=== PATIENT | male | born 1935 | race Caucasian/White ===

== ENCOUNTER → 2016-07-04 | Outpatient (REF) | payer MEDICARE ==
[~2016-07-04] MED LIST: BROV15NE IN; BUDE0.5S6 INH; ECOT81TA2 PO; FELO5TAB3 PO; IPRAINH INH; IPRASOL4 IN; LISI-538 PO; PRED5TA PO; PROTPAK PO; TYLE325T5 PO; XANA0.5T PO
[2016-07-04 17:38] LABS: PERCENT SATURATION 42.3 % (19.7-37.4)
== END ==
LOC: M LAB REF 16:22
PROVIDERS: ATTEND Internal Medicine
DX: D64.9 Anemia, unspecified (principal)

== ENCOUNTER 2016-09-04 18:00 | Inpatient (IN) | payer MEDICARE ==
[~2016-09-04] VITALS: Ht 172.7 cm; Wt 71.9 kg
[~2016-09-04 18:00] MED LIST changes: -BROV15NE IN; +BROV15NE INH; -ECOT81TA2 PO; +ECOT81TA5 PO
[2016-09-04] MEDS ORDERED: ONDANSETRON 4MG/2ML VIAL (J2405) IV ONE (19:45)
[2016-09-04] MEDS ORDERED: NS 500 ML IV ONE (19:45)
[2016-09-04 20:31] LABS: ALBUMIN/GLOBULIN RATIO 0.86 (1.00-1.93); BILIRUBIN,DIRECT 0.2 MG/DL (0.0-0.2); BILIRUBIN,TOTAL 0.8 MG/DL (0.2-1.0); CALCIUM LEVEL 8.4 MG/DL (8.8-10.2); CREATININE FOR GFR 1.69 MG/DL (0.70-1.30); GLOMERULAR FILTRATION RATE 41.5 (>35); POTASSIUM SERUM 4.1 MEQ/L (3.5-5.1); TOTAL PROTEIN 6.5 GM/DL (6.4-8.2)
[2016-09-04 20:39] LABS: BASO # 0.1 K/mm3 (0.0-0.2); BASO % 0.3 % (0.0-1.0); EOS % 0.2 % (0.0-3.0); LARGE UNSTAINED CELL # 0.1 K/mm3 (0.0-0.4); LARGE UNSTAINED CELL % 0.6 % (0.0-4.0); LYMPH # 0.5 K/mm3 (1.5-4.5); LYMPH % 2.4 % (24.0-44.0); MEAN CORPUSCULAR VOLUME 83.9 fl (80.0-96.0); MONO # 1.2 K/mm3 (0.0-0.8); MONO % 5.6 % (0.0-5.0); NEUTROPHILS # 19.5 K/mm3 (1.8-7.7); NEUTROPHILS % 90.8 % (36.0-66.0); PLATELET COUNT, AUTOMATED 207 k/mm3 (150-450); RED CELL DISTRIBUTION WIDTH 13.4 % (11.5-14.5); WHITE BLOOD COUNT 21.5 K/mm3 (4.0-10.0)
[2016-09-04] MEDS ORDERED: NS 1,000 ML IV ONE (20:45)
--- NOTE | 2016-09-04 22:50 | REPUSA ---
CLINICAL HISTORY: chest pain, abdominal pain, and THIAGO. TECHNIQUE: Multiple axial CT images were obtained through the abdomen and pelvis without administrat ion of oral or IV contrast material. COMMENTS: The liver is of uniform attenuation without mass or defect. There is no intra or extrahepatic biliar y ductal dilatation. The spleen is normal. Gallbladder is distended. There is evidence of inflamma tory stranding adjacent to the gallbladder. Acute cholecystitis is not excluded. Further evaluation is made with right upper quadrant ultrasound. There is colostomy noted in the left lower quadrant. Status post abdominal hernia repair. The pancreas is of normal contour and attenuation characterist ics. There is no evidence of adrenal mass. The kidneys are normal in size, shape and configuration. No renal or ureteral calculi are identified . There is no hydroureter or hydronephrosis. Several large exophytic cysts are present in the left kidney some containing wall calcifications. This measures up to 5 cm. There is no evidence for appendicitis. There is no bowel wall thickening. No evidence for small or large bowel obstruction. There is no evidence of abdominal ascites or lymphadenopathy. There is no evidence of intrinsic or extrinsic bladder mass. There is no pelvic ascites or lymphaden opathy. Prostate gland is moderately enlarged containing calcifications. Images of the lung bases show no evidence of pleural or parenchymal mass. There are no pleural effus ions. Bilateral lower lobe confluent opacities are present, suspicious for pneumonia. Pacemaker edi ds are noted. The bony structures are free of lytic or blastic lesions. IMPRESSION: 1. Gallbladder is distended. There is evidence of inflammatory stranding adjacent to the gallbladder . Acute cholecystitis is not excluded. Further evaluation is made with right upper quadrant ultraso und. 2. Several large exophytic cysts are present in the left kidney some containing wall calcifications. This measures up to 5 cm. 3. Prostate gland is moderately enlarged containing calcifications. 4. Bilateral lower lobe confluent opacities are present, suspicious for pneumonia. Thank you for your kind referral of this patient. We appreciate the opportunity to participate in thi s patient's care.
--- NOTE | 2016-09-04 23:10 | REPUSA ---
CLINICAL HISTORY: Chest pain, abdominal pain. TECHNIQUE: Multiple axial CT images were obtained through chest without IV contrast material. COMMENTS: Pacemaker is present in the left chest wall, tips in the right atrium and right ventricle. Opacities are present at both lung bases. Pneumonia is suspected. Bilateral calcified hilar lymph nodes are seen. 5 mm nodule is noted in the right upper lobe. Small hiatal hernia is present. There is no evidence of pleural or parenchymal-based mass. There are no pleural effusions. There is no evidence of hilar or mediastinal lymphadenopathy. The heart and great vessels are within normal limits. The visualized portions of the liver are of uniform attenuation without mass or defect. There is no intra or extrahepatic biliary ductal dilatation. The spleen is unremarkable. The visualized pancrea s is of normal contour and attenuation characteristics. There is no evidence of adrenal mass. The v isualized portions of the kidneys present no abnormalities. The bony structures are free of lytic or blastic lesions. Multilevel degenerative changes are seen i nvolving the thoracic spine. Scattered calcifications are seen involving the aorta and visualized grisel or branches compatible with atherosclerosis. IMPRESSION: Opacities are present at both lung bases. Pneumonia is suspected. 5 mm nodule is noted in the right upper lobe. Small hiatal hernia is present. Thank you for your kind referral of this patient. We appreciate the opportunity to participate in thi s patient's care.
[2016-09-04] MEDS ORDERED: IMIPENEM/CILASTATIN 500 MG in D5W MINI-BAG PLUS 100 ML IV ONE (23:30)
--- NOTE | 2016-09-05 01:10 | REPUSA ---
CLINICAL HISTORY: RUQ pain. TECHNIQUE: Realtime sonographic images were obtained in multiple projections. COMMENTS: The visualized liver is of uniform echo texture without evidence of mass or defect. There is no intra or extrahepatic biliary ductal dilatation. The common bile duct measures 5.5 mm. The gallbladder is distended containing multiple calculi. The gallbladder wall is thickened at gallbladder neck measurin g 5.3 mm and there is no pericholecystic fluid. The right kidney measures 11.1x4.8x5 cm. There is a cyst in the lower pole of the right kidney measur ing 1.6x1.6x2.6 cm. The visualized portions of the pancreas are unremarkable. IMPRESSION: Cholelithiasis. Thickening of the floor of the gallbladder at the level of the neck suspicious for mild inflammatory pathology. Thank you for your kind referral of this patient.
[2016-09-05] MEDS ORDERED: PROT1TAB2 PO (02:19)
[2016-09-05] MEDS ORDERED: ASPI81TAEC PO (02:22)
[2016-09-05] MEDS ORDERED: ALBU17IN2 INH (02:22)
[2016-09-05] MEDS ORDERED: ALBU83IN INH (02:22)
[2016-09-05] MEDS ORDERED: IPRATROPIUM 0.5MG/ALBUTEROL 2.5MG INH SOL UD 3ML (DUONEB)(J7620) NEB ONE (03:15)
[2016-09-05 03:28] VITALS: O2SAT 94
[2016-09-05] MEDS ORDERED: IPRATROPIUM 0.5MG/ALBUTEROL 2.5MG INH SOL UD 3ML (DUONEB)(J7620) NEB PRN (03:45)
[2016-09-05] MEDS ORDERED: ACETAMINOPHEN TAB 650MG DOSE (2X325MG) PO PRN ×2 (03:45)
[2016-09-05] MEDS ORDERED: ONDANSETRON 4MG/2ML VIAL (J2405) IV PRN (03:45)
[2016-09-05] MEDS ORDERED: PERCOCET 5MG/325MG TAB PO PRN (03:45)
[2016-09-05] MEDS ORDERED: ALBUTEROL SULFATE 2.5 MG/0.5 ML INH NEB SOLN INH PRN (03:45)
--- NOTE | 2016-09-05 03:50 | REPUSA ---
CLINICAL HISTORY: Edema. COMMENTS: Real time sonography with duplex doppler of the right lower extremity was performed with attention to the major deep venous structures. Evaluation reveals the right common femoral, superficial femoral and popliteal veins to be completely compressible without intraluminal thrombus. There is normal spontaneous phasic flow and augmentation . The greater saphenous/common femoral vein junction is patent. IMPRESSION: No evidence of DVT in right lower extremity. Thank you for your kind referral of this patient.
[2016-09-05 04:45] VITALS: BP 117/61
--- NOTE | 2016-09-05 04:55 | HPE ---
DATE OF ADMISSION: 09/05/2016 PRIMARY CARE PROVIDER: Dr. Mason Reed DIGITAL RETOUCHER: Dr. David Ovalle UROLOGIST: Dr. Sang Cullen HISTORY OF PRESENT ILLNESS: The patient is an 81-year-old man who had a cystoscopy for lower urinary tract symptoms a week ago. He had the procedure without complications and was in his usual state of health for the two days following the procedure, but shortly thereafter he began to have cough, shortness of breath he associates with back pain. The patient gives confusing history. He also tells me that he at the same time is having right upper quadrant abdominal pain which sometimes radiates around his previous ostomy site. The patient states that food irritates his abdomen. He denies associated chest pain, lightheadedness, or dizziness. The patient has had a coughing fit today which provoked him to have one episode of vomiting which prompted him to present to the emergency room. PAST MEDICAL HISTORY: 1. Colon cancer status post colon resection. 2. Diverticulitis with diverticular abscess. 3. Iron deficiency anemia. 4. Gastritis. 5. Hypertension. 6. Hypertensive heart disease. 7. Asthma. 8. Sinus reactive airway disease. 9. 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 10. Atrioventricular (AV) block status post pacemaker placement. 11. Gastroesophageal reflux disease. 12. Insomnia. PAST SURGICAL HISTORY: 1. Sigmoid colectomy with colostomy. 2. Appendectomy. 3. Cystoscopy. ALLERGIES: 1. CEPHALOSPORIN gives him hives. 2. CONTRAST MEDIA he has an allergy to as well. SOCIAL HISTORY: He is a nonsmoker. 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 He denies alcohol. He lives with his . FAMILY HISTORY: Noncontributory. REVIEW OF SYSTEMS: Negative other than history of present illness (HPI). HOME MEDICATIONS: - Proventil 167 two puffs inhaled four times a day as needed for shortness of breath - prednisone 5 mg daily - arformoterol tartrate (Brovana) 50 mcg nebulizer inhaled twice a day - acetaminophen 650 mg every four hours as needed pain - albuterol sulfate 2 mg four times a day as needed for shortness of breath - Xanax 0.5 mg twice a day as needed for insomnia - aspirin 81 mg daily - budesonide nebulizer 0.5 mg inhaled twice a day - lisinopril 20 mg daily - pantoprazole 40 mg daily PHYSICAL EXAMINATION: Temperature 99.2, pulse 69, respiratory rate 18, blood pressure 111/56, oxygen saturation 94% in room air. GENERAL: He was a pleasant, elderly, man sitting up on the stretcher. He tells me that is feeling better. He does not appear to be in any acute distress. HEENT: Cranial nerves II-XII appear to be grossly intact. He has fairly dry mucous membranes. No elevation of central venous pressure (CVP). CARDIOVASCULAR: S1, S2, regular. RESPIRATORY EXAM: He has a prolonged expiratory phase. No appreciable wheeze. No poor air movement. Diminished breath sounds. No focal auscultatory abnormalities. ABDOMEN: Obese. Past surgical scars. Peñaloza's sign is positive on the right. EXTREMITIES: No clubbing or cyanosis. He has 1+ edema on the right lower extremity. LABORATORY STUDIES: WBC 21.5, hemoglobin 12.1, hematocrit 39.1, platelet count is 207. Chemistry panel: Sodium 143, potassium 4.1, chloride 109, bicarbonate 27, BUN 24, creatinine 1.6. I do not have recent data, but I suspect that his baseline is closer is to 1.4. He has a CK of 214 and an equivocal troponin of 0.16, lipase within normal limits. Two sets of blood cultures are pending. IMAGING: The patient had a CT scan of the chest that reveals opacities present at both lung bases, pneumonia suspected. Small hiatal hernia. 5 mm pulmonary nodule in the right upper lobe. Patient also had a CT scan of the abdomen and pelvis which revealed gallbladder distended, evidence of inflammatory stranding adjacent to the gallbladder, acute cholecystitis unexcluded. Further evaluation with right upper quadrant ultrasound of the gallbladder which revealed thickening of the gallbladder, thickening of the floor of the gallbladder and neck suspicious for mild inflammatory process. ASSESSMENT AND PLAN: This is an 81-year-old man presenting with respiratory and abdominal symptoms suspicious for pneumonia. 1. Multifocal pneumonia. The patient is not febrile, not tachycardic. He does have a low-grade temperature. Given that his BUN is up somewhat and his advanced age, we will empirically treat him with imipenem which was provided in the emergency room. We will check polymerase chain reaction (PCR) panel to rule out any viral infections, and blood cultures have been drawn. 2. Asthma, reactive airway disease. Given his exam and multifocal pneumonia, I am more concerned for reactive airway disease, I will provide him with Solu-Medrol IV and nebulizer treatments. He is currently hypoxic requiring oxygen, which is new for him. 3. Biliary colic. Patient does not appear to have an acute cholecystitis. He does have a positive Peñaloza's sign and CT findings suggestive of this and focal inflammation; however, his alkaline phosphatase is within normal limits. His one episode of vomiting is more likely related to profuse coughing. I will keep him nothing by mouth and will consider clear liquid diet tomorrow. If his symptoms were to worsen and not improve, could consider general surgery consultation. 4. Troponinemia. Will admit him to the progressive care unit (PCU) and check an echocardiogram and trend his cardiac enzymes. He would likely benefit from outpatient stress testing. 5. Right lower extremity edema. We will check a duplex of the lower extremity. He tells me that his right leg sometimes swells up more than the other. He did not provide me with a duration of time for these symptoms which have occurred. His right leg is edematous while the left leg is not. 6. Hypertension. Hold his lisinopril given that he is likely having some acute kidney injury. 7. Acute kidney injury. Although we are unsure what his baseline is, I suspect that it is approximately 1.4. We will provide him with normal saline while he is nothing by mouth. 8. Gastroesophageal reflux disease. Continue with Protonix. 9. Insomnia. Continue with Xanax as needed. 10. Deep vein thrombosis (DVT) prophylaxis. The patient will be on heparin. DISPOSITION: The patient is admitted to the progressive care unit to Dr. Quintana's service who will continue to follow the patient at 7 a.m.
[2016-09-05] MEDS: NS 1,000 ML IV SCH ×2 (04:56→17:42)
[2016-09-05] MEDS: IMIPENEM/CILASTATIN 500 MG in D5W MINI-BAG PLUS 100 ML IV SCH ×4 (05:09→23:56)
[2016-09-05] MEDS: methylPREDNISolone INJ 125 MG/2 ML VIAL (J2930) IV SCH ×3 (05:09→21:46)
[2016-09-05 05:15] LABS: MEAN CORPUSCULAR HEMOGLOBIN 26.6 pg (27.0-33.0); MEAN CORPUSCULAR HGB CONC 31.2 g/dl (32.0-36.5); MEAN CORPUSCULAR VOLUME 85.3 fl (80.0-96.0); RED CELL DISTRIBUTION WIDTH 13.5 % (11.5-14.5); WHITE BLOOD COUNT 24.8 K/mm3 (4.0-10.0)
[2016-09-05 05:44] LABS: CALCIUM LEVEL 8.2 MG/DL (8.8-10.2); CREATININE FOR GFR 1.64 MG/DL (0.70-1.30); GLOMERULAR FILTRATION RATE 42.9 (>35); POTASSIUM SERUM 4.3 MEQ/L (3.5-5.1)
[2016-09-05 08:00] VITALS: BP 100/55
[2016-09-05] MEDS: PANTOPRAZOLE 40MG TAB (PROTONIX) PO SCH (08:14)
[2016-09-05] MEDS: ASPIRIN 81 MG ENTERIC TAB PO SCH (08:14)
[2016-09-05] MEDS: HEPARIN SOD (PORCINE) 5000 UNITS/ML VIAL SC SCH ×2 (08:15→21:46)
[2016-09-05] MEDS: BUDESONIDE 0.5 MG/2 ML INHALATION SUSPENSION INH SCH ×2 (08:19→19:53)
[2016-09-05] MEDS: IPRATROPIUM 0.5MG/ALBUTEROL 2.5MG INH SOL UD 3ML (DUONEB)(J7620) NEB SCH ×3 (08:19→19:53)
[2016-09-05] MEDS ORDERED: LISINOPRIL 20 MG TAB PO SCH (09:00)
--- NOTE | 2016-09-05 09:59 | ECGEPIP ---
Stationary ECG Study [facility] - ED Test Date: 2016-09-04 Pat Name: MASTER FREEMAN Department: Room: [place] [address] Gender: M [employer] Representative: deion : 1935 Requested By: TORI Ha Order Number: [id number] Reading MD: Rachelle White Measurements Intervals Mack Rate: 106 P: 73 [place]: 156 QRS: -80 QRSD: 157 T: 88 QT: 394 QTc: 525 Interpretive Statements ELECTRONIC VENTRICULAR PACEMAKER ABNORMAL RHYTHM ECG Electronically Signed On 09-05-2016 9:05:46 EDT by Rachelle White
--- NOTE | 2016-09-05 11:30 | ED PDOC ---
Provider Note radiology report faxed to Rachelle Kaufman MD Sep 05, 2016 11:30
[2016-09-05 12:00] VITALS: BP 104/55
[2016-09-05 16:00] VITALS: BP 100/55
[2016-09-05 20:00] VITALS: BP 106/55
--- NOTE | 2016-09-05 20:44 | CR ---
DATE OF CONSULTATION: 09/05/2016 REFERRING PHYSICIAN: Hiro Quintana MD INDICATION: Elevated troponin. HISTORY OF PRESENT ILLNESS: Mr. Altamirano is known to me. He is a very pleasant 81-year-old man who has a history of paroxysmal atrial fibrillation, status post pacemaker placement, but no established coronary artery disease. He presented to [facility] on 09/04/2016 after several hour episode of abdominal pain, nausea, vomiting. He said that his symptoms started on Sunday night. He went to the restaurant with his and had a hotdog and lithuanian fries. Apparently he did not like the meal very much and ate only very little. About approximately 30-45 minutes later when they were shopping he started developing fairly severe abdominal pain. The pain was principally localized in the suprapubic area and in both lower quadrants. It was steady. It did not have colicky character, but shortly thereafter started radiating towards the left upper quadrant around his colostomy site and then to his back. He said that he decided to go to car and wait for his there, but it was difficult even to lean against the seat with his back because it was triggering painful sensation. Shortly thereafter he started to have chills and eventually he had to have his drive him home because he was not able to drive himself. When he got home the symptoms slightly abated, but then came back. He continued to have chills, but also there was associated nausea and vomiting. He tells me that he vomited at least 3 or 4 times. He does not recall noticing any blood in the vomitus. There was never any chest discomfort and he did not feel short of breath. Eventually, when the symptoms persisted he came to the emergency room. Of note, he had a cystoscopy a week prior to this event, but the days following the procedure he was asymptomatic until Sunday. PAST MEDICAL HISTORY: 1. Paroxysmal atrial fibrillation. 2. Hypertension. 3. Chronic renal insufficiency. 4. History of atrioventricular (AV) block, status post pacemaker placement. 5. Crockett's esophagus. 6. Hypercholesterolemia. 7. Asthma. 8. History of colon cancer, status post partial colectomy and permanent colostomy. OUTPATIENT MEDICATIONS: According to my office records he is on aspirin 81 a day, felodipine 5, lisinopril 20, pantoprazole 40, prednisone 5, Pulmicort, probiotic and xanax 0.5 mg as needed for insomnia. ALLERGIES: CONTRAST, CEPHALOSPORINS. PAST SURGICAL HISTORY: Positive for: Cervical spine surgery. Colostomy. Cataract surgery. Pacemaker placement. Appendectomy. SOCIAL HISTORY: The patient is . He is retired from [employer]. He never smoked and never drank. FAMILY HISTORY: His father of colon cancer. There is no family history of early coronary artery disease. REVIEW OF SYSTEMS: On the review of systems he says that he felt perfectly fine until the onset of current illness. He has chronic mild exertional dyspnea, but does not have chest pain. Denies any recent palpitations. There is no history of stroke. He was anticoagulated with Eliquis until it was discontinued in May for iron deficiency anemia that was not ever fully elucidated. His pacemaker interrogations revealed only very rare and a brief episode of atrial fibrillation. No peripheral edema other than he noticed some right lower extremity edema that was mild in the last few days. No genitourinary symptoms. PHYSICAL EXAMINATION: Mr. Altamirano is a very pleasant man. He appears actually younger than his calendar age. He does not appear to be in any acute distress even though he still tells me that he is uncomfortable, but feels much better than prior days. Vital signs this morning, blood pressure 100/55, heart rate in 80s in sinus rhythm with ventricular pacing. He is afebrile. Saturation 94% on 2 liters of oxygen by nasal cannula. His weight was documented at 70 kg. He is alert and oriented and appropriate. His jugular venous pressure is not elevated. I do not appreciate carotid bruits. Lungs are clear to auscultation with good air movement. Heart exam reveals regular rhythm with paradoxically splitting second heart sound. I do not appreciate any murmur, gallop or rub. On abdominal examination, there is a colostomy in the left lower quadrant. The granulation appears intact. There is diffuse abdominal tenderness that is not particularly localizing, but I do not appreciate any guarding or rebound tenderness and the abdomen is soft. Bowel sounds are present. Extremities: Reveals mild right lower extremity edema. Good peripheral pulses. I do not appreciate any skin lesions. He is neurologically intact. LABORATORY: His WBC count is 24.7, hemoglobin 11.5, hematocrit 37 and platelet count 206,00, sedimentation rate is 57,000. Basic metabolic panel: Potassium 4.3, BUN 25, creatinine 1.6, glucose 104. His cardiac enzymes yesterday revealed a total CK 314 with CK-MB 2.6 and troponin-I 0.16. Subsequent troponin I 230 was 0.23. The CK this morning was 1250. CRP is elevated at 12.3, albumin is 3.0. Urine is positive for 1+ protein, 1+ glucose and trace ketones. There are some bacteria. Blood and urine cultures are pending. ECG revealed presence of sinus tachycardia with ventricular pacing. Right lower extremity Doppler was negative for deep venous thrombosis (DVT). CT of the chest was suggestive of bilateral lower lobe infiltrates, but no obvious dissection. Abdominal CT was suspicious for cholecystitis, but not overly convincing. The same applies for gallbladder ultrasound that revealed cholelithiasis and thickening of the floor of the gallbladder, but no convincing evidence for full-blown cholecystitis. ASSESSMENT/PLAN: Mr. Altamirano is an elderly man who has no history of coronary artery disease and who presents with fairly sudden onset of illness that is characterized by principally lower abdominal pain that eventually radiated to principally left upper quadrant and then to his back and persisted with variable intensity for several hours. Subsequently was associated with nausea, vomiting and chills. His WBC count is elevated, but is chronically on prednisone. Even though there is a trace troponin elevation, this overall story seems highly unlikely to represent acute ischemic event. It certainly looks suspicious for infectious etiology. I cannot rule out that it was a reaction to food poisoning but his ate the same food and is apparently doing well. At this point I think it is reasonable to continue cycling cardiac enzymes. Unfortunately, his ECG is not helpful because of principally ventricular paced rhythm. I do not believe that we need to anticoagulate the patient, but we will await his further clinical course. I do expect that the pathology that we will grow some pathogen either from blood or urine. Besides observation, at this point I do not recommend any further cardiac interventions. I will follow the patient with you. Thank you very much.
[2016-09-05] MEDS: ALPRAZolam 0.5 MG TAB PO PRN (22:32)
[2016-09-06] VITALS: BP 99/57
--- NOTE | 2016-09-06 00:33 | ECGEPIP ---
Stationary ECG Study [facility] Test Date: 2016-09-05 Pat Name: MASTER FREEMAN Department: Room: [place] [address] Gender: M Mother Superior: LUANNE : 1935 Requested By: BECKY HUFF Order Number: [id number] Reading MD: Cesario Marti Measurements Intervals Levan Rate: 67 P: 70 PA: 146 QRS: -79 QRSD: 166 T: 83 QT: 461 QTc: 488 Interpretive Statements ELECTRONIC ATRIO-VENTRICULAR PACEMAKER ABNORMAL RHYTHM ECG COMPARED TO THE LAST 3 TRACINGS IN THE SYSTEM, NO SIGNIFICANT CHANGES Electronically Signed On 09-06-2016 0:32:57 EDT by Cesario Marti
[2016-09-06] MEDS: IPRATROPIUM 0.5MG/ALBUTEROL 2.5MG INH SOL UD 3ML (DUONEB)(J7620) NEB SCH ×4 (01:27→19:29)
[2016-09-06 04:00] VITALS: BP 103/55
[2016-09-06] MEDS: IMIPENEM/CILASTATIN 500 MG in D5W MINI-BAG PLUS 100 ML IV SCH ×3 (05:16→18:02)
[2016-09-06] MEDS: methylPREDNISolone INJ 125 MG/2 ML VIAL (J2930) IV SCH ×3 (05:17→22:07)
[2016-09-06 05:22] LABS: MEAN CORPUSCULAR HEMOGLOBIN 26.5 pg (27.0-33.0); MEAN CORPUSCULAR HGB CONC 30.6 g/dl (32.0-36.5); MEAN CORPUSCULAR VOLUME 86.7 fl (80.0-96.0); RED CELL DISTRIBUTION WIDTH 13.5 % (11.5-14.5); WHITE BLOOD COUNT 23.2 K/mm3 (4.0-10.0)
[2016-09-06 06:05] LABS: CALCIUM LEVEL 7.7 MG/DL (8.8-10.2); CREATININE FOR GFR 1.5 MG/DL (0.70-1.30); GLOMERULAR FILTRATION RATE 47.6 (>35); POTASSIUM SERUM 4.5 MEQ/L (3.5-5.1)
[2016-09-06] MEDS: BUDESONIDE 0.5 MG/2 ML INHALATION SUSPENSION INH SCH ×2 (07:44→19:29)
--- NOTE | 2016-09-06 07:59 | ECHO ---
DATE OF PROCEDURE: 09/05/2016 REFERRING PHYSICIAN: Dr. Quintana. INDICATION: Dyspnea, elevated troponin. HEIGHT: 173 cm. WEIGHT: 67 kg. DIMENSION: IVS: 1.1 LV: 3.9 LVPW: 1.1 LA: 3.9 Aorta: 3.7 FINDINGS: The study is of good technical quality. The patient was in sinus rhythm with ventricular pacing. Left ventricle is normal size and contractility with estimated ejection fraction (EF) around 60%. There is subtle septal wall motion abnormality consistent with ventricular pacing. Right ventricle is normal size and systolic function. Both atria appear grossly normal. Aortic valve is tricuspid. It is mildly sclerotic and there is some restriction of leaflet mobility. There are also degenerative abnormalities of mitral valve with prominent mitral annular calcifications and some thickening of mitral leaflets. Also mobility is mildly restricted even though visualization was limited. Tricuspid valve appears normal. Pulmonic valve was not well visualized. There is an artifact in right atrium and right ventricle consistent with pacemaker electrode. No pericardial effusion is noted. Inferior vena cava is mildly dilated and has reduced collapse with respiration indicative of elevated central venous pressure. Aortic root is on upper limits of normal size. Aortic arch was not seen. The abdominal aorta appears normal. Doppler interrogation reveals mild aortic stenosis with peak gradient 27, mean gradient 16. There is also mild mitral stenosis with mean gradient across the valve 4 mmHg. Mild MR is also noted. Mild tricuspid insufficiency is seen. Calculated pulmonary artery pressure is at least in high 30s or low 40s corresponding to mild or possibly moderate pulmonary hypertension. Mitral inflow pattern and tissue Doppler imaging of mitral annulus reveal grade 1 diastolic dysfunction. CONCLUSIONS: 1. Study is of good technical quality. 2. Normal LV size and systolic function. Grade 1 diastolic dysfunction. 3. Mild aortic stenosis. 4. Mild mitral stenosis. 5. Elevated central venous pressure. 6. At least mild pulmonary hypertension. COMMENT: Subacute bacterial endocarditis (SBE) prophylaxis is not recommended. MTDD
[2016-09-06 08:00] VITALS: BP 93/56
[2016-09-06] MEDS: ASPIRIN 81 MG ENTERIC TAB PO SCH (08:19)
[2016-09-06] MEDS: PANTOPRAZOLE 40MG TAB (PROTONIX) PO SCH (08:19)
[2016-09-06] MEDS: HEPARIN SOD (PORCINE) 5000 UNITS/ML VIAL SC SCH ×2 (08:19→20:22)
--- NOTE | 2016-09-06 10:26 | IPN ---
DATE: 09/06/2016 Mr. Altamirano tells me that he has been feeling much better. The abdominal pain essentially completely resolved. He still has some pain on deep palpation in right lower quadrant but no other symptoms. No chest pain. No shortness of breath. Vital signs: Blood pressure 93/56. Heart rate is in 70s. He is afebrile. Saturation is 94% on 2 liters of oxygen by nasal cannula. His fluid balance was approximately equal or slightly positive. Weight is documented 73.5 kg, which actually is up since admission. He is alert and oriented and appropriate. His jugular venous pulse (JVP) is not elevated. Lungs are clear to auscultation with good air movement. Heart exam reveals regular rhythm, without gallop or rub. There is a systolic ejection murmur at the base that is quite faint. I do not appreciate any diastolic murmur. Abdomen again reveals intact colostomy site. There is mild palpation tenderness in the right lower quadrant. But no guarding and no rebound tenderness, and bowel sounds are good quality. Extremity are free of edema. Neurologically, he is intact. Laboratory arita: WBC count is 23.2 thousand, hemoglobin 10, hematocrit 32 and platelet count 200. Basic metabolic panel: Potassium 4.5, BUN 29, creatinine 1.5, GFR 47 and glucose 167. Troponin is down to 0.04 ASSESSMENT AND PLAN: Mr. Altamirano is an 81-year-old man who has no history of established coronary artery disease and who presented with fairly sudden onset of lower abdominal discomfort that eventually radiated toward the abdomen and his back. It was associated with profound shaking chills, nausea and vomiting. His symptoms essentially resolved without specific intervention. The diagnosis is uncertain. I wonder whether he could have passed a kidney stone. A somewhat surprising finding there was minimal troponin elevation. I suspect that it is related to the high stress when he was acutely ill. He does have virtually 100% ventricular pacing and consequently EKG is not helpful. His echocardiogram reveals preserved LV systolic function. At this point, I do not believe we will have to pursue that further. The story is certainly does not point towards heart as the likely etiology. I will see him on outpatient basis but I do not believe that my assistance is still necessary. He is mildly hypotensive and his antihypertensive medications are being held. BENEDICTO
[2016-09-06 14:30] VITALS: BP 119/61
[2016-09-06 22:00] VITALS: BP 140/71
[2016-09-06] MEDS: ALPRAZolam 0.5 MG TAB PO PRN (22:07)
[2016-09-07] MEDS: IMIPENEM/CILASTATIN 500 MG in D5W MINI-BAG PLUS 100 ML IV SCH ×5 (00:19→23:21)
[2016-09-07] MEDS: IPRATROPIUM 0.5MG/ALBUTEROL 2.5MG INH SOL UD 3ML (DUONEB)(J7620) NEB SCH ×4 (01:55→19:49)
[2016-09-07] MEDS: methylPREDNISolone INJ 125 MG/2 ML VIAL (J2930) IV SCH (05:46)
[2016-09-07 06:00] VITALS: BP 133/75
[2016-09-07 06:50] LABS: MEAN CORPUSCULAR HEMOGLOBIN 26.2 pg (27.0-33.0); MEAN CORPUSCULAR HGB CONC 31.3 g/dl (32.0-36.5); MEAN CORPUSCULAR VOLUME 83.8 fl (80.0-96.0); RED CELL DISTRIBUTION WIDTH 13.7 % (11.5-14.5); WHITE BLOOD COUNT 23.4 K/mm3 (4.0-10.0)
[2016-09-07 07:13] LABS: CALCIUM LEVEL 8.4 MG/DL (8.8-10.2); CREATININE FOR GFR 1.29 MG/DL (0.70-1.30); GLOMERULAR FILTRATION RATE 56.6 (>35); POTASSIUM SERUM 4.3 MEQ/L (3.5-5.1)
[2016-09-07] MEDS: BUDESONIDE 0.5 MG/2 ML INHALATION SUSPENSION INH SCH ×2 (07:26→19:49)
[2016-09-07] MEDS: HEPARIN SOD (PORCINE) 5000 UNITS/ML VIAL SC SCH ×2 (08:50→20:07)
[2016-09-07] MEDS: ASPIRIN 81 MG ENTERIC TAB PO SCH (08:50)
[2016-09-07] MEDS: PANTOPRAZOLE 40MG TAB (PROTONIX) PO SCH (08:50)
--- NOTE | 2016-09-07 13:37 | IPNPDOC ---
Subjective Date Seen The patient was seen on 09/06/16. Subjective Chief Complaint/HPI The patient is a 81-year-old male admitted with a reason for visit of Pna ( Pneumonia). Constitutional: Denies: Chills, Fever, Night Sweats Pulmonary: Denies: Cough, Dyspnea Cardiovascular: Denies: Chest Pain, Lt Headedness, Orthopnea, Palpitations, Paroxysmal Noc. Dyspnea Gastrointestinal: Reports: Abdominal Pain Objective Physical Examination General Exam: Positive: No Acute Distress Eye Exam: Positive: PERRLA Chest Exam: Positive: Clear to auscultation Heart Exam: Positive: Rate Normal Abdomen Exam: Positive: Normal bowel sounds, Soft, Negative: Hepatospenomegaly, Tenderness Extremity Exam: Positive: Normal pulses, Negative: Clubbing, Cyanosis, Edema Assessment /Plan Problems (1) Elevated troponin Status: Resolved (2) PNA (pneumonia) Status: Acute Response to Treatment: Improving (3) Hypoxic Status: Resolved (4) HTN (hypertension) Status: Chronic Response to Treatment: Stable (5) Lung nodule Status: Acute (6) Asthma Status: Acute (7) History of colon cancer Status: Chronic Response to Treatment: Stable Plan/VTE VTE Prophylaxis Ordered?: Yes VS, I&O, 24H, [facility] Vital Signs/I&O Vital Signs Date Time Temp Pulse Resp B/P Pulse Ox O2 Delivery O2 Flow Rate FiO2 09/06/16 15:01 Room Air 09/06/16 14:30 98.6 76 18 119/61 93 09/06/16 08:00 2.0 I&O- Last 24 Hours up to 6 AM 09/06/16 06:00 Intake Total 2770 ml Output Total 600 ml Balance 2170 ml Laboratory Data 24H LABS Laboratory Tests 2 09/06/16 04:57: Anion Gap 8, Blood Urea Nitrogen 29H, Creatinine 1.50H, Sodium Level 142, Potassium Level 4.5, Chloride Level 111H, Carbon Dioxide Level 23, Calcium Level 7.7L, Glomerular Filtration Rate 47.6, Troponin I 0.04# CBC/BMP Laboratory Tests 09/06/16 04:57 Calcium Level 7.7 L, Red Blood Count 3.77 L, Mean Corpuscular Volume 86.7, Mean Corpuscular Hemoglobin 26.5 L, Mean Corpuscular Hemoglobin Concent 30.6 L, Red Cell Distribution Width 13.5 Microbiology Microbiology 09/05/16 Blood Culture - Preliminary, Resulted No growth after 24 hours . All specim... 09/05/16 Blood Culture - Preliminary, Resulted No growth after 24 hours . All specim... 09/05/16 Respiratory Virus Panel (PCR) (JOLEEN) - Final, Complete 09/05/16 Urine Culture - Final, Complete DARSHAN NAVARRO DO Sep 06, 2016 20:20
--- NOTE | 2016-09-07 13:56 | IPNPDOC ---
Subjective Date Seen The patient was seen on 09/07/16. Subjective Chief Complaint/HPI The patient is a 81-year-old male admitted with a reason for visit of Pna ( Pneumonia). Events since last encounter pt seen and examined,feels better, no events overnight Objective Physical Examination General Exam: Positive: No Acute Distress Eye Exam: Positive: PERRLA Chest Exam: Positive: Clear to auscultation Heart Exam: Positive: Rate Normal Abdomen Exam: Positive: Normal bowel sounds, Soft, Negative: Hepatospenomegaly, Tenderness Extremity Exam: Positive: Normal pulses, Negative: Clubbing, Cyanosis, Edema Assessment /Plan Problems (1) Hypoxic Status: Resolved Problem Text: * less likely pneumonia * maybe secondary to copd exacerbation * will titrate solumedrol change to oral prednisone (2) Elevated troponin Status: Resolved (3) HTN (hypertension) Status: Chronic Response to Treatment: Stable (4) Lung nodule Status: Acute Problem Text: * follow up recommended (5) Asthma Status: Acute (6) History of colon cancer Status: Chronic Response to Treatment: Stable Plan/VTE VTE Prophylaxis Ordered?: Yes VS, I&O, 24H, [facility] Vital Signs/I&O Vital Signs Date Time Temp Pulse Resp B/P Pulse Ox O2 Delivery O2 Flow Rate FiO2 09/07/16 09:00 Room Air 09/07/16 06:00 98.1 84 16 133/75 92 09/06/16 08:00 2.0 I&O- Last 24 Hours up to 6 AM 09/07/16 06:00 Intake Total 1840 ml Output Total 775 ml Balance 1065 ml Laboratory Data 24H LABS Laboratory Tests 2 09/07/16 06:28: Anion Gap 10, Blood Urea Nitrogen 32H, Creatinine 1.29, Sodium Level 141, Potassium Level 4.3, Chloride Level 111H, Carbon Dioxide Level 20L, Calcium Level 8.4L, Glomerular Filtration Rate 56.6 CBC/BMP Laboratory Tests 09/07/16 06:28 Calcium Level 8.4 L, Red Blood Count 4.02 L, Mean Corpuscular Volume 83.8, Mean Corpuscular Hemoglobin 26.2 L, Mean Corpuscular Hemoglobin Concent 31.3 L, Red Cell Distribution Width 13.7 Microbiology Microbiology 09/05/16 Blood Culture - Preliminary, Resulted No Growth after 48 hours. All Specime... 09/05/16 Blood Culture - Preliminary, Resulted No Growth after 48 hours. All Specime... 09/05/16 Respiratory Virus Panel (PCR) (JOLEEN) - Final, Complete 09/05/16 Urine Culture - Final, Complete DARSHAN NAVARRO DO Sep 07, 2016 13:56
[2016-09-07 14:00] VITALS: BP 145/66
[2016-09-07] MEDS ORDERED: predniSONE 20 MG TAB PO SCH (21:00)
[2016-09-07 22:00] VITALS: BP 131/68
[2016-09-07] MEDS: ALPRAZolam 0.5 MG TAB PO PRN (23:21)
[2016-09-08] MEDS: IPRATROPIUM 0.5MG/ALBUTEROL 2.5MG INH SOL UD 3ML (DUONEB)(J7620) NEB SCH ×4 (01:26→20:19)
[2016-09-08 06:00] VITALS: BP 103/51
[2016-09-08 06:25] LABS: MEAN CORPUSCULAR HEMOGLOBIN 26.3 pg (27.0-33.0); MEAN CORPUSCULAR HGB CONC 31.2 g/dl (32.0-36.5); MEAN CORPUSCULAR VOLUME 84.4 fl (80.0-96.0); RED CELL DISTRIBUTION WIDTH 13.8 % (11.5-14.5)
[2016-09-08 06:38] LABS: CALCIUM LEVEL 8.3 MG/DL (8.8-10.2); CREATININE FOR GFR 1.34 MG/DL (0.70-1.30); GLOMERULAR FILTRATION RATE 54.2 (>35); POTASSIUM SERUM 4.2 MEQ/L (3.5-5.1)
[2016-09-08] MEDS: IMIPENEM/CILASTATIN 500 MG in D5W MINI-BAG PLUS 100 ML IV SCH ×4 (06:41→23:46)
[2016-09-08] MEDS: BUDESONIDE 0.5 MG/2 ML INHALATION SUSPENSION INH SCH ×2 (07:43→20:18)
[2016-09-08] MEDS: PANTOPRAZOLE 40MG TAB (PROTONIX) PO SCH (10:10)
[2016-09-08] MEDS: ASPIRIN 81 MG ENTERIC TAB PO SCH (10:10)
[2016-09-08] MEDS: HEPARIN SOD (PORCINE) 5000 UNITS/ML VIAL SC SCH ×2 (10:10→21:00)
[2016-09-08] MEDS: predniSONE 20 MG TAB PO SCH (10:10)
[2016-09-08] MEDS: FUROSEMIDE 40 MG/4 ML VIAL (J1940) IV SCH ×2 (10:11→18:39)
--- NOTE | 2016-09-08 10:27 | IPNPDOC ---
Subjective Date Seen The patient was seen on 09/08/16. Subjective Chief Complaint/HPI The patient is a 81-year-old male admitted with a reason for visit of Pna ( Pneumonia). Events since last encounter no new issues at present , off oxygen. abdominal pain resolved. Objective Physical Examination General Exam: Positive: No Acute Distress Eye Exam: Positive: PERRLA Chest Exam: Positive: Clear to auscultation Heart Exam: Positive: Rate Normal Abdomen Exam: Positive: Normal bowel sounds, Soft, Negative: Hepatospenomegaly, Tenderness Extremity Exam: Positive: Normal pulses, Negative: Clubbing, Cyanosis, Edema Assessment /Plan Problems (1) Multifocal pneumonia Status: Acute Problem Text: On imipenum day #5 . blood cultures negative (2) Hypoxic Status: Resolved Problem Text: * less likely pneumonia * maybe secondary to asthma exacerbation * will titrate solumedrol change to oral prednisone (3) Cholecystitis with cholelithiasis Status: Acute Problem Text: on imipenem , pain improved will need to follow with surgeon as outpatient. (4) Elevated troponin Status: Resolved (5) HTN (hypertension) Status: Chronic Response to Treatment: Stable (6) Lung nodule Status: Acute Problem Text: * follow up recommended (7) Asthma Status: Resolved Problem Text: had some acute exacerbation due to pneumonia now resolved. (8) History of colon cancer Status: Chronic Response to Treatment: Stable Problem Text: status post colon resection and has ostomy in place. (9) Renal cyst Status: Chronic Problem Text: Has exophytic renal cysts with calcification in the walsh on the left. . 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 (12) Diastolic CHF, chronic Status: Chronic Plan/VTE VTE Prophylaxis Ordered?: Yes VS, I&O, 24H, [facility] Vital Signs/I&O Vital Signs Date Time Temp Pulse Resp B/P Pulse Ox O2 Delivery O2 Flow Rate FiO2 09/07/16 22:00 99.5 91 18 131/68 91 Room Air 09/06/16 08:00 2.0 I&O- Last 24 Hours up to 6 AM 09/08/16 06:00 Intake Total 1380 ml Output Total 675 ml Balance 705 ml Laboratory Data 24H LABS Laboratory Tests 2 09/08/16 05:58: CBC/BMP Laboratory Tests 3/17/17 05:58 Red Blood Count 3.96 L, Mean Corpuscular Volume 84.4, Mean Corpuscular Hemoglobin 26.3 L, Mean Corpuscular Hemoglobin Concent 31.2 L, Red Cell Distribution Width 13.8 Microbiology Microbiology 09/05/16 Blood Culture - Preliminary, Resulted No Growth after 72 hours. All specime... 09/05/16 Blood Culture - Preliminary, Resulted No Growth after 72 hours. All specime... 09/05/16 Respiratory Virus Panel (PCR) (JOLEEN) - Final, Complete 09/05/16 Urine Culture - Final, Complete LATRICIA JARVIS MD Sep 08, 2016 06:34
[2016-09-08 14:00] VITALS: BP 117/65
[2016-09-08 22:00] VITALS: BP 131/75
[2016-09-08] MEDS: ALPRAZolam 0.5 MG TAB PO PRN (22:35)
[2016-09-09] MEDS: IPRATROPIUM 0.5MG/ALBUTEROL 2.5MG INH SOL UD 3ML (DUONEB)(J7620) NEB SCH ×2 (01:11→07:27)
[2016-09-09] MEDS: IMIPENEM/CILASTATIN 500 MG in D5W MINI-BAG PLUS 100 ML IV SCH ×2 (05:07→11:52)
[2016-09-09 06:00] VITALS: BP 136/95
[2016-09-09 06:36] LABS: MEAN CORPUSCULAR HEMOGLOBIN 25.7 pg (27.0-33.0); MEAN CORPUSCULAR VOLUME 82.9 fl (80.0-96.0); RED CELL DISTRIBUTION WIDTH 13.5 % (11.5-14.5)
[2016-09-09 06:49] LABS: CALCIUM LEVEL 8.5 MG/DL (8.8-10.2); CREATININE FOR GFR 1.48 MG/DL (0.70-1.30); GLOMERULAR FILTRATION RATE 48.3 (>35); POTASSIUM SERUM 3.5 MEQ/L (3.5-5.1)
[2016-09-09] MEDS: BUDESONIDE 0.5 MG/2 ML INHALATION SUSPENSION INH SCH (07:27)
[2016-09-09] MEDS: FUROSEMIDE 40 MG/4 ML VIAL (J1940) IV SCH (09:21)
[2016-09-09] MEDS: HEPARIN SOD (PORCINE) 5000 UNITS/ML VIAL SC SCH (09:21)
[2016-09-09] MEDS: PANTOPRAZOLE 40MG TAB (PROTONIX) PO SCH (09:22)
[2016-09-09] MEDS: predniSONE 20 MG TAB PO SCH (09:22)
[2016-09-09] MEDS: ASPIRIN 81 MG ENTERIC TAB PO SCH (09:22)
[2016-09-09] MEDS ORDERED: PRED10TA PO (09:23)
[2016-09-09] MEDS ORDERED: NYST50SS SS (12:23)
--- NOTE | 2016-09-14 15:09 | DSES ---
DATE OF ADMISSION: 09/05/2016 DATE OF DISCHARGE: 09/09/2016 REASON FOR ADMISSION: Pneumonia. FINAL DIAGNOSES: 1. Multifocal pneumonia. 2. Hypoxia. 3. Cholecystitis. 4. Elevated troponin. 5. Hypertension. 6. Lung nodule. 7. Asthma. 8. History of colon cancer. 9. Renal cyst. 10. History of pacemaker. 11. Valvular heart disease. 12. Diastolic congestive heart failure, stable. PRIMARY CARE PROVIDER: Dr. Reed SOFT WORK CIGAR MACHINE OPERATOR: Dr. Ovalle UROLOGIST: Dr. Cullen HISTORY OF PRESENT ILLNESS: The patient is an 81-year-old male with a past medical history significant for history of colon cancer, diverticulitis, iron-deficiency anemia, gastritis, hypertension, hypertensive heart disease, asthma, AV block, status post pacemaker, lung disease, gastroesophageal reflux disease, who presented to the emergency room complaining of lower urinary symptoms for about a week. The patient had a procedure without any complication. He had a cystoscopy 2 days following the procedure; however, he began to develop a cough, shortness of breath associated with back pain. He states he also had right upper quadrant abdominal pain. The patient was admitted. He was found to also have elevated troponins, which were only elevated initially. He was seen by Dr. Ovalle, who figured the patient's elevated troponin was likely due to hypotension found on admission. The patient also had an incidental finding of a lung nodules that he needs to followup outpatient. He continued to have symptoms of pneumonia, which was treated with ertapenem while in the hospital. Once the patient's fever and symptoms resolved, he was discharged home. He is to followup with his primary care provider in 1 week. The patient is to followup on a lung nodule outpatient. He recalls may be having been told he had a lung nodule by his balloon maker, Dr. Ni. He stated he will follow up with Dr. Ni. Diet is regular. Activities as tolerated. Discharge medications include: - prednisone as directed for a taper - Tylenol 650 mg by mouth every 4 hours as needed for pain - nystatin swish and swallow as needed - albuterol 2.5 mg inhaled four times a day as needed for shortness of breath - Xanax 0.5 mg by mouth twice a day as needed for insomnia - Brovana 15 mcg inhaled twice a day - aspirin 81 mg by mouth daily - lisinopril 20 mg by mouth daily - Protonix 40 mg by mouth daily After the prednisone taper, the patient is to go back on prednisone 5 mg by mouth daily. Discharge condition is stable.
== END 2016-09-09 13:59 | disposition home or self-care (01) | DRG 194 ==
LOC: M ED 19:06 → M ED INP 09-05 03:35 → M ICU 09-05 04:44 → M MSPAV 09-06 14:22
PROVIDERS: ADMIT Internal Medicine; ATTEND Internal Medicine
DX: J18.9 Pneumonia, unspecified organism (principal); N17.9 Acute kidney failure, unspecified; J45.901 Unspecified asthma with (acute) exacerbation; I50.32 Chronic diastolic (congestive) heart failure; D50.9 Iron deficiency anemia, unspecified; I11.0 Hypertensive heart disease with heart failure; K21.9 Gastro-esophageal reflux disease without esophagitis; G47.00 Insomnia, unspecified; I44.30 Unspecified atrioventricular block; E66.9 Obesity, unspecified; K80.50 Calculus of bile duct without cholangitis or cholecystitis without obstruction; R60.0 Localized edema; I48.0 Paroxysmal atrial fibrillation; K22.70 Barrett's esophagus without dysplasia; E78.00 Pure hypercholesterolemia, unspecified; R91.1 Solitary pulmonary nodule; R09.02 Hypoxemia; N28.1 Cyst of kidney, acquired; I08.0 Rheumatic disorders of both mitral and aortic valves; Z85.038 Personal history of other malignant neoplasm of large intestine; Z93.3 Colostomy status; Z90.49 Acquired absence of other specified parts of digestive tract; Z91.041 Radiographic dye allergy status; Z95.0 Presence of cardiac pacemaker; Z79.82 Long term (current) use of aspirin; Z79.52 Long term (current) use of systemic steroids; Z79.899 Other long term (current) drug therapy; Z88.1 Allergy status to other antibiotic agents

== ENCOUNTER 2016-10-09 09:14 | Inpatient (IN) | payer MEDICARE ==
[~2016-10-09] VITALS: Ht 175.3 cm; Wt 73.7 kg
[~2016-10-09 09:14] MED LIST changes: +ALBU17IN2 INH; +ALBU83IN INH; +ASPI81TAEC PO; +NYST50SS SS; +PRED10TA PO; +PROT1TAB2 PO
[2016-10-09] MEDS ORDERED: ZOLO100T PO (09:32)
[2016-10-09] MEDS ORDERED: CLAR10CA3 PO (09:32)
[2016-10-09] MEDS ORDERED: IPRASOL4 INH (09:32)
[2016-10-09] MEDS ORDERED: MULT1TAB10 PO (09:32)
[2016-10-09] MEDS ORDERED: PULM0.5S INH (09:32)
[2016-10-09] MEDS ORDERED: IPRATROPIUM 0.5MG/ALBUTEROL 2.5MG INH SOL UD 3ML (DUONEB)(J7620) NEB ONE (10:15)
[2016-10-09] MEDS ORDERED: methylPREDNISolone INJ 125 MG/2 ML VIAL (J2930) IV ONE (10:15)
[2016-10-09 10:33] LABS: ABG BASE EXCESS -1.8 (-2.0-2.0); ABG HCO3 21.2 MEQ/L (22.0-26.0); ABG PARTIAL PRESSURE CO2 31.1 mmHg (35.0-45.0); ABG PARTIAL PRESSURE O2 56.5 mmHg (75.0-100.0); ABG STANDARD HCO3 22.8 MEQ/L (22.0-26.0); ABG TOTAL CO2 22.1 MEQ/L (23.0-31.0); ABG pH (ARTERIAL) 7.451 UNITS (7.350-7.450)
[2016-10-09 10:45] LABS: BASO % 0.2 % (0.0-1.0); EOS # 0.1 K/mm3 (0.0-0.50); EOS % 0.5 % (0.0-3.0); LARGE UNSTAINED CELL # 0.1 K/mm3 (0.0-0.4); LARGE UNSTAINED CELL % 0.8 % (0.0-4.0); LYMPH # 0.6 K/mm3 (1.5-4.5); LYMPH % 4.7 % (24.0-44.0); MEAN CORPUSCULAR HEMOGLOBIN 26.1 pg (27.0-33.0); MEAN CORPUSCULAR VOLUME 86.8 fl (80.0-96.0); MONO # 0.7 K/mm3 (0.0-0.8); MONO % 6.1 % (0.0-5.0); NEUTROPHILS # 10.6 K/mm3 (1.8-7.7); NEUTROPHILS % 87.7 % (36.0-66.0); PLATELET COUNT, AUTOMATED 235 k/mm3 (150-450); RED CELL DISTRIBUTION WIDTH 15.1 % (11.5-14.5); WHITE BLOOD COUNT 12.1 K/mm3 (4.0-10.0)
[2016-10-09] MEDS ORDERED: NS 500 ML IV ONE (11:00)
--- NOTE | 2016-10-09 11:10 | REP ---
Portable chest x-ray: Single view. History: Dyspnea and cough. Comparison chest x-ray May 19, 2015. Findings: EKG monitoring electrodes are seen. A dual lead pacemaker is seen in the right heart via the left side. The patient is status post ventral discectomy and fusion plating in the cervical spine. There is mild linear fibrosis in each lung base. Left hemidiaphragm remains slightly elevated. No infiltrate is seen. Pulmonary vasculature is not increased. Impression: Pacemaker. Somewhat elevated left hemidiaphragm with mild bibasilar linear fibrosis. Otherwise no acute disease. Signed by Greg Shirley MD 10/09/2016 12:09 P
[2016-10-09 11:12] LABS: ALBUMIN 2.6 GM/DL (3.2-5.2); ALBUMIN/GLOBULIN RATIO 0.68 (1.00-1.93); ALKALINE PHOSPHATASE 177 U/L (45-117); ALT/SGPT 170 U/L (12-78); ANION GAP 8 MEQ/L (8-16); AST/SGOT 272 U/L (15-37); BILIRUBIN,DIRECT 1.7 MG/DL (0.0-0.2); BILIRUBIN,TOTAL 2.4 MG/DL (0.2-1.0); BLOOD UREA NITROGEN 21 MG/DL (7-18); CALCIUM LEVEL 7.9 MG/DL (8.8-10.2); CARBON DIOXIDE LEVEL 27 MEQ/L (21-32); CHLORIDE LEVEL 106 MEQ/L (98-107); CREATININE FOR GFR 1.88 MG/DL (0.70-1.30); GLOMERULAR FILTRATION RATE 36.7 (>35); GLUCOSE, FASTING 110 MG/DL (83-110); POTASSIUM SERUM 4.6 MEQ/L (3.5-5.1); SODIUM LEVEL 141 MEQ/L (136-145); TOTAL PROTEIN 6.4 GM/DL (6.4-8.2)
[2016-10-09] MEDS ORDERED: AMPICILLIN SOD/SULBACTAM SOD 3 GM in D5W MINI-BAG PLUS 100 ML IV ONE (12:30)
[2016-10-09] MEDS ORDERED: DILUENT IV ONE (12:30)
[2016-10-09] MEDS ORDERED: NS IV ONE (12:30)
[2016-10-09 12:54] LABS: INR 1.06
--- NOTE | 2016-10-09 13:51 | REP ---
Right upper quadrant sonography: History: Sepsis and elevated liver function studies. Comparison study: September 05, 2016. Findings: Scanning through the right upper quadrant of the abdomen again demonstrates multiple shadowing calculi in the gallbladder lumen. The gallbladder wall is rather thickened up to 4 mm. There is evidence of fluid within the wall of the gallbladder. No gallbladder mass lesion is appreciated. No tenderness to scanning over the gallbladder. Common bile duct is normal measuring 0.3 cm in greatest diameter. No focal liver lesion is seen. Pancreas is largely obscured by abdominal gas. There is no evidence of ascites. There are two cysts in the right kidney measuring 0.9 cm and 2.9 cm in greatest diameter. The right kidney measures 11.0 x 4.3 x 4.3 cm. No hydronephrosis. Impression: Cholelithiasis. Diffuse gallbladder wall thickening. No tenderness to scanning. Normal CBD. Signed by Greg Shirley MD 10/09/2016 06:26 P
[2016-10-09] MEDS ORDERED: LISI40TAB PO (15:06)
[2016-10-09] MEDS ORDERED: VITMTA PO (15:06)
[2016-10-09] MEDS ORDERED: VITA500046 PO (15:06)
[2016-10-09 15:09] VITALS: BP 93/53
[2016-10-09 18:58] VITALS: BP 112/65
[2016-10-09] MEDS: NS 1,000 ML IV SCH (19:05)
[2016-10-09] MEDS ORDERED: IPRATROPIUM 0.5MG/ALBUTEROL 2.5MG INH SOL UD 3ML (DUONEB)(J7620) NEB PRN (19:15)
[2016-10-09] MEDS ORDERED: LORATADINE 10 MG TAB PO PRN (19:15)
[2016-10-09] MEDS ORDERED: ACETAMINOPHEN TAB 650MG DOSE (2X325MG) PO PRN (19:15)
--- NOTE | 2016-10-09 19:58 | HPE ---
DATE OF ADMISSION: 10/09/2016 PRIMARY CARE PROVIDER: Dr. Reed ATTENDING PHYSICIAN: Dr. Belcher REASON FOR ADMISSION: Abdominal pain and vomiting. HISTORY OF PRESENT ILLNESS: The patient is an 81-year-old male, presented to the emergency room complaining of abdominal pain, nausea, vomiting since this morning. He stated he woke up this morning, was eating breakfast, having cough ad then he started to have left upper quadrant pain and nausea and vomiting. He presented to the emergency room, underwent a gallbladder ultrasound which showed cholelithiasis and gallbladder wall thickening. The patient had elevated liver function tests (LFTs) as well as alkaline phosphatase. Hospitalist was called for the admission. The patient was also complaining of fevers and chills at home and some shortness of breath. In the emergency room he was started on oxygen and was given a breathing treatment and has improved his symptoms. REVIEW OF SYSTEMS: 12-point review of systems was obtained all of which was negative except for those mentioned above. PAST MEDICAL HISTORY: Significant for history of colon cancer status post colon resection, diverticulitis status post diverticular abscess, iron deficiency anemia, gastritis, hypertension, hyperlipidemia, hypertensive heart disease, asthma, AV block status post pacemaker, gastroesophageal reflux disease, insomnia. Recently was admitted for multifocal pneumonia. PAST SURGICAL HISTORY: Significant for sigmoid colectomy with colostomy, appendectomy, cystectomy. ALLERGIES: To CEPHALOSPORINS reaction hives and CONTRAST MEDIA reaction hives. SOCIAL HISTORY: The patient is a nonsmoker. Used to work in [employer], retired. Denies alcohol use. Lives at home with his . FAMILY HISTORY: Noncontributory. HOME MEDICATIONS: Include: - Tylenol 650 mg every 4 hours as needed for pain - albuterol two puffs inhaled four times a day as needed for shortness of breath - Xanax 0.5 mg by mouth twice a day as needed for anxiety - Brovana 15 mcg inhaled twice a day - aspirin 81 mg by mouth three times a week - Pulmicort 0.5 mg inhaled twice a day - vitamin D 5000 units by mouth every third day - lisinopril 40 mg daily - Claritin 10 mg by mouth daily - vitamin one tablet by mouth every third day - Protonix 40 mg at bedtime - prednisone 5 mg by mouth daily PHYSICAL FINDINGS: Vital signs on admission: Temperature 99.9, pulse 62, respiratory rate 20, blood pressure 100/50, pulse oximetry 84% on room air. HEENT: Pupils equal, round, reactive to light and accommodation. Neck: Supple. No jugular venous distention (JVD). Lugns: Clear to auscultation bilaterally. Cardiac: Regular rate and rhythm. Abdomen: Decreased bowel sounds. Mild tenderness to palpation. Soft. Colostomy bag intact. Extremities: No clubbing, cyanosis or edema. Neurologic: Cranial nerves II-XII grossly intact. No focal deficits. LABORATORY FINDINGS: WBC is 12.1, hemoglobin 12.4, hematocrit 41.2, platelet count 235, sodium 141, potassium 4.6, chloride 106, BUN 21, creatinine 1.88, fasting glucose 110, lactic acid 2. Total bilirubin 2.4, direct bilirubin 1.7, AST 272, alkaline phosphatase 177, ALT 170. Troponin negative times two sets. C-reactive protein 1.96, lipase was 176, INR 1.06. Urinalysis was cloudy in appearance, +1 bacteria, WBCs 25, negative nitrite, negative leukocyte esterase. Blood gas was also obtained, pH 7.45, pCO2 31.1, pO2 56.5, bicarbonate 21.2. Chest x-ray showed pacemaker otherwise somewhat elevated left hemidiaphragm with mild bibasilar linear fibrosis, otherwise no acute disease. Gallbladder ultrasound showed cholelithiasis, diffuse gallbladder wall thickening, no tenderness to scanning, normal common bile duct. ASSESSMENT/PLAN: 1. Abdominal pain, nausea, vomiting, which has now resolved. The patient may have passed a gallstone. We will consult Dr. Carlson. Will continue to keep the patient on IV fluids. Continue clear liquid diet in the meantime. 2. Shortness of breath, hypoxia on arterial blood gas (ABG). The patient was recently diagnosed for multifocal pneumonia. Will continue the patient on DuoNebs, Solu-Medrol, incentive spirometer. Continue oxygen to keep saturation above 88. 3. History of hypertension. Continue the patient's home medications. 4. Leukocytosis. May be secondary to cholelithiasis. Continue to monitor. Continue IV antibiotics. The patient received one dose of Unasyn in the emergency room. We will continue the patient on Zosyn. Cultures are pending, urine and blood. 5. Abnormal urinalysis. Urine cultures are pending. 6. Fibrotic lung disease. Continue patient's DuoNebs, Proventil, prednisone 5 mg. 7. Deep venous thrombosis (DVT) prophylaxis. Sequential compression devices (SCDs) while in bed.
[2016-10-09] MEDS: BUDESONIDE 0.5 MG/2 ML INHALATION SUSPENSION INH SCH (20:00)
[2016-10-09] MEDS: IPRATROPIUM 0.5MG/ALBUTEROL 2.5MG INH SOL UD 3ML (DUONEB)(J7620) NEB SCH (20:00)
[2016-10-09] MEDS: LISINOPRIL 40 MG TAB PO SCH (20:39)
[2016-10-09] MEDS: PIPERACILLIN/TAZOBACTAM SOD 3.375 GM in D5W MINI-BAG PLUS 50 ML IV SCH (20:39)
[2016-10-09] MEDS: PANTOPRAZOLE 40MG TAB (PROTONIX) PO SCH (20:39)
[2016-10-09] MEDS: methylPREDNISolone INJ 125 MG/2 ML VIAL (J2930) IV SCH (20:39)
[2016-10-09] MEDS: ALPRAZolam 0.5 MG TAB PO PRN (22:56)
[2016-10-09 23:45] VITALS: BP 100/59
[2016-10-10] MEDS: PIPERACILLIN/TAZOBACTAM SOD 3.375 GM in D5W MINI-BAG PLUS 50 ML IV SCH ×4 (01:52→20:22)
[2016-10-10] MEDS: IPRATROPIUM 0.5MG/ALBUTEROL 2.5MG INH SOL UD 3ML (DUONEB)(J7620) NEB SCH ×4 (02:14→20:06)
[2016-10-10 03:53] VITALS: BP 96/57
[2016-10-10] MEDS: methylPREDNISolone INJ 125 MG/2 ML VIAL (J2930) IV SCH ×3 (04:37→20:22)
--- NOTE | 2016-10-10 04:53 | ECGEPIP ---
Stationary ECG Study [facility] - ED Test Date: 2016-10-09 Pat Name: MASTER FREEMAN Department: Room: - Gender: M Reconnaissance Crewmember: NGUYEN : [id number] Requested By: Kehinde Marie Order Number: [id number] Reading MD: Kehinde Guillen Measurements Intervals [place] Rate: 63 P: -10 SD: 172 QRS: -86 QRSD: 130 T: 184 QT: 475 QTc: 489 Interpretive Statements ELECTRONIC ATRIAL PACEMAKER ELECTRONIC VENTRICULAR PACEMAKER ABNORMAL RHYTHM ECG SIMILAR TO 09/05/16 Electronically Signed On 10-10-2016 4:53:44 EDT by Kehinde Guillen
--- NOTE | 2016-10-10 04:56 | ECGEPIP ---
Stationary ECG Study [facility] - ED Test Date: 2016-10-09 Pat Name: MASTER FREEMAN Department: Room: - Gender: M Unionmelt Operator: deion : 1935 Requested By: Kehinde Marie Order Number: [id number] Reading MD: Kehinde Guillen Measurements Intervals [place] Rate: 111 P: 39 [place]: 176 QRS: -81 QRSD: 154 T: 92 QT: 392 QTc: 533 Interpretive Statements ELECTRONIC VENTRICULAR PACEMAKER ABNORMAL RHYTHM ECG INCREASED RATE COMPARED TO PRIOR ON SAME DATE Electronically Signed On 10-10-2016 4:55:57 EDT by Kehinde Guillen
[2016-10-10 05:27] LABS: MEAN CORPUSCULAR HEMOGLOBIN 26.2 pg (27.0-33.0); MEAN CORPUSCULAR HGB CONC 29.7 g/dl (32.0-36.5); MEAN CORPUSCULAR VOLUME 88.3 fl (80.0-96.0); RED CELL DISTRIBUTION WIDTH 15.3 % (11.5-14.5); WHITE BLOOD COUNT 14.9 K/mm3 (4.0-10.0)
[2016-10-10 05:44] LABS: ALBUMIN 2.1 GM/DL (3.2-5.2); ALBUMIN/GLOBULIN RATIO 0.66 (1.00-1.93); ALKALINE PHOSPHATASE 154 U/L (45-117); ALT/SGPT 198 U/L (12-78); ANION GAP 7 MEQ/L (8-16); AST/SGOT 195 U/L (15-37); BILIRUBIN,TOTAL 2.3 MG/DL (0.2-1.0); BLOOD UREA NITROGEN 23 MG/DL (7-18); CARBON DIOXIDE LEVEL 23 MEQ/L (21-32); CHLORIDE LEVEL 113 MEQ/L (98-107); CREATININE FOR GFR 1.78 MG/DL (0.70-1.30); GLOMERULAR FILTRATION RATE 39.1 (>35); GLUCOSE, FASTING 160 MG/DL (83-110); MAGNESIUM LEVEL 2.2 MG/DL (1.8-2.4); POTASSIUM SERUM 4.7 MEQ/L (3.5-5.1); SODIUM LEVEL 143 MEQ/L (136-145); TOTAL PROTEIN 5.3 GM/DL (6.4-8.2)
[2016-10-10] MEDS: BUDESONIDE 0.5 MG/2 ML INHALATION SUSPENSION INH SCH ×2 (07:10→20:06)
[2016-10-10 08:00] VITALS: BP 105/57
[2016-10-10] MEDS: LISINOPRIL 40 MG TAB PO SCH (08:36)
[2016-10-10] MEDS: NS 1,000 ML IV SCH (08:36)
[2016-10-10 09:30] LABS: BILIRUBIN,DIRECT 1.8 MG/DL (0.0-0.2)
--- NOTE | 2016-10-10 11:08 | IPN ---
DATE: 10/10/2016 Patient is seen and examined at bedside. Chart has been reviewed. Patient has no complaints of chest pain, tightness, or shortness of breath. No nausea or vomiting. Tolerating clear liquid diet. Denies any epigastric or right upper quadrant abdominal pain. Ultrasound of the gallbladder shows no tenderness to scanning, normal common bile duct, cholelithiasis with diffuse gallbladder wall thickening. No other issues per nursing overnight. VITAL SIGNS: Temperature 98.4, pulse 78, respiratory rate 18, blood pressure 105/57, 96% on room air. LUNGS: Clear to auscultation; no wheezing, rales, or rhonchi. HEART: S1, S2, sinus rhythm. ABDOMEN: Soft, nontender, nondistended, positive bowel sounds. Colostomy. EXTREMITIES: No cyanosis or clubbing or pitting edema. LABORATORY DATA: White count 14.9, hemoglobin 10, hematocrit 34, platelet count 187, sodium 143, potassium 4.2, chloride 113, bicarbonate 23, BUN 23, creatinine 1.78, glucose of 160. Previous creatinine is 1.8. Magnesium 2.2. T bilirubin 2.3. Direct bilirubin 1.88. AST 195, ALT 198, alkaline phosphatase 154. Total CK is 76. CK-MB 1.9. Troponin I less than 0.02. ASSESSMENT AND PLAN: This is an 81-year-old male with a history of colon cancer status post resection, diverticular abscess, sigmoid colectomy with colostomy, gastritis, hypertension, iron deficiency anemia, hyperlipidemia, hypertensive heart disease, AV block status post pacer, reflux, multifocal pneumonia previously presents with abdominal pain and vomiting found to have cholelithiasis with normal common bile duct (CBD). CURRENT ISSUES: 1. Cholelithiasis. Tolerating clear liquid diet. Defer to surgery for any intervention. 2. Colostomy. HIDA scan or referral to gastrointestinal (GI) for ERCP if worsening jaundice. At this time continue with clear diet. He has no pain on exam. Tolerating oral intake. 3. History of colon cancer. Status post resection with colostomy, stable, tolerating diet well. 4. Iron deficiency anemia. Stable hemoglobin and hematocrit. No acute indication for RBC transfusion. 5. Hypertension, stable. Continue home medication, lisinopril. 6. History of AV block status post pacemaker. 7. History of reflux disease, stable. 8. History of insomnia, chronic. 9. History of chronic obstructive pulmonary artery disease (COPD). Continue on Pulmicort twice a day as needed nebulizers and currently Solu-Medrol rapid tapering.
[2016-10-10 12:00] VITALS: BP 99/58
[2016-10-10 16:00] VITALS: BP 101/55
[2016-10-10 20:00] VITALS: BP 111/60
[2016-10-10] MEDS: PANTOPRAZOLE 40MG TAB (PROTONIX) PO SCH (20:21)
[2016-10-10] MEDS: ALPRAZolam 0.5 MG TAB PO PRN (23:05)
[2016-10-11] VITALS: BP 99/60
[2016-10-11] MEDS: PIPERACILLIN/TAZOBACTAM SOD 3.375 GM in D5W MINI-BAG PLUS 50 ML IV SCH ×4 (02:05→20:00)
[2016-10-11] MEDS: IPRATROPIUM 0.5MG/ALBUTEROL 2.5MG INH SOL UD 3ML (DUONEB)(J7620) NEB SCH ×4 (02:16→20:20)
[2016-10-11 04:00] VITALS: BP 112/58
[2016-10-11] MEDS: methylPREDNISolone INJ 125 MG/2 ML VIAL (J2930) IV SCH (05:14)
[2016-10-11] MEDS: NS 1,000 ML IV SCH (05:15)
[2016-10-11 05:59] LABS: MEAN CORPUSCULAR HEMOGLOBIN 25.5 pg (27.0-33.0); MEAN CORPUSCULAR HGB CONC 29.1 g/dl (32.0-36.5); MEAN CORPUSCULAR VOLUME 87.4 fl (80.0-96.0); RED CELL DISTRIBUTION WIDTH 15.5 % (11.5-14.5); WHITE BLOOD COUNT 21.6 K/mm3 (4.0-10.0)
[2016-10-11 06:18] LABS: ALBUMIN 2.2 GM/DL (3.2-5.2); ALBUMIN/GLOBULIN RATIO 0.71 (1.00-1.93); BILIRUBIN,TOTAL 0.5 MG/DL (0.2-1.0); CALCIUM LEVEL 7.3 MG/DL (8.8-10.2); CREATININE FOR GFR 1.84 MG/DL (0.70-1.30); GLOMERULAR FILTRATION RATE 37.6 (>35); MAGNESIUM LEVEL 2.3 MG/DL (1.8-2.4); POTASSIUM SERUM 4.1 MEQ/L (3.5-5.1); TOTAL PROTEIN 5.3 GM/DL (6.4-8.2)
[2016-10-11] MEDS: BUDESONIDE 0.5 MG/2 ML INHALATION SUSPENSION INH SCH ×2 (07:28→20:20)
[2016-10-11 08:00] VITALS: BP 126/60
[2016-10-11] MEDS: D5W/0.45% SODIUM CHLORIDE 1,000 ML IV SCH (08:09)
--- NOTE | 2016-10-11 10:29 | IPN ---
DATE: 10/11/2016 The patient is seen and examined at the bedside. Chart has been reviewed. The patient denies any complaints of nausea, vomiting. Tolerating clear liquid diet. No significant abdominal pain, chest pain, pressure, tightness, dizziness, lightheadedness, shortness of breath. Denies any epigastric, right upper quadrant abdominal pain currently. Ultrasound of the gallbladder shows no tenderness to scanning. Normal common bile duct, cholelithiasis, diffuse gallbladder wall thickening. No other issue per nursing overnight. VITAL SIGNS: Temperature 98.5, pulse 86, respiratory rate 18, blood pressure 126/60, 98% on room air. GENERAL: Awake, alert and oriented times three. No jaundice or icterus. HEART: S1, S2. Sinus rhythm. No murmurs, rubs or gallops. LUNGS: Clear to auscultation. No wheezes, rales or rhonchi. ABDOMEN: Soft, nontender, nondistended. Positive bowel sounds. Colostomy. EXTREMITIES: No cyanosis, clubbing or pitting edema. LABORATORY DATA: White count 21.6, hemoglobin 9.5, hematocrit 32, platelet count 207. Sodium 143, potassium 4.1, chloride 114, bicarbonate 21, BUN 25, creatinine 1.84. Baseline creatinine is 1.4 to 1.6. ASSESSMENT AND PLAN: 81-year-old male with a history of colon cancer, status post resection, diverticular abscess, sigmoid colectomies, colostomy, gastritis, hypertension, iron deficiency anemia, multifocal pneumonia, hyperlipidemia, hypertensive heart disease, AV block status post pacer, reflux, who presents with abdominal pain and vomiting, found to have cholelithiases and normal common bile duct. CURRENT ISSUES: 1. Biliary colic with cholelithiasis. Tolerating clear liquid diet. However, due to increase in white count, rule out acute cholecystitis. HIDA scan. Defer to general surgery for further evaluation and management. Nothing by mouth for HIDA scan for now. 2. Chronic obstructive pulmonary disease (COPD). Pulmicort twice a day as needed. Most likely caused steroid induced leukocytosis. We will discontinue the patient's IV Solu-Medrol and continue nebulizers. 98% on room air. Change to oral prednisone 40 mg daily. 3. Acute on chronic renal failure stage III. IV fluid hydration while nothing by mouth. Monitor input and output and daily weights and avoid nephrotoxins. DISPOSITION: May transfer to medica/surgical floor. MTDD
--- NOTE | 2016-10-11 11:16 | REP ---
Hepatobiliary scan: History: Biliary colic. Technique: 5.6 mCi technetium 99m mebrofenin is injected and sequential anterior abdominal images are acquired. Scintigraphic findings: The initial hepatocellular parenchymal uptake phase is normal and homogeneous. Intra- and extrahepatic bile ducts and the duodenum are first labeled at 10 minutes. The gallbladder is first labeled at 15 minutes. Subsequent images demonstrate normal washout from the liver parenchyma into the gallbladder and small intestine. Impression: Normal hepatobiliary scan. Signed by Greg Shirley MD 10/11/2016 01:40 P
[2016-10-11] MEDS: predniSONE 20 MG TAB PO SCH (11:30)
[2016-10-11 11:45] VITALS: BP 122/66
[2016-10-11 14:00] VITALS: BP 121/61
[2016-10-11] MEDS: PANTOPRAZOLE 40MG TAB (PROTONIX) PO SCH (20:00)
[2016-10-11 22:00] VITALS: BP 130/60
[2016-10-11] MEDS: ALPRAZolam 0.5 MG TAB PO PRN (23:21)
[2016-10-12] MEDS: PIPERACILLIN/TAZOBACTAM SOD 3.375 GM in D5W MINI-BAG PLUS 50 ML IV SCH (01:15)
[2016-10-12] MEDS: D5W/0.45% SODIUM CHLORIDE 1,000 ML IV SCH (01:15)
[2016-10-12] MEDS: IPRATROPIUM 0.5MG/ALBUTEROL 2.5MG INH SOL UD 3ML (DUONEB)(J7620) NEB SCH ×2 (01:28→07:29)
[2016-10-12 02:00] VITALS: BP 126/60
[2016-10-12 06:00] VITALS: BP 114/54
[2016-10-12 06:14] LABS: MEAN CORPUSCULAR HEMOGLOBIN 26.5 pg (27.0-33.0); MEAN CORPUSCULAR HGB CONC 30.2 g/dl (32.0-36.5); MEAN CORPUSCULAR VOLUME 87.6 fl (80.0-96.0); RED CELL DISTRIBUTION WIDTH 15.5 % (11.5-14.5)
[2016-10-12 06:30] LABS: ALBUMIN 2.3 GM/DL (3.2-5.2); ALBUMIN/GLOBULIN RATIO 0.72 (1.00-1.93); BILIRUBIN,TOTAL 0.5 MG/DL (0.2-1.0); CALCIUM LEVEL 7.4 MG/DL (8.8-10.2); CREATININE FOR GFR 1.63 MG/DL (0.70-1.30); GLOMERULAR FILTRATION RATE 43.2 (>35); MAGNESIUM LEVEL 2.3 MG/DL (1.8-2.4); POTASSIUM SERUM 3.9 MEQ/L (3.5-5.1); TOTAL PROTEIN 5.5 GM/DL (6.4-8.2)
[2016-10-12] MEDS ORDERED: CIPR-250 PO (06:35)
[2016-10-12] MEDS ORDERED: PRED10PA2 PO (06:35)
[2016-10-12] MEDS ORDERED: CIPROFLOXACIN 250 MG TAB PO SCH (06:45)
[2016-10-12] MEDS: BUDESONIDE 0.5 MG/2 ML INHALATION SUSPENSION INH SCH (07:28)
[2016-10-12] MEDS: predniSONE 20 MG TAB PO SCH (08:43)
--- NOTE | 2016-10-12 09:31 | REP ---
PORTABLE CHEST X-RAY: Single view. HISTORY: Shortness of breath. Comparison chest x-ray October 09, 2016. FINDINGS: The patient is status post cervical discectomy and fusion plating. A bipolar pacemaker remains in the right heart via the left side. The lungs are somewhat hyperinflated but free of infiltrate. Pulmonary vasculature is not increased. No significant bony abnormality is seen. IMPRESSION: Mild hyperinflation. Pacemaker. No acute disease. Signed by Greg Shirley MD 10/12/2016 12:38 P
[2016-10-12] MEDS ORDERED: NYST50SS SS (09:40)
[2016-10-12 10:00] VITALS: BP 139/67
[2016-10-12] MEDS ORDERED: LISI40TAB PO (11:17)
--- NOTE | 2016-10-12 11:56 | DSES ---
DATE OF ADMISSION: 10/09/2016 DATE OF DISCHARGE:10/12/16 CONSULTANTS DURING ADMISSION: Dr. Carlson general surgeon PRIMARY DISCHARGE DIAGNOSES: Biliary colic Cholelithiasis. Chronic obstructive pulmonary disease exacerbation. Chronic colostomy. Chronic pacemaker. Hypertension. Chronic pulmonary fibrosis. DISCHARGE MEDICATIONS: - ciprofloxacin 250 twice a day - prednisone taper - Nystatin swish and swallow 5 mL four times a day as needed for thrush - Tylenol 650 mg every 4 hours as needed - albuterol/Proventil 2 puffs four times a day - Combivent four times a day as needed - Xanax 0.5 bud as needed - Brovana 15 mcg inhaled twice a day - aspirin 81 mg three times weekly - Pulmicort 0.5 twice a day - vitamin D 5000 units - loratadine 10 mg daily - multivitamin one every third day - Protonix 40 mg nightly Due to acute on chronic failure, the patient's teri inhibitors has been discontinued. May resume as an outpatient if creatinine is improved. FOLLOWUP: 1. Cholelithiasis: Followup with Dr. Singer within 1 to 2 weeks of discharge. 2. COPD exacerbation: Followup with primary care physician at discharge within 1 week. 3. Acute on chronic renal failure: Improved. Avoid nephrotoxins. Renally dose all medications. Currently at baseline. May resume home dose of lisinopril. The patient may also resume home dose of prednisone after prednisone taper. HOSPITAL COURSE: This is an 81-year-old male with a history of colon cancer status post colon resection, diverticulitis, diverticular abscess, colostomy, iron deficiency anemia, gastritis, hypertension, hyperlipidemia, hypertensive heart disease, arteriovenous block status post pacemaker, reflux, insomnia, multifocal pneumonia admitted with complaints of nausea, vomiting and abdominal pain. Ultrasound showed cholelithiasis, gallbladder wall thickening. Elevated LFTs and alkaline phosphatase with evaluation by Dr. Carlson general surgeon. The patient was kept on clear diet. He tolerated his diet well. Bilirubin level peaked at 2.4 and w as 0.5 at discharge. ACLD improved. Alkaline phosphatase normalized from peak of 177 to normal 116. HIDA scan was negative for acute cholecystitis. Mr. Altamirano also had severe wheezing on exam on arrival and was treated for COPD exacerbation with Solu-Medrol intravenously, nebulizer treatments with Combivent and Zosyn antibiotics. He had increase in white count from 12,000 to 21,000. Negative HIDA scan. Negative cultures. Blood, influenza A and urine culture. Chest x-ray was unremarkable with pacemaker. No acute disease. White count was thought to be secondary to patient's steroids, which were tapered. The patient tolerated his diet well. HIDA scan was negative. He was discharged in stable condition. Followup with his primary care physician and his surgeon to determine future plans for his biliary colic. His creatinine remained stable through the entire stay. LABS ON DISCHARGE: White count 20, hemoglobin 9.8, hematocrit 32, platelet count 228. Sodium 145, potassium 3.9, chloride 114, bicarbonate 22, BUN 23, creatinine 1.63, glucose 153. Microbiology: Influenza A and B negative. Two sets of blood cultures negative. Urine culture: No growth. Imaging study: HIDA scan is normal. Ultrasound of the gallbladder: Cholelithiasis. No tenderness. Normal common bile duct. Chest x-ray: No acute disease. Pacemaker and mild hyperinflation. Time spent on discharge: 30 minutes. [facility]
[2016-10-12] MEDS ORDERED: PRED10TA PO (12:07)
== END 2016-10-12 13:05 | disposition home or self-care (01) | DRG 446 ==
LOC: M ED 11:10 → M ED INP 14:36 → M PCU 18:55 → M MSPAV 10-11 11:40
PROVIDERS: ADMIT Internal Medicine; ATTEND General Practice
DX: K80.70 Calculus of gallbladder and bile duct without cholecystitis without obstruction (principal); J84.10 Pulmonary fibrosis, unspecified; E78.5 Hyperlipidemia, unspecified; K21.9 Gastro-esophageal reflux disease without esophagitis; D50.9 Iron deficiency anemia, unspecified; N18.3 Chronic kidney disease, stage 3 (moderate); I12.9 Hypertensive chronic kidney disease with stage 1 through stage 4 chronic kidney disease, or unspecified chronic kidney disease; Z95.0 Presence of cardiac pacemaker; Z93.3 Colostomy status; Z79.82 Long term (current) use of aspirin; Z79.899 Other long term (current) drug therapy; Z85.038 Personal history of other malignant neoplasm of large intestine; Z91.041 Radiographic dye allergy status; Z88.1 Allergy status to other antibiotic agents

== ENCOUNTER → 2016-10-26 | Outpatient (CLI) | payer MEDICARE ==
[~2016-10-26] MED LIST changes: +CIPR-250 PO; +CLAR10CA3 PO; +IPRASOL4 INH; +LISI40TAB PO; +MULT1TAB10 PO; +PRED10PA2 PO; +PULM0.5S INH; +VITA500046 PO; +VITMTA PO; +ZOLO100T PO
--- NOTE | 2016-10-26 16:13 | REP ---
CT CERVICAL SPINE WITHOUT CONTRAST: HISTORY: Spondylosis. The patient is status-post C3-7 anterior spinal fusion and corpectomy. A fixation plate and bone graft material are present. A disc bulge is present at the C2-3 level. Posterior osteophytes are present at the C3-4 through C6-7 levels. There is minimal narrowing of the spinal canal. Uncinate process and or facet hypertrophy are present at the C2-3 through C7-T1 levels. These findings produce minimal to moderate narrowing of the neural foramina. There is no subluxation. IMPRESSION: 1. The patient is status-post C3-7 anterior spinal fusion. There is anatomic alignment of the cervical spine. 2. There is cervical spondylosis at the C2-3 through C7-1 levels. Signed by Woo Luna MD 10/26/2016 04:21 P
== END ==
LOC: M RAD 14:55
PROVIDERS: ATTEND Psychiatry & Neurology Neurology
DX: M43.02 Spondylolysis, cervical region (principal); Z98.1 Arthrodesis status; R20.2 Paresthesia of skin; M54.2 Cervicalgia

== ENCOUNTER → 2016-11-15 | Outpatient (REF) | payer MEDICARE ==
[2016-11-15 13:30] LABS: PERCENT SATURATION 9.1 % (19.7-37.4)
== END ==
LOC: M LAB REF 12:41
PROVIDERS: ATTEND Internal Medicine
DX: D64.9 Anemia, unspecified (principal)

== ENCOUNTER → 2016-12-11 | Day surgery (SDC) | payer MEDICARE ==
[~2016-12-11] VITALS: Ht 175.3 cm; Wt 70.5 kg
[~2016-12-11] MED LIST changes: +GLYCOPYRROLATE INJ 0.2 MG/ML 2 ML VIAL As Ordered ONE; +HYDROmorphone HCL 1 MG/ML SYRINGE (J1170) IV PRN; +ISOVUE-300 61% 50ML VIAL (Q9967) As Ordered ONE; +LIDOCAINE 2% INJ 100 MG/5 ML SDV (FOR ANES.) As Ordered ONE; +LR 1,000 ML IV ONE; +LR 1,000 ML IV SCH; +MEPERIDINE INJ 25 MG/ML VIAL (J2175) IV PRN; +METOCLOPRAMIDE INJ 10MG/2ML VIAL (J2765) IV PRN; +MIDAZOLAM INJ 2 MG/2 ML VIAL (J2250) As Ordered ONE; +NEOSTIGMINE 1MG/ML 5 ML SYRINGE (J2710) As Ordered ONE; +ONDANSETRON 4MG/2ML VIAL (J2405) As Ordered ONE; +ONDANSETRON 4MG/2ML VIAL (J2405) IV PRN; +PERCOCET 5MG/325MG TAB PO PRN; +PHENYLephrine HCL 500 MCG/5 ML (100MCG/ML) SYRINGE (J2370) As Ordered ONE; +PROPOFOL 200 MG/20 ML VIAL As Ordered ONE; +ROCURONIUM BROMIDE 50 MG/5 ML VIAL As Ordered ONE; +ePHEDrine SULFATE 25 MG/5 ML(5MG/ML) SYRINGE As Ordered ONE; +fentaNYL 100 MCG/2 ML INJECTION (J3010) As Ordered ONE; +fentaNYL 100 MCG/2 ML INJECTION (J3010) IV PRN
[2016-12-11 14:32] LABS: MEAN CORPUSCULAR HEMOGLOBIN 26.3 pg (27.0-33.0); MEAN CORPUSCULAR HGB CONC 31.2 g/dl (32.0-36.5); MEAN CORPUSCULAR VOLUME 84.4 fl (80.0-96.0); RED CELL DISTRIBUTION WIDTH 13.8 % (11.5-14.5); WHITE BLOOD COUNT 11.3 K/mm3 (4.0-10.0)
[2016-12-11 14:47] LABS: CREATININE FOR GFR 1.4 MG/DL (0.70-1.30); GLOMERULAR FILTRATION RATE 51.5 (>35); POTASSIUM SERUM 4.6 MEQ/L (3.5-5.1)
--- NOTE | 2016-12-11 18:59 | ROOR ---
Patient Name: Brennan Altamirano Procedure Date: 12/11/2016 3:55 PM Date of : 1935 Age: 81 Room: [facility] Gender: Male Note Status: Finalized Procedure: ERCP Indications: Abdominal pain of suspected biliary origin, Evaluation and possible treatment of bile duct stone(s), Follow-up of bile duct stone(s) Providers: Dallin OLIVEROS MD Referring MD: YADIRA HUFF JR, MD, Danilo Singer Jr, MD Requesting Provider: Medicines: General Anesthesia Complications: No immediate complications. Procedure: Pre-Anesthesia Assessment: - The heart rate, respiratory rate, oxygen saturations, blood pressure, adequacy of pulmonary ventilation, and response to care were monitored throughout the procedure. The Duodenoscope was introduced through the mouth, and advanced to the duodenum and used to inject contrast into the bile duct. The ERCP was accomplished without difficulty. The patient tolerated the procedure well. Findings: The rap artist film was normal. The esophagus was successfully intubated under direct vision. The scope was advanced to a normal major papilla in the descending duodenum without detailed examination of the pharynx, larynx and associated structures, and upper GI tract. The upper GI tract was grossly normal. The ventral pancreatic duct was deeply cannulated with the short-nosed traction sphincterotome. Contrast was injected. I personally interpreted the pancreatic duct images. Ductal flow of contrast was adequate. Image quality was adequate. Contrast extended to the distal pancreatic duct. Opacification of the pancreatic duct at the head - body junction of the pancreas was successful. The maximum diameter of the ducts was 3 mm. The entire opacified area was normal. One 4 Fr by 3 cm temporary stent with a 3/4 internal pigtail was placed into the ventral pancreatic duct. Clear fluid flowed through the stent. The stent was in good position. A straight Roadrunner wire was passed into the biliary tree. The bile duct was then deeply cannulated over the guidewire. Contrast was injected. Opacification of the entire biliary tree except for the gallbladder was successful. The maximum diameter of the ducts was 8 mm. The middle third of the main bile duct and upper third of the main bile duct contained two stones and a few smaller debris, the largest of which was 4 mm in diameter. Choledocholithiasis was found in a nondilated duct. The biliary tree was otherwise normal. An 8 mm biliary sphincterotomy was made with a monofilament traction (standard) sphincterotome using ERBE electrocautery. There was no post-sphincterotomy bleeding. The biliary tree was swept with a 9 mm balloon starting at the bifurcation. All stones and debris were removed. Occlusion cholangiogram was performed, confirming clearance of all debris and stones. Impression: - Choledocholithiasis was found. Complete removal was accomplished by biliary sphincterotomy and balloon extraction. - One temporary stent was placed into the ventral pancreatic duct to reduce risk of pancreatitis with this procedure.(this stent is temporary and will pass spontaneously within a few days) Recommendation: - Observe patient's clinical course. - Surgical consultation for consideration of cholecystectomy (date not yet determined). - Written discharge instructions were provided to the patient. - Return to my office in 2-4 weeks. - Confirm spontaneous stent passage by performing a KUB x-ray in 2 weeks. Dallin Oliveros MD Dallin OLIVEROS MD 12/11/2016 6:58:03 PM This report has been signed electronically. Number of Addenda: 0 Note Initiated On: 12/11/2016 3:55 PM Estimated Blood Loss: Estimated blood loss: none.
[2016-12-11 20:35] VITALS: BP 168/88
--- NOTE | 2016-12-11 23:22 | REP ---
C-ARM VIEWS DURING ERCP: C-Arm views are performed during ERCP. Contrast is injected into the common bile duct. Common bile duct does not appear to be significantly dilated. There appears to be a filling defect in the common bile duct. Balloon is inflated on the catheter and passed through the duct. The filling defect is no longer visualized. 1 minute 39 seconds fluoroscopy time utilized. Signed by Bright Kaplan MD 12/12/2016 05:00 P
== END | disposition home or self-care (01) ==
LOC: M SDC 13:59
PROVIDERS: ATTEND Internal Medicine Gastroenterology
DX: K80.50 Calculus of bile duct without cholangitis or cholecystitis without obstruction (principal); I12.9 Hypertensive chronic kidney disease with stage 1 through stage 4 chronic kidney disease, or unspecified chronic kidney disease; I35.0 Nonrheumatic aortic (valve) stenosis; I34.2 Nonrheumatic mitral (valve) stenosis; J44.9 Chronic obstructive pulmonary disease, unspecified; R00.1 Bradycardia, unspecified; M12.9 Arthropathy, unspecified; K44.9 Diaphragmatic hernia without obstruction or gangrene; N18.3 Chronic kidney disease, stage 3 (moderate); K22.70 Barrett's esophagus without dysplasia; E78.00 Pure hypercholesterolemia, unspecified; R23.3 Spontaneous ecchymoses; K21.9 Gastro-esophageal reflux disease without esophagitis; J45.40 Moderate persistent asthma, uncomplicated; R29.898 Other symptoms and signs involving the musculoskeletal system; R06.02 Shortness of breath; F41.9 Anxiety disorder, unspecified; Z95.0 Presence of cardiac pacemaker; Z79.899 Other long term (current) drug therapy; Z79.82 Long term (current) use of aspirin; Z88.1 Allergy status to other antibiotic agents; Z91.041 Radiographic dye allergy status
CPT/HCPCS: 36415; 43264; 43274; 74330; 80048; 85027; C2617; J2250; J2370; J2405; J2710; J3010; Q9967

== ENCOUNTER → 2017-01-05 | Outpatient (CLI) | payer MEDICARE ==
[~2017-01-05] MED LIST changes: +ALPR0.5T3 PO; +CIPR-249 PO; +FELO5TAB PO; -FELO5TAB3 PO; +FLAG250T PO; +GABA-279 PO; -GLYCOPYRROLATE INJ 0.2 MG/ML 2 ML VIAL As Ordered ONE; -HYDROmorphone HCL 1 MG/ML SYRINGE (J1170) IV PRN; -ISOVUE-300 61% 50ML VIAL (Q9967) As Ordered ONE; -LIDOCAINE 2% INJ 100 MG/5 ML SDV (FOR ANES.) As Ordered ONE; +LORATAB PO; -LR 1,000 ML IV ONE; -LR 1,000 ML IV SCH; +MAGICMW SS; -MEPERIDINE INJ 25 MG/ML VIAL (J2175) IV PRN; -METOCLOPRAMIDE INJ 10MG/2ML VIAL (J2765) IV PRN; -MIDAZOLAM INJ 2 MG/2 ML VIAL (J2250) As Ordered ONE; -NEOSTIGMINE 1MG/ML 5 ML SYRINGE (J2710) As Ordered ONE; +NORC1TAB4 PO; -ONDANSETRON 4MG/2ML VIAL (J2405) As Ordered ONE; -ONDANSETRON 4MG/2ML VIAL (J2405) IV PRN; -PERCOCET 5MG/325MG TAB PO PRN; -PHENYLephrine HCL 500 MCG/5 ML (100MCG/ML) SYRINGE (J2370) As Ordered ONE; -PRED10TA PO; +PRED10TA2 PO; +PREDOPD OD; -PROPOFOL 200 MG/20 ML VIAL As Ordered ONE; -ROCURONIUM BROMIDE 50 MG/5 ML VIAL As Ordered ONE; +SERT-138 PO; +ZOLO25TA PO; -ePHEDrine SULFATE 25 MG/5 ML(5MG/ML) SYRINGE As Ordered ONE; -fentaNYL 100 MCG/2 ML INJECTION (J3010) As Ordered ONE; -fentaNYL 100 MCG/2 ML INJECTION (J3010) IV PRN
--- NOTE | 2017-01-05 17:43 | REP ---
KUB, TWO VIEWS: HISTORY: Foreign body. A very small amount of air is present in the intestine. There are no air fluid levels or dilated loops of intestine. There is no pneumoperitoneum. Surgical clips are present in the left upper quadrant. The patient is status-post anterior abdominal wall surgery. Multiple small metallic densities are present. IMPRESSION: Nonspecific bowel gas pattern. Signed by Woo Luna MD 01/05/2017 05:47 P
== END ==
LOC: M RAD 14:52
PROVIDERS: ATTEND Internal Medicine Gastroenterology
DX: R14.3 Flatulence (principal); T18.3XXA Foreign body in small intestine, initial encounter; Z98.890 Other specified postprocedural states; Y92.89 Other specified places as the place of occurrence of the external cause

== ENCOUNTER 2017-01-19 01:51 | Inpatient (IN) | payer MEDICARE ==
[~2017-01-19] VITALS: Ht 152.4 cm; Wt 69.0 kg
[~2017-01-19 01:51] MED LIST changes: -ALPR0.5T3 PO; -CIPR-249 PO; -FLAG250T PO; -GABA-279 PO; -LORATAB PO; -MAGICMW SS; -NORC1TAB4 PO; -PREDOPD OD; -SERT-138 PO; -ZOLO25TA PO
[2017-01-19] MEDS ORDERED: MORPHINE 4 MG/ML 1ML SYRINGE IV ONE (02:30)
[2017-01-19] MEDS ORDERED: METOCLOPRAMIDE INJ 10MG/2ML VIAL (J2765) IV ONE (02:30)
[2017-01-19 03:00] LABS: ADD MORPHOLOGY? YES; BASO # 0.1 K/mm3 (0.0-0.2); BASO % 0.6 % (0.0-1.0); EOS # 0.2 K/mm3 (0.0-0.50); EOS % 1.6 % (0.0-3.0); LARGE UNSTAINED CELL # 0.1 K/mm3 (0.0-0.4); LARGE UNSTAINED CELL % 0.9 % (0.0-4.0); LYMPH # 1.5 K/mm3 (1.5-4.5); LYMPH % 9.6 % (24.0-44.0); MEAN CORPUSCULAR HEMOGLOBIN 24.1 pg (27.0-33.0); MEAN CORPUSCULAR HGB CONC 30.4 g/dl (32.0-36.5); MEAN CORPUSCULAR VOLUME 79.3 fl (80.0-96.0); MONO # 0.8 K/mm3 (0.0-0.8); MONO % 5.6 % (0.0-5.0); NEUTROPHILS # 12.1 K/mm3 (1.8-7.7); NEUTROPHILS % 81.7 % (36.0-66.0); PLATELET COUNT, AUTOMATED 309 k/mm3 (150-450); RED CELL DISTRIBUTION WIDTH 14.1 % (11.5-14.5); WHITE BLOOD COUNT 14.8 K/mm3 (4.0-10.0)
[2017-01-19 03:04] LABS: ALBUMIN 3.2 GM/DL (3.2-5.2); ALBUMIN/GLOBULIN RATIO 0.86 (1.00-1.93); ALKALINE PHOSPHATASE 97 U/L (45-117); ALT/SGPT 21 U/L (12-78); AMYLASE 82 U/L (25-115); ANION GAP 7 MEQ/L (8-16); AST/SGOT 17 U/L (15-37); BILIRUBIN,DIRECT 0.1 MG/DL (0.0-0.2); BILIRUBIN,TOTAL 0.4 MG/DL (0.2-1.0); BLOOD UREA NITROGEN 20 MG/DL (7-18); CALCIUM LEVEL 8.8 MG/DL (8.8-10.2); CARBON DIOXIDE LEVEL 27 MEQ/L (21-32); CHLORIDE LEVEL 107 MEQ/L (98-107); CREATININE FOR GFR 1.44 MG/DL (0.70-1.30); GLOMERULAR FILTRATION RATE 49.9 (>35); GLUCOSE, FASTING 129 MG/DL (83-110); POTASSIUM SERUM 4.2 MEQ/L (3.5-5.1); SODIUM LEVEL 141 MEQ/L (136-145); TOTAL PROTEIN 6.9 GM/DL (6.4-8.2)
[2017-01-19] MEDS ORDERED: GASTROGRAFIN SOLUTION 30ML PO ONE (03:10)
[2017-01-19 03:22] LABS: HYPOCHROMASIA 2+
[2017-01-19 03:23] LABS: MICROCYTOSIS 1+
[2017-01-19] MEDS ORDERED: GASTROGRAFIN SOLUTION 30ML (Q9963) PO ONE (03:40)
[2017-01-19] MEDS ORDERED: ONDANSETRON 4MG/2ML VIAL (J2405) IV ONE (06:15)
[2017-01-19] MEDS ORDERED: MORPHINE 10 MG/ML 1ML VIAL IV ONE (06:15)
[2017-01-19] MEDS ORDERED: ACETAMINOPHEN TAB 650MG DOSE (2X325MG) PO PRN (07:00)
[2017-01-19] MEDS ORDERED: NORCO, ANEXSIA 5/325MG TABLET (HYDROcodone/ACETAMINOPHEN) PO PRN ×2 (07:00)
[2017-01-19] MEDS ORDERED: MORPHINE 4 MG/ML 1ML SYRINGE IV PRN (07:00)
[2017-01-19 08:15] VITALS: BP 168/88
--- NOTE | 2017-01-19 08:17 | REPUSA ---
CLINICAL HISTORY: Abdominal pain. TECHNIQUE: Multiple axial, sagittal and coronal CT images were obtained through the abdomen and pelvi s without administration of oral or IV contrast material. COMMENTS: Comparison is made to the prior exam performed on 09/21/2016. The liver is of uniform attenuation without mass or defect. There is no intra or extrahepatic biliary ductal dilatation. The spleen is normal. The gallbladder is distended. Pericholecystic fat stranding adjacent to the gallbladder neck. The pancreas is of normal contour and attenuation characteristics. There is no evidence of adrenal mass. Unchanged bilateral exophytic renal cysts a few of them containing thin wall calcifications of the le ft side. The largest measures 5 cm. The kidneys are normal in size, shape and configuration. No renal or ureteral calculi are identified. There is no hydroureter or hydronephrosis. There is no evidence for appendicitis. There is prior partial colectomy. Left upper quadrant colostom y is noted with herniation of dilated small bowel loops within the stomach hernia. Retained fecal mat erial is identified within the herniated small bowel loops. There is no evidence of abdominal ascites or lymphadenopathy. There is no evidence of intrinsic or extrinsic bladder mass. There is no pelvic ascites or lymphadeno wilner. Unchanged prostatomegaly. Unchanged prostatic calcifications. Images of the lung bases show no evidence of pleural or parenchymal mass. There are no pleural effusi ons. Increased bilateral basilar ground glass densities of the lungs. Increased bilateral basilar per ibronchial interstitial thickening. Unchanged small sliding hiatal hernia. Pacemaker wires in good po sition. The bony structures are free of lytic or blastic lesions. Multilevel degenerative changes are seen in volving the thoracolumbar spine. Scattered calcifications are seen involving the aorta and major branches compatible with atherosclero sis. IMPRESSION: Suspected acute inflammatory changes of the neck of the gallbladder. Unchanged bilateral renal cysts. Increased bilateral airspace disease of the lower lobes. Superimposed pneumonia is suggested. Prior partial colectomy. Left upper quadrant colostomy with peristomal hernia containing dilated small bowel loops retained fe michael material. Partial small bowel obstruction is suspected at this level. Prostatomegaly. Prostatic calcifications. Fat containing left inguinal hernia without incarceration. Thank you for your kind referral of this patient. ADDENDUM: Patient ingested oral contrast.
--- NOTE | 2017-01-19 09:26 | HPEPDOC ---
General Surgery H&P Date of Admission Jan 19, 2017 at 06:48 History and Physical CHIEF COMPLAINT: abdominal pain HISTORY OF PRESENT ILLNESS: 81 year old male patient with longstanding colostomy , known parastomal hernia and a complicated abdominal surgical history that includes failed reversal of the colostomy, previous large ventral and parastomal hernia repair, presented himself to the ED with complaints of severe cramping lower abdominal pain, nausea, multiple episodes of vomiting, abdominal distention and no output from his colostomy since about 8:30 last night. He was admitted last October for abdominal pain and found to have choledocholithiasis and subsequently last month underwent ERCP for common bile duct stone. He felt he was having the same symptoms as he had back then. He denies any prior episodes of bowel obstruction related to his long-standing parastomal hernia. He has had multiple colonoscopies for history of anemia and surveillance. ALLERGIES: Please see below. HOME MEDICATIONS: Please see below. PAST MEDICAL HISTORY: COPD, asthma history of colon cancer history of perforated diverticulitis iron deficiency anemia gastritis hypertension hypertensive heart disease AV block status post pacemaker gastroesophageal reflux disease insomnia PAST SURGICAL HISTORY: 2005 - Ex Lap Sigmoid colon resection, colostomy 2007 - Ventral hernia/parastomal hernia repair, repositioning of colostomy pacemaker placement appendectomy PERSONAL/SOCIAL HISTORY: Denies smoking, alcohol use, or recreational drug use. REVIEW OF SYSTEMS: GENERAL: Denies chills, fatigue, fever, weight gain and weight loss. HEENT: Denies blurred vision and double vision. Denies ear symptoms. Denies hoarseness. NECK: Denies any neck pain. CARDIOVASCULAR: Denies chest pain and palpitations. History of pacemaker placement for AV block. MUSCULOSKELETAL: Denies arthralgias, back pain and thrombophlebitis. Reports needlelike pain and swelling on the right leg. SKIN: Denies rash. NEUROLOGIC: Denies headache, stroke and transient ischemic attack. PSYCHIATRIC: Denies anxiety and depression. ENDOCRINE: Denies thyroid disease. HEMATOLOGY/ONCOLOGY: Denies any bleeding or clotting disorder. HEART: Denies any chest pains, palpitations, paroxysmal dyspnea, orthopnea. PULMONARY: Denies chronic cough, dyspnea and wheezing. GASTROINTESTINAL: See HPI. Recently had ERCP done for common bile duct stone. GENITOURINARY: Denies dysuria, frequency, hematuria and nocturia. ENDOCRINE: Denies polydipsia, polyphagia, polyuria, heat or cold intolerance. INFECTIOUS: Denies any recent upper respiratory tract infection, UTI, need for use of antibiotics. NUTRITION: Reports good appetite. PHYSICAL EXAMINATION: VITAL SIGNS: Please see below. GENERAL APPEARANCE: Patient seen at bedside, appears comfortable. Awake, alert, oriented. HEENT: Normocephalic, atraumatic. Preston palpebral conjunctivae. Anicteric sclerae. Lips moist. CHEST: No chest wall abnormalities. Normal respiratory motion/effort. NECK: Supple. No thyromegaly. No lymphadenopathies. LUNGS: Lung sounds are clear to auscultation bilaterally. No wheezing appreciated. HEART: No chest wall abnormalities. Heart rate and rhythm are regular with no murmurs. ABDOMEN: [Abdomen is round, moderately distended soft. Left-sided colostomy without any gas or stool in the bag with large associated parastomal hernia and is nonreducible. Nontender and palpation. Abdominal wall is thin-appearing with wide diastases along the midline incision. No chronic sinus tracts. SKIN: Warm, moist. EXTREMITIES: Extremities have no deformities. No edema identified. NEUROLOGICAL: . ANCILLARIES: . LABORATORY DATA: Please see below. MICROBIOLOGY: Please see below. IMAGING: CT Scan of abdomen and pelvis Suspected acute inflammatory changes of the neck of the gallbladder. Unchanged bilateral renal cysts. Increased bilateral airspace disease of the lower lobes. Superimposed pneumonia is suggested. Prior partial colectomy. Left upper quadrant colostomy with peristomal hernia containing dilated small bowel loops retained fecal material. Partial small bowel obstruction is suspected at this level. Prostatomegaly. Prostatic calcifications. Fat containing left inguinal hernia without incarceration. IMPRESSION AND PLAN: parastomal hernia small bowel obstruction Chronic cholecystitis Patient reports improvement of his abdominal pain, nausea since NGT has been placed. He still does not have any output from his colostomy. He has had a complicated surgical history and I have tried to review his previous notes to understand what has happened so far and it seems that the distal rectal stump is too contracted to make a proper anastomosis. He has a very thin abdominal wall mainly made up of the xenograft/permacol. He has a large parastomal hernia that has not given him any problems before but now has bowel obstruction related to it. I will speak with Dr. Singer his previous surgeon regarding him to get some information on him and if he is willing to take over his care. Otherwise we will tread cautiously and see if he will improve with nonoperative therapy. There are some findings of inflammation related to the gallbladder though he is not tender at the right upper quadrant area. He does have some mild leukocytosis. I will start him on some antibiotics for this. I spoke to him if he had previous conversations about his gallbladder and he said this conversation with his prior surgeon that due to the amount of scarring in the adhesions as well as the status of his abdominal wall, he is not a candidate for surgery to remove his gallbladder Given his multiple cardiopulmonary problems among others, we'll ask the medical service to follow along with us. Vital Signs Vital Signs Date Time Temp Pulse Resp B/P (MAP) Pulse Ox O2 Delivery O2 Flow Rate FiO2 01/19/17 08:05 99.4 77 19 126/79 (95) 96 Nasal Cannula 2.0 Laboratory Data Labs 24H Laboratory Tests 2 01/19/17 02:35: White Blood Count 14.8H, Red Blood Count 4.64, Hemoglobin 11.2L, Hematocrit 36.8L, Mean Corpuscular Volume 79.3L, Mean Corpuscular Hemoglobin 24.1L, Mean Corpuscular Hemoglobin Concent 30.4L, Red Cell Distribution Width 14.1, Platelet Count 309, Neutrophils (%) (Auto) 81.7H, Lymphocytes (%) (Auto) 9.6L, Monocytes (%) (Auto) 5.6H, Eosinophils (%) (Auto) 1.6, Basophils (%) (Auto) 0.6 , Neutrophils # (Auto) 12.1H, Lymphocytes # (Auto) 1.5, Monocytes # (Auto) 0.8, Eosinophils # (Auto) 0.2, Basophils # (Auto) 0.1, Large Unclassified Cells % 0.9 , Large Unclassified Cells # 0.1, Platelet Estimate NORMAL, Hypochromasia 2+, Microcytosis 1+, Anion Gap 7L, Glomerular Filtration Rate 49.9, Calcium Level 8.8, Aspartate Amino Transf (AST/SGOT) 17, Alanine Aminotransferase (ALT/SGPT) 21, Alkaline Phosphatase 97, Total Bilirubin 0.4, Direct Bilirubin 0.1, Total Protein 6.9, Albumin 3.2, Albumin/Globulin Ratio 0.86L, Amylase Level 82, Lipase 199 CBC/BMP Laboratory Tests 01/19/17 02:35 Red Blood Count 4.64, Mean Corpuscular Volume 79.3 L, Mean Corpuscular Hemoglobin 24.1 L, Mean Corpuscular Hemoglobin Concent 30.4 L, Red Cell Distribution Width 14.1, Neutrophils (%) (Auto) 81.7 H, Lymphocytes (%) (Auto) 9.6 L, Monocytes (%) (Auto) 5.6 H, Eosinophils (%) (Auto) 1.6, Basophils (%) ( Auto) 0.6, Neutrophils # (Auto) 12.1 H, Lymphocytes # (Auto) 1.5, Monocytes # ( Auto) 0.8, Eosinophils # (Auto) 0.2, Basophils # (Auto) 0.1 Home Medications Scheduled Arformoterol Tartrate (Brovana) 15 Mcg/2 Ml Neb, 15 MCG INH BID, (Reported) Aspirin (Aspirin EC) 81 Mg Tabec, 81 MG PO 3XW, (Reported) ANY 3 DAYS Cholecalciferol (Vitamin D) 5,000 Unit Tab, 5,000 UNIT PO Q3RD, (Reported) ANY 3RD DAY Multivitamins *[facility] STOCKED* (Thera M Plus *[facility] STOCKED*) 1 Tab Tab, 1 TAB PO Q3RD, (Reported) Pantoprazole Sodium Sesquihydr (Protonix) 40 Mg Tab, 40 MG PO QHS, (Reported) Prednisone (Prednisone) 5 Mg Tab, 5 MG PO DAILY, (Reported) Scheduled PRN Albuterol Sulfate (Proventil Hfa) 167 Puff/6.7 Gm Aers, 2 PUFFS INH QID PRN for SHORTNESS OF BREATH, (Reported) Albuterol/Ipratropium (Ipratropium Beverly/Albut 0.5-2.5 (3) mg/3Ml) 1 Kvein Kevin, 1 KEVIN INH TID PRN for SHORTNESS OF BREATH, (Reported) Alprazolam (Xanax) 0.5 Mg Tab, 0.5 MG PO BID PRN for ANXIETY, (Reported) Budesonide (Pulmicort) 0.5 Mg/2 Ml [place], 0.5 MG INH BID PRN for SHORTNESS OF BREATH, (Reported) Loratadine (Claritin) 10 Mg Cap, 10 MG PO DAILY PRN for ALLERGIES, (Reported) Allergies Coded Allergies: Cephalosporins (Verified Allergy, Intermediate, HIVES COVERING TORSO, 12/07) Contrast Media (Verified Allergy, Unknown, 05/31/16) SHAUNA WALTON MD Jan 19, 2017 09:26
[2017-01-19] MEDS: LR 1,000 ML IV SCH ×2 (09:51→14:48)
[2017-01-19] MEDS: SENOKOT S TAB PO SCH ×2 (09:51→20:17)
[2017-01-19] MEDS: PANTOPRAZOLE 40MG INJ (PROTONIX) (C9113) IV SCH (09:51)
[2017-01-19] MEDS: ENOXAPARIN 40 MG/0.4 ML SYRINGE (J1650) SC SCH (09:52)
[2017-01-19] MEDS ORDERED: LORATADINE 10 MG TAB PO PRN (10:00)
[2017-01-19] MEDS ORDERED: IPRATROPIUM 0.5MG/ALBUTEROL 2.5MG INH SOL UD 3ML (DUONEB)(J7620) INH PRN (10:00)
[2017-01-19] MEDS ORDERED: IPRATROPIUM 0.5MG/ALBUTEROL 2.5MG INH SOL UD 3ML (DUONEB)(J7620) NEB PRN (10:00)
[2017-01-19] MEDS ORDERED: IPRATROPIUM 0.5MG/ALBUTEROL 2.5MG INH SOL UD 3ML (DUONEB)(J7620) NEB ONE (10:00)
[2017-01-19] MEDS ORDERED: ALBUTEROL 90 MCG/ACT 8GM HFA INHALER INH PRN (10:00)
--- NOTE | 2017-01-19 10:41 | REP ---
PORTABLE CHEST: Two AP portable views of the chest are performed and compared to prior study of 10/12/2016. There is bibasilar fibroatelectatic change slightly increased on the left. No consolidating infiltrate is seen. The heart is not enlarged. There is chronic elevation of the left hemidiaphragm. Mediastinal silhouette is unchanged. Left pacemaker is again noted. Nasogastric tube is seen with the distal end in the fundus of the stomach. IMPRESSION: Bibasilar fibroatelectatic changes with no acute consolidating infiltrate. Signed by Bright Kaplan MD 01/19/2017 03:27 P
[2017-01-19 11:00] VITALS: BP 114/57
[2017-01-19] MEDS: NITROGLYCERIN 2% OINT 1 GM *U/D* PKT TOP SCH ×3 (11:06→23:06)
[2017-01-19] MEDS: predniSONE 5 MG TAB PO SCH (11:07)
[2017-01-19] MEDS: MULTIVITAMINS/MINERALS THERAP 1 TAB PO SCH (11:07)
[2017-01-19] MEDS: BUDESONIDE 0.5 MG/2 ML INHALATION SUSPENSION INH SCH ×2 (11:27→19:45)
[2017-01-19] MEDS: IPRATROPIUM 0.5MG/ALBUTEROL 2.5MG INH SOL UD 3ML (DUONEB)(J7620) NEB SCH ×3 (11:27→19:45)
--- NOTE | 2017-01-19 12:13 | CR ---
DATE OF CONSULTATION: 01/19/2017 REASON FOR CONSULTATION: Management of chronic medical issues. REFERRING PHYSICIAN: Dr. Tal Carlson, general surgeon. PRIMARY CARE PHYSICIAN: Dr. Mason Reed NUCLEAR WASTE PROCESS OPERATOR: Dr. David Ovalle UROLOGIST: Dr. Sang Cullen CHIEF COMPLAINT: Abdominal pain. 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 Ovalle , reflux disease, and insomnia who presents to the emergency room with complaints of one day history of abdominal pain which started at 8:30 p.m. last evening. The abdominal pain is around the left lower quadrant around his colostomy and radiating to the back without dysuria, urgency or frequency, fever or chills. He denies any shortness of breath, chest pain, pressure or tightness, lightheadedness or dizziness. The patient took some Maalox and started to vomit three to four times without much coming out. He denies any bilious or projectile vomiting. He describes abdominal pain as severe, crampy and stabbing with increase in abdominal distention causing him to present to the emergency room. The patient was admitted under surgical services for small bowel obstruction and parastomal hernia. Nasogastric tube was then placed. Due to significant past medical history, the hospitalist service was called to help manage his chronic medical issues. PAST MEDICAL HISTORY: 1. Colon cancer, status post colon resection. 2. Diverticulitis with diverticular abscess. 3. Iron deficiency anemia. 4. Gastritis. 5. Hypertension and hypertensive heart disease. 6. Asthma. 7. 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 8. History of atrioventricular block, status post pacemaker. 9. Reflux disease. 10. Insomnia. 11. Biliary colic. 12. Cholelithiasis. 13. Chronic obstructive pulmonary disease (COPD) exacerbation. 14. Paroxysmal atrial fibrillation. 15. Chronic renal insufficiency. 16. Crockett's esophagus. 17. Hypercholesterolemia. PAST SURGICAL HISTORY: 1. Sigmoid colectomy with colostomy. 2. Appendectomy. 3. Cystoscopy. 4. Cataract surgery. 5. Cervical spine surgery. ALLERGIES: - CEPHALOSPORINS causing hives - CONTRAST MEDIA SOCIAL HISTORY: Nonsmoker. 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 Denies alcohol. Lives with his . FAMILY HISTORY: Father of colon cancer. REVIEW OF SYSTEMS: 12 point system negative aside from positive findings in history of present illness. HOME MEDICATIONS: - aspirin 81 mg three times a week - vitamin D 5000 units - Protonix 40 mg at bedtime - BROVANA 15 mcg inhaled twice a day - Proventil 2 puffs four times a day as needed - Xanax 0.5 twice a day as needed - Pulmicort 0.5 twice a day as needed - Claritin 10 mg daily as needed - multivitamin one tablet daily - prednisone 5 mg daily PHYSICAL EXAMINATION: Vital Signs: Temperature 99.4. Pulse 77. Respiratory rate 19. Blood pressure 120/70. 96% on 2 liters nasal cannula. General: The patient is awake, alert, oriented times three, answering questions appropriately. Nasogastric tube noted. No respiratory distress. No use of respiratory accessory muscles. Anicteric. No jugular venous distention. No cervical lymphadenopathy. No carotid bruits. Lungs are diminished, but clear to auscultation bilaterally. Heart: S1, S2. Sinus rhythm. Abdomen: Distended. Nasogastric tube is in place. Colostomy left lower quadrant. Diffuse abdominal tenderness. No rebound. No guarding. Positive bowel sounds. Extremities: Mild right lower extremity edema. Good peripheral pulses. No skin lesions. LABORATORY DATA: White count 14.8, hemoglobin 11, hematocrit 36, and platelet count 309. 81% neutrophils. Sodium 141, potassium 4.2, chloride 107, bicarbonate 27, BUN 20, creatinine1.44, baseline creatinine 1.4 to 1.6, glucose 129. CT of abdomen and pelvis shows gallbladder is distended, pancreas is normal, no evidence of adrenal mass, unchanged bilateral exophytic renal cysts measuring 5 cm. Prior partial colectomy. No evidence of appendicitis. Left upper quadrant colostomy with herniation of bilateral small bowel loops within the stomach hernia, retained fecal material within the hernia and small bowel loops, no evidence of ascites or lymphadenopathy. No pleural effusions. Increased bilateral basilar ground glass densities of the lungs slightly increased. Peribronchial interstitial thickening with a small sliding hiatal hernia. Pacemaker wires in good position. Partial small bowel obstruction at the left upper quadrant colostomy with parastomal hernia containing dilated small bowel loops, retained fecal material. Fat containing left inguinal hernia without incarceration. Echocardiogram from August 2016: Normal left ventricle size and systolic function. Grade I diastolic dysfunction. Mild aortic stenosis. Mild mitral stenosis. At least mild pulmonary hypertension. Ejection fraction is 60%. 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 He presented to the emergency room with one day history of abdominal distention, nausea, vomiting and abdominal pain, found to have a partial small bowel obstruction of parastomal hernia site. The patient is admitted under the surgical services with hospitalist consulted for medical management of chronic issues. CURRENT ISSUES: 1. 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 Carlson. Conservative management with nothing by mouth status. Nasogastric tube. Monitor ins and outs and daily weights. IV fluid hydration. Supplementation of electrolytes if needed. 2. Preoperative medical clearance. In case the patient does not resolve his bowel obstruction with conservative management. There appears to be no active symptoms of coronary artery disease. He currently denies any chest pain, pressure or tightness. No complaints of shortness of breath. No prior history of coronary artery disease or myocardial infarction. Recent echocardiogram in August 2016 showed an ejection fraction of 60% with diastolic dysfunction grade I , mild aortic stenosis. The patient is optimized currently to proceed to the operating room if needed. Will hold the patient's aspirin for now in case the patient requires surgical intervention. 3. History of reactive airway disease, lung disease secondary to exposure to stone quarry. He is on chronic prednisone. Will monitor for adrenal insufficiency. If patient has issues with low blood pressure, will provide hydrocortisone intravenously during the perioperative period. For now, if tolerated, may resume patient's oral prednisone. Will continue with nebulizer treatments with budesonide and DuoNeb routinely and as needed. 4. Hypertension. The patient had been on lisinopril. Due to nothing by mouth status, this has been discontinued and will continue to monitor. May need either intravenous or transdermal medication for blood pressure in case systolic pressure increases over 160. May start with a nitro patch. 5. AV block. Status post pacemaker./paroxysmal atrial fibrillation currently sinus rhythm. monitor for symptoms. 6. Chronic reflux disease. On IV proton pump inhibitor (PPI). 7. History of colon cancer status post sigmoid colectomy with colostomy. Management per surgery. 8. Deep vein thrombosis (DVT) prophylaxis with compression stockings. MTDD
[2017-01-19] MEDS: CIPROFLOXACIN 400 MG in APPROPRIATE DILUENT 1 EA IV SCH ×2 (12:45→23:10)
[2017-01-19] MEDS: metroNIDAZOLE 500 MG in APPROPRIATE DILUENT 1 EA IV SCH ×2 (12:45→20:17)
[2017-01-19 14:00] VITALS: BP 124/59
--- NOTE | 2017-01-19 15:00 | REP ---
Portable chest, 02:31 p.m., single AP view, patient sitting: Comparison is from 10:12 a.m. earlier today. Bibasilar atelectasis is again identified, unchanged. Dual-chamber pacemaker is again identified, unchanged. There is a nasogastric tube, unchanged. The precise location of the distal tip is excluded at the inferior film margin. Cardiac size is normal, unchanged. Impression: Bibasilar atelectasis, unchanged. Signed by Bright Leal MD 01/19/2017 02:51 P
[2017-01-19 22:00] VITALS: BP 122/64
[2017-01-19] MEDS: ALPRAZolam 0.5 MG TAB PO PRN (23:10)
[2017-01-20] MEDS: LR 1,000 ML IV SCH ×2 (04:14→14:52)
[2017-01-20] MEDS: NITROGLYCERIN 2% OINT 1 GM *U/D* PKT TOP SCH ×4 (05:22→23:15)
[2017-01-20] MEDS: metroNIDAZOLE 500 MG in APPROPRIATE DILUENT 1 EA IV SCH ×3 (05:22→20:43)
[2017-01-20 06:00] VITALS: BP 115/58
[2017-01-20 06:01] LABS: ADD MORPHOLOGY? YES; BASO % 0.3 % (0.0-1.0); EOS # 0.1 K/mm3 (0.0-0.50); EOS % 0.4 % (0.0-3.0); LARGE UNSTAINED CELL # 0.2 K/mm3 (0.0-0.4); LARGE UNSTAINED CELL % 1.3 % (0.0-4.0); LYMPH # 1.5 K/mm3 (1.5-4.5); LYMPH % 8.2 % (24.0-44.0); MEAN CORPUSCULAR HGB CONC 31.5 g/dl (32.0-36.5); MEAN CORPUSCULAR VOLUME 79.4 fl (80.0-96.0); MONO # 1.3 K/mm3 (0.0-0.8); MONO % 7.7 % (0.0-5.0); NEUTROPHILS # 13.3 K/mm3 (1.8-7.7); PLATELET COUNT, AUTOMATED 241 k/mm3 (150-450); RED CELL DISTRIBUTION WIDTH 14.2 % (11.5-14.5); WHITE BLOOD COUNT 16.2 K/mm3 (4.0-10.0)
[2017-01-20 06:08] LABS: ALBUMIN 2.4 GM/DL (3.2-5.2); ALBUMIN/GLOBULIN RATIO 0.71 (1.00-1.93); BILIRUBIN,TOTAL 0.6 MG/DL (0.2-1.0); CALCIUM LEVEL 8.3 MG/DL (8.8-10.2); CREATININE FOR GFR 1.43 MG/DL (0.70-1.30); GLOMERULAR FILTRATION RATE 50.3 (>35); POTASSIUM SERUM 3.8 MEQ/L (3.5-5.1); TOTAL PROTEIN 5.8 GM/DL (6.4-8.2)
[2017-01-20 06:44] LABS: HYPOCHROMASIA 1+
[2017-01-20 06:45] LABS: MICROCYTOSIS 1+
[2017-01-20] MEDS: IPRATROPIUM 0.5MG/ALBUTEROL 2.5MG INH SOL UD 3ML (DUONEB)(J7620) NEB SCH ×4 (07:19→19:42)
[2017-01-20] MEDS: BUDESONIDE 0.5 MG/2 ML INHALATION SUSPENSION INH SCH ×2 (07:19→19:42)
[2017-01-20] MEDS: MULTIVITAMINS/MINERALS THERAP 1 TAB PO SCH (09:11)
[2017-01-20] MEDS: ENOXAPARIN 40 MG/0.4 ML SYRINGE (J1650) SC SCH (09:12)
[2017-01-20] MEDS: predniSONE 5 MG TAB PO SCH (09:12)
[2017-01-20] MEDS: SENOKOT S TAB PO SCH ×2 (09:12→20:43)
[2017-01-20] MEDS: PANTOPRAZOLE 40MG INJ (PROTONIX) (C9113) IV SCH (09:12)
[2017-01-20] MEDS: CIPROFLOXACIN 400 MG in APPROPRIATE DILUENT 1 EA IV SCH ×2 (12:33→23:09)
[2017-01-20 14:00] VITALS: BP 138/80
[2017-01-20] MEDS: CEPACOL LOZENGE PO PRN (14:09)
[2017-01-20 22:00] VITALS: BP 151/82
[2017-01-20] MEDS: ALPRAZolam 0.5 MG TAB PO PRN (23:08)
[2017-01-21] MEDS: LR 1,000 ML IV SCH ×2 (01:00→20:37)
[2017-01-21] MEDS: IPRATROPIUM 0.5MG/ALBUTEROL 2.5MG INH SOL UD 3ML (DUONEB)(J7620) NEB SCH ×6 (03:27→20:08)
[2017-01-21] MEDS: metroNIDAZOLE 500 MG in APPROPRIATE DILUENT 1 EA IV SCH ×3 (05:18→20:37)
[2017-01-21] MEDS: NITROGLYCERIN 2% OINT 1 GM *U/D* PKT TOP SCH ×4 (05:57→23:25)
[2017-01-21 06:00] VITALS: BP 132/72
[2017-01-21 06:01] LABS: BASO % 0.3 % (0.0-1.0); EOS # 0.2 K/mm3 (0.0-0.50); EOS % 1.4 % (0.0-3.0); LARGE UNSTAINED CELL # 0.2 K/mm3 (0.0-0.4); LARGE UNSTAINED CELL % 1.4 % (0.0-4.0); LYMPH # 1.3 K/mm3 (1.5-4.5); LYMPH % 8.5 % (24.0-44.0); MEAN CORPUSCULAR HEMOGLOBIN 24.3 pg (27.0-33.0); MEAN CORPUSCULAR HGB CONC 30.9 g/dl (32.0-36.5); MEAN CORPUSCULAR VOLUME 78.6 fl (80.0-96.0); MONO # 0.9 K/mm3 (0.0-0.8); MONO % 6.7 % (0.0-5.0); NEUTROPHILS # 10.4 K/mm3 (1.8-7.7); NEUTROPHILS % 81.6 % (36.0-66.0); PLATELET COUNT, AUTOMATED 245 k/mm3 (150-450); RED CELL DISTRIBUTION WIDTH 14.3 % (11.5-14.5); WHITE BLOOD COUNT 12.7 K/mm3 (4.0-10.0)
[2017-01-21 06:24] LABS: ALBUMIN 2.3 GM/DL (3.2-5.2); ALBUMIN/GLOBULIN RATIO 0.64 (1.00-1.93); BILIRUBIN,TOTAL 0.5 MG/DL (0.2-1.0); CALCIUM LEVEL 8.1 MG/DL (8.8-10.2); CREATININE FOR GFR 1.25 MG/DL (0.70-1.30); GLOMERULAR FILTRATION RATE 58.7 (>35); POTASSIUM SERUM 3.7 MEQ/L (3.5-5.1); TOTAL PROTEIN 5.9 GM/DL (6.4-8.2)
[2017-01-21] MEDS: BUDESONIDE 0.5 MG/2 ML INHALATION SUSPENSION INH SCH ×2 (07:55→20:08)
[2017-01-21] MEDS: predniSONE 5 MG TAB PO SCH (09:10)
[2017-01-21] MEDS: SENOKOT S TAB PO SCH ×2 (09:10→20:37)
[2017-01-21] MEDS: ENOXAPARIN 40 MG/0.4 ML SYRINGE (J1650) SC SCH (09:10)
[2017-01-21] MEDS: CEPACOL LOZENGE PO PRN (09:10)
[2017-01-21] MEDS: MULTIVITAMINS/MINERALS THERAP 1 TAB PO SCH (09:10)
[2017-01-21] MEDS: PANTOPRAZOLE 40MG INJ (PROTONIX) (C9113) IV SCH (09:10)
[2017-01-21 11:32] VITALS: BP 134/82
[2017-01-21] MEDS: CIPROFLOXACIN 400 MG in APPROPRIATE DILUENT 1 EA IV SCH ×2 (11:36→23:25)
[2017-01-21 14:00] VITALS: BP 140/80
--- NOTE | 2017-01-21 16:30 | IPN ---
DATE: 01/21/2017 Patient is seen and examined at the bedside. Chart has been reviewed. The patient states that he is having flatus yesterday and today. Nasogastric tube has been clamped. He has no shortness of breath. No nausea. No vomiting this morning. Abdominal pain has improved. Temperature 99.5, pulse 90, respiratory rate 20, blood pressure 132/72, 93% on room air. Generally, the patient is awake, alert and oriented to person, place and time, answering questions appropriately. Nasogastric tube is in one of the nares. Lungs are clear to auscultation. No wheezing, rales or rhonchi. Heart: S1, S2, sinus rhythm. Abdomen is soft, slightly tender. Ileostomy in left lower quadrant. Nasogastric tube in place but clamped. No guarding. No rebound. Positive bowel sounds. Extremities: Mild right lower extremity edema. No skin lesions. LABORATORY DATA: White count 12, hemoglobin 9.8, hematocrit 31, platelet count 245. Sodium 141, potassium 3.7, chloride 106, bicarbonate 23, BUN 19, creatinine 1.25, glucose of 88. 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 Ovalle with paroxysmal atrial fibrillation, reflux and insomnia, admitted under surgical service 01/19/2017 due to complaints of abdominal distention, nausea and vomiting, was found to have a bowel obstruction with a parastomal hernia. CURRENT ISSUES: 1. 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 Managed by primary surgical services. Conservative management, nothing by mouth status, nasogastric tube, monitor intake and output, daily weights, supplement potassium and magnesium as needed, IV fluid hydration. Preoperative medical clearance in case the patient does not resolve his bowel obstruction with conservative management. No active symptoms of coronary artery disease. Denies chest pain, pressure or tightness. Complains of shortness of breath. Prior history of coronary artery disease (CAD), myocardial infarction ([place]), recent echocardiogram in August 2016 showed ejection fraction (EF) of 60%, diastolic dysfunction, grade 1 with mild aortic stenosis. The patient is medically optimized to proceed to the operating room if needed. We will hold the patient's aspirin for now in case he requires surgical intervention at some point during this admission. 2. History of reactive airway disease, lung disease, secondary to exposure to stone quarry. He is on chronic prednisone which we will continue. Monitor for adrenal insufficiency. The patient has not had any issues with low blood pressure. We will continue with nebulizer treatments for now. 3. Hypertension, currently nothing by mouth. If the systolic pressure remains elevated, we will try topical nitrates.
[2017-01-21 17:04] VITALS: BP 136/78
[2017-01-21] MEDS: ALPRAZolam 0.5 MG TAB PO PRN (21:47)
[2017-01-21 22:00] VITALS: BP 142/68
--- NOTE | 2017-01-21 22:11 | IPN ---
DATE OF SERVICE: 01/20/2017 Patient seen and examined at bedside. Chart has been reviewed. This morning, patient still complains of 8/10 pain at the right back seventh, eighth, and ninth ribs, difficulty with taking a deep breath, worse when he attempts to move. No other issues per nursing. Tolerating his diet well. Temperature 99.3, pulse 87, respiratory rate 20, blood pressure 115/50, 92% on 2 liters nasal cannula. Lungs diminished, but clear to auscultation. No wheezing or rales. Heart: S1, S2, sinus rhythm. Abdomen is soft, nontender, nondistended. Positive bowel sounds. Extremities: No cyanosis, clubbing. Patient has bilateral anasarca and pitting edema. DICTATION ENDS HERE
[2017-01-22] MEDS: IPRATROPIUM 0.5MG/ALBUTEROL 2.5MG INH SOL UD 3ML (DUONEB)(J7620) NEB SCH ×7 (03:22→23:24)
[2017-01-22 05:20] VITALS: BP 128/68
[2017-01-22] MEDS: metroNIDAZOLE 500 MG in APPROPRIATE DILUENT 1 EA IV SCH (05:20)
[2017-01-22] MEDS: NITROGLYCERIN 2% OINT 1 GM *U/D* PKT TOP SCH (05:20)
[2017-01-22 05:52] LABS: BASO # 0.1 K/mm3 (0.0-0.2); BASO % 0.6 % (0.0-1.0); EOS # 0.2 K/mm3 (0.0-0.50); EOS % 2.4 % (0.0-3.0); LARGE UNSTAINED CELL # 0.1 K/mm3 (0.0-0.4); LARGE UNSTAINED CELL % 1.3 % (0.0-4.0); LYMPH # 1.3 K/mm3 (1.5-4.5); LYMPH % 11.4 % (24.0-44.0); MEAN CORPUSCULAR HEMOGLOBIN 24.3 pg (27.0-33.0); MEAN CORPUSCULAR HGB CONC 30.9 g/dl (32.0-36.5); MEAN CORPUSCULAR VOLUME 78.7 fl (80.0-96.0); MONO # 0.7 K/mm3 (0.0-0.8); MONO % 6.7 % (0.0-5.0); NEUTROPHILS # 7.7 K/mm3 (1.8-7.7); NEUTROPHILS % 77.6 % (36.0-66.0); PLATELET COUNT, AUTOMATED 260 k/mm3 (150-450); RED CELL DISTRIBUTION WIDTH 14.5 % (11.5-14.5); WHITE BLOOD COUNT 9.9 K/mm3 (4.0-10.0)
[2017-01-22 06:00] VITALS: BP 127/72
[2017-01-22 06:02] LABS: ALBUMIN 2.3 GM/DL (3.2-5.2); ALBUMIN/GLOBULIN RATIO 0.72 (1.00-1.93); ALKALINE PHOSPHATASE 60 U/L (45-117); ALT/SGPT 14 U/L (12-78); ANION GAP 10 MEQ/L (8-16); AST/SGOT 19 U/L (15-37); BILIRUBIN,TOTAL 0.4 MG/DL (0.2-1.0); BLOOD UREA NITROGEN 13 MG/DL (7-18); CALCIUM LEVEL 8.4 MG/DL (8.8-10.2); CARBON DIOXIDE LEVEL 25 MEQ/L (21-32); CHLORIDE LEVEL 108 MEQ/L (98-107); GLOMERULAR FILTRATION RATE > 60.0 (>35); GLUCOSE, FASTING 95 MG/DL (83-110); POTASSIUM SERUM 3.5 MEQ/L (3.5-5.1); SODIUM LEVEL 143 MEQ/L (136-145); TOTAL PROTEIN 5.5 GM/DL (6.4-8.2)
[2017-01-22] MEDS: BUDESONIDE 0.5 MG/2 ML INHALATION SUSPENSION INH SCH ×2 (07:30→20:13)
[2017-01-22] MEDS: predniSONE 5 MG TAB PO SCH (08:15)
[2017-01-22] MEDS: MULTIVITAMINS/MINERALS THERAP 1 TAB PO SCH (08:15)
[2017-01-22] MEDS: SENOKOT S TAB PO SCH ×2 (08:15→20:53)
[2017-01-22] MEDS: ENOXAPARIN 40 MG/0.4 ML SYRINGE (J1650) SC SCH (08:16)
[2017-01-22] MEDS: PANTOPRAZOLE 40MG INJ (PROTONIX) (C9113) IV SCH (08:16)
--- NOTE | 2017-01-22 10:23 | IPNPDOC ---
Subjective General Date/Time Seen The patient was seen on 01/22/17 at 10:18. Subject Chief Complaint/History The patient is a 81-year-old male admitted with a reason for visit of Parastomal Hernia/Sbo. Looks well sitting up on a chair. Reports feeling comfortable. Colostomy is functioning and had a good amount of output yesterday. Tolerating clears. Denies abdominal discomfort, nausea. Current Medications Current Medications Current Medications Acetaminophen (Tylenol Tab) 650 mg Q4HP PRN PO MILD PAIN or TEMP > 101; Start 01/19/17 at 07:00; Stop 02/18/17 at 06:59 Acetaminophen/ Hydrocodone Bitart ([place], Anexsia 5/325) 1 tab Q4HP PRN PO MODERATE PAIN (PS 5-7); Start 01/19/17 at 07:00; Stop 01/26/17 at 06:59 Acetaminophen/ Hydrocodone Bitart ([place], Anexsia 5/325) 2 tab Q6HP PRN PO SEVERE PAIN (PS 8-10); Start 01/19/17 at 07:00; Stop 01/26/17 at 06:59 Albuterol Sulfate (Proventil, Ventolin Hfa) 2 puff QID PRN INH SHORTNESS OF BREATH; Start 01/19/17 at 10:00; Stop 01/19/17 at 10:03; Status DC Albuterol/ Ipratropium (Duoneb (Ipr 0.5mg/Alb 2.5mg)) 2.5 ml TID PRN INH SHORTNESS OF BREATH; Start 01/19/17 at 10:00; Stop 01/19/17 at 10:03; Status DC Albuterol/ Ipratropium (Duoneb (Ipr 0.5mg/Alb 2.5mg)) 3 ml Q2HP PRN NEB SOB/ WHEEZING Last administered on 01/21/17 05:41; Start 01/19/17 at 10:00; Stop at 09:59 Albuterol/ Ipratropium (Duoneb (Ipr 0.5mg/Alb 2.5mg)) 3 ml RQ4H NEB Last administered on 01/22/17 07:30; Start 01/20/17 at 12:00; Stop 02/19/17 at 11:59 Albuterol/ Ipratropium (Duoneb (Ipr 0.5mg/Alb 2.5mg)) 3 ml RQID NEB Last administered on 01/20/17 07:19; Start 01/19/17 at 12:00; Stop 01/20/17 at 09:39 ; Status DC Alprazolam (Xanax) 0.5 mg BID PRN PO ANXIETY Last administered on 01/21/17 21: 47; Start 01/19/17 at 10:00; Stop 01/26/17 at 09:59 Budesonide (Pulmicort) 0.5 mg RBID INH Last administered on 01/22/17 07:30; Start 01/19/17 at 08:00; Stop 02/18/17 at 07:59 Cetylpyridinium Chloride (Cepacol) 2 anish Q4HP PRN PO COUGH Last administered on 01/21/17 09:10; Start 01/20/17 at 13:45; Stop 02/19/17 at 13:44 Ciprofloxacin 400 mg/IV Miscellaneous Supplies 200 ml @ 200 mls/hr Q12H IV Last administered on 01/21/17 23:25; Start 01/19/17 at 12:00; Stop 01/26/17 at 11:59 Enoxaparin Sodium (Lovenox) 40 mg DAILY SC Last administered on 01/22/17 08:16 ; Start 01/19/17 at 09:00; Stop 01/24/17 at 08:59 Home Med (Med Rec Complete!) ASDIRECTED XX ; Start 01/19/17 at 06:15; Stop at 06:17; Status DC Lactated Ringer's 1,000 ml @ 25 mls/hr Q24H IV Last administered on 01/21/17 20:37; Start 01/19/17 at 06:48; Stop 02/18/17 at 06:47 Loratadine (Claritin) 10 mg DAILY PRN PO ALLERGIES; Start 01/19/17 at 10:00; Stop 02/18/17 at 09:59 Metronidazole 500 mg/IV Miscellaneous Supplies 100 ml @ 100 mls/hr Q8H IV Last administered on 01/22/17 05:20; Start 01/19/17 at 13:00; Stop 01/26/17 at 12:59 Morphine Sulfate (Morphine Sulfate Inj) 4 mg Q2HP PRN IV SEVERE PAIN (PS 8-10) ; Start 01/19/17 at 07:00; Stop 01/21/17 at 14:27; Status DC Multivitamins (Theragram-M) 1 tab DAILY PO Last administered on 01/22/17 08:15 ; Start 01/19/17 at 09:00; Stop 02/18/17 at 08:59 Nitroglycerin (Nitrobid 2%) 0.5 INCH hold for systo... Q6H TOP ; Start 01/19/17 at 12:00; Stop 02/18/17 at 11:59 Pantoprazole Sodium (Protonix) 40 mg DAILY IV Last administered on 01/22/17 08 :16; Start 01/19/17 at 09:00; Stop 02/18/17 at 08:59 Prednisone (Deltasone) 5 mg DAILY PO Last administered on 01/22/17 08:15; Start 01/19/17 at 09:00; Stop 02/18/17 at 08:59 Senna/Docusate Sodium (Senokot S) 1 tab BID PO Last administered on 01/22/17 08:15; Start 01/19/17 at 09:00; Stop 02/18/17 at 08:59 Allergies Coded Allergies: Cephalosporins (Verified Allergy, Intermediate, HIVES COVERING TORSO, 12/07) Contrast Media (Verified Allergy, Unknown, 05/31/16) Objective Physical Examination Examination GENERAL APPEARANCE:comfortable, sitting up on a chair. SKIN: Warm and moist. HEENT: Normocephalic, atraumatic. [place] palpebral conjunctiva, anicteric sclerae. Lips and mucosa appear moist. NECK: Supple, no thyromegaly. No obvious jugular venous distention. LUNGS: Clear to auscultation bilaterally. No wheezing appreciated. HEART: No chest wall abnormalities. Regular rate and rhythm with no murmurs appreciated. ABDOMEN: Abdomen is round, soft, minimally distended. wide diastases at the midline, thin abdominal wall. Parastomal hernia, reducible now. colostomy with gas in the bag, small amount of soft, semiformed stool. Nontender on palpation. General abdominal distention improved. Soft on palpation. EXTREMITIES: Extremities have no deformities. No edema identified. Vital Signs Vital Signs Date Time Temp Pulse Resp B/P (MAP) Pulse Ox O2 Delivery O2 Flow Rate FiO2 01/22/17 06:00 98.0 77 20 127/72 (90) 92 Nasal Cannula 2.0 I&Os I&O- Last 24 Hours up to 6 AM 01/22/17 05:59 Intake Total 2460 ml Output Total 550 ml Balance 1910 ml Laboratory Data CBC/BMP Laboratory Tests 01/22/17 05:07 Red Blood Count 3.87 L, Mean Corpuscular Volume 78.7 L, Mean Corpuscular Hemoglobin 24.3 L, Mean Corpuscular Hemoglobin Concent 30.9 L, Red Cell Distribution Width 14.5, Neutrophils (%) (Auto) 77.6 H, Lymphocytes (%) (Auto) 11.4 L, Monocytes (%) (Auto) 6.7 H, Eosinophils (%) (Auto) 2.4, Basophils (%) ( Auto) 0.6, Neutrophils # (Auto) 7.7, Lymphocytes # (Auto) 1.3 L, Monocytes # ( Auto) 0.7, Eosinophils # (Auto) 0.2, Basophils # (Auto) 0.1, Calcium Level 8.4 L , Aspartate Amino Transf (AST/SGOT) 19, Alanine Aminotransferase (ALT/SGPT) 14, Alkaline Phosphatase 60, Total Bilirubin 0.4, Total Protein 5.5 L, Albumin 2.3 L Impression Small bowel obstruction Parastomal Hernia Patient has resolved his obstruction. Colostomy now functioning. I will advance his diet (low residue) and if tolerates this most likely will send him home tomorrow. [place] IVF. Ideally hernia should be repaired but given complex probably hostile abdomen from previous surgeries, very risky to do. Patient understands this. Plan / VTE VTE Prophylaxis Ordered?: Yes SHAUNA WALTON MD Jan 22, 2017 10:22
[2017-01-22] MEDS: CIPROFLOXACIN 500 MG TAB PO SCH ×2 (11:20→17:02)
[2017-01-22 14:00] VITALS: BP 120/67
[2017-01-22] MEDS: metroNIDAZOLE (FLAGYL) 500 MG TAB PO SCH ×2 (14:22→20:53)
[2017-01-22] MEDS: LR 1,000 ML IV SCH (18:16)
--- NOTE | 2017-01-22 18:17 | IPN ---
DATE: 01/22/2017 The patient is seen and examined at the bedside. Chart has been reviewed. This morning, patient is passing flatus. Had a bowel movement yesterday and tolerating his liquid diet this morning. No nausea, no vomiting, no abdominal pain or distention. Vital signs: Temperature 98, pulse 77, respiratory rate 20, blood pressure 127/72, 92% on 2 liters nasal cannula. Generally, awake, alert and oriented times three, answering questions appropriately. No icterus. No jaundice. No nasogastric tube. Lungs are clear to auscultation. No wheezing, rales or rhonchi. Heart: S1, S2, sinus rhythm. Abdomen is soft, nontender. Colostomy bag in left lower quadrant with stool. Nasogastric tube has been discontinued. No guarding or rebound. Positive bowel sounds. Extremities: No lower extremity edema. No skin lesions. LABORATORY DATA: White count 9.9, hemoglobin 9.4, hematocrit 30, platelet count 260. Sodium 143, potassium 3.5, chloride 108, bicarbonate 25, BUN 13, creatinine 1.2, glucose 95. IMAGING STUDIES: Chest x-ray: Bibasilar atelectasis, unchanged. 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 Ovalle, paroxysmal atrial fibrillation, reflux and insomnia, admitted under surgical service 01/19/2017, due to complaints of abdominal distention, nausea and vomiting, was found to have a bowel obstruction with a parastomal hernia. CURRENT ISSUES: 1. 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 Managed by primary surgical services. Conservative management with nothing by mouth status, nasogastric tube. Patient has been advanced and nasogastric tube has been discontinued. He is tolerating his diet well. He had a bowel movement yesterday. 2. Preoperative medical clearance. Patient does not appear to require surgical intervention at this time as his bowel obstruction had resolved with conservative management. However, should he need it in the future, patient has had no prior history of chest pain, pressure, tightness, or shortness of breath. No prior history of coronary artery disease (CAD), myocardial infarction ([place]), or congestive heart failure. Ejection fraction on August 2016 echocardiogram was 60%, diastolic dysfunction grade 1 with mild aortic stenosis. 3. History of reactive airway disease and lung disease, secondary to exposure to stone quarry. On chronic prednisone which is continued. Patient has no episodes of adrenal insufficiency during this admission. Continue with nebulizer treatments. 4. Hypertension, currently stable. Will discontinue nitroglycerin patch and resume home dose blood pressure medications. 5. History of paroxysmal atrial fibrillation. Currently sinus rhythm.
[2017-01-22 22:00] VITALS: BP 140/78
[2017-01-22] MEDS: ALPRAZolam 0.5 MG TAB PO PRN (22:41)
[2017-01-23] MEDS: IPRATROPIUM 0.5MG/ALBUTEROL 2.5MG INH SOL UD 3ML (DUONEB)(J7620) NEB SCH ×3 (03:38→11:48)
[2017-01-23] MEDS: CIPROFLOXACIN 500 MG TAB PO SCH (05:24)
[2017-01-23] MEDS: metroNIDAZOLE (FLAGYL) 500 MG TAB PO SCH ×2 (05:24→14:00)
[2017-01-23 06:00] VITALS: BP 123/70
[2017-01-23 06:07] LABS: BASO # 0.1 K/mm3 (0.0-0.2); BASO % 0.7 % (0.0-1.0); EOS # 0.3 K/mm3 (0.0-0.50); EOS % 2.8 % (0.0-3.0); LARGE UNSTAINED CELL # 0.2 K/mm3 (0.0-0.4); LARGE UNSTAINED CELL % 1.7 % (0.0-4.0); LYMPH # 1.6 K/mm3 (1.5-4.5); LYMPH % 15.9 % (24.0-44.0); MEAN CORPUSCULAR HEMOGLOBIN 24.5 pg (27.0-33.0); MEAN CORPUSCULAR HGB CONC 31.1 g/dl (32.0-36.5); MEAN CORPUSCULAR VOLUME 78.7 fl (80.0-96.0); MONO # 0.7 K/mm3 (0.0-0.8); MONO % 7.6 % (0.0-5.0); NEUTROPHILS # 6.7 K/mm3 (1.8-7.7); NEUTROPHILS % 71.4 % (36.0-66.0); PLATELET COUNT, AUTOMATED 290 k/mm3 (150-450); RED CELL DISTRIBUTION WIDTH 14.8 % (11.5-14.5); WHITE BLOOD COUNT 9.4 K/mm3 (4.0-10.0)
[2017-01-23 06:27] LABS: ALBUMIN 2.4 GM/DL (3.2-5.2); ALBUMIN/GLOBULIN RATIO 0.73 (1.00-1.93); ALKALINE PHOSPHATASE 60 U/L (45-117); ALT/SGPT 17 U/L (12-78); ANION GAP 10 MEQ/L (8-16); AST/SGOT 32 U/L (15-37); BILIRUBIN,TOTAL 0.3 MG/DL (0.2-1.0); BLOOD UREA NITROGEN 12 MG/DL (7-18); CALCIUM LEVEL 8.5 MG/DL (8.8-10.2); CARBON DIOXIDE LEVEL 24 MEQ/L (21-32); CHLORIDE LEVEL 109 MEQ/L (98-107); CREATININE FOR GFR 1.17 MG/DL (0.70-1.30); GLOMERULAR FILTRATION RATE > 60.0 (>35); GLUCOSE, FASTING 104 MG/DL (83-110); POTASSIUM SERUM 3.3 MEQ/L (3.5-5.1); SODIUM LEVEL 143 MEQ/L (136-145); TOTAL PROTEIN 5.7 GM/DL (6.4-8.2)
[2017-01-23] MEDS ORDERED: POTASSIUM CHLORIDE 10 MEQ SR TABLET PO ONE (08:00)
[2017-01-23] MEDS: predniSONE 5 MG TAB PO SCH (08:16)
[2017-01-23] MEDS: SENOKOT S TAB PO SCH (08:16)
[2017-01-23] MEDS: MULTIVITAMINS/MINERALS THERAP 1 TAB PO SCH (08:16)
[2017-01-23] MEDS: PANTOPRAZOLE 40MG INJ (PROTONIX) (C9113) IV SCH (08:17)
[2017-01-23] MEDS: ENOXAPARIN 40 MG/0.4 ML SYRINGE (J1650) SC SCH (08:17)
[2017-01-23] MEDS: BUDESONIDE 0.5 MG/2 ML INHALATION SUSPENSION INH SCH (08:28)
--- NOTE | 2017-01-23 17:01 | IPN ---
DATE: 01/23/2017 SUBJECTIVE: Patient is seen and examined in the room today. Patient does not have any acute complaints or acute changes. Charts are reviewed. Patient stated his ostomy is working. No overnight events are reported. OBJECTIVE: VITAL SIGNS: Temperature 98, pulse 87, respirations 20, blood pressure 123/70, pulse oximetry 95% in room air. GENERAL: No sign of acute distress. Alert and oriented times three. HEENT: Normocephalic, atraumatic. Extraocular motors grossly intact. CARDIOVASCULAR: Positive S1, S2, regular rate. LUNGS: Clear to auscultation bilaterally. ABDOMEN: Ostomy in the left abdomen with stool. Abdomen is soft, nontender. EXTREMITIES: No edema. No sign of cyanosis. LABORATORY DATA: WBC 9.4, hemoglobin 9.3, hematocrit 29.8, platelet count is 290. Sodium 143, potassium 3.3, chloride 109, carbon dioxide 24, BUN 12, creatinine 1.17, GFR greater than 60, fasting glucose 104, calcium 8.5, total bilirubin 0.3, AST 32, ALT 17, alkaline phosphatase 60, total protein 5.7, albumin 2.4. ASSESSMENT AND PLAN: 1. 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 Patient has a patent ostomy. Patient tolerated diet well. We deferred the ostomy care to the primary surgical team. 2. History of reactive airway disease and lung disease. Patient is on chronic prednisone. Patient is on nebulizer treatment as needed. 3. Hypertension. Patient is resumed on the home medications. Blood pressure is in the satisfactory range. 4. History of colon cancer status post colon resection. 5. Iron deficiency anemia. Hemoglobin and hematocrit are stable. 6. History of atrioventricular (AV) block status post pacemaker. 7. Gastroesophageal reflux disease. 8. History of insomnia. 9. History of paroxysmal atrial fibrillation. 10. History of Crockett's esophagus. 11. Hypercholesterolemia. 12. Deep venous thrombosis (DVT) prophylaxis per primary team. DISPOSITION: Patient is cleared for discharge by the primary surgical team. Patient will be discharged home. Recommend to followup with the primary care provider in 1-2 weeks.
--- NOTE | 2017-01-24 15:03 | DS.PDOC ---
Discharge Summary General Date of Admission Jan 19, 2017 at 06:48 Date of Discharge 01/23/2017 Attending Physician: SHAUNA WALTON MD Specialist/Consultants Involve: CLAUDIA LORENZANA MD Discharge Summary PROCEDURES PERFORMED DURING STAY: None. ADMITTING DIAGNOSES: 1. Small bowel obstruction 2. Parastomal hernia, incisional hernia 3. DISCHARGE DIAGNOSES: 1. Small bowel obstruction, resolved 2. Parastomal hernia COMPLICATIONS/CHIEF COMPLAINT: Parastomal Hernia/Sbo. HISTORY OF PRESENT ILLNESS: See HPI HOSPITAL COURSE: Patient is admitted overnight under my service. A nasogastric tube has been placed to decompress his bowels. First time I saw him despite nasogastric tube he still remains distended though he reports that his abdominal cramping has improved. He has multiple medical problems and I asked the hospitalist service to come on board for medical comanagement as well as her possibility that he will need surgery. Over the weekend, he gradually improved with eventual passage of gas and stool material in his colostomy. His abdomen became less distended and eventually we were able to remove the nasogastric tube by hospital day #2 and placed him on diet by hospital day #3. On discharge patient is tolerating diet he is now having any abdominal pain or discomfort. He has activity in his colostomy. He remains to have a large parastomal/incisional hernia. He follows up with Dr. Montoya in and anchored to do so regarding elective repair of this if there are any options for him. DISCHARGE MEDICATIONS: Please see below. ALLERGIES: Please see below. PHYSICAL EXAMINATION ON DISCHARGE: VITAL SIGNS: Please see below. GENERAL: Comfortable HEENT: Lips and mucosa moist, pink palpebral conjunctiva NECK: No jugular venous distention CARDIOVASCULAR EXAMINATION: Regular heart rate and rhythm RESPIRATORY EXAMINATION: Clear breath sounds ABDOMINAL EXAMINATION: Round, nondistended, large parastomal hernia extending to the midline, colostomy functioning. Nontender to palpation EXTREMITIES: Edema SKIN: No skin rashes NEUROLOGICAL EXAMINATION: Awake alert and oriented LABORATORY DATA: Please see below. PROGNOSIS: Good ACTIVITY: As tolerated. DIET: As tolerated. DISCHARGE PLAN: DISPOSITION: 01 Home, Self-Care. DISCHARGE INSTRUCTIONS: 1. Activity as tolerated 2. Follow up with surgeon for discussion for elective repair of his hernia DISCHARGE CONDITION: Stable. TIME SPENT ON DISCHARGE: Greater than 30 minutes. Vital Signs/I&Os Vital Signs Date Time Temp Pulse Resp B/P (MAP) Pulse Ox O2 Delivery O2 Flow Rate FiO2 01/23/17 08:15 Room Air 01/23/17 06:00 98.0 87 20 123/70 (87) 95 01/22/17 06:00 2.0 I&O- Last 24 Hours up to 6 AM 01/24/17 06:00 Intake Total 1015 ml Output Total 125 ml Balance 890 ml Discharge Medications Scheduled Alprazolam (Alprazolam) 0.5 Mg Tab, 0.5 MG PO QHS, (Reported) Arformoterol Tartrate (Brovana) 15 Mcg/2 Ml Neb, 15 MCG INH BID, (Reported) Aspirin (Aspirin EC) 81 Mg Tabec, 81 MG PO 3XW, (Reported) ANY 3 DAYS Cholecalciferol (Vitamin D) 5,000 Unit Tab, 5,000 UNIT PO Q3RD, (Reported) ANY 3RD DAY Ciprofloxacin HCl (Cipro) 500 Mg Tab, 500 MG PO BID@ Loratadine (Loratadine Allergy Relief) 10 Mg Tab, 10 MG PO DAILY, (Reported) Metronidazole (Flagyl) 250 Mg Tab, 500 MG PO Q8H Multivitamins *[facility] STOCKED* (Thera M Plus *[facility] STOCKED*) 1 Tab Tab, 1 TAB PO Q3RD, (Reported) Pantoprazole Sodium Sesquihydr (Protonix) 40 Mg Tab, 40 MG PO QHS, (Reported) Prednisone (Prednisone) 5 Mg Tab, 5 MG PO DAILY, (Reported) Scheduled PRN Albuterol Sulfate (Proventil Hfa) 167 Puff/6.7 Gm Aers, 2 PUFFS INH QID PRN for SHORTNESS OF BREATH, (Reported) Albuterol/Ipratropium (Ipratropium [place]/Albut 0.5-2.5 (3) mg/3Ml) 1 Kevin Kevin, 1 KEVIN INH TID PRN for SHORTNESS OF BREATH, (Reported) Alprazolam (Xanax) 0.5 Mg Tab, 0.5 MG PO DAILY PRN for ANXIETY, (Reported) Budesonide (Pulmicort) 0.5 Mg/2 Ml [place], 0.5 MG INH BID PRN for SHORTNESS OF BREATH, (Reported) Allergies Coded Allergies: Cephalosporins (Verified Allergy, Intermediate, HIVES COVERING TORSO, 12/07) Contrast Media (Verified Allergy, Unknown, 05/31/16) SHAUNA WALTON MD Jan 24, 2017 15:03
== END 2017-01-23 14:09 | disposition home or self-care (01) | DRG 395 ==
LOC: EDBD 01:51 → M ED 01:51 → M ED INP 06:48 → M MSPAV 08:07
PROVIDERS: ADMIT Surgery; ATTEND Surgery
DX: K43.3 Parastomal hernia with obstruction, without gangrene (principal); K81.1 Chronic cholecystitis; J44.9 Chronic obstructive pulmonary disease, unspecified; J45.909 Unspecified asthma, uncomplicated; D50.9 Iron deficiency anemia, unspecified; I13.10 Hypertensive heart and chronic kidney disease without heart failure, with stage 1 through stage 4 chronic kidney disease, or unspecified chronic kidney disease; K21.9 Gastro-esophageal reflux disease without esophagitis; E78.00 Pure hypercholesterolemia, unspecified; N18.9 Chronic kidney disease, unspecified; K22.70 Barrett's esophagus without dysplasia; G47.00 Insomnia, unspecified; I48.0 Paroxysmal atrial fibrillation; Z95.0 Presence of cardiac pacemaker; Z90.49 Acquired absence of other specified parts of digestive tract; Z85.038 Personal history of other malignant neoplasm of large intestine; Z93.3 Colostomy status; Z79.82 Long term (current) use of aspirin; Z79.52 Long term (current) use of systemic steroids; Z79.899 Other long term (current) drug therapy; Z91.041 Radiographic dye allergy status; Z88.1 Allergy status to other antibiotic agents

== ENCOUNTER 2017-01-26 20:57 | Inpatient (IN) | payer MEDICARE ==
[~2017-01-26] VITALS: Ht 172.7 cm; Wt 70.7 kg
[2017-01-26] MEDS: NS 1,000 ML IV SCH (00:10)
[2017-01-26] MEDS ORDERED: NS 1,000 ML IV SCH (21:05)
[2017-01-26] MEDS ORDERED: ONDANSETRON 4MG/2ML VIAL (J2405) IV ONE (21:15)
[2017-01-26 21:57] LABS: BASO # 0.1 K/mm3 (0.0-0.2); BASO % 0.7 % (0.0-1.0); EOS # 0.4 K/mm3 (0.0-0.50); EOS % 2.9 % (0.0-3.0); LARGE UNSTAINED CELL # 0.2 K/mm3 (0.0-0.4); LARGE UNSTAINED CELL % 1.3 % (0.0-4.0); LYMPH # 1.9 K/mm3 (1.5-4.5); LYMPH % 10.6 % (24.0-44.0); MEAN CORPUSCULAR HEMOGLOBIN 23.8 pg (27.0-33.0); MEAN CORPUSCULAR HGB CONC 30.4 g/dl (32.0-36.5); MEAN CORPUSCULAR VOLUME 78.2 fl (80.0-96.0); MONO # 0.9 K/mm3 (0.0-0.8); MONO % 5.5 % (0.0-5.0); NEUTROPHILS # 12.4 K/mm3 (1.8-7.7); PLATELET COUNT, AUTOMATED 347 k/mm3 (150-450); RED CELL DISTRIBUTION WIDTH 14.9 % (11.5-14.5); WHITE BLOOD COUNT 15.7 K/mm3 (4.0-10.0)
[2017-01-26] MEDS: MORPHINE 2 MG/ML 1ML SYRINGE IV PRN ×2 (21:59→23:25)
[2017-01-26 22:21] LABS: ALBUMIN 3.1 GM/DL (3.2-5.2); ALBUMIN/GLOBULIN RATIO 0.97 (1.00-1.93); BILIRUBIN,DIRECT 0.1 MG/DL (0.0-0.2); BILIRUBIN,TOTAL 0.5 MG/DL (0.2-1.0); CALCIUM LEVEL 8.5 MG/DL (8.8-10.2); CREATININE FOR GFR 1.35 MG/DL (0.70-1.30); GLOMERULAR FILTRATION RATE 53.7 (>35); POTASSIUM SERUM 3.9 MEQ/L (3.5-5.1); TOTAL PROTEIN 6.3 GM/DL (6.4-8.2)
--- NOTE | 2017-01-26 22:50 | REPUSA ---
CLINICAL HISTORY: Abdominal pain. COMPARISON: 01/19/2017. TECHNIQUE: Multiple axial, coronal, sagittal CT images were obtained through the abdomen and pelvis without administration of oral or IV contrast material. COMMENTS: The liver is of uniform attenuation without mass or defect. There is no intra or extrahepatic biliar y ductal dilatation. The spleen is normal. The gallbladder is within normal limits. The pancreas a ppears to be atrophic and fatty replaced. There is no evidence of adrenal mass. Several bilateral renal cysts are present, the largest located in the lower pole of the left kidney m easuring 4.5 cm in diameter. There is a peripherally calcified cyst noted in the superior pole of th e left kidney posteriorly measuring 3.8 cm. The kidneys are normal in size, shape and configuration. No renal or ureteral calculi are identified. There is no hydroureter or hydronephrosis. Small hiatal hernia is present. There is no evidence for appendicitis. The patient is status post p artial colectomy. Colostomy is present in the left upper quadrant with parastomal hernia containing large bowel with retained fecal material. There is no evidence of abdominal ascites or lymphadenopat hy. There is no evidence of intrinsic or extrinsic bladder mass. There is no pelvic ascites or lymphaden opathy. The prostate gland is mildly enlarged containing calcifications. Fat containing left inguinal hernia is seen. Atelectasis and scarring are present in the right and left lower lobes. There are no pleural effusio ns. The bony structures are free of lytic or blastic lesions. IMPRESSION: 1. Overall no significant interval change in comparison with 01/19/2017. 2. Atrophic fatty replaced pancreas. 3. Bilateral renal cysts. 4. Small hiatal hernia. 5. The patient is status post partial colectomy. 6. Colostomy is present in the left upper quadrant with parastomal hernia. 7. Mildly enlarged prostate gland. 8. Fat containing left inguinal hernia. 9. Atelectasis and scarring are present in the right and left lower lobes.
[2017-01-26] MEDS ORDERED: MORPHINE 2 MG/ML 1ML SYRINGE IV PRN (23:45)
[2017-01-26] MEDS ORDERED: ONDANSETRON 4MG/2ML VIAL (J2405) IV PRN (23:45)
[2017-01-26] MEDS ORDERED: ALPR0.5T3 PO (23:53)
[2017-01-26] MEDS ORDERED: LORATAB PO (23:53)
[2017-01-27] MEDS ORDERED: IPRATROPIUM 0.5MG/ALBUTEROL 2.5MG INH SOL UD 3ML (DUONEB)(J7620) NEB PRN (00:15)
[2017-01-27 01:37] VITALS: BP 146/75
[2017-01-27] MEDS ORDERED: ALPRAZolam 0.5 MG TAB PO ONE (02:30)
[2017-01-27] MEDS: MORPHINE 2 MG/ML 1ML SYRINGE IV PRN ×2 (04:43→08:51)
[2017-01-27] MEDS: HEPARIN SOD (PORCINE) 5000 UNITS/ML VIAL SC SCH ×3 (05:35→21:14)
[2017-01-27 06:00] VITALS: BP 145/81
[2017-01-27 06:04] LABS: MEAN CORPUSCULAR HEMOGLOBIN 24.1 pg (27.0-33.0); MEAN CORPUSCULAR HGB CONC 30.5 g/dl (32.0-36.5); MEAN CORPUSCULAR VOLUME 79.2 fl (80.0-96.0); RED CELL DISTRIBUTION WIDTH 14.7 % (11.5-14.5); WHITE BLOOD COUNT 17.3 K/mm3 (4.0-10.0)
[2017-01-27 06:20] LABS: ANION GAP 11 MEQ/L (8-16); BLOOD UREA NITROGEN 15 MG/DL (7-18); CALCIUM LEVEL 7.7 MG/DL (8.8-10.2); CARBON DIOXIDE LEVEL 23 MEQ/L (21-32); CHLORIDE LEVEL 109 MEQ/L (98-107); CREATININE FOR GFR 1.04 MG/DL (0.70-1.30); GLOMERULAR FILTRATION RATE > 60.0 (>35); GLUCOSE, FASTING 113 MG/DL (83-110); POTASSIUM SERUM 3.9 MEQ/L (3.5-5.1); SODIUM LEVEL 143 MEQ/L (136-145)
[2017-01-27] MEDS ORDERED: IPRATROPIUM 0.5MG/ALBUTEROL 2.5MG INH SOL UD 3ML (DUONEB)(J7620) INH PRN (07:30)
[2017-01-27] MEDS: IPRATROPIUM 0.5MG/ALBUTEROL 2.5MG INH SOL UD 3ML (DUONEB)(J7620) NEB SCH ×3 (08:03→23:13)
[2017-01-27] MEDS: NS 1,000 ML IV SCH ×2 (08:51→22:55)
[2017-01-27] MEDS: FORMOTEROL FUMARATE 20 MCG/2 ML INHALATION SOLUTION (PERFOROMIST) INH SCH ×2 (09:17→20:00)
--- NOTE | 2017-01-27 09:37 | HPE ---
DATE OF ADMISSION: 01/26/2017 PRIMARY CARE PROVIDER: Dr. Reed. DIRECTOR DISTRIBUTION: Dr. Singer. CODE STATUS: FULL CODE. CHIEF COMPLAINT: Abdominal pain and distention. HISTORY OF PRESENT ILLNESS: Mr. Altamirano is a pleasant 81-year-old gentleman recently discharged from the hospital after having a small bowel obstruction, has had prior history of colon cancer status post resection and colostomy. He presented with worsening symptoms of abdominal pain, distention, nausea, vomiting for the last 24 hours. He denies fevers, chills, rigors, chest pain, shortness of breath, does have a history of asthma, but denies any wheeze or cough currently. No productive sputum. PAST MEDICAL HISTORY: 1. Colon cancer status post colon resection with colostomy. 2. Diverticulitis in the past. 3. Iron deficiency anemia. 4. Gastritis. 5. Hypertension. 6. Hyperlipidemia. 7. Hypertensive heart disease. 8. Arterioventricular (AV) block status post pacemaker placement. 9. Gastroesophageal reflux disease (GERD). 10. Insomnia. PAST SURGICAL HISTORY: Sigmoid colectomy with colostomy placement, status post appendectomy and cystectomy. FAMILY HISTORY: Noncontributory. SOCIAL HISTORY: The patient is a nonsmoker. He used to work in a [employer]. He has since retired. Denies alcohol use. Lives at home with his . No recent travel. No sick contacts. No pets. ALLERGIES: CEPHALOSPORINS cause hives, CONTRAST MEDIA causes hives. CURRENT MEDICATIONS: - albuterol inhaler as directed four times daily - DuoNebs three times a day as needed - Xanax 0.5 mg twice a day - Brovana 15 mcg twice a day - aspirin 81 mg three times a week - budesonide inhaler 0.5 mg twice a day - vitamin D 5000 units every third day - Claritin 10 mg daily - multivitamin one tablet every third day - Protonix 40 mg nightly - prednisone 5 mg daily REVIEW OF SYSTEMS: Constitutional: He has had decreased appetite. Denies fevers, chills or rigors. HEENT: Denies headache, lightheadedness, dizziness, blurry vision, double vision or tinnitus, but he has had decreased oral intake with some nausea. Pulmonary: Positive for asthma. No productive sputum, cough or hemoptysis. Cardiovascular: Prior history of AV block with pacemaker placement. Denies chest pain, palpitations, orthopnea, lower extremity edema. Gastrointestinal: As outlined above, nausea, vomiting with abdominal distention, decreased appetite, but denies any hematochezia or melena. Genitourinary: No dysuria, frequency or hematuria. Musculoskeletal: No bone, muscle, joint pain, swelling or erythema. No weakness. Neurologic: Denies paresthesias or paralysis. Endocrine: Negative for diabetes. Negative for thyroid disorder. Lymphatics: No lumps, bumps, swelling in the neck, axilla or groin. No night sweats or weight loss. Hematology: Negative for bleeding or bruising disorder. No prior history of venous thromboembolism. Oncology: No history of cancer. Psychiatric: Negative for depression. No suicidal ideation, no audio or visual hallucinations. 10-point review of systems complete. Pertinent positives are listed. PHYSICAL EXAMINATION: Temperature is 98.2, pulse 76, respiratory rate 18, blood pressure 155/80, SPO2 is 97% on room air. General: The patient appears to be in no acute distress. He is alert, oriented, pleasant. HEENT: Unremarkable. Lungs: Clear to auscultation. Heart: Regular rhythm. Abdomen is grossly distended with diminished bowel sounds. He does appear to be hypertympanic on percussion. The ostomy does appear to be patent. It does not appear to be erythematous. Extremities: No edema or calf tenderness. LABORATORY DATA: White count 15.7, hemoglobin is 11.3, platelets 347,000. Sodium 142, potassium 3.9, chloride 105, bicarbonate 27, anion gap 10, BUN is 14, creatinine 1.35, glucose 102. Lactic acid was not checked, will add this to his labs. AST is 55, ALT 59, alkaline phosphatase 82, albumin 3.1. Urinalysis pending. INR is 1.0. PT is 13.3. Urine culture is pending. Will add a blood culture as well. CT abdomen and pelvis overall no significant interval change when compared to 01/11/2017. Atrophic fatty in the region of the pancreas, bilateral renal cysts, small hiatal hernia, status post partial colectomy is noted with a colostomy present in left upper quadrant with a parastomal hernia, mildly enlarged prostate, fat containing left inguinal hernia and atelectasis and scarring present in the right and left lower lobes. IMPRESSION: Mr. Altamirano is an 81-year-old gentleman who has recently been hospitalized and discharged due to a small bowel obstruction. Most likely this is related to his prior abdominal surgeries, possibly related to adhesions. At any rate he was able to be discharged home successfully and was doing well up until today when he developed abdominal distention, nausea, vomiting. CT scan does not show signs of small bowel obstruction. However, he does appear to be distended and is unable to tolerate oral intake at this point. Will go ahead and admit him to observation. Drop a nasogastric (NG) tube, place it to low intermittent suction and I did ask Dr. Singer to see the patient on consult. PROBLEM LIST: 1. Abdominal pain with history of colon cancer status post resection and colostomy. 2. Leukocytosis, likely stress demargination. He is afebrile and does not show any signs of sepsis. 3. Hypertension. 4. Hypertensive heart disease. 5. Hyperlipidemia. 6. Asthma. 7. History of AV block status post pacer. 8. GERD. 9. Insomnia. PLAN: The patient will be admitted medicine/surgery per Dr. Lau. Consult Dr. Singer. Nothing by mouth overnight. NG tube will be placed to low intermittent suction, intravenous (IV) fluids with normal saline run at 80 mL/h. Pain control, Zofran for nausea, vomiting. Continue his home medications with sips, DuoNebs. Will check a lactic acid and blood cultures. Urine culture is pending. Out of bed, will be encouraged to ambulate. Deep venous thrombosis (DVT) prophylaxis on subcutaneous heparin. DISPOSITION: The patient will be admitted overnight. Likely will be here greater than two midnights. Again, Dr. Singer will see the patient tomorrow morning.
--- NOTE | 2017-01-27 11:43 | IPNPDOC ---
Date Seen The patient was seen on 01/27/17. Progress Note Hospitalist Progress Note Subjective: Patient states that he feels a little bit better with NG in place, but is still having abdominal pain. He denies any bowel movements but states he is passing gas. Objective: Physical Exam: Vitals: Vital Sign - Last 24 Hours 01/26/17 01/26/17 01/26/17 01/26/17 21:31 21:31 21:59 22:15 Temp 98.2 Pulse 76 Resp 18 18 18 B/P (MAP) 155/80 (105) Pulse Ox 97 96 96 O2 Delivery Room Air 01/26/17 01/26/17 01/26/17 01/26/17 22:27 22:42 22:57 23:12 Pulse 74 78 80 76 B/P (MAP) 149/72 (97) Pulse Ox 91 89 93 95 01/26/17 01/26/17 01/26/17 01/26/17 23:25 23:27 23:40 23:42 Pulse 80 76 Resp 18 B/P (MAP) 115/76 (89) Pulse Ox 94 93 97 O2 Delivery Room Air 01/26/17 01/27/17 01/27/17 01/27/17 23:57 00:12 00:27 00:42 Pulse 78 76 70 66 B/P (MAP) 123/83 (96) 151/74 (99) Pulse Ox 94 95 91 93 01/27/17 01/27/17 01/27/17 01/27/17 00:57 01:12 01:27 01:37 Temp 98.4 Pulse 74 70 70 79 Resp 20 B/P (MAP) 147/87 (107) 146/75 (98) Pulse Ox 95 93 95 92 O2 Delivery Room Air 01/27/17 01/27/17 01/27/17 01/27/17 04:43 06:00 08:51 09:01 Temp 98.9 Pulse 78 Resp B/P (MAP) 145/81 (102) Pulse Ox 90 O2 Delivery Room Air General: Awake, alert, no acute distress HEENT: Normocephalic, atraumatic, NG in place CV: Regular rate and rhythm Lungs: Clear to auscultation bilaterally Abd: Bowel sounds present, distended, soft, tenderness to palpation in the right quadrants, colostomy appears healthy Extremities: Edema of the right lower extremity greater than the left Neuro: Alert and oriented 3, normal speech Psych: Normal mood and affect Labs and Imaging: Laboratory Tests 01/26/17 21:51 Red Blood Count 4.77, Mean Corpuscular Volume 78.2 L, Mean Corpuscular Hemoglobin 23.8 L, Mean Corpuscular Hemoglobin Concent 30.4 L, Red Cell Distribution Width 14.9 H, Neutrophils (%) (Auto) 79.0 H, Lymphocytes (%) (Auto ) 10.6 L, Monocytes (%) (Auto) 5.5 H, Eosinophils (%) (Auto) 2.9, Basophils (%) (Auto) 0.7, Neutrophils # (Auto) 12.4 H, Lymphocytes # (Auto) 1.9, Monocytes # ( Auto) 0.9 H, Eosinophils # (Auto) 0.4, Basophils # (Auto) 0.1 01/27/17 05:31 Red Blood Count 3.98 L, Mean Corpuscular Volume 79.2 L, Mean Corpuscular Hemoglobin 24.1 L, Mean Corpuscular Hemoglobin Concent 30.5 L, Red Cell Distribution Width 14.7 H, Calcium Level 7.7 L Assessment and Plan: 81-year-old male with iron deficiency anemia, gastritis, COPD, hypertension, hyperlipidemia, hypertensive heart disease, AV block status post pacemaker placement, GERD, insomnia, colon cancer status post colon resection with colostomy, recent SBO who presents to the emergency department with abdominal pain and distention. 1. Abdominal pain and distention: Imaging does not reveal any obstruction or ileus, but clinically the patient appears to have an ileus. Likely secondary to his bowel surgeries and adhesions. Lactate, lipase, LFTs are unremarkable. We will continue the NG to low intermittent suction, as well as IV fluids and nothing by mouth status. We appreciate Dr. Singer's help. 2. Leukocytosis: This appears to be chronic in nature. The patient is afebrile, and upon review of the EMR for the last year, his white count has chronically been elevated. I suspect that this may be secondary to his chronic prednisone use. It does not appear to be above what it has been over the last year. Blood and urine cultures are pending. 3. COPD: Continue home budesonide and DuoNeb's. The patient usually takes Brovana at home, which we do not have on formulary, so we will substitute Perforomist. Currently holding home prednisone while the patient is nothing by mouth. We will need to restart this soon, or consider a little bit of IV steroids given that he has been on these chronically. Blood pressure is currently stable 4. Gastritis/GERD: Currently holding home PPI while patient is nothing by mouth. 5. Hypertension: Patient does not report any home medications. Blood pressure is currently adequately controlled; we'll continue to monitor. 6. Iron deficiency anemia: Upon review of the EMR, her hemoglobin does appear to fluctuate, but most recently it has been in the nines. He appears to be near this at this time. We'll continue to monitor. 7. Right lower extremity swelling: We will check a Doppler to rule out DVT. DVT prophylaxis: Heparin Dispo: pending surgical evaluation and improvement in abdominal pain VS, I&O, 24H, Fishbone Vital Signs/I&O Vital Signs Date Time Temp Pulse Resp B/P (MAP) Pulse Ox O2 Delivery O2 Flow Rate FiO2 01/27/17 09:01 17 01/27/17 06:00 98.9 78 145/81 (102) 90 Room Air I&O- Last 24 Hours up to 6 AM 01/27/17 06:00 Intake Total 1000 ml Output Total 300 ml Balance 700 ml Laboratory Data 24H LABS Laboratory Tests 2 01/26/17 21:51: White Blood Count 15.7H, Red Blood Count 4.77, Hemoglobin 11.3L, Hematocrit 37.3L, Mean Corpuscular Volume 78.2L, Mean Corpuscular Hemoglobin 23.8L, Mean Corpuscular Hemoglobin Concent 30.4L, Red Cell Distribution Width 14.9H, Platelet Count 347, Neutrophils (%) (Auto) 79.0H, Lymphocytes (%) (Auto) 10.6L, Monocytes (%) (Auto) 5.5H, Eosinophils (%) (Auto) 2.9, Basophils (%) (Auto) 0.7 , Neutrophils # (Auto) 12.4H, Lymphocytes # (Auto) 1.9, Monocytes # (Auto) 0.9H , Eosinophils # (Auto) 0.4, Basophils # (Auto) 0.1, Large Unclassified Cells % 1.3, Large Unclassified Cells # 0.2, Prothrombin Time 13.3, Prothromb Time International Ratio 1.00, Anion Gap 10, Glomerular Filtration Rate 53.7, Calcium Level 8.5L, Aspartate Amino Transf (AST/SGOT) 55H, Alanine Aminotransferase (ALT/SGPT) 59, Alkaline Phosphatase 82, Total Bilirubin 0.5, Direct Bilirubin 0.1, Total Protein 6.3L, Albumin 3.1L, Albumin/Globulin Ratio 0.97L, Amylase Level 64, Lipase 172 01/26/17 23:43: Urine Appearance CLEAR, Urine Color YELLOW, Urine pH 7.0, Urine Specific Gilbert 1.013, Urine Protein NEGATIVE, Urine Glucose (UA) NEGATIVE, Urine Ketones TRACEH, Urine Urobilinogen 0.2, Urine Bilirubin NEGATIVE, Urine Leukocyte Esterase NEGATIVE, Urine Blood NEGATIVE, Urine Nitrite NEGATIVE, Urine WBC (Auto) 8H, Urine RBC (Auto) 3, Urine Hyaline Casts (Auto) 0, Urine Bacteria (Auto) NEGATIVE, Urine Squamous Epithelial Cells 0, Urine Mucus (Auto) SMALL, Urine Sperm (Auto) 01/27/17 00:22: Lactic Acid Level 1.5 01/27/17 05:31: Anion Gap 11, Glomerular Filtration Rate > 60.0, Calcium Level 7.7L, Blood Urea Nitrogen 15, Creatinine 1.04, Sodium Level 143, Potassium Level 3.9, Chloride Level 109H, Carbon Dioxide Level 23 CBC/BMP Laboratory Tests 01/26/17 21:51 Red Blood Count 4.77, Mean Corpuscular Volume 78.2 L, Mean Corpuscular Hemoglobin 23.8 L, Mean Corpuscular Hemoglobin Concent 30.4 L, Red Cell Distribution Width 14.9 H, Neutrophils (%) (Auto) 79.0 H, Lymphocytes (%) (Auto ) 10.6 L, Monocytes (%) (Auto) 5.5 H, Eosinophils (%) (Auto) 2.9, Basophils (%) (Auto) 0.7, Neutrophils # (Auto) 12.4 H, Lymphocytes # (Auto) 1.9, Monocytes # ( Auto) 0.9 H, Eosinophils # (Auto) 0.4, Basophils # (Auto) 0.1 01/27/17 05:31 Red Blood Count 3.98 L, Mean Corpuscular Volume 79.2 L, Mean Corpuscular Hemoglobin 24.1 L, Mean Corpuscular Hemoglobin Concent 30.5 L, Red Cell Distribution Width 14.7 H, Calcium Level 7.7 L Microbiology Microbiology 01/27/17 Blood Culture, Received Pending 01/26/17 Urine Culture, Received Pending ODILIA HERNANDEZ Jan 27, 2017 11:43
[2017-01-27 14:00] VITALS: BP 134/69
[2017-01-27] MEDS: BUDESONIDE 0.5 MG/2 ML INHALATION SUSPENSION INH PRN (20:00)
[2017-01-27 22:00] VITALS: BP 140/73
[2017-01-28] MEDS: ALPRAZolam 0.5 MG TAB PO PRN ×2 (02:00→22:20)
--- NOTE | 2017-01-28 03:04 | CR ---
DATE OF CONSULTATION: 01/27/2017 REASON FOR CONSULTATION: Question of recurrent small-bowel obstruction. BRIEF HISTORY OF PRESENT ILLNESS: The patient is an 81-year-old male who just left the hospital three days ago for a small bowel obstruction; however, reviewing his CAT scan shows no significant dilatation of small bowel. 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 His ostomy has not put out any significant amount of stool. He has an nasogastric (NG) tube in place that I see and has some bilious drainage from this. There is nothing recorded on the intake and output (I and O); however, his NG tube output, he has several hundred mL of bilious fluid. Overall, does not complain of any significant pain at this time. States that overall he is doing fine. PAST MEDICAL HISTORY: Significant for: 1. History of ventral hernia repair. 2. History of abdominal distension. 3. History of colon cancer status post colon resection with colostomy. 4. History of diverticulitis. 5. History of iron deficiency anemia 6. History of gastritis. 7. History of hypertension. 8. History of hyperlipidemia. 9. History of hypertensive heart disease. 10. History of atrioventricular (AV) block. 11. History of pacemaker implantation. 12. History of gastroesophageal reflux. 13. History of insomnia. 14. History of appendectomy. 15. History of cystectomy. MEDICATIONS: Include: - albuterol - DuoNeb - Xanax - Brovana - aspirin - budesonide - vitamin D - Claritin - multivitamin - Protonix - prednisone PHYSICAL EXAMINATION: Reveals an 81-year-old gentleman who looks stated age. HEENT: Unremarkable. NECK: Supple without adenopathy. LUNGS: Clear anteriorly, diminished posteriorly with a few crackles. No wheezing is appreciated. HEART: Regular with multiple irregular beats. ABDOMEN: Mildly distended. He has a parastomal hernia that I am easily able to reduce. There is no guarding. No rebound. No peritoneal signs. IMPRESSION/PLAN: CAT scan. I am reviewing that and I do not see any obstructive looking picture although he clinically describes some distension that could be consistent with obstruction. Once again, there is no evidence of obstruction on his study. At this time I do not feel that it is unreasonable to treat him empirically for his abdominal distension with the nasogastric (NG) tube for decompression; however, if his nasogastric (NG) tube output decreases, it may be very reasonable to remove this. In addition, the parastomal hernia may not be causing the distension and the discomfort. Otherwise, you would expect to see the rest of the colon as well as the small bowel dilated more proximal to this parastomal hernia, which is not occurring. Given that is not the case, and if were calling this a bowel obstruction, there would have to be some sort of significantly proximal small bowel abnormality and thus will best be served undergoing an upper GI with small-bowel follow-through. If the upper GI with small-bowel follow-through does not reveal any obstructive-looking pattern, then repair of the parastomal hernia can be performed in a semi-elective manner. Unfortunately, because of the recurrence of his discomfort, his abdominal distension, he may need operative intervention prior to discharge. Otherwise, I would anticipate he has a relatively high likelihood of recurrence if we are to assume that obstruction is his primary diagnosis. Thank you for this consult. I will follow the patient with you while he is admitted, but at this point I would recommend keeping nothing by mouth, intravenous (IV) fluids. We will see how he does over the next 24-48 hours and possibly on Sunday, if he is resolving the majority of his symptoms, proceed with an upper GI with small bowel follow-through via the nasogastric (NG) tube.
[2017-01-28] MEDS: HEPARIN SOD (PORCINE) 5000 UNITS/ML VIAL SC SCH ×3 (05:33→22:21)
[2017-01-28] MEDS: ACETAMINOPHEN TAB 650MG DOSE (2X325MG) PO PRN ×2 (05:33→06:21)
[2017-01-28 06:00] VITALS: BP 128/60
[2017-01-28 06:15] LABS: MEAN CORPUSCULAR HGB CONC 30.5 g/dl (32.0-36.5); MEAN CORPUSCULAR VOLUME 78.7 fl (80.0-96.0); RED CELL DISTRIBUTION WIDTH 14.8 % (11.5-14.5); WHITE BLOOD COUNT 20.4 K/mm3 (4.0-10.0)
[2017-01-28 06:32] LABS: ANION GAP 12 MEQ/L (8-16); BLOOD UREA NITROGEN 18 MG/DL (7-18); CALCIUM LEVEL 7.4 MG/DL (8.8-10.2); CARBON DIOXIDE LEVEL 22 MEQ/L (21-32); CHLORIDE LEVEL 110 MEQ/L (98-107); CREATININE FOR GFR 1.14 MG/DL (0.70-1.30); GLOMERULAR FILTRATION RATE > 60.0 (>35); GLUCOSE, FASTING 73 MG/DL (83-110); MAGNESIUM LEVEL 1.9 MG/DL (1.8-2.4); POTASSIUM SERUM 4.2 MEQ/L (3.5-5.1); SODIUM LEVEL 144 MEQ/L (136-145)
[2017-01-28] MEDS: BUDESONIDE 0.5 MG/2 ML INHALATION SUSPENSION INH PRN ×2 (07:49→20:09)
[2017-01-28] MEDS: IPRATROPIUM 0.5MG/ALBUTEROL 2.5MG INH SOL UD 3ML (DUONEB)(J7620) NEB SCH ×3 (07:49→23:22)
[2017-01-28] MEDS: FORMOTEROL FUMARATE 20 MCG/2 ML INHALATION SOLUTION (PERFOROMIST) INH SCH ×2 (07:49→20:09)
[2017-01-28] MEDS: NS 1,000 ML IV SCH (09:52)
[2017-01-28] MEDS: CIPROFLOXACIN 400 MG in APPROPRIATE DILUENT 1 EA IV SCH ×2 (11:05→22:21)
[2017-01-28] MEDS: metroNIDAZOLE 500 MG in APPROPRIATE DILUENT 1 EA IV SCH ×2 (12:52→19:57)
[2017-01-28 14:00] VITALS: BP 144/77
--- NOTE | 2017-01-28 20:00 | IPNPDOC ---
Date Seen The patient was seen on 01/28/17. Progress Note Hospitalist Progress Note Subjective: Patient states that he feels much better and is happy that Dr. Singer removed his NG. Objective: Physical Exam: Vitals: Vital Sign - Last 24 Hours 01/27/17 01/28/17 01/28/17 22:00 06:00 14:00 Temp 98.7 99.9 98.2 Pulse 88 98 85 Resp 19 19 16 B/P (MAP) 140/73 (95) 128/60 (82) 144/77 (99) Pulse Ox 91 91 96 O2 Delivery Room Air Room Air Room Air General: Awake, alert, no acute distress HEENT: Normocephalic, atraumatic, MMM CV: Regular rate and rhythm Lungs: Clear to auscultation bilaterally Abd: Bowel sounds present, soft, no TTP, colostomy appears healthy Extremities: Edema of the right lower extremity greater than the left Neuro: Alert and oriented 3, normal speech Psych: Normal mood and affect Labs and Imaging: Laboratory Tests 01/28/17 05:31 Calcium Level 7.4 L 01/28/17 05:32 Red Blood Count 3.97 L, Mean Corpuscular Volume 78.7 L, Mean Corpuscular Hemoglobin 24.0 L, Mean Corpuscular Hemoglobin Concent 30.5 L, Red Cell Distribution Width 14.8 H Assessment and Plan: 81-year-old male with iron deficiency anemia, gastritis, COPD, hypertension, hyperlipidemia, hypertensive heart disease, AV block status post pacemaker placement, GERD, insomnia, colon cancer status post colon resection with colostomy, recent SBO who presents to the emergency department with abdominal pain and distention. 1. Abdominal pain and distention: Imaging does not reveal any obstruction or ileus, but clinically the patient appears to have an ileus. Likely secondary to his bowel surgeries and adhesions. Lactate, lipase, LFTs are unremarkable. Management as per surgery; NG has now been removed, and he is on IV fluids and nothing by mouth status. We appreciate Dr. Singer's help. 2. Leukocytosis: This appears to be chronic in nature. The patient is afebrile, and upon review of the EMR for the last year, his white count has chronically been elevated. I suspect that this may be secondary to his chronic prednisone use. It does not appear to be above what it has been over the last year. Blood and urine cultures are pending. 3. COPD: Continue home budesonide and DuoNeb's. The patient usually takes Brovana at home, which we do not have on formulary, so we will substitute Perforomist. Currently holding home prednisone while the patient is nothing by mouth. We will need to restart this soon, or consider a little bit of IV steroids given that he has been on these chronically. Blood pressure is currently stable 4. Gastritis/GERD: Currently holding home PPI while patient is nothing by mouth. 5. Hypertension: Patient does not report any home medications. Blood pressure is currently adequately controlled; we'll continue to monitor. 6. Iron deficiency anemia: Upon review of the EMR, her hemoglobin does appear to fluctuate, but most recently it has been in the nines. He appears to be near this at this time. We'll continue to monitor. 7. Right lower extremity swelling: No evidence of DVT on prelim read of Doppler ; will follow up final read. 8. Bacteremia: Only one set of blood cultures was drawn on admission and it is growing GPCs. Patient has been afebrile and is clinically very well appearing. He has a leukocytosis, but this is chronic and I believe it is secondary to chronic steroid use. Will recheck 2 sets of blood cultures. No vancomycin at this time as I believe this is a contaminant and the patient is extremely well appearing. If he spike a fever at all, I would not hesitate to start vanco. DVT prophylaxis: Heparin Dispo: pending surgical evaluation and improvement in abdominal pain VS, I&O, 24H, Krzysztofbonnorma Vital Signs/I&O Vital Signs Date Time Temp Pulse Resp B/P (MAP) Pulse Ox O2 Delivery O2 Flow Rate FiO2 01/28/17 14:00 98.2 85 16 144/77 (99) 96 Room Air I&O- Last 24 Hours up to 6 AM 01/28/17 06:00 Intake Total 840 ml Output Total 950 ml Balance -110 ml Laboratory Data 24H LABS Laboratory Tests 2 01/28/17 05:31: Anion Gap 12, Glomerular Filtration Rate > 60.0, Blood Urea Nitrogen 18, Creatinine 1.14, Sodium Level 144, Potassium Level 4.2, Chloride Level 110H, Carbon Dioxide Level 22, Calcium Level 7.4L, Magnesium Level 1.9 CBC/BMP Laboratory Tests 01/28/17 05:31 Calcium Level 7.4 L 01/28/17 05:32 Red Blood Count 3.97 L, Mean Corpuscular Volume 78.7 L, Mean Corpuscular Hemoglobin 24.0 L, Mean Corpuscular Hemoglobin Concent 30.5 L, Red Cell Distribution Width 14.8 H Microbiology Microbiology 01/28/17 Blood Culture, Received Pending 01/28/17 Blood Culture, Received Pending 01/27/17 Blood Culture - Preliminary, Resulted 01/26/17 Urine Culture - Final, Complete ODILIA HERNANDEZ Jan 28, 2017 20:00
[2017-01-28 22:00] VITALS: BP 136/72
[2017-01-29] MEDS: metroNIDAZOLE 500 MG in APPROPRIATE DILUENT 1 EA IV SCH ×3 (04:18→19:59)
[2017-01-29] MEDS: NS 1,000 ML IV SCH (04:19)
[2017-01-29] MEDS: HEPARIN SOD (PORCINE) 5000 UNITS/ML VIAL SC SCH ×3 (05:22→22:29)
[2017-01-29 06:00] VITALS: BP 112/69
[2017-01-29 06:06] LABS: MEAN CORPUSCULAR HEMOGLOBIN 24.2 pg (27.0-33.0); MEAN CORPUSCULAR HGB CONC 30.9 g/dl (32.0-36.5); MEAN CORPUSCULAR VOLUME 78.5 fl (80.0-96.0); RED CELL DISTRIBUTION WIDTH 14.9 % (11.5-14.5); WHITE BLOOD COUNT 14.2 K/mm3 (4.0-10.0)
[2017-01-29 06:17] LABS: ANION GAP 8 MEQ/L (8-16); BLOOD UREA NITROGEN 20 MG/DL (7-18); CALCIUM LEVEL 7.7 MG/DL (8.8-10.2); CARBON DIOXIDE LEVEL 23 MEQ/L (21-32); CHLORIDE LEVEL 110 MEQ/L (98-107); CREATININE FOR GFR 1.18 MG/DL (0.70-1.30); GLOMERULAR FILTRATION RATE > 60.0 (>35); GLUCOSE, FASTING 72 MG/DL (83-110); POTASSIUM SERUM 3.8 MEQ/L (3.5-5.1); SODIUM LEVEL 141 MEQ/L (136-145)
[2017-01-29] MEDS: FORMOTEROL FUMARATE 20 MCG/2 ML INHALATION SOLUTION (PERFOROMIST) INH SCH ×2 (07:53→20:12)
[2017-01-29] MEDS: BUDESONIDE 0.5 MG/2 ML INHALATION SUSPENSION INH PRN ×2 (07:53→20:14)
[2017-01-29] MEDS: IPRATROPIUM 0.5MG/ALBUTEROL 2.5MG INH SOL UD 3ML (DUONEB)(J7620) NEB SCH ×3 (07:53→23:29)
[2017-01-29] MEDS ORDERED: BISACODYL 10 MG SUPP PR ONE (10:15)
[2017-01-29] MEDS ORDERED: clonazePAM 0.5 MG TAB PO PRN (10:15)
[2017-01-29] MEDS: SENNA 8.6 MG TAB (SENOKOT) PO SCH ×2 (10:46→19:59)
[2017-01-29] MEDS: CIPROFLOXACIN 400 MG in APPROPRIATE DILUENT 1 EA IV SCH ×2 (10:46→22:29)
--- NOTE | 2017-01-29 11:20 | IPN ---
DATE: 01/28/2017 Subjectively, the patient is feeling fine overnight. Has not had any nausea, vomiting, abdominal pain, noticed that his stool output has increased from his ostomy site and overall is feeling back to "normal" at this time. His white count did drop down to 14 from 20 yesterday. Overall, states that he does not have any significant pain or discomfort. No nausea. No vomiting. His ostomy is starting to put out some firm stool. On his physical exam, abdomen is soft, nontender, nondistended, still has a large parastomal hernia that is easily reducible. IMPRESSION AND PLAN: The patient had abdominal pain of undetermined etiology Given his elevated white count, it is highly suggestive there was some sort of infectious process that was either contributing to abdominal distension with possible ileus, but this was not appreciated on his CT scan either and thus at this point etiology of this elevated white count is undetermined. I do feel that it is reasonable to treat him empirically for a some infectious process. He was treated with antibiotics while he was in the hospital last visit and these antibiotics were discontinued prior to discharge and they were discontinued on normal white count which was appropriate. However, given his recurrence of symptoms relatively soon, implies that there may be an infectious etiology as of yet to be determined and he may benefit if we do not find the etiology for a prolonged treatment with antibiotics as an outpatient i.e. 10-14 days worth of antibiotics. In any case, it is reasonable start him on a clear liquid diet today and we will advance him to regular diet tomorrow should he be doing well with this.
--- NOTE | 2017-01-29 13:52 | IPNPDOC ---
Date Seen The patient was seen on 01/29/17. Progress Note Hospitalist Progress Note Subjective: Patient states that he feels much better and tolerating clears well ; he has also begun stooling Objective: Physical Exam: Vitals: Vital Sign - Last 24 Hours 01/28/17 01/28/17 01/29/17 14:00 22:00 06:00 Temp 98.2 98.9 98.1 Pulse 85 95 83 Resp 16 16 16 B/P (MAP) 144/77 (99) 136/72 (93) 112/69 (83) Pulse Ox 96 95 92 O2 Delivery Room Air Room Air Room Air General: Awake, alert, no acute distress HEENT: Normocephalic, atraumatic, MMM CV: Regular rate and rhythm Lungs: Clear to auscultation bilaterally Abd: Bowel sounds present, soft, no TTP, lots of stool in colostomy bag; paracolostomy hernia is reducible Extremities: Edema of the right lower extremity greater than the left Neuro: Alert and oriented 3, normal speech Psych: Normal mood and affect Labs and Imaging: Laboratory Tests 01/29/17 05:45 Red Blood Count 3.70 L, Mean Corpuscular Volume 78.5 L, Mean Corpuscular Hemoglobin 24.2 L, Mean Corpuscular Hemoglobin Concent 30.9 L, Red Cell Distribution Width 14.9 H, Calcium Level 7.7 L Assessment and Plan: 81-year-old male with iron deficiency anemia, gastritis, COPD, hypertension, hyperlipidemia, hypertensive heart disease, AV block status post pacemaker placement, GERD, insomnia, colon cancer status post colon resection with colostomy and paracolostomy hernia, recent SBO who presents to the emergency department with abdominal pain and distention. 1. Abdominal pain and distention: Etiology unclear. Imaging does not reveal any obstruction or ileus, but clinically the patient appears to have an ileus. Likely secondary to his bowel surgeries and adhesions and hernia. Lactate, lipase, LFTs are unremarkable. Management as per surgery; NG has now been removed, and they have advanced him to clears. We appreciate Dr. Singer's help. Dr. Singer suspects possible infectious etiology and has him on cipro and flagyl. While I am not convinced that his leukocytosis represents infection (it appears to be chronic, potentially secondary to chronic steroid use), it is not unreasonable to continue this therapy in the setting of an undetermined etiology and the patient now improving. 2. Leukocytosis: This appears to be chronic in nature. The patient is afebrile, and upon review of the EMR for the last year, his white count has chronically been elevated. I suspect that this may be secondary to his chronic prednisone use. It does not appear to be above what it has been over the last year. Urine culture is negative. Unfortunately, only one set of blood cultures were drawn on admission and this is growing GPCs. I suspect this is a contaminant, especially as the patient is clinically well appearing without being treated with gram positive coverage, but repeat blood cultures are pending. 3. COPD: Continue home budesonide and DuoNeb's. The patient usually takes Brovana at home, which we do not have on formulary, so we have substituted Perforomist. Will resume home prednisone now that he is not nothing by mouth. 4. Gastritis/GERD: We will resume home PPI now that he is not nothing by mouth 5. Hypertension: Patient does not report any home medications. Blood pressure is currently adequately controlled; we'll continue to monitor. 6. Iron deficiency anemia: Upon review of the EMR, his hemoglobin does appear to fluctuate, but most recently it has been in the nines. He appears to be near this at this time. We'll continue to monitor. 7. Right lower extremity swelling: No evidence of DVT on prelim read of Doppler ; will follow up final read. 8. Bacteremia: Only one set of blood cultures was drawn on admission and it is growing GPCs. Patient has been afebrile and is clinically very well appearing. He has a leukocytosis, but this is chronic and I believe it is secondary to chronic steroid use. Repeat blood cultures pending. No vancomycin at this time as I believe this is a contaminant and the patient is extremely well appearing. If he spike a fever at all, I would not hesitate to start vanco. DVT prophylaxis: Heparin Dispo: pending surgical clearance and being able to tolerate a diet; potentially tomorrow VS, I&O, 24H, Fishbone Vital Signs/I&O Vital Signs Date Time Temp Pulse Resp B/P (MAP) Pulse Ox O2 Delivery O2 Flow Rate FiO2 01/29/17 06:00 98.1 83 16 112/69 (83) 92 Room Air I&O- Last 24 Hours up to 6 AM 01/29/17 06:00 Intake Total 1060 ml Output Total 600 ml Balance 460 ml Laboratory Data 24H LABS Laboratory Tests 2 01/29/17 05:45: Anion Gap 8, Glomerular Filtration Rate > 60.0, Blood Urea Nitrogen 20H, Creatinine 1.18, Sodium Level 141, Potassium Level 3.8, Chloride Level 110H, Carbon Dioxide Level 23, Calcium Level 7.7L, Magnesium Level 2.0 CBC/BMP Laboratory Tests 01/29/17 05:45 Red Blood Count 3.70 L, Mean Corpuscular Volume 78.5 L, Mean Corpuscular Hemoglobin 24.2 L, Mean Corpuscular Hemoglobin Concent 30.9 L, Red Cell Distribution Width 14.9 H, Calcium Level 7.7 L Microbiology Microbiology 01/28/17 Blood Culture, Received Pending 01/28/17 Blood Culture, Received Pending 01/27/17 Blood Culture - Preliminary, Resulted 01/29/17 Stool Occult Blood (JOLEEN) - Final, Complete 01/26/17 Urine Culture - Final, Complete ODILIA HERNANDEZ Jan 29, 2017 13:52
[2017-01-29 14:00] VITALS: BP 135/71
[2017-01-29] MEDS: predniSONE 5 MG TAB PO SCH (14:42)
--- NOTE | 2017-01-29 16:39 | REP ---
RIGHT LOWER EXTREMITY DOPPLER VENOUS ULTRASOUND: 01/27/2017. Comparison: 09/05/2016. Clinical history: Lower extremity swelling, evaluate for DVT. Technique: The deep venous system of the right lower extremity is evaluated with kenny scale imaging, compression ultrasound, color imaging and duplex Doppler interrogation. Examination from the groin through the popliteal fossa into the proximal calf. Findings: There is full compressibility from the common femoral vein in the inguinal region through the popliteal vein. Color imaging confirms patency throughout the course of the deep venous system. There is respiratory variation and augmented flow at all levels. Impression: 1. No Doppler venous ultrasound evidence of DVT in the right lower extremity. Signed by Kirby Connelly MD 01/29/2017 05:13 P
[2017-01-29] MEDS ORDERED: PANTOPRAZOLE 40MG TAB (PROTONIX) PO SCH (21:00)
[2017-01-29 22:00] VITALS: BP 134/63
[2017-01-29] MEDS: ALPRAZolam 0.5 MG TAB PO PRN (22:29)
[2017-01-30] MEDS: metroNIDAZOLE 500 MG in APPROPRIATE DILUENT 1 EA IV SCH (04:44)
[2017-01-30] MEDS: HEPARIN SOD (PORCINE) 5000 UNITS/ML VIAL SC SCH ×2 (05:24→14:00)
[2017-01-30 06:00] VITALS: BP 134/65
[2017-01-30 06:07] LABS: MEAN CORPUSCULAR HEMOGLOBIN 23.8 pg (27.0-33.0); MEAN CORPUSCULAR HGB CONC 30.5 g/dl (32.0-36.5); MEAN CORPUSCULAR VOLUME 78.2 fl (80.0-96.0); WHITE BLOOD COUNT 10.1 K/mm3 (4.0-10.0)
[2017-01-30 06:44] LABS: ANION GAP 10 MEQ/L (8-16); BLOOD UREA NITROGEN 15 MG/DL (7-18); CARBON DIOXIDE LEVEL 21 MEQ/L (21-32); CHLORIDE LEVEL 112 MEQ/L (98-107); CREATININE FOR GFR 1.09 MG/DL (0.70-1.30); GLOMERULAR FILTRATION RATE > 60.0 (>35); GLUCOSE, FASTING 97 MG/DL (83-110); MAGNESIUM LEVEL 2.1 MG/DL (1.8-2.4); POTASSIUM SERUM 3.4 MEQ/L (3.5-5.1); SODIUM LEVEL 143 MEQ/L (136-145)
[2017-01-30] MEDS: BUDESONIDE 0.5 MG/2 ML INHALATION SUSPENSION INH PRN (07:46)
[2017-01-30] MEDS: FORMOTEROL FUMARATE 20 MCG/2 ML INHALATION SOLUTION (PERFOROMIST) INH SCH (07:46)
[2017-01-30] MEDS: IPRATROPIUM 0.5MG/ALBUTEROL 2.5MG INH SOL UD 3ML (DUONEB)(J7620) NEB SCH (07:47)
[2017-01-30] MEDS ORDERED: POTASSIUM CHLORIDE 10 MEQ SR TABLET PO ONE (08:00)
[2017-01-30] MEDS: predniSONE 5 MG TAB PO SCH (08:54)
[2017-01-30] MEDS: SENNA 8.6 MG TAB (SENOKOT) PO SCH (08:54)
[2017-01-30] MEDS: CIPROFLOXACIN 400 MG in APPROPRIATE DILUENT 1 EA IV SCH (11:11)
[2017-01-30] MEDS ORDERED: metroNIDAZOLE (FLAGYL) 250 MG TAB PO SCH (12:00)
[2017-01-30] MEDS ORDERED: FLAG250T PO (12:02)
[2017-01-30] MEDS ORDERED: CIPR-249 PO (12:02)
[2017-01-30] MEDS ORDERED: CIPROFLOXACIN 500 MG TAB PO SCH (18:00)
--- NOTE | 2017-01-30 18:11 | DS.PDOC ---
Discharge Summary General Date of Admission Jan 26, 2017 at 23:35 Date of Discharge 01/30/17 Attending Physician: DENYS COUGHLIN MD Specialist/Consultants Involve: Danilo Singer Jr Discharge Summary PROCEDURES PERFORMED DURING STAY: None. ADMITTING/DISCHARGE DIAGNOSES: 1. Abdominal pain and distention- resolved 2. Leukocytosis- likely secondary to intra-abdominal source. On Cipro and Flagyl. Improved. 3. History of COPD 4. History of gastritis/GERD 5. Hypertension 6. Chronic anemia 7. One positive blood culture, likely contaminant COMPLICATIONS/CHIEF COMPLAINT: Abdominal Pain. HISTORY OF PRESENT ILLNESS/HOSPITAL COURSE: . This is a 81-year-old male past medical history of colon cancer status post resection and colostomy who recently had a small bowel ejection presents complaining of nausea/vomiting/abdominal pain. Patient also had abdominal distention and worsening leukocytosis with suspicion of intra-abdominal source of inflammatory/infectious response. Patient was started on Cipro and Flagyl with significant improvement of his leukocytosis. His symptoms have resolved and he is tolerating a regular diet at this point. I discussed with Dr. Singer who recommends the patient be discharged today and to continue on completing a full ten-day course of Cipro and Flagyl, with outpatient follow-up in his office in 2 weeks. Patient is in agreement to this plan. Patient will also follow closely with his primary care physician. He is aware that he has chronic anemia however it is relatively close to his baseline. No need for transfusion at this time. Patient is return to the ED if symptoms worsen. DISCHARGE MEDICATIONS: Please see below. ALLERGIES: Please see below. PHYSICAL EXAMINATION ON DISCHARGE: Vitals: (see below) General: No acute distress, laying comfortably in bed. HEENT: Moist mucous membranes. Neck: No JVD or lymphadenopathy Cardiac: RRR, No murmurs Pulm: Clear to auscultation b/l. No wheezing, rhonchi Abd: NT/ND + BS. Ostomy bag intact. No Leakage. Surgical scars. Hernia nonincarcerated. Ext: 1+ pitting edema bilateral lower extremity, distal pulses intact. No cyanosis. LABORATORY DATA: Please see below. IMAGING: Ultrasound right lower extremity 01/27/17 -Impression:1. No Doppler venous ultrasound evidence of DVT in the right lower extremity. CT Abd/pelvis 01/26/17 IMPRESSION: 1. Overall no significant interval change in comparison with 01/19/2017. 2. Atrophic fatty replaced pancreas. 3. Bilateral renal cysts. 4. Small hiatal hernia. 5. The patient is status post partial colectomy. 6. Colostomy is present in the left upper quadrant with parastomal hernia. 7. Mildly enlarged prostate gland. 8. Fat containing left inguinal hernia. 9. Atelectasis and scarring are present in the right and left lower lobes. PROGNOSIS: Guarded ACTIVITY: As tolerated. DIET: Low-sodium DISCHARGE PLAN/DISPOSITION: DC to home. DISCHARGE INSTRUCTIONS: 1. Follow-up with PCP and Dr. Singer in 2 weeks. Continue antibiotics to finish course. DISCHARGE CONDITION: Stable. TIME SPENT ON DISCHARGE: Greater than minutes. Vital Signs/I&Os Vital Signs Date Time Temp Pulse Resp B/P (MAP) Pulse Ox O2 Delivery O2 Flow Rate FiO2 01/30/17 06:00 97.9 62 17 134/65 (88) 94 Room Air I&O- Last 24 Hours up to 6 AM 01/30/17 06:00 Intake Total 1715 ml Output Total 950 ml Balance 765 ml Laboratory Data Labs 24H Laboratory Tests 2 01/30/17 05:46: Anion Gap 10, Glomerular Filtration Rate > 60.0, Blood Urea Nitrogen 15, Creatinine 1.09, Sodium Level 143, Potassium Level 3.4L, Chloride Level 112H, Carbon Dioxide Level 21, Calcium Level 8.0L, Magnesium Level 2.1 CBC/BMP Laboratory Tests 01/30/17 05:46 Red Blood Count 3.47 L, Mean Corpuscular Volume 78.2 L, Mean Corpuscular Hemoglobin 23.8 L, Mean Corpuscular Hemoglobin Concent 30.5 L, Red Cell Distribution Width 15.0 H, Calcium Level 8.0 L Microbiology Microbiology 01/28/17 Blood Culture - Preliminary, Resulted No Growth after 48 hours. All Specime... 01/28/17 Blood Culture - Preliminary, Resulted No Growth after 48 hours. All Specime... 01/27/17 Blood Culture - Final, Complete Staphylococcus Capitis 01/29/17 Stool Occult Blood (JOLEEN) - Final, Complete 01/26/17 Urine Culture - Final, Complete Discharge Medications Scheduled Alprazolam (Alprazolam) 0.5 Mg Tab, 0.5 MG PO QHS, (Reported) Arformoterol Tartrate (Brovana) 15 Mcg/2 Ml Neb, 15 MCG INH BID, (Reported) Aspirin (Aspirin EC) 81 Mg Tabec, 81 MG PO 3XW, (Reported) ANY 3 DAYS Cholecalciferol (Vitamin D) 5,000 Unit Tab, 5,000 UNIT PO Q3RD, (Reported) ANY 3RD DAY Ciprofloxacin HCl (Cipro) 500 Mg Tab, 500 MG PO BID@06,18 Loratadine (Loratadine Allergy Relief) 10 Mg Tab, 10 MG PO DAILY, (Reported) Metronidazole (Flagyl) 250 Mg Tab, 500 MG PO Q8H Multivitamins *[facility] STOCKED* (Thera M Plus *[facility] STOCKED*) 1 Tab Tab, 1 TAB PO Q3RD, (Reported) Pantoprazole Sodium Sesquihydr (Protonix) 40 Mg Tab, 40 MG PO QHS, (Reported) Prednisone (Prednisone) 5 Mg Tab, 5 MG PO DAILY, (Reported) Scheduled PRN Albuterol Sulfate (Proventil Hfa) 167 Puff/6.7 Gm Aers, 2 PUFFS INH QID PRN for SHORTNESS OF BREATH, (Reported) Albuterol/Ipratropium (Ipratropium [place]/Albut 0.5-2.5 (3) mg/3Ml) 1 Kevin Kevin, 1 KEVIN INH TID PRN for SHORTNESS OF BREATH, (Reported) Alprazolam (Xanax) 0.5 Mg Tab, 0.5 MG PO DAILY PRN for ANXIETY, (Reported) Budesonide (Pulmicort) 0.5 Mg/2 Ml [place], 0.5 MG INH BID PRN for SHORTNESS OF BREATH, (Reported) Allergies Coded Allergies: Cephalosporins (Verified Allergy, Intermediate, HIVES COVERING TORSO, 12/07) Contrast Media (Verified Allergy, Unknown, 05/31/16) DENYS COUGHLIN MD Jan 30, 2017 18:11
== END 2017-01-30 15:11 | disposition home or self-care (01) | DRG 392 ==
LOC: M ED 20:57 → EDBD 20:57 → EDSEX 20:57 → M ED INP 23:35 → M MSPAV 01-27 01:37
PROVIDERS: ADMIT Hospitalist; ATTEND Internal Medicine
DX: R14.0 Abdominal distension (gaseous) (principal); R10.9 Unspecified abdominal pain; D50.9 Iron deficiency anemia, unspecified; K29.70 Gastritis, unspecified, without bleeding; I11.9 Hypertensive heart disease without heart failure; E78.5 Hyperlipidemia, unspecified; K21.9 Gastro-esophageal reflux disease without esophagitis; K43.5 Parastomal hernia without obstruction or gangrene; G47.00 Insomnia, unspecified; K40.90 Unilateral inguinal hernia, without obstruction or gangrene, not specified as recurrent; D72.829 Elevated white blood cell count, unspecified; J45.909 Unspecified asthma, uncomplicated; J44.9 Chronic obstructive pulmonary disease, unspecified; K44.9 Diaphragmatic hernia without obstruction or gangrene; Z90.49 Acquired absence of other specified parts of digestive tract; Z85.038 Personal history of other malignant neoplasm of large intestine; Z93.3 Colostomy status; Z88.1 Allergy status to other antibiotic agents; Z91.041 Radiographic dye allergy status; Z79.52 Long term (current) use of systemic steroids; Z95.0 Presence of cardiac pacemaker; Z79.82 Long term (current) use of aspirin; Z79.899 Other long term (current) drug therapy

== ENCOUNTER 2017-03-21 12:36 | Day surgery (SDC) | payer MEDICARE ==
[~2017-03-21] VITALS: Ht 175.3 cm; Wt 68.5 kg
[~2017-03-21 12:36] MED LIST changes: +ALPR0.5T3 PO; +CIPR-249 PO; +FLAG250T PO; +LORATAB PO
[2017-03-21] MEDS ORDERED: LR 1,000 ML IV ONE (13:00)
[2017-03-21] MEDS ORDERED: BUPIVACAINE/EPIN 0.25% 30 ML VIAL As Ordered ONE (13:33)
[2017-03-21] MEDS ORDERED: GABA-279 PO (13:35)
[2017-03-21] MEDS ORDERED: LIDOCAINE 2% INJ 100 MG/5 ML SDV (FOR ANES.) As Ordered ONE (13:43)
[2017-03-21] MEDS ORDERED: MIDAZOLAM INJ 2 MG/2 ML VIAL (J2250) As Ordered ONE (13:43)
[2017-03-21] MEDS ORDERED: PROPOFOL 200 MG/20 ML VIAL As Ordered ONE (13:43)
[2017-03-21] MEDS ORDERED: fentaNYL 100 MCG/2 ML INJECTION (J3010) As Ordered ONE (13:43)
[2017-03-21] MEDS ORDERED: ONDANSETRON 4MG/2ML VIAL (J2405) As Ordered ONE (13:43)
[2017-03-21] MEDS ORDERED: HYDROCORTISONE 100 MG/2 ML VIAL (J1720) As Ordered ONE (16:37)
[2017-03-21] MEDS ORDERED: PHENYLephrine HCL 500 MCG/5 ML (100MCG/ML) SYRINGE (J2370) As Ordered ONE (16:41)
[2017-03-21] MEDS ORDERED: NORCO, ANEXSIA 5/325MG TABLET (HYDROcodone/ACETAMINOPHEN) PO PRN (17:30)
[2017-03-21] MEDS ORDERED: LR 1,000 ML IV SCH (17:30)
[2017-03-21] MEDS ORDERED: fentaNYL 100 MCG/2 ML INJECTION (J3010) IV PRN (17:30)
[2017-03-21] MEDS ORDERED: MORPHINE 2 MG/ML 1ML SYRINGE IV PRN (17:30)
[2017-03-21] MEDS ORDERED: D5W/LR 1,000 ML IV SCH (17:30)
[2017-03-21] MEDS ORDERED: ONDANSETRON 4MG/2ML VIAL (J2405) IV PRN ×2 (17:30)
[2017-03-21] MEDS ORDERED: VANCOMYCIN HCL 1,000 MG, VIAL MATE ADAPTER 1 EACH in D5W 250 ML IV ONE (17:30)
[2017-03-21] MEDS ORDERED: PERCOCET 5MG/325MG TAB PO PRN (17:30)
[2017-03-21] MEDS ORDERED: METOCLOPRAMIDE INJ 10MG/2ML VIAL (J2765) IV PRN (17:30)
[2017-03-21 19:20] VITALS: BP 141/70
--- NOTE | 2017-03-22 09:06 | RO ---
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 PROCEDURE PERFORMED: Right open carpal tunnel release at the wrist and right ulnar nerve transposition across the elbow. SURGEON: Koko Rodriguez MD CAR CLEANER: Bon Lambert ANESTHESIA: LMA/general. ESTIMATED BLOOD LOSS: Less than 30 mL, replaced with crystalloid. COMPLICATIONS: None. TOURNIQUET: None. INDICATIONS: Significant median and ulnar neuropathy affecting the right upper extremity. The patient has elected for operative intervention. Consent reviewed in detail, including irais discussion of the pathology involved, procedure proposed, alternatives, including doing nothing and risks, including, but not limited to pain, failure, infection, bleeding, blood loss, incomplete relief of symptoms, nerve injury, need for more surgery and other issues. The patient agreed to proceed. DESCRIPTION OF PROCEDURE: The ulnar nerve was approached first. Both incisions was infiltrated with 0.25% Marcaine with epinephrine approximately 15 mL, split between the elbow and the carpal tunnel. Next, incision over the elbow was based on the medial epicondyle, made with 10 blade, developed down through skin and subcuticular tissue, medial epicondyle was identified. Dissection continued sharply posterior to it using the 10 blade knife. Fascia over the ulnar nerve was split, and I utilized the iris scissor to further expose the ulnar nerve, which was directly visualized. Proximally, the intramuscular septum was split and distally the muscular fascia of the flexor loop was split as the nerve moved into it. I placed a vessel loop around the nerve and was able to transpose the nerve anterior to the medial epicondyle. Bipolar cautery was utilized for hemostasis. Irrigation was accomplished. The elbow was placed through a range of motion the nerve was found to be tension-free. Posterior fascial structure was to the medial condyle to prevent posterior subluxation of the nerve. The elbow was again placed through a range of motion. The nerve was observed. Irrigation was accomplished. Deep dermis was approximated with interrupted stitch. Skin with ilda. Attention was turned to the right open carpal tunnel release, see right open carpal tunnel release template. Next, at the conclusion of case. The patient was extubated, moved to recovery room in good condition. For further details, please refer to medical record. [facility]
== END 2017-03-21 19:30 | disposition home or self-care (01) ==
LOC: M SDC 12:36
PROVIDERS: ATTEND Orthopaedic Surgery
DX: G56.01 Carpal tunnel syndrome, right upper limb (principal); G56.21 Lesion of ulnar nerve, right upper limb; R00.1 Bradycardia, unspecified; K57.30 Diverticulosis of large intestine without perforation or abscess without bleeding; K44.9 Diaphragmatic hernia without obstruction or gangrene; K21.9 Gastro-esophageal reflux disease without esophagitis; D64.9 Anemia, unspecified; R23.3 Spontaneous ecchymoses; R06.02 Shortness of breath; M12.9 Arthropathy, unspecified; F41.9 Anxiety disorder, unspecified; F32.9 Major depressive disorder, single episode, unspecified; J45.909 Unspecified asthma, uncomplicated; J44.9 Chronic obstructive pulmonary disease, unspecified; Z88.1 Allergy status to other antibiotic agents; Z91.041 Radiographic dye allergy status; Z79.899 Other long term (current) drug therapy; Z95.0 Presence of cardiac pacemaker; Z96.1 Presence of intraocular lens; Z86.79 Personal history of other diseases of the circulatory system
CPT/HCPCS: 64718; 64721; J1720; J2250; J2370; J2405; J3010; J3370

== ENCOUNTER 2017-03-23 11:29 | Inpatient (IN) | payer MEDICARE ==
[~2017-03-23] VITALS: Ht 172.7 cm; Wt 66.3 kg
[~2017-03-23 11:29] MED LIST changes: +GABA-279 PO
[2017-03-23] MEDS ORDERED: ZOLO25TA PO (11:42)
[2017-03-23] MEDS ORDERED: ONDANSETRON 4MG/2ML VIAL (J2405) As Ordered ONE (11:46)
[2017-03-23] MEDS ORDERED: MORPHINE 2 MG/ML 1ML SYRINGE IV ONE (12:45)
[2017-03-23 12:51] LABS: BASO # 0.1 10^3/uL (0.0-0.2); BASO % 0.6 % (0.0-1.0); EOS # 0.4 10^3/uL (0.0-0.50); EOS % 1.6 % (0.0-3.0); IMMATURE GRANULOCYTE % 1.4 % (0-0); LYMPH # 1.7 10^3/uL (1.5-4.5); LYMPH % 7.8 % (24.0-44.0); MEAN CORPUSCULAR HEMOGLOBIN 22.3 pg (27.0-33.0); MEAN CORPUSCULAR HGB CONC 29.1 g/dl (32.0-36.5); MEAN CORPUSCULAR VOLUME 76.6 fl (80.0-96.0); MONO # 1.3 10^3/uL (0.0-0.8); MONO % 5.8 % (0.0-5.0); NEUTROPHILS # 18.5 10^3/uL (1.8-7.7); NEUTROPHILS % 82.8 % (36.0-66.0); PLATELET COUNT, AUTOMATED 306 10^3/uL (150-450); RED CELL DISTRIBUTION WIDTH 19.4 % (11.5-14.5); WHITE BLOOD COUNT 22.3 10^3/uL (4.0-10.0)
[2017-03-23] MEDS ORDERED: ONDANSETRON 4MG/2ML VIAL (J2405) IV ONE (13:00)
[2017-03-23 13:05] LABS: ALBUMIN 2.8 GM/DL (3.2-5.2); ALBUMIN/GLOBULIN RATIO 0.85 (1.00-1.93); BILIRUBIN,DIRECT 0.1 MG/DL (0.0-0.2); BILIRUBIN,TOTAL 0.2 MG/DL (0.2-1.0); CALCIUM LEVEL 8.3 MG/DL (8.8-10.2); CREATININE FOR GFR 1.33 MG/DL (0.70-1.30); GLOMERULAR FILTRATION RATE 54.7 (>35); POTASSIUM SERUM 3.9 MEQ/L (3.5-5.1); TOTAL PROTEIN 6.1 GM/DL (6.4-8.2)
[2017-03-23] MEDS ORDERED: READI-CAT 2 PO ONE ×2 (13:15→14:30)
[2017-03-23] MEDS: MORPHINE 4 MG/ML 1ML SYRINGE IV PRN ×2 (13:22→19:59)
[2017-03-23] MEDS ORDERED: NS 1,000 ML IV ONE (14:45)
[2017-03-23] MEDS ORDERED: SERT-138 PO (14:48)
[2017-03-23] MEDS ORDERED: PREDOPD OD (14:48)
[2017-03-23] MEDS ORDERED: D5W/0.45% SODIUM CHLORIDE 1,000 ML IV SCH (17:45)
--- NOTE | 2017-03-23 17:54 | REP ---
CT ABDOMEN AND PELVIS WITHOUT IV CONTRAST: CT abdomen and pelvis performed without IV contrast. Oral contrast was administered. Sagittal and coronal reconstruction images are performed. COMPARISON: 01/26/2017 as well as other prior exams. Visualized lung bases demonstrate fibroatelectatic change. There is added patchy density in the left lower lobe suggesting superimposed atelectasis or infiltrate. The liver and gallbladder are grossly unremarkable. The spleen, adrenals and pancreas are grossly unremarkable. There are again bilateral renal cysts noted. There is again a 7 mm calculus in the distal right ureter without hydroureteronephrosis. There are moderate atherosclerotic calcifications of the abdominal aorta without aneurysm. There is no adenopathy. There is no free air or free fluid. The patient has had a prior partial colectomy. The left upper quadrant colostomy is again seen. 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 The bowel loops within the hernia are significantly dilated and contain fecal material. There is likely a partial obstruction at this level. No pelvic mass is seen. Anterior abdominal wall mesh is noted. There is a small hiatal hernia. IMPRESSION: Left upper quadrant colostomy with parastomal hernia containing dilated bowel, which in turn contains fecal material. I suspect partial obstruction at this location. Bibasilar fibroatelectatic changes with superimposed mild atelectasis or infiltrate left lower lobe. No free air or free fluid. There is a 7 mm calculus in the distal right ureter without hydronephrosis. Signed by Bright Kaplan MD 03/26/2017 04:11 P
[2017-03-23] MEDS ORDERED: NORCO, ANEXSIA 5/325MG TABLET (HYDROcodone/ACETAMINOPHEN) PO PRN ×2 (18:15)
[2017-03-23] MEDS ORDERED: ALBUTEROL 90 MCG/ACT 8GM HFA INHALER INH PRN (18:15)
[2017-03-23] MEDS ORDERED: MOM 30ML SUSPENSION UDC PO PRN (18:15)
[2017-03-23 20:15] VITALS: BP 140/69
[2017-03-23] MEDS: MULTIVITAMINS/MINERALS THERAP 1 TAB PO SCH (21:49)
[2017-03-23] MEDS: SENOKOT S TAB PO SCH (21:49)
[2017-03-23] MEDS: GABAPENTIN 100 MG CAP PO SCH (21:49)
[2017-03-23] MEDS: ALPRAZolam 0.5 MG TAB PO SCH (21:49)
[2017-03-23] MEDS: LR 1,000 ML IV SCH (21:49)
[2017-03-23] MEDS: IPRATROPIUM 0.5MG/ALBUTEROL 2.5MG INH SOL UD 3ML (DUONEB)(J7620) INH PRN (21:54)
[2017-03-23] MEDS: prednisoLONE ACET 1% OPHTH SUSP 5ML OD SCH (22:07)
[2017-03-24] MEDS: LR 1,000 ML IV SCH ×3 (02:33→17:21)
[2017-03-24 06:00] VITALS: BP 114/59
[2017-03-24 06:13] LABS: MEAN CORPUSCULAR HEMOGLOBIN 22.4 pg (27.0-33.0); MEAN CORPUSCULAR HGB CONC 29.9 g/dl (32.0-36.5); MEAN CORPUSCULAR VOLUME 74.9 fl (80.0-96.0); PLATELET COUNT, AUTOMATED 268 10^3/uL (150-450); RED CELL DISTRIBUTION WIDTH 18.9 % (11.5-14.5); WHITE BLOOD COUNT 25.9 10^3/uL (4.0-10.0)
[2017-03-24 06:19] LABS: ADD MANUAL DIFFER YES; DIFF SLIDE NUMBER 81
[2017-03-24 06:52] LABS: CALCIUM LEVEL 7.8 MG/DL (8.8-10.2); CREATININE FOR GFR 1.39 MG/DL (0.70-1.30); POTASSIUM SERUM 4.3 MEQ/L (3.5-5.1)
[2017-03-24] MEDS: IPRATROPIUM 0.5MG/ALBUTEROL 2.5MG INH SOL UD 3ML (DUONEB)(J7620) INH PRN ×3 (07:27→19:21)
[2017-03-24] MEDS: BUDESONIDE 0.5 MG/2 ML INHALATION SUSPENSION INH PRN ×2 (07:27→19:21)
[2017-03-24 07:46] LABS: BANDS 1 % (< 11)
[2017-03-24 07:47] LABS: MICROCYTOSIS 2+; OVALOCYTES 1+
[2017-03-24] MEDS: GABAPENTIN 100 MG CAP PO SCH ×2 (08:28→21:53)
[2017-03-24] MEDS: SENOKOT S TAB PO SCH ×2 (08:28→21:53)
[2017-03-24] MEDS: PANTOPRAZOLE 40MG INJ (PROTONIX) (C9113) IV SCH (08:28)
[2017-03-24] MEDS: MULTIVITAMINS/MINERALS THERAP 1 TAB PO SCH ×2 (08:28→21:53)
[2017-03-24] MEDS: SERTRALINE 100 MG TAB PO SCH (08:28)
[2017-03-24] MEDS: prednisoLONE ACET 1% OPHTH SUSP 5ML OD SCH ×4 (08:29→21:53)
[2017-03-24] MEDS: LORATADINE 10 MG TAB PO SCH (08:30)
[2017-03-24] MEDS ORDERED: ENOXAPARIN 30 MG/0.3 ML SYR (J1650) SC SCH (09:00)
[2017-03-24] MEDS ORDERED: predniSONE 5 MG TAB PO SCH (09:00)
[2017-03-24] MEDS: MORPHINE 4 MG/ML 1ML SYRINGE IV PRN ×3 (10:53→21:58)
[2017-03-24 13:16] LABS: MEAN CORPUSCULAR HEMOGLOBIN 22.2 pg (27.0-33.0); MEAN CORPUSCULAR HGB CONC 29.4 g/dl (32.0-36.5); MEAN CORPUSCULAR VOLUME 75.6 fl (80.0-96.0); PLATELET COUNT, AUTOMATED 277 10^3/uL (150-450); RED CELL DISTRIBUTION WIDTH 19.1 % (11.5-14.5); WHITE BLOOD COUNT 28.1 10^3/uL (4.0-10.0)
[2017-03-24 13:25] LABS: ADD MANUAL DIFFER YES; DIFF SLIDE NUMBER 145
[2017-03-24 14:00] VITALS: BP 102/54
--- NOTE | 2017-03-24 14:10 | HPEPDOC ---
General Surgery H&P Date of Admission Mar 23, 2017 at 18:10 History and Physical CHIEF COMPLAINT: Abdominal pain HISTORY OF PRESENT ILLNESS: Patient presents to the emergency department a few hours history of abdominal pain related to incarceration of a known parastomal hernia. He is known to me from previous admissions from small bowel obstruction as well as intermittent incarceration due to his parastomal hernia. He follows up with Dr. Singer on regarding this. Last time he was seen was 2 weeks ago. Due to previous failed repairs of his parastomal hernia as well as deemed high risk nature of the patient with his comorbid conditions has previously been decided that he is not a good candidate for repair of his hernia electively. ALLERGIES: Please see below. HOME MEDICATIONS: Please see below. PAST MEDICAL HISTORY: 1. Colon cancer status post colon resection with colostomy. 2. Diverticulitis in the past. 3. Iron deficiency anemia. 4. Gastritis. 5. Hypertension. 6. Hyperlipidemia. 7. Hypertensive heart disease. 8. Arterioventricular (AV) block status post pacemaker placement. 9. Gastroesophageal reflux disease (GERD). 10. Insomnia. PAST SURGICAL HISTORY: PERSONAL/SOCIAL HISTORY: Denies smoking, alcohol use, or recreational drug use. REVIEW OF SYSTEMS: GENERAL: Denies chills, fatigue, fever, weight gain and weight loss. HEENT: Denies blurred vision and double vision. Denies ear symptoms. Denies hoarseness. NECK: Denies any neck pain. CARDIOVASCULAR: Denies chest pain and palpitations. MUSCULOSKELETAL: Reports some back pain, recently had right carpal tunnel repair. SKIN: Denies rash. NEUROLOGIC: Denies headache, stroke and transient ischemic attack. PSYCHIATRIC: Denies anxiety and depression. ENDOCRINE: Denies thyroid disease. HEMATOLOGY/ONCOLOGY: Denies any bleeding or clotting disorder. HEART: Denies any chest pains, palpitations, paroxysmal dyspnea, orthopnea. PULMONARY: Reports shortness of breath with effort though has been stable, on prednisone at 5 mg daily for several years for his breathing GASTROINTESTINAL: Failed colostomy reversal with subsequent formation of parastomal hernia and recurrence after repair, multiple intermittent admissions for bowel obstruction that resolved on their own GENITOURINARY: Denies dysuria, frequency, hematuria and nocturia. ENDOCRINE: Denies polydipsia, polyphagia, polyuria, heat or cold intolerance. INFECTIOUS: Denies any recent upper respiratory tract infection, UTI, need for use of antibiotics. NUTRITION: Reports good appetite. PHYSICAL EXAMINATION: VITAL SIGNS: Please see below. GENERAL APPEARANCE: Patient seen at bedside, appears mildly uncomfortable. Awake , alert, oriented. HEENT: Normocephalic, atraumatic. [place] palpebral conjunctivae. Anicteric sclerae. Lips moist. CHEST: No chest wall abnormalities. Normal respiratory motion/effort. NECK: Supple. No thyromegaly. No lymphadenopathies. LUNGS: Lung sounds are clear to auscultation bilaterally. No wheezing appreciated. HEART: No chest wall abnormalities. Heart rate and rhythm are regular with no murmurs. ABDOMEN: Abdomen is round, moderately dustended, soft, thin abdominal wall. Under left-sided he has a functioning stoma with noticeable bulging around it consistent with a parastomal hernia. The stoma itself appears pink and viable. On finger examination of the inside of the stoma the stoma itself appears distended. There is able to get in through to the fascial opening with resultant emptying of the colostomy with maroon-colored stool. SKIN: Warm, moist. EXTREMITIES: Extremities have no deformities. No edema identified. NEUROLOGICAL: . ANCILLARIES: . LABORATORY DATA: Please see below. MICROBIOLOGY: Please see below. IMAGING: . CT abdomen and pelvis Left upper quadrant colostomy with parastomal hernia containing dilated bowel, which in turn contains fecal material. I suspect partial obstruction at this location. Bibasilar fibroatelectatic changes with superimposed mild atelectasis or infiltrate left lower lobe. No free air or free fluid. There is a 7 mm calculus in the distal right ureter without hydronephrosis. IMPRESSION AND PLAN: Parastomal hernia Bowel obstruction I have admitted him a couple times for intermittent obstruction for the past couple years which usually resolves with nasogastric tube decompression and IV fluid hydration. He is also followed up with Dr. Singer regarding possible repair and due to his comorbidities and previous prior failed repair, he was deemed a poor candidate for elective surgical repair. The only thing I noticed that this is a bit unusual with his presentation today is that the colon is the one that seems to be obstructed with the subcutaneous portion of the colostomy seeming to be dilated with intermittent relief of obstruction with manual manipulation at the colostomy site to allow for gas and stool contents to come out. So most likely there may be a obstruction at the level of the fascial opening. His abdomen itself does not appear to be very distended. This is soft and nontender. Thus it may not be a matter of trying to reduce her hernia as it seems to be subcutaneous portion of the colostomy takes up most of the bulging in the subcutaneous space and not the typical sense that we see with a parastomal hernia that there is a loop of bowel or omentum that is compressing on the colostomy causing the obstruction. I think this explains the fact that he is uncomfortable, that his abdomen is soft, and that despite the leukocytosis which I think would be reactive from the colostomy being obstructed at both the fascial level and at the colostomy stump, he remains to have no lactic acidosis. I'll start him on Cipro and Flagyl for the leukocytosis but I spoke to them about my concerns about how he is presenting and most likely the need to operate because of this to relieve a near-complete obstruction at the colostomy fascial opening. I recognized that he is high risk for repair both for the general anesthesia, the perioperative changes including fluid shifts and the fact that any repair that we do is probably temporary enteral recur his hernia but if the process persists, he may develop severe ischemia of his bowels leading to perforation. Patient is highly concerned that he may not be able to tolerate his surgery. Thus after thorough discussion, we have come to a decision to watch forcep. Of time, overnight and if he is no better or proceed to operate. Vital Signs Vital Signs Date Time Temp Pulse Resp B/P (MAP) Pulse Ox O2 Delivery O2 Flow Rate FiO2 03/24/17 11:03 16 03/24/17 06:00 98.9 83 114/59 (77) 94 Nasal Cannula 3.0 I&Os I&O- Last 24 Hours up to 6 AM 03/25/17 06:00 Intake Total 995 ml Output Total 425 ml Balance 570 ml Laboratory Data Labs 24H Laboratory Tests 2 03/23/17 14:39: Lactic Acid Level 1.8 03/24/17 05:38: Nucleated Red Blood Cells % (auto) 0.0, Neutrophils 91H, Band Neutrophils 1, Lymphocytes (Manual) 5L, Monocytes (Manual) 3, Microcytosis 2+, Ovalocytes 1+, Platelet Estimate NORMAL, Anion Gap 6L, Glomerular Filtration Rate 52.0, Blood Urea Nitrogen 23H, Creatinine 1.39H, Sodium Level 137, Potassium Level 4.3, Chloride Level 106, Carbon Dioxide Level 25, Calcium Level 7.8L 03/24/17 12:58: Lactic Acid Level 1.5, White Blood Count 28.1H, Red Blood Count 4.54, Hemoglobin 10.1L, Hematocrit 34.3L, Mean Corpuscular Volume 75.6L, Mean Corpuscular Hemoglobin 22.2L, Mean Corpuscular Hemoglobin Concent 29.4L, Red Cell Distribution Width 19.1H, Platelet Count 277, Neutrophils # (Auto) CBC/BMP Laboratory Tests 03/24/17 05:38 Red Blood Count 4.38, Mean Corpuscular Volume 74.9 L, Mean Corpuscular Hemoglobin 22.4 L, Mean Corpuscular Hemoglobin Concent 29.9 L, Red Cell Distribution Width 18.9 H, Calcium Level 7.8 L 03/24/17 12:58 Red Blood Count 4.54, Mean Corpuscular Volume 75.6 L, Mean Corpuscular Hemoglobin 22.2 L, Mean Corpuscular Hemoglobin Concent 29.4 L, Red Cell Distribution Width 19.1 H, Neutrophils # (Auto) Home Medications Scheduled Alprazolam (Alprazolam) 0.5 Mg Tab, 0.5 MG PO QHS, (Reported) Arformoterol Tartrate (Brovana) 15 Mcg/2 Ml Neb, 15 MCG INH BID, (Reported) Gabapentin (Gabapentin) 100 Mg Cap, 100 MG PO BID, (Reported) Loratadine (Loratadine Allergy Relief) 10 Mg Tab, 10 MG PO DAILY, (Reported) Multivitamins *[facility] STOCKED* (Thera M Plus *[facility] STOCKED*) 1 Tab Tab, 1 TAB PO BID , (Reported) with minerals Pantoprazole Sodium Sesquihydr (Protonix) 40 Mg Tab, 40 MG PO QHS, (Reported) Prednisolone Acetate (Prednisolone Acetate 1% Opth Susp) 100 Drop/5 Ml Susp, 1 DROP OD QID, (Reported) Prednisone (Prednisone) 5 Mg Tab, 5 MG PO DAILY, (Reported) Sertraline HCl (Sertraline HCl) 100 Mg Tab, 50 MG PO DAILY, (Reported) Scheduled PRN Albuterol Sulfate (Proventil Hfa) 167 Puff/6.7 Gm Aers, 2 PUFFS INH QID PRN for SHORTNESS OF BREATH, (Reported) Albuterol/Ipratropium (Ipratropium Gilbert/Albut 0.5-2.5 (3) mg/3Ml) 1 Kevin Kevin, 1 KEVIN INH TID PRN for SHORTNESS OF BREATH, (Reported) Budesonide (Pulmicort) 0.5 Mg/2 Ml [place], 0.5 MG INH BID PRN for SHORTNESS OF BREATH, (Reported) Allergies Coded Allergies: Cephalosporins (Verified Allergy, Intermediate, HIVES COVERING TORSO, 03/16) Contrast Media (Verified Allergy, Unknown, 03/16/17) SHAUNA WALTON MD Mar 24, 2017 14:00
[2017-03-24] MEDS: metroNIDAZOLE 500 MG in APPROPRIATE DILUENT 1 EA IV SCH ×2 (14:52→21:53)
[2017-03-24 15:04] LABS: BANDS 2 % (< 11); BASOPHILS 1 % (0-4)
[2017-03-24 15:05] LABS: HYPOCHROMASIA 1+; MICROCYTOSIS 2+
[2017-03-24] MEDS: CIPROFLOXACIN 400 MG in APPROPRIATE DILUENT 1 EA IV SCH (17:20)
[2017-03-24] MEDS: ALPRAZolam 0.5 MG TAB PO SCH (21:53)
[2017-03-24 22:00] VITALS: BP 119/56
[2017-03-25] VITALS (11 sets, daily range): BP systolic 99–136; BP diastolic 52–65
[2017-03-25] MEDS: LR 1,000 ML IV SCH ×3 (00:48→21:40)
[2017-03-25] MEDS: CIPROFLOXACIN 400 MG in APPROPRIATE DILUENT 1 EA IV SCH ×2 (04:18→15:45)
[2017-03-25] MEDS: metroNIDAZOLE 500 MG in APPROPRIATE DILUENT 1 EA IV SCH ×2 (05:34→15:18)
[2017-03-25 07:00] LABS: MEAN CORPUSCULAR HEMOGLOBIN 23.2 pg (27.0-33.0); MEAN CORPUSCULAR HGB CONC 30.5 g/dl (32.0-36.5); MEAN CORPUSCULAR VOLUME 76.2 fl (80.0-96.0); PLATELET COUNT, AUTOMATED 208 10^3/uL (150-450); RED CELL DISTRIBUTION WIDTH 18.9 % (11.5-14.5); WHITE BLOOD COUNT 19.4 10^3/uL (4.0-10.0)
[2017-03-25 07:08] LABS: ADD MANUAL DIFFER YES; DIFF SLIDE NUMBER 65
[2017-03-25 07:19] LABS: CALCIUM LEVEL 6.5 MG/DL (8.8-10.2); CREATININE FOR GFR 1.39 MG/DL (0.70-1.30); POTASSIUM SERUM 3.4 MEQ/L (3.5-5.1)
[2017-03-25 08:10] LABS: BANDS 2 % (< 11)
[2017-03-25 08:11] LABS: HYPOCHROMASIA 1+; OVALOCYTES 1+
[2017-03-25 08:12] LABS: MICROCYTOSIS 2+
[2017-03-25] MEDS: MORPHINE 4 MG/ML 1ML SYRINGE IV PRN ×2 (08:27→13:23)
--- NOTE | 2017-03-25 08:29 | IPNPDOC ---
Subjective General Date/Time Seen The patient was seen on 03/25/17 at 08:26. Subject Chief Complaint/History The patient is a 81-year-old male admitted with a reason for visit of Peristomal Hernia,Sbo. He continues to have moderate discomfort at the stoma site with bulging, beginning slight erythema at the skin around stoma site. Current Medications Current Medications Current Medications Acetaminophen (Tylenol Tab) 650 mg Q4HP PRN PO MILD PAIN or TEMP > 101; Start 03/23/17 at 18:15; Stop 04/22/17 at 18:14 Acetaminophen/ Hydrocodone Bitart ([place], Anexsia 5/325) 1 tab Q4HP PRN PO MODERATE PAIN (PS 5-7) Last administered on 03/24/17 02:36; Start 03/23/17 at 18:15; Stop 03/30/17 at 18:14 Acetaminophen/ Hydrocodone Bitart ([place], Anexsia 5/325) 2 tab Q6HP PRN PO SEVERE PAIN (PS 8-10) Last administered on 03/24/17 09:31; Start 03/23/17 at 18 :15; Stop 03/30/17 at 18:14 Albuterol Sulfate (Proventil, Ventolin Hfa) 2 puff QIDP PRN INH SHORTNESS OF BREATH Last administered on 03/24/17 22:09; Start 03/23/17 at 18:15; Stop at 18:14 Albuterol/ Ipratropium (Duoneb (Ipr 0.5mg/Alb 2.5mg)) 2.5 ml TIDP PRN INH SHORTNESS OF BREATH Last administered on 03/24/17 19:21; Start 03/23/17 at 18: 15; Stop 04/22/17 at 18:14 Alprazolam (Xanax) 0.5 mg QHS PO Last administered on 03/24/17 21:53; Start at 21:00; Stop 03/30/17 at 20:59 Budesonide (Pulmicort) 0.5 mg BIDP PRN INH SHORTNESS OF BREATH Last administered on 03/24/17 19:21; Start 03/23/17 at 18:15; Stop 04/22/17 at 18: 14 Ciprofloxacin 400 mg/IV Miscellaneous Supplies 200 ml @ 200 mls/hr Q12H IV Last administered on 03/25/17 04:18; Start 03/24/17 at 16:00; Stop 03/31/17 at 15:59 Dextrose/Sodium Chloride 1,000 ml @ 100 mls/hr Q10H IV ; Start 03/23/17 at 17: 45; Stop 03/23/17 at 21:25; Status DC Enoxaparin Sodium (Lovenox) 30 mg DAILY SC Last administered on 03/24/17 08:28 ; Start 03/24/17 at 09:00; Stop 03/25/17 at 08:26; Status DC Gabapentin (Neurontin) 100 mg BID PO Last administered on 03/24/17 21:53; Start 03/23/17 at 21:00; Stop 04/22/17 at 20:59 Home Med (Med Rec Complete!) ASDIRECTED XX ; Start 03/23/17 at 15:15; Stop at 15:15; Status DC Lactated Ringer's 1,000 ml @ 125 mls/hr Q8H IV Last administered on 03/25/17 00:48; Start 03/23/17 at 18:10; Stop 04/22/17 at 18:09 Loratadine (Claritin) 10 mg DAILY PO Last administered on 03/24/17 08:30; Start 03/24/17 at 09:00; Stop 04/23/17 at 08:59 Magnesium Hydroxide (Milk Of Magnesia) 30 ml DAILYPRN PRN PO CONSTIPATION; Start 03/23/17 at 18:15; Stop 04/22/17 at 18:14 Methylprednisolone (SOLUmedrol) 60 mg Q12H IV ; Start 03/25/17 at 08:30; Stop 04/24/17 at 08:29; Status UNV Metronidazole 500 mg/IV Miscellaneous Supplies 100 ml @ 100 mls/hr Q8H IV Last administered on 03/25/17 05:34; Start 03/24/17 at 14:00; Stop 03/31/17 at 13:59 Morphine Sulfate (Morphine Sulfate Inj) 4 mg Q2HP PRN IV SEVERE PAIN (PS 8-10) Last administered on 03/24/17 21:58; Start 03/23/17 at 18:15; Stop 03/30/17 at 18:14 Morphine Sulfate (Morphine Sulfate Inj) 4 mg Q30M PRN IV SEVERE PAIN (PS 8-10) Last administered on 03/23/17 19:59; Start 03/23/17 at 13:00; Stop 03/23/17 at 19:59; Status DC Multivitamins (Theragram-M) 1 tab BID PO Last administered on 03/24/17 21:53; Start 03/23/17 at 21:00; Stop 04/22/17 at 20:59 Ondansetron HCl (ZOFRAN INJection) 4 mg Q6HP PRN IV NAUSEA OR VOMITING; Start 03/23/17 at 18:15; Stop 04/22/17 at 18:14 Pantoprazole Sodium (Protonix) 40 mg DAILY IV Last administered on 03/24/17 08 :28; Start 03/24/17 at 09:00; Stop 04/23/17 at 08:59 Prednisolone Acetate (Predforte 1% Ophth Susp) 1 drop QID OD Last administered on 03/24/17 21:53; Start 03/23/17 at 21:00; Stop 04/22/17 at 20:59 Prednisone (Deltasone) 5 mg DAILY PO Last administered on 03/24/17 08:28; Start 03/24/17 at 09:00; Stop 03/25/17 at 08:23; Status DC Senna/Docusate Sodium (Senokot S) 1 tab BID PO Last administered on 03/24/17 21:53; Start 03/23/17 at 21:00; Stop 04/22/17 at 20:59 Sertraline HCl (Zoloft) 50 mg DAILY PO Last administered on 03/24/17 08:28; Start 03/24/17 at 09:00; Stop 04/23/17 at 08:59 Allergies Coded Allergies: Cephalosporins (Verified Allergy, Intermediate, HIVES COVERING TORSO, 03/16) Contrast Media (Verified Allergy, Intermediate, RASH - MANY YEARS AGO, 04/02/17) Objective Physical Examination Examination GENERAL APPEARANCE:Patient seen, laying in bed, awake, alert, and oriented. Comfortable, in no acute distress. SKIN: Warm and moist. HEENT: Normocephalic, atraumatic. [place] palpebral conjunctiva, anicteric sclerae. Lips and mucosa appear moist. NECK: Supple, no thyromegaly. No obvious jugular venous distention. LUNGS: Clear to auscultation bilaterally. No wheezing appreciated. HEART: No chest wall abnormalities. Regular rate and rhythm with no murmurs appreciated. ABDOMEN: Abdomen is minimally distended, soft, peristomal hernia tensely distended with slight erythema at the skin. Tender at the pparastomal area, minimal amount of bloody stool in bag, not much air. EXTREMITIES: . Vital Signs Vital Signs Date Time Temp Pulse Resp B/P (MAP) Pulse Ox O2 Delivery O2 Flow Rate FiO2 03/25/17 06:00 99.6 98 17 121/61 (81) 93 Nasal Cannula 3.0 I&Os I&O- Last 24 Hours up to 6 AM 03/26/17 05:59 Intake Total 0 ml Output Total 325 ml Balance -325 ml Laboratory Data Labs 24H Laboratory Tests 2 03/24/17 12:58: White Blood Count 28.1H, Red Blood Count 4.54, Hemoglobin 10.1L, Hematocrit 34.3L, Mean Corpuscular Volume 75.6L, Mean Corpuscular Hemoglobin 22.2L, Mean Corpuscular Hemoglobin Concent 29.4L, Red Cell Distribution Width 19.1H, Platelet Count 277, Neutrophils # (Auto) , Neutrophils 89H, Band Neutrophils 2, Lymphocytes (Manual) 4L, Monocytes (Manual) 4, Basophils (Manual) 1, Platelet Estimate NORMAL, Hypochromasia 1+, Microcytosis 2+, Lactic Acid Level 1.5 03/25/17 06:14: Neutrophils 95H, Band Neutrophils 2, Lymphocytes (Manual) 2L, Monocytes (Manual ) 1, Platelet Estimate NORMAL, Hypochromasia 1+, Microcytosis 2+, Ovalocytes 1+ , Anion Gap 9, Glomerular Filtration Rate 52.0, Blood Urea Nitrogen 25H, Creatinine 1.39H, Sodium Level 140, Potassium Level 3.4#L, Chloride Level 109H, Carbon Dioxide Level 22, Calcium Level 6.5#L CBC/BMP Laboratory Tests 03/24/17 12:58 Red Blood Count 4.54, Mean Corpuscular Volume 75.6 L, Mean Corpuscular Hemoglobin 22.2 L, Mean Corpuscular Hemoglobin Concent 29.4 L, Red Cell Distribution Width 19.1 H, Neutrophils # (Auto) 03/25/17 06:14 Red Blood Count 3.53 L, Mean Corpuscular Volume 76.2 L, Mean Corpuscular Hemoglobin 23.2 L, Mean Corpuscular Hemoglobin Concent 30.5 L, Red Cell Distribution Width 18.9 H, Calcium Level 6.5 #L Impression Incarcerated possible Strangulated Parastomal hernia Patient's daughter at the bedside as well as his . I continued my discussion with them regarding my concerns about the involved bowel possible strangulation of the entrapped bowel (I think its the colostomy - end colon itself involved with this episode) and that we should not wait any longer. I discussed with them that he is at risk for complications from both the surgery and the anesthesia but the risk of waiting and possible ischemia and necrosis/ perforation of the involved bowel is likely the longer we wait. Patient has agreed to proceed with surgery. Plan / VTE VTE Prophylaxis Ordered?: Yes SHAUNA WALTON MD Mar 25, 2017 08:29
[2017-03-25] MEDS ORDERED: CEPACOL LOZENGE PO PRN (08:45)
[2017-03-25] MEDS: SENOKOT S TAB PO SCH (09:00)
[2017-03-25] MEDS ORDERED: PREVNAR 13 VACCINE SYRINGE (CPT CODE:90670) IM ONE (09:00)
[2017-03-25] MEDS: MULTIVITAMINS/MINERALS THERAP 1 TAB PO SCH (09:00)
[2017-03-25] MEDS: LORATADINE 10 MG TAB PO SCH (09:00)
[2017-03-25] MEDS ORDERED: INFLUENZA VIRUS VACCINE HIGH DOSE 0.5 ML SYRINGE (90662) IM ONE (09:00)
[2017-03-25] MEDS: GABAPENTIN 100 MG CAP PO SCH (09:00)
[2017-03-25] MEDS: SERTRALINE 100 MG TAB PO SCH (09:00)
[2017-03-25] MEDS ORDERED: KCL 10MEQ IN 100ML SWI (KRUN) 10 MEQ in APPROPRIATE DILUENT 1 EA IV ONE ×2 (09:00)
[2017-03-25] MEDS: IPRATROPIUM 0.5MG/ALBUTEROL 2.5MG INH SOL UD 3ML (DUONEB)(J7620) INH PRN (09:19)
[2017-03-25] MEDS: PANTOPRAZOLE 40MG INJ (PROTONIX) (C9113) IV SCH (10:26)
[2017-03-25] MEDS: prednisoLONE ACET 1% OPHTH SUSP 5ML OD SCH ×4 (10:27→22:20)
[2017-03-25] MEDS ORDERED: fentaNYL 100 MCG/2 ML INJECTION (J3010) As Ordered ONE ×2 (14:33→15:57)
[2017-03-25] MEDS ORDERED: MIDAZOLAM INJ 2 MG/2 ML VIAL (J2250) As Ordered ONE (14:33)
[2017-03-25] MEDS ORDERED: CIPROFLOXACIN/D5W 400 MG/200 ML BAG (J0744) As Ordered ONE (15:00)
[2017-03-25] MEDS ORDERED: metroNIDAZOLE/NACL 500MG(5MG/ML)100 ML BAG (S0030) As Ordered ONE (15:01)
[2017-03-25] MEDS ORDERED: diphenhydrAMINE INJ 50MG/ML VIAL (J1200) IV PRN (15:30)
[2017-03-25] MEDS: FENTANYL/BUPIVACAINE/NACL BAG 250 ML EPIDURAL SCH (15:30)
[2017-03-25] MEDS ORDERED: METOCLOPRAMIDE INJ 10MG/2ML VIAL (J2765) IV PRN (15:30)
[2017-03-25] MEDS ORDERED: NALOXONE INJ 0.4 MG/1 ML VIAL (J2310) IV PRN (15:30)
[2017-03-25] MEDS ORDERED: EPIDURAL/PCA KEYS XX PRN (15:30)
[2017-03-25] MEDS ORDERED: MIDAZOLAM INJ 2 MG/2 ML VIAL (J2250) IV PRN ×2 (15:30→20:00)
[2017-03-25] MEDS ORDERED: WALLBOXKEY XX PRN (15:30)
[2017-03-25] MEDS ORDERED: fentaNYL 100 MCG/2 ML INJECTION (J3010) IV PRN ×3 (15:30→20:15)
[2017-03-25] MEDS ORDERED: ROCURONIUM BROMIDE 50 MG/5 ML VIAL As Ordered ONE ×2 (15:57→16:31)
[2017-03-25] MEDS ORDERED: METOCLOPRAMIDE INJ 10MG/2ML VIAL (J2765) As Ordered ONE (15:57)
[2017-03-25] MEDS ORDERED: PHENYLephrine HCL 500 MCG/5 ML (100MCG/ML) SYRINGE (J2370) As Ordered ONE (15:57)
[2017-03-25] MEDS ORDERED: PHENYLEPHRINE INJ 10MG/ML VIAL (J2370) As Ordered ONE ×2 (15:57→19:07)
[2017-03-25] MEDS ORDERED: PROPOFOL 200 MG/20 ML VIAL As Ordered ONE (15:57)
[2017-03-25] MEDS ORDERED: LIDOCAINE 2% INJ 100 MG/5 ML SDV (FOR ANES.) As Ordered ONE (15:57)
[2017-03-25] MEDS ORDERED: ePHEDrine SULFATE 25 MG/5 ML(5MG/ML) SYRINGE As Ordered ONE (15:57)
[2017-03-25] MEDS ORDERED: SEVOFLURANE INHAL SOLN 250 ML BTL As Ordered ONE ×2 (16:36→16:37)
[2017-03-25] MEDS ORDERED: DESFLURANE 240 ML INHALANT As Ordered ONE (16:39)
[2017-03-25] MEDS ORDERED: MIDAZOLAM INJ 5 MG/ML VIAL (J2250) As Ordered ONE (19:27)
[2017-03-25] MEDS ORDERED: FENTANYL 2MCG/ML BUPIVACAINE 0.0625% NACL 250ML IV BAG As Ordered ONE (19:55)
[2017-03-25] MEDS ORDERED: LR 1,000 ML IV SCH (20:00)
[2017-03-25] MEDS ORDERED: MORPHINE 2 MG/ML 1ML SYRINGE IV PRN ×2 (20:00→22:00)
[2017-03-25] MEDS ORDERED: ONDANSETRON 4MG/2ML VIAL (J2405) IV PRN (20:00)
[2017-03-25] MEDS ORDERED: PROPOFOL 1,000 MG/100 ML VIAL As Ordered ONE (20:09)
[2017-03-25] MEDS: PROPOFOL 1,000 MG in APPROPRIATE DILUENT 1 EA IV SCH (20:15)
--- NOTE | 2017-03-25 20:20 | REPUSA ---
Clinical history: intubation. Comparison: None. Findings: The mediastinum and cardiac silhouette are within normal limits. The endotracheal tube is i n place, with the tip approximately 4 cm above the Kerri. A nasogastric tube is seen passing into th e stomach. There is a left lower lobe infiltrate and pleural effusion. The osseous structures and sof t tissues are unremarkable. Impression: Small left lower lobe infiltrate and pleural effusion.
[2017-03-25 20:21] LABS: ABG BASE EXCESS 1.1 (-2.0-2.0); ABG DEVICE MECHAN. VENT; ABG HCO3 24.8 MEQ/L (22.0-26.0); ABG PARTIAL PRESSURE CO2 35.6 mmHg (35.0-45.0); ABG PARTIAL PRESSURE O2 126.9 mmHg (75.0-100.0); ABG STANDARD HCO3 25.5 MEQ/L (22.0-26.0); ABG TOTAL CO2 25.9 MEQ/L (23.0-31.0); ABG pH (ARTERIAL) 7.461 UNITS (7.350-7.450)
[2017-03-25 20:23] LABS: MEAN CORPUSCULAR HEMOGLOBIN 22.9 pg (27.0-33.0); MEAN CORPUSCULAR VOLUME 76.3 fl (80.0-96.0); RED CELL DISTRIBUTION WIDTH 19.1 % (11.5-14.5); WHITE BLOOD COUNT 16.7 10^3/uL (4.0-10.0)
[2017-03-25 20:45] LABS: CALCIUM LEVEL 7.8 MG/DL (8.8-10.2); CREATININE FOR GFR 1.35 MG/DL (0.70-1.30); GLOMERULAR FILTRATION RATE 53.7 (>35); POTASSIUM SERUM 4.1 MEQ/L (3.5-5.1)
[2017-03-25] MEDS: methylPREDNISolone INJ 125 MG/2 ML VIAL (J2930) IV SCH (21:41)
[2017-03-25] MEDS: ERTAPENEM SODIUM 1 GM in NS MINI-BAG PLUS 50 ML IV SCH (22:20)
--- NOTE | 2017-03-25 22:26 | CCN ---
DATE: 03/25/2017 CRITICAL CARE NOTE: I was asked by Dr. Carlson to evaluate Mr. Altamirano for acute respiratory failure postoperatively. Mr. 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 He presented to the emergency department on 03/23 with abdominal pain, and it was felt that he had a bowel obstruction and parastomal hernia. 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 He underwent a exploratory laparotomy, resection of necrotic colostomy, extensive lysis of adhesions, repair of small bowel enterotomy and wound vacuum-assisted closure (VAC) application. He reportedly did well during surgery without the need for vasopressors. Intraoperatively he received 3700 mL of crystalloid and had 50 mL of urine output. It was felt best not to close him tonight and, therefore, the plan is to take him back to the operating room tomorrow for resection of the obstruction and closure. ALLERGIES: CEPHALOSPORINS and CONTRAST MEDIA. I do not know what happens with those agents. MEDICATIONS: - acetaminophen 650 mg by mouth every four hours as needed - albuterol MDI two puffs four times a day as needed - DuoNeb one nebulization three times a day as needed - budesonide 0.5 mg inhalation twice a day as needed - Benadryl 12.5 mg IV every four hours as needed - Invanz 1 gram IV every 24 hours - epidural - lactated Ringer's (LR) at 125 mL/hour - methylprednisolone 60 mg IV every 12 hours - metoclopramide 10 mg IV every six hours as needed - Zofran 4 mg IV every six hours - Protonix 40 mg IV daily - prednisolone 1% ophthalmic one drop right eye four times a day OBJECTIVE: PHYSICAL EXAMINATION: GENERAL: Mr. Altamirano is lying in bed, relatively synchronous with the ventilator. He double triggers no matter what modality he is placed on. He is sedated. VITAL SIGNS: Temperature 98, blood pressure 136/65 with a mean arterial pressure (MAP) of 93, respiratory rate 18-20, pulse 85, SpO2 99% on FiO2 0.5. HEENT: Anicteric. Pupils pinpoint bilaterally. Nares patent bilaterally with nasogastric tube in place. Oropharynx with endotracheal (ET) tube in place. Moist mucosa. NECK: Supple without jugular venous distention (JVD), thyromegaly, or masses. Trachea is midline. LYMPHATIC: Without cervical or supraclavicular lymphadenopathy. LUNGS: Symmetric excursion. Generalized diminished air entry. No wheeze, rhonchi or crackle on tidal excursion. Prolonged expiratory phase. No accessory muscle usage or retractions. CARDIOVASCULAR: Regular rate and rhythm with a normal S1, S2. No murmur, rub, or gallop appreciated. ABDOMEN: Absent bowel sounds, incision over previous ostomy site and midline incision with wound VAC in place. Erythema surrounding previous ostomy site. EXTREMITIES: Warm and well perfused without clubbing, cyanosis or edema. Palpable pedal pulses. Right forearm is wrapped secondary to recent carpal tunnel syndrome surgery. LABORATORY DATA: CBC from 20:11 showed a hemoglobin of 8.8, hematocrit 29.3, platelet count 210,000, and white blood cell count 8800. Chemistries from the same time showed a sodium of 139, potassium 4.1, chloride 106, bicarbonate 23, anion gap 10, BUN 24, creatinine 1.4, glucose 111, calcium 7.8. Arterial blood gas at 20:06 was 7.46/36/127 with a measured saturation 99.4 and a base excess of 1.1. I believe this was on an FiO2 of 0.6. Currently is set on PRVC with a rate of 12, PEEP of 5, tidal volume of 400, and FiO2 0.5. He has a plateau pressure of 30-31. I reviewed his chest x-ray as well as the report. That x-ray shows normal- appearing cardiac silhouette and pulmonary vascular shadows. Endotracheal tube in place as is NG tube. There are no significant consolidated regions though I cannot view the complete left hemidiaphragm. IMPRESSION: 1. Acute respiratory failure postoperatively. 2. Postoperative day zero status post exploratory laparotomy with resection of necrotic colostomy and extensive lysis of adhesions with a wound VAC placement. 3. 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 4. Hypertensive heart disease. 5. Pacemaker secondary to arteriovenous (AV) block. 6. Status post recent right carpal tunnel syndrome. 7. History of perforated tic for which he received a colostomy.. RECOMMENDATIONS: 1. Will continue mechanical ventilation overnight. However, if he is going to surgery again tomorrow, I will not look to extubate him in the morning. 2. Will use Propofol for sedation. 3. Mr. Altamirano has an epidural and the epidural is being run at a low rate. If necessary we will give additional boluses of narcotics on top of the epidural. 4. We will add heated humidity tonight, given his known lung disease. 5. Will continue bronchodilators. 6. Will adjust settings for lung protective strategy. CRITICAL CARE TIME: 35 minutes, not including procedure time. LANEYD
[2017-03-25] MEDS: CHLORHEXIDINE GLUCONATE 0.12 % 15ML UDC (PERIDEX ORAL RINSE) MT SCH (22:40)
[2017-03-25] MEDS: IPRATROPIUM 0.5MG/ALBUTEROL 2.5MG INH SOL UD 3ML (DUONEB)(J7620) NEB SCH (23:17)
[2017-03-25] MEDS: MIDAZOLAM INJ 2 MG/2 ML VIAL (J2250) IV PRN (23:53)
[2017-03-26] VITALS (20 sets, daily range): BP systolic 90–125; BP diastolic 44–64
[2017-03-26] MEDS: IPRATROPIUM 0.5MG/ALBUTEROL 2.5MG INH SOL UD 3ML (DUONEB)(J7620) NEB SCH ×6 (03:24→23:25)
[2017-03-26 04:47] LABS: BASO % 0.1 % (0.0-1.0); IMMATURE GRANULOCYTE % 0.6 % (0-0); LYMPH % 0.9 % (24.0-44.0); MEAN CORPUSCULAR HEMOGLOBIN 22.5 pg (27.0-33.0); MEAN CORPUSCULAR HGB CONC 29.4 g/dl (32.0-36.5); MEAN CORPUSCULAR VOLUME 76.5 fl (80.0-96.0); MONO # 0.4 10^3/uL (0.0-0.8); MONO % 1.7 % (0.0-5.0); NEUTROPHILS # 20.2 10^3/uL (1.8-7.7); NEUTROPHILS % 96.7 % (36.0-66.0); PLATELET COUNT, AUTOMATED 208 10^3/uL (150-450); RED CELL DISTRIBUTION WIDTH 18.9 % (11.5-14.5); WHITE BLOOD COUNT 20.9 10^3/uL (4.0-10.0)
[2017-03-26 05:09] LABS: CALCIUM LEVEL 7.7 MG/DL (8.8-10.2); CREATININE FOR GFR 1.43 MG/DL (0.70-1.30); GLOMERULAR FILTRATION RATE 50.3 (>35); POTASSIUM SERUM 4.3 MEQ/L (3.5-5.1)
[2017-03-26 05:57] LABS: ABG BASE EXCESS -3.3 (-2.0-2.0); ABG PARTIAL PRESSURE CO2 40.4 mmHg (35.0-45.0); ABG PARTIAL PRESSURE O2 138.5 mmHg (75.0-100.0); ABG STANDARD HCO3 21.7 MEQ/L (22.0-26.0); ABG TOTAL CO2 23.2 MEQ/L (23.0-31.0); ABG pH (ARTERIAL) 7.353 UNITS (7.350-7.450)
[2017-03-26] MEDS: PROPOFOL 1,000 MG in APPROPRIATE DILUENT 1 EA IV SCH ×3 (05:58→20:42)
[2017-03-26] MEDS: LR 1,000 ML IV SCH ×2 (05:58→10:10)
[2017-03-26 06:45] LABS: LYMPH # 0.2 10^3/uL (1.5-4.5)
[2017-03-26] MEDS: MIDAZOLAM INJ 2 MG/2 ML VIAL (J2250) IV PRN (06:51)
[2017-03-26] MEDS ORDERED: INFLUENZA VIRUS VACCINE HIGH DOSE 0.5 ML SYRINGE (90662) IM ONE (09:00)
[2017-03-26] MEDS ORDERED: PREVNAR 13 VACCINE SYRINGE (CPT CODE:90670) IM ONE (09:00)
[2017-03-26] MEDS: PANTOPRAZOLE 40MG INJ (PROTONIX) (C9113) IV SCH (09:16)
[2017-03-26] MEDS: methylPREDNISolone INJ 125 MG/2 ML VIAL (J2930) IV SCH (09:16)
[2017-03-26] MEDS: CHLORHEXIDINE GLUCONATE 0.12 % 15ML UDC (PERIDEX ORAL RINSE) MT SCH ×2 (09:16→21:51)
[2017-03-26] MEDS: prednisoLONE ACET 1% OPHTH SUSP 5ML OD SCH ×4 (09:16→20:42)
[2017-03-26] MEDS ORDERED: fentaNYL 100 MCG/2 ML INJECTION (J3010) As Ordered ONE (09:17)
[2017-03-26] MEDS ORDERED: MIDAZOLAM INJ 2 MG/2 ML VIAL (J2250) As Ordered ONE (09:17)
--- NOTE | 2017-03-26 09:48 | REP ---
Sitting portable chest x-ray: Single view. History: Intubated patient. Comparison study: March 25, 2017. Findings: Endotracheal tube remains in good position at the level of the transverse aorta. An NG tube enters the left upper quadrant. A bipolar pacemaker leads are seen in the right heart. An epidural catheter is noted. There is a small amount of pleural opacity at the bases, question small amounts of pleural fluid. Slight blunting left lateral pleural angle. Heart size is normal. No new infiltrate is seen. The patient is status post cervical discectomy and ventral fusion plating. Impression: Question small amount of bilateral pleural fluid. Signed by Greg Shirley MD 03/26/2017 03:02 P
--- NOTE | 2017-03-26 10:19 | IPNPDOC ---
Subjective General Date/Time Seen The patient was seen on 03/26/17 at 09:29. Subject Chief Complaint/History The patient is a 81-year-old male admitted with a reason for visit of Peristomal Hernia,Sbo. Patient underwent exploratory laparotomy yesterday. His subcutaneous colostomy has been infarcted, with stool spillage in the subcutaneous area and necrotizing fasciitis like picture on the subcutaneous space. There was no spillage into the abdomen. Problem is that he has a frozen abdomen and I could not rotate his colon to the other side to mature a colostomy. His abdomen was left open to return today and try attempt this again. He was kept intubated with expectd return to the OR. He remains hemodynamically stable overnight. Current Medications Current Medications Current Medications Acetaminophen (Tylenol Tab) 650 mg Q4HP PRN PO MILD PAIN or TEMP > 101; Start 03/23/17 at 18:15; Stop 04/22/17 at 18:14 Acetaminophen/ Hydrocodone Bitart ([place], Anexsia 5/325) 1 tab Q4HP PRN PO MODERATE PAIN (PS 5-7) Last administered on 03/24/17 02:36; Start 03/23/17 at 18:15; Stop 03/25/17 at 20:04; Status DC Acetaminophen/ Hydrocodone Bitart ([place], Anexsia 5/325) 2 tab Q6HP PRN PO SEVERE PAIN (PS 8-10) Last administered on 03/24/17 09:31; Start 03/23/17 at 18 :15; Stop 03/25/17 at 20:04; Status DC Albuterol Sulfate (Proventil Neb) 2.5 mg Q2HP PRN NEB SHORTNESS OF BREATH; Start 03/25/17 at 22:00; Stop 04/24/17 at 21:59 Albuterol Sulfate (Proventil, Ventolin Hfa) 2 puff QIDP PRN INH SHORTNESS OF BREATH Last administered on 03/24/17 22:09; Start 03/23/17 at 18:15; Stop at 18:14 Albuterol/ Ipratropium (Duoneb (Ipr 0.5mg/Alb 2.5mg)) 2.5 ml TIDP PRN INH SHORTNESS OF BREATH Last administered on 03/25/17 09:19; Start 03/23/17 at 18: 15; Stop 03/25/17 at 21:58; Status DC Albuterol/ Ipratropium (Duoneb (Ipr 0.5mg/Alb 2.5mg)) 3 ml RQ4H NEB Last administered on 03/26/17 07:07; Start 03/26/17 at 00:00; Stop 04/25/17 at 00:00 Alprazolam (Xanax) 0.5 mg QHS PO Last administered on 03/24/17 21:53; Start at 21:00; Stop 03/25/17 at 20:04; Status DC Budesonide (Pulmicort) 0.5 mg BIDP PRN INH SHORTNESS OF BREATH Last administered on 03/24/17 19:21; Start 03/23/17 at 18:15; Stop 04/22/17 at 18: 14 Cetylpyridinium Chloride (Cepacol) 1 anish Q2HP PRN PO COUGH Last administered on 03/25/17 09:44; Start 03/25/17 at 08:45; Stop 03/25/17 at 20:04; Status DC Chlorhexidine Gluconate (Peridex Oral Rinse) SWAB/BRUSH ORAL CAVITY BID MT Last administered on 03/26/17 09:16; Start 03/25/17 at 21:00; Stop 04/24/17 at 20:59 Ciprofloxacin 400 mg/IV Miscellaneous Supplies 200 ml @ 200 mls/hr Q12H IV Last administered on 03/25/17 15:45; Start 03/24/17 at 16:00; Stop 03/25/17 at 20:04; Status DC Dextrose/Sodium Chloride 1,000 ml @ 100 mls/hr Q10H IV ; Start 03/23/17 at 17: 45; Stop 03/23/17 at 21:25; Status DC Diphenhydramine HCl (Benadryl) 12.5 mg Q4HP PRN IV ITCHING; Start 03/25/17 at 15:30; Stop 03/28/17 at 15:29 Enoxaparin Sodium (Lovenox) 30 mg DAILY SC Last administered on 03/24/17 08:28 ; Start 03/24/17 at 09:00; Stop 03/25/17 at 08:26; Status DC Ertapenem 1 gm/ Sodium Chloride 50 ml @ 100 mls/hr Q24H IV Last administered on 03/25/17 22:20; Start 03/25/17 at 22:00; Stop 04/01/17 at 21:59 Fentanyl Citrate (Sublimaze) 25 mcg Q5MP PRN IV MODERATE PAIN (PS 4-7); Start 03/25/17 at 20:00; Stop 03/25/17 at 20:59; Status DC Fentanyl Citrate (Sublimaze) 50 mcg ASDIRECTED PRN IV PAIN Last administered on 03/25/17 14:55; Start 03/25/17 at 15:30; Stop 03/25/17 at 16:30; Status DC Fentanyl Citrate (Sublimaze) 50 mcg ASDIRECTED PRN IV PAIN; Start 03/25/17 at 20:15; Stop 03/25/17 at 20:59; Status DC Fentanyl/ Bupivacaine HCl 250 ml @ 2 mls/hr Q24H EPIDURAL ; Start 03/25/17 at 15 :30; Stop 03/28/17 at 15:29 Gabapentin (Neurontin) 100 mg BID PO Last administered on 03/24/17 21:53; Start 03/23/17 at 21:00; Stop 03/25/17 at 20:04; Status DC Home Med (Med Rec Complete!) ASDIRECTED XX ; Start 03/23/17 at 15:15; Stop at 15:15; Status DC Lactated Ringer's 1,000 ml @ 80 mls/hr [id number] IV ; Start 03/25/17 at 20:00; Stop 03/25/17 at 20:04; Status DC Lactated Ringer's 1,000 ml @ 125 mls/hr Q8H IV Last administered on 03/26/17 05:58; Start 03/23/17 at 18:10; Stop 04/22/17 at 18:09 Loratadine (Claritin) 10 mg DAILY PO Last administered on 03/24/17 08:30; Start 03/24/17 at 09:00; Stop 03/25/17 at 20:04; Status DC Magnesium Hydroxide (Milk Of Magnesia) 30 ml DAILYPRN PRN PO CONSTIPATION; Start 03/23/17 at 18:15; Stop 03/25/17 at 20:04; Status DC Methylprednisolone (SOLUmedrol) 60 mg Q12H IV Last administered on 03/26/17 09 :16; Start 03/25/17 at 21:00; Stop 04/24/17 at 20:59 Metoclopramide HCl (REGLAN INJection) 10 mg Q6HP PRN IV NAUSEA; Start 03/25/17 at 15:30; Stop 03/28/17 at 15:29 Metronidazole 500 mg/IV Miscellaneous Supplies 100 ml @ 100 mls/hr Q8H IV Last administered on 03/25/17 15:18; Start 03/24/17 at 14:00; Stop 03/25/17 at 20:04; Status DC Midazolam HCl (Versed) 1 mg ASDIRECTED PRN IV ANXIETY Last administered on 03/25 14:55; Start 03/25/17 at 15:30; Stop 03/25/17 at 16:30; Status DC Midazolam HCl (Versed) 1 mg ASDIRECTED PRN IV ANXIETY; Start 03/25/17 at 20:00 ; Stop 03/25/17 at 20:59; Status DC Midazolam HCl (Versed) 2 mg Q15MP PRN IV AGITATION Last administered on 06:51; Start 03/25/17 at 22:00; Stop 04/01/17 at 21:59 Morphine Sulfate (Morphine Sulfate Inj) 2 mg Q2HP PRN IV PAIN Last administered on 03/25/17 23:53; Start 03/25/17 at 22:00; Stop 04/01/17 at 21:59 Morphine Sulfate (Morphine Sulfate Inj) 2 mg Q5MP PRN IV MODERATE/SEVERE PAIN ( PS 7-10); Start 03/25/17 at 20:00; Stop 03/25/17 at 20:04; Status DC Morphine Sulfate (Morphine Sulfate Inj) 4 mg Q2HP PRN IV SEVERE PAIN (PS 8-10) Last administered on 03/25/17 13:23; Start 03/23/17 at 18:15; Stop 03/25/17 at 20:04; Status DC Morphine Sulfate (Morphine Sulfate Inj) 4 mg Q30M PRN IV SEVERE PAIN (PS 8-10) Last administered on 03/23/17 19:59; Start 03/23/17 at 13:00; Stop 03/23/17 at 19:59; Status DC Multivitamins (Theragram-M) 1 tab BID PO Last administered on 03/24/17 21:53; Start 03/23/17 at 21:00; Stop 03/25/17 at 20:04; Status DC Naloxone HCl (Narcan) 0.1 mg Q5MP PRN IV SEE LABEL COMMENTS; Start 03/25/17 at 15:30; Stop 03/28/17 at 15:29 Non-Formulary Medication (Epidural/[employer] [place]) 1 each ASDIRECTED PRN XX SEE LABEL COMMENTS; Start 03/25/17 at 15:30; Stop 04/24/17 at 15:29 Non-Formulary Medication ([place]) ASDIRECTED PRN XX SEE LABEL COMMENTS; Start 03/25/17 at 15:30; Stop 04/24/17 at 15:29 Ondansetron HCl (ZOFRAN INJection) 4 mg Q4HP PRN IV NAUSEA OR VOMITING; Start 03/25/17 at 20:00; Stop 03/25/17 at 20:59; Status DC Ondansetron HCl (ZOFRAN INJection) 4 mg Q6HP PRN IV NAUSEA OR VOMITING; Start 03/23/17 at 18:15; Stop 04/22/17 at 18:14 Pantoprazole Sodium (Protonix) 40 mg DAILY IV Last administered on 03/26/17 09 :16; Start 03/24/17 at 09:00; Stop 04/23/17 at 08:59 Prednisolone Acetate (Predforte 1% Ophth Susp) 1 drop QID OD Last administered on 03/26/17 09:16; Start 03/23/17 at 21:00; Stop 04/22/17 at 20:59 Prednisone (Deltasone) 5 mg DAILY PO Last administered on 03/24/17 08:28; Start 03/24/17 at 09:00; Stop 03/25/17 at 08:23; Status DC Propofol 1000 mg/ IV Miscellaneous Supplies 100 ml @ 3.6 mls/hr Q24H IV Last administered on 03/26/17 05:58; Start 03/25/17 at 20:15; Stop 04/01/17 at 20:14 Senna/Docusate Sodium (Senokot S) 1 tab BID PO Last administered on 03/24/17 21:53; Start 03/23/17 at 21:00; Stop 03/25/17 at 20:04; Status DC Sertraline HCl (Zoloft) 50 mg DAILY PO Last administered on 03/24/17 08:28; Start 03/24/17 at 09:00; Stop 03/25/17 at 20:04; Status DC Allergies Coded Allergies: Cephalosporins (Verified Allergy, Intermediate, HIVES COVERING TORSO, 03/16) Contrast Media (Verified Allergy, Intermediate, RASH - MANY YEARS AGO, 04/02/17) Objective Physical Examination Examination GENERAL APPEARANCE:Patient intubated, comfortable, awake, nods with verbal cues. SKIN: warm and dry. HEENT: intubated, ngt in place. No jugular venous distention. NECK: Supple, no thyromegaly. No obvious jugular venous distention. LUNGS: Clear to auscultation bilaterally. No wheezing appreciated. HEART: No chest wall abnormalities. Regular rate and rhythm with no murmurs appreciated. ABDOMEN: Abdomen is round, soft, mildly distended.. Midline opening also opening on the left side colostomy is intact. There is erythema on the skin surrounding the colostomy extending to the left flank. Wound VAC in place.. EXTREMITIES: Beginning 2+ edema on lower extremities and upper extremities. He has 2 healing incisions on his right arm from recent carpal tunnel repair. Vital Signs Vital Signs Date Time Temp Pulse Resp B/P (MAP) Pulse Ox O2 Delivery O2 Flow Rate FiO2 03/26/17 07:08 84 15 97 40 03/26/17 06:00 99/55 (70) Ventilator 03/26/17 04:00 97.8 03/25/17 15:15 2 Laboratory Data Labs 24H Laboratory Tests 2 03/25/17 20:06: Blood Gas Bicarbonate Standard 25.5, Arterial Blood pH 7.461H, Arterial Blood Partial Pressure CO2 35.6, Arterial Blood Partial Pressure O2 126.9H, Arterial Blood Total CO2 25.9, Arterial Blood HCO3 24.8, Arterial Blood Base Excess 1.1, Arterial Blood Oxygen Saturation 99.4H, Oxygen Delivery Device MECHAN. VENT 03/25/17 20:11: Anion Gap 10, Glomerular Filtration Rate 53.7, Blood Urea Nitrogen 24H, Creatinine 1.35H, Sodium Level 139, Potassium Level 4.1#, Chloride Level 106, Carbon Dioxide Level 23, Calcium Level 7.8#L 03/26/17 04:14: Anion Gap 6L, Glomerular Filtration Rate 50.3, Blood Urea Nitrogen 24H, Creatinine 1.43H, Sodium Level 138, Potassium Level 4.3, Chloride Level 107, Carbon Dioxide Level 25, Calcium Level 7.7L, Immature Granulocyte % (Auto) 0.6H , White Blood Count 20.9H, Red Blood Count 3.83L, Hemoglobin 8.6L, Hematocrit 29.3L, Mean Corpuscular Volume 76.5L, Mean Corpuscular Hemoglobin 22.5L, Mean Corpuscular Hemoglobin Concent 29.4L, Red Cell Distribution Width 18.9H, Platelet Count 208, Neutrophils (%) (Auto) 96.7H, Lymphocytes (%) (Auto) 0.9L, Monocytes (%) (Auto) 1.7, Eosinophils (%) (Auto) 0.0, Basophils (%) (Auto) 0.1, Neutrophils # (Auto) 20.2H, Lymphocytes # (Auto) 0.2L, Monocytes # (Auto) 0.4, Eosinophils # (Auto) 0.0, Basophils # (Auto) 0.0, Immature Granulocyte # (Auto) 0.1H, Nucleated Red Blood Cells % (auto) 0.0 03/26/17 05:37: Blood Gas Bicarbonate Standard 21.7L, Arterial Blood pH 7.353, Arterial Blood Partial Pressure CO2 40.4, Arterial Blood Partial Pressure O2 138.5H, Arterial Blood Total CO2 23.2, Arterial Blood HCO3 22.0, Arterial Blood Base Excess -3.3L , Arterial Blood Oxygen Saturation 99.4H CBC/BMP Laboratory Tests 03/25/17 20:11 Red Blood Count 3.84 L, Mean Corpuscular Volume 76.3 L, Mean Corpuscular Hemoglobin 22.9 L, Mean Corpuscular Hemoglobin Concent 30.0 L, Red Cell Distribution Width 19.1 H, Calcium Level 7.8 #L 03/26/17 04:14 Red Blood Count 3.83 L, Mean Corpuscular Volume 76.5 L, Mean Corpuscular Hemoglobin 22.5 L, Mean Corpuscular Hemoglobin Concent 29.4 L, Red Cell Distribution Width 18.9 H, Calcium Level 7.7 L, Neutrophils (%) (Auto) 96.7 H, Lymphocytes (%) (Auto) 0.9 L, Monocytes (%) (Auto) 1.7, Eosinophils (%) (Auto) 0.0, Basophils (%) (Auto) 0.1, Neutrophils # (Auto) 20.2 H, Lymphocytes # (Auto ) 0.2 L, Monocytes # (Auto) 0.4, Eosinophils # (Auto) 0.0, Basophils # (Auto) 0.0 Impression 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 The ideal site will be over the right side of the abdomen though probably midline area would be acceptable if he gets enough length. The previous site of colostomy is still a lot of inflammation, has necrotizing fasciitis picture. This may need to be further debrided. Consent was obtained from the . Also we'll place a triple-lumen catheter to start him on TPN. Plan / VTE VTE Prophylaxis Ordered?: Yes Plan / Urinary Catheter Reason for insertion/continuin: Critical Pt monitoring SHAUNA WALTON MD Mar 26, 2017 09:37
--- NOTE | 2017-03-26 10:26 | ROOPDOC ---
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 Lysis of adhesions Repair of enterotomy with [id number] anastomosis. Open abdomen placement of wound VAC for temporary closure SURGEON: Gretta Carlson MD FIELD OBSERVER: ANESTHESIA: general anesthesia ESTIMATED BLOOD LOSS: Approximately 100 mL. COMPLICATIONS: Patient has frozen abdomen with difficulty getting into the abdomen and I wasn't able to free up the rest of the ascending and transverse colon to transpose the colostomy to the other side. Patient's abdomen was left open for temporary closure using a wound VAC. 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 He was admitted 2 days ago with what seems to be another bout of small bowel obstruction and has failed nonoperative therapy with nasogastric tube decompression and have concerned about strangulation with beginning erythema at the prior stoma site. Initially patient didn't was reluctant to agree to surgery but with continuing symptoms, I have advised them that this is urgent and they have agreed to proceed. DESCRIPTION OF PROCEDURE: Patient has been started on ciprofloxacin and metronidazole and this was continued perioperatively. He has what to the preoperative holding area where an epidural was placed by anesthesia. This was tested and noted to be working. He was then brought the operating room, laid supine on the table, compression boots placed on slight extremities for DVT prophylaxis. General endotracheal anesthesia started without any complications. A Avilez catheter placed for perioperative monitoring. I removed the colostomy flange and sutured close the colostomy stump with 3-0 silk. The abdomen was then prepped with Betadine, he was then draped sterilely. A surgical timeout was performed prior to starting the surgery. I first made a transverse incision to the medial side of the colostomy. This morning when I saw the patient that was beginning erythema at the colostomy site this is more pronounced at the time of surgery. Getting into subcutaneous portion foul stench is possible with black, mushy, murky, foul-smelling fluid and tissues encountered. After this I made a cruciate incision around the colostomy taking this down through the subcutaneous tissue. He was evident that the colostomy has infarcted with the tissues being mushy, black. There was spillage of stool in the subcutaneous portion. Interestingly, the colostomy stump was still pink in appearance despite the necrotic, infarcted body of the colostomy at the subcutaneous portion. I controlled the area where there was perforation of the colostomy to control the amount of stool that went into the subcutaneous colostomy part. There was no small bowel or omentum within the subcutaneous portion. I came down around the fascia and opened up the anterior fascia to free up the colostomy. The colostomy was stuck on the surrounding tissues with both blunt dissection. Able to get into a plane in the abdomen and carefully brought out more of the colostomy. There were some small bowel adhered to the wall of the colostomy as well as to the mesentery which we sharply freed away to get more length. After careful dissection and got into a relatively healthy area and this divided the colostomy here to control the spillage of stool in our operative field. A single firing of the 75 KRISTEN stapler with a blue load was done to close the colostomy. The infarcted colostomy was sent off as specimen. I then irrigated subcutaneous portion debrided clearly tissues and took some of the skin. After doing this within change gloves to resume the surgery. I was able to make a tract intra-abdominally going from the fascial opening at the colostomy site towards the midline and I could feel the mesh that was previously placed. I further dissected bluntly at the midline to hopefully free up the bowel underneath. Us initially trying to get some length from the colostomy to be able to pull it up at the separate site but could not do so we just the incision at the colostomy site. The lesser decided to open up at the midline be started overnight just above the umbilicus carefully taken down through the subcutaneous tissue the fascia was opened up the previous mesh was encountered and opened up and we bluntly and sharply dissected at the area. I was using the previous colostomy site incision to these away the bowels and scar tissue to enter into the abdomen. There were numerous small bowel adhered to the fascia as we entered a we freed up. While dissecting at the lower midline there was a full-thickness small bowel enterotomy that a recognized. There was no spillage into the abdomen. This was controlled with [place]cocks. We then carefully continued teasing away this bowel following this route freeing this up from the previously placed Permacol mesh. This part of the surgery is tedious due to the amount of bowel stuck into the underside of the abdominal wall. Mainly with sharp dissection using Metzenbaum scissors we carefully followed each bowel and sharply dissected this from the abdominal wall changing positions and using the colostomy fascial opening to create a window. Once were able to free up some bowel within the open up the fascia further superiorly to create space. Just to be able to enter into the abdomen anteriorly, this took about 3 hours. Once I was able to free up the loop of bowel where we made an enterotomy I was able to lift this up onto our incision examined the area and there was more than 50% opening both mucosa and serosa on and the mesenteric side of small bowel. Thus I created a ealm-rx-nime anastomosis by firing 50 mm KRISTEN stapler on the 2 openings. In closing our enterotomy transversely with a 3 mm TA stapler with blue load creating a secure closure with adequate opening. This was placed back in the abdomen and continue to follow each of the small bowel especially those that are going into our colostomy site. My objective at this point is try and see if I could free up the descending colon and transpose the colostomy to the other side. It is clear that this is not feasible due to the amount of abdominal adhesions. As able to get up as much onto the upper part of the abdomen were I could see the whole transverse colon adhered to the underside of the Permacol mesh throughout its course mainly fixed to the area. I was not able to get far and deep enough to follow this to the splenic flexure. Using the fascial opening at the colostomy site I tried to medially move the rest of the descending colon from the lateral attachments to the abdominal wall but there was no clear line of Toldt and there was another piece of Permacol mesh on the lower lateral side were the previous colostomy was and had been repaired. This is adhered to several small bowel and partly to the colostomy. I this from the area and tried to get into the lateral attachments were got into some bleeding and after controlling the bleeding stopped from there. At this point, after discussing with anesthesia and looking at my options, patient has been fairly stable throughout the course but has been requiring some Keith-Synephrine. After got into a full thickness enterotomy. A further surveyed the inside of the abdominal wall into I've got it into the abdomen have not really freed up enough to get to a colostomy on the right side. I am concerned that they'll do more damage trying to persist to what I am doing. Left -sided decided to abbreviate the surgery with the intent to come back the next day with assistance of other surgeons around. I made up a wound VAC appliance with protection from the small bowel by wrapping the black spiral foam with a Vi -Drape creating holes around it. This was placed into the abdominal cavity covering both the colostomy fascial incision and the midline incision. This was connected to the wound VAC machine. Separate sterile drape was then placed onto the abdomen. Patient remains intubated and was brought to the recovery room. Have discussed the case with our critical care doctor. SHAUNA CARLSON MD Mar 26, 2017 10:25
[2017-03-26] MEDS ORDERED: CIPROFLOXACIN/D5W 400 MG/200 ML BAG (J0744) As Ordered ONE (10:50)
[2017-03-26] MEDS ORDERED: ERTAPENEM 1 GM INJ (INVanz) (J1335) As Ordered ONE (10:52)
--- NOTE | 2017-03-26 11:42 | CCN ---
DATE: 03/26/2017 Mr. Altamirano remains critically ill with acute respiratory failure postoperatively. He remains with positive fluid balance. No hemodynamic instability. This morning , he is responsive to voice and appears to be following commands. The plan is to take him back to surgery in an attempt to continue to gain access to his necrotic region as well as eventually complete closure of the abdomen. It is not anticipated that that will be done today. OBJECTIVE: PHYSICAL EXAMINATION: GENERAL: Mr. Altamirano is lying in bed and is now synchronous with the ventilator. (He had been double triggering initially last evening). VITAL SIGNS: Temperature 97.8 with a maximum temperature (Tmax) of 100.4, pulse 91, blood pressure 105/61 with a mean arterial pressure (MAP) of 79, respiratory rate 15, SpO2 96% on an FiO2 of 0.4. HEENT: Anicteric. Pupils equal, round, and reactive to light. Nares: Patent bilaterally, nasogastric (NG) tube in place. Oropharynx, moist mucosa, endotracheal (ET) tube in place. NECK: Supple, without thyromegaly or masses, trachea is midline, no jugular venous distention (JVD) apparent. LYMPHATIC: Without cervical or supraclavicular lymphadenopathy. LUNGS: Symmetric excursion, generalized diminished air entry, diminished breath sounds at the bases bilaterally. No wheeze, rhonchi, or significant crackle. Prolonged expiratory phase. No accessory muscle usage or retractions. CARDIOVASCULAR: Regular rate and rhythm with a normal S1, S2. No murmur, rub, or gallop appreciated. ABDOMEN: Absent bowel sounds, there remains an open midline abdominal wound as well as an opening where the previous colostomy has been. Wound VAC in place. There is mild erythema surrounding the previous colostomy site. EXTREMITIES: Warm and well perfused, without clubbing, cyanosis, or significant edema. The right forearm remains wrapped where he had recent previous carpal tunnel syndrome surgery. LABORATORY DATA: CBC shows a hemoglobin of 8.6, hematocrit 29.3, platelet count 208,000, white blood cell count 20,600 with a differential of 97% neutrophils and 1% lymphocytes, 2% monocytes. Chemistries show sodium 138, potassium 4.3, chloride 107, bicarbonate 25, anion gap 6, BUN 24, creatinine 1.43, glucose 158, calcium 7.7. I reviewed his chest x-ray as well as the report, earlier today. That x-ray showed normal-appearing cardiac silhouette and pulmonary vascular shadows. Normal-appearing mediastinal and hilar regions. The ET tube is in good position as is the NG tube. No consolidated regions. I still cannot completely visualize the left hemidiaphragm. Yesterday's intake and output (I's and O's) were 4975 in and 1285 out making a positive 3690. Thus far today, 835 in and 450 out making him positive 385. Urine output is 0.23 mL/kg/hour. NG output 25 mL. Weight 76.1. On mechanical ventilation in the mode of pressure-regulated volume control (PRVC) with a tidal volume 400, respiratory rate of 22, PEEP of 5, and FiO2 of 0.4. His blood gas was 7.35/40/139 with a measured saturation of 99% and a base excess of -3.3. His plateau pressures were in the teens. IMPRESSION: 1. Acute respiratory failure postoperatively leading to mechanical ventilation. 2. Postoperative day #1 status post exploratory laparotomy with resection of necrotic colostomy and extensive lysis of adhesions with placement of a wound VAC. 3. 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 On chronic prednisone for many years. 4. Hypertensive heart disease. 5. History of intermittent atrial fibrillation. 6. 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 7. Status post recent right carpal tunnel syndrome. 8. Colon cancer for which he is status post resection in 1997. 9. 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 10. Deep venous thrombosis (DVT) prophylaxis with sequential compression devices (SCDs) and thromboembolism deterrents (TEDs). 11. Stress ulcer prophylaxis with proton pump inhibitor. 12. Nutrition. Currently nothing by mouth. RECOMMENDATIONS: 1. Will continue on current mechanical ventilation settings as anticipate going to surgery later this morning. 2. Will reassess for extubation depending upon whether the surgery can be completed today or if is anticipated going back to the operating room in the near future. If the later is the case, whether we keep him intubated or extubate and reintubate for surgery will depend on when the surgery is anticipated to occur. 3. We will continue him on bronchodilators. 4. He is only on 5 mg of prednisone as an outpatient, so stress dosing is not indicated, but he does need to have coverage for his baseline systemic corticosteroid. 5. Depending upon when it is anticipated that he will be able to have oral intake, need to consider total parenteral nutrition (TPN). I anticipate he will not be able to eat for quite some time so would recommend doing that as soon as possible. CRITICAL CARE TIME: 25 minutes, not including procedure time. BENEDICTO
[2017-03-26] MEDS ORDERED: fentaNYL 100 MCG/2 ML INJECTION (J3010) IV PRN (14:45)
[2017-03-26] MEDS ORDERED: ONDANSETRON 4MG/2ML VIAL (J2405) IV PRN (14:45)
[2017-03-26] MEDS ORDERED: LR 1,000 ML IV SCH (14:45)
--- NOTE | 2017-03-26 15:36 | REP ---
Portable chest x-ray: Single view. History: Postop. Comparison study March 26, 2017. Findings: Endotracheal tube is seen in good position at the level of the transverse aorta. An NG tube enters the left upper quadrant. Left hemidiaphragm is somewhat elevated as before. A bipolar pacemaker is observed in the right heart via the left side. A right internal jugular venous line is seen with its tip in the expected location of the superior vena cava. An epidural catheter is also noted. There is some hazy opacity at the left base which may be a small amount of left pleural fluid. No infiltrate is seen in the lungs. Signed by Greg Shirley MD 03/26/2017 04:58 P
[2017-03-26] MEDS: HumaLOG INSULIN (NovoLOG) PER UNIT SC SCH (17:29)
[2017-03-26] MEDS ORDERED: AMINO AC/ELECTROLYTE/DEX/CALC 2,000 ML IV SCH (18:00)
[2017-03-26] MEDS ORDERED: FAT EMULSION IV 20% 500 ML IV SCH (18:00)
--- NOTE | 2017-03-26 18:05 | CCN ---
DATE: 03/26/2017 NOTE: Mr. Altamirano remains critically ill with acute respiratory failure postoperatively. He went back to the operating room today and they were able to relocate his colostomy, as well as close his incision. He was transiently on vasopressors during the surgery. During surgery, he received 1500 mL of Crystalloid and had 440 mL of urine out. OBJECTIVE: PHYSICAL EXAMINATION: GENERAL: Mr. Altamirano is sedated and synchronous with the ventilator. VITAL SIGNS: Temperature is 97.4, pulse 75, blood pressure 106/50 with a mean arterial pressure of 65. Respiratory rate 15, SpO2 94% on FiO2 of 0.4. HEENT: Anicteric. Pupils are 1 mm. Nares are patent bilaterally. Right nasogastric tube in place. NECK: Supple. Without thyromegaly or masses. Trachea is midline. No jugular venous distention (JVD). Right IJ in place. LUNGS: Symmetric excursion. Generalized diminished air entry. No wheeze, rhonchi or crackle on tidal excursion. Prolonged expiratory phase. No accessory muscle usage or retractions. CARDIOVASCULAR: Regular rate and rhythm with a normal S1, S2. No murmur, rub or gallop appreciated. ABDOMEN: Absent bowel sounds. Previous colostomy site now with wound VAC in place. New colostomy lower on the left side of the abdomen. Midline incision now sutured close with a GOLDY drain in place. EXTREMITIES: Warm and well perfused without clubbing, cyanosis, or edema. There are palpable pedal pulses bilaterally. LABORATORY DATA: No new hematology, chemistries or ABG. I reviewed his chest x-ray, as well as the report from earlier this afternoon following his surgery. That x-ray showed normal appearing cardiac silhouette, pulmonary vascular shadows. Normal appearing mediastinal and hilar regions. There is now a right IJ in place. Endotracheal tube is in good position, as is the nasogastric tube. No acute infiltrates. Again, difficult to view the complete left hemidiaphragm. IMPRESSION: 1. Acute respiratory failure postoperatively leading to mechanical ventilation. 2. Status post resection of necrotic colostomy with formation of new colostomy, lysis of adhesions and now with closure of the abdomen. 3. Chronic obstructive pulmonary disease (COPD) secondary to asthma, on chronic prednisone for years. 4. Hypertensive heart disease. 5. History of intermittent atrial fibrillation. 6. Status post pacemaker placement secondary to AV block. 7. Status post recent right carpal tunnel syndrome. 8. Deep vein thrombosis (DVT) prophylaxis with sequential compression device (SCD) and thromboembolic compression stockings (TEDS). 9. Stress ulcer prophylaxis with proton pump inhibitor. 10. Nutrition, currently nothing by mouth. RECOMMENDATIONS: 1. We will continue to use propofol for sedation. 2. We will continue to use opiates as needed above the epidural. 3. We will evaluate for extubation in the morning. 4. We will continue his current mechanical ventilatory settings. 5. Recommend starting TPN as soon as possible. 6. He was only on 5 of prednisone and does not requires stress dosing. I will change him over to the equivalent of IV Solu-Medrol. 7. Will assess for extubation in the morning. Additional critical care time: 20 minutes, not including procedures. BENEDICTO
[2017-03-26] MEDS: ERTAPENEM SODIUM 1 GM in NS MINI-BAG PLUS 50 ML IV SCH (21:49)
[2017-03-27] VITALS (18 sets, daily range): BP systolic 91–131; BP diastolic 39–65; O2SAT 95
[2017-03-27] MEDS: HumaLOG INSULIN (NovoLOG) PER UNIT SC SCH ×4 (00:18→18:04)
[2017-03-27] MEDS: IPRATROPIUM 0.5MG/ALBUTEROL 2.5MG INH SOL UD 3ML (DUONEB)(J7620) NEB SCH ×2 (03:12→07:07)
[2017-03-27] MEDS: PROPOFOL 1,000 MG in APPROPRIATE DILUENT 1 EA IV SCH (04:45)
[2017-03-27 05:43] LABS: MEAN CORPUSCULAR HEMOGLOBIN 22.9 pg (27.0-33.0); MEAN CORPUSCULAR HGB CONC 30.8 g/dl (32.0-36.5); PLATELET COUNT, AUTOMATED 166 10^3/uL (150-450); RED CELL DISTRIBUTION WIDTH 18.8 % (11.5-14.5); WHITE BLOOD COUNT 22.7 10^3/uL (4.0-10.0)
[2017-03-27 05:53] LABS: ADD MANUAL DIFFER YES; ADD MORPHOLOGY? YES; DIFF SLIDE NUMBER 35; MEAN CORPUSCULAR VOLUME 74.2 fl (80.0-96.0)
[2017-03-27] MEDS ORDERED: HumaLOG INSULIN (NovoLOG) PER UNIT SC SCH (06:00)
[2017-03-27] MEDS: MIDAZOLAM INJ 2 MG/2 ML VIAL (J2250) IV PRN (06:03)
[2017-03-27 06:05] LABS: CALCIUM LEVEL 7.4 MG/DL (8.8-10.2); CREATININE FOR GFR 1.36 MG/DL (0.70-1.30); GLOMERULAR FILTRATION RATE 53.3 (>35); POTASSIUM SERUM 3.4 MEQ/L (3.5-5.1)
[2017-03-27 06:49] LABS: BANDS 1 % (< 11)
[2017-03-27 06:50] LABS: ANISOCYTOSIS 1+; HYPOCHROMASIA 1+
[2017-03-27 06:51] LABS: MICROCYTOSIS 2+
[2017-03-27] MEDS: BUDESONIDE 0.5 MG/2 ML INHALATION SUSPENSION INH PRN (07:07)
[2017-03-27] MEDS ORDERED: GLUCOSE 4 GM CHEW TABLET PO PRN (08:30)
[2017-03-27] MEDS ORDERED: DEXTROSE 50% 50 ML SYRINGE IV PRN (08:30)
[2017-03-27] MEDS ORDERED: GLUCAGON FOR INJ 1 MG VIAL (J1610) SC PRN (08:30)
[2017-03-27] MEDS: CHLORHEXIDINE GLUCONATE 0.12 % 15ML UDC (PERIDEX ORAL RINSE) MT SCH (09:00)
[2017-03-27] MEDS ORDERED: methylPREDNISolone INJ 40 MG/1 ML VIAL (J2920) IV SCH (09:00)
[2017-03-27] MEDS: PANTOPRAZOLE 40MG INJ (PROTONIX) (C9113) IV SCH (09:16)
[2017-03-27] MEDS: FUROSEMIDE 40 MG/4 ML VIAL (J1940) IV SCH (09:16)
[2017-03-27] MEDS: prednisoLONE ACET 1% OPHTH SUSP 5ML OD SCH ×4 (09:17→21:01)
[2017-03-27 09:39] LABS: ABG PARTIAL PRESSURE CO2 34.9 mmHg (35.0-45.0); ABG PARTIAL PRESSURE O2 71.9 mmHg (75.0-100.0); ABG STANDARD HCO3 23.6 MEQ/L (22.0-26.0); ABG pH (ARTERIAL) 7.436 UNITS (7.350-7.450)
--- NOTE | 2017-03-27 10:07 | REP ---
Portable chest x-ray: Single view. History: Intubated patient. Comparison study March 26, 2017. Findings: Endotracheal tube remains in good position at the level of the transverse aorta. An NG tube enters left upper quadrant as before. Right internal jugular line terminates in the expected location of the SVC. Bipolar pacemaker and epidural catheters are again seen along with EKG monitoring electrodes and oxygen delivery tubing. Pleural opacity persists into the left base and possibly the right base consistent with small bilateral effusions. Pulmonary vascular markings are slightly increased. There is some fissural fluid in the minor fissure on the right today. No new infiltrate is seen. Impression: No new infiltrate. Small bilateral effusions suspected. Signed by Greg Shirley MD 03/27/2017 03:28 P
[2017-03-27] MEDS: ALVIMOPAN 12 MG CAPSULE (ENTEREG) PO SCH ×2 (10:20→21:00)
[2017-03-27] MEDS: FENTANYL/BUPIVACAINE/NACL BAG 250 ML EPIDURAL SCH (10:50)
--- NOTE | 2017-03-27 12:02 | ROOPDOC ---
[facility] Report Of Operation Report of Operation DATE OF PROCEDURE: 03/26/17 PREPROCEDURE DIAGNOSES: Open abdomen, frozen abdomen, infarction of colostomy POSTPROCEDURE DIAGNOSES: same PROCEDURE: Exploratory Laparotomy, lysis of adhesion, freeing up of the remainder of descending colon to the splenic flexure, formation and maturation of new colostomy Closure of abdominal wall at colostomy site, wound vac placement Placement of right internal jugular venous triple lumen catheter under US guidance. SURGEON: Gretta Carlson MD TUBE FILLER: Marjorie Tse, MS III ANESTHESIA: general ESTIMATED BLOOD LOSS: Approximately 50 mL. COMPLICATIONS: none, patient remains intubated PROCEDURE NOTE: Patient is brought back today after intentionally abbreviating the procedure yesterday to attempt to free up the descending colon to form a new colostomy, wash out the abdomen if we are not able to free up further the remaining colon. DESCRIPTION OF PROCEDURE: Consent was obtained from his who is his healthcare proxy. I explained to her that the objective of the surgeries to washout the abdomen and to see if we can free up enough of the colon to move the colostomy somewhere else and hopefully close the abdomen. Patient remains intubated in the ICU. He was brought up directly from the ICU. Compression boots used for DVT prophylaxis. An A-line was placed by anesthesia on his left arm. He had an epidural placed yesterday. He has been receiving Invanz 1 g IV daily. He has a Avilez catheter in place. His wound VAC was removed from his abdomen is abdomen was prepped with Betadine. Sterile drapes were placed about the lower abdomen. Surgical timeout was performed prior to starting for surgery. I began freeing up the bowels at the midline as well as at the colostomy site to reevaluate and look for any possible injury. The colostomy stump was intact and I was initially only able to pull it out at the skin level at the colostomy site. I followed this up and I could see the transverse colon as well as the beginnings of the splenic flexure all adhered onto the abdominal wall and/or the mesh that was previously placed. Retracting medially there is either the line of Toldt or part of the mesh that was previously placed for the parastomal hernia repair with some loops of bowel adhered to the antimesenteric side of the descending colon. At the midline and I carefully freed up the loops of bowel that I worked on yesterday and evaluated the previous enterotomy repair, [id number] anastomosis of small bowel, and this appears intact with no obvious leakage. There was no gross bilious or enteric contents leaking. I then wash out the abdomen with sterile saline. After doing so I continued coming down on the loops of bowel on the lower part of the midline incision going towards the lower part of the colostomy to free further the small bowel adhered to the abdominal wall to attempt to free up the descending colon from the lateral abdominal wall towards the splenic flexure. This is done carefully with Metzenbaum scissors. As able to free this up further and lysed the small bowel from the descending colon. I came up on the descending colon high up to make sure we are not injuring the colostomy and the descending colon. This was freed up from the attachments to the Permacol mesh that was placed on the previous colostomy site. We then continued to free up the descending colon up towards where the splenic flexure is. After this I turned my attention towards the transverse colon I attempted to free up the transverse colon from the midline towards the splenic flexure but this is well adhered to the abdominal wall into the mesh and I fear that trying to persist doing so I would injure the colon as the wall itself appears thin and this was distended. I then evaluated the length of the distal colon that I have freed up. I further freed up posteriorly and I couldn't get the colostomy stump to the lower midline of our midline incision but no further than that. He had a previous colostomy lowered down. The skin itself is not at erythematous anymore. Her small amounts of necrotic material and fibrinous material in the subcutaneous space. The fascia opening at the colostomy site appears relatively healthy with not much tissues left. I thought I could pull the colostomy towards a previous or the original colostomy site lower down thus I continued to free up the small bowel at this area. After Doing so It Seems like That the Colostomy Would with some mild tension into the skin level at this original colostomy site and left lower abdomen. Again debrided the subcutaneous tissue and the fascia of necrotic material. This was again washed out with saline. I then closed the fascial opening at the colostomy site with interrupted sutures of 1 PDS. After doing so I chose to previous colostomy site made 2 cm circular incision of the skin and subcutaneous tissue. Opening up an adequate size opening the fascia and previous mesh of about to accommodate 2 fingers and pulled through the colostomy stump through here. Further freeing up the splenic flexure to get some more length. After being able to do so we then closed our midline incision with a running 1 looped PDS. I then matured the colostomy in the Nathalie fashion. The midline incision was closed with ilda placed intraoperatively and widely apart to allow for drainage. Trachea subcutaneous tunnel between the subcutaneous portion of the old colostomy site to the midline to allow it to drain into this area. 2 layers of Adaptic was placed on the abdominal wall so that it does not desiccate with the wound VAC. The wound VAC was placed in the subcutaneous portion and was having adequate function and suctioned. The colostomy appliance was then placed. At the end of the procedure, remaining under sterile condition with a line bundle, I attempted to place a right sided subclavian catheter. Finding the subvlavian vein was easy but I could not pass the guidewire through. Using an US , the right internal jugular vein was located. Under direct vision, the IJ was cannulated and guidewire passed through. Using modified seldinger technique, a triple lumen catheter was passed and placed after dilateion of the subcutaenous tract. All ports were tested and noted to be working. The catheter was sutured to the skin. An antibiotic containing clear dressing was placed to cover the site. a cxr will be obtained in the PACU. Patient was then returned to the recovery room remaining intubated. SHAUNA CARLSON MD Mar 27, 2017 12:02
[2017-03-27] MEDS: predniSONE 5MG/5ML SOLN ORAL SYRINGE PO SCH (12:35)
--- NOTE | 2017-03-27 12:56 | IPNPDOC ---
Subjective General Date/Time Seen The patient was seen on 03/27/17 at 12:51. Subject Chief Complaint/History The patient is a 81-year-old male with infarcted colostomy status post expiratory laparotomy, resection of the infarcted colostomy, debridement of the necrotic tissues, closure of abdomen, placement of new colostomy. He is postop day 1 from his second ex after laparotomy, postop day 2 from the initial expiratory laparotomy. He remained stable in the ICU intubated. He is not on any vasopressors. He is making adequate urine. I started him on TPN yesterday postoperatively. No acute overnight events reported by nursing staff. Morning labs shows worsening anemia with no gross signs of bleeding. Current Medications Current Medications Current Medications Acetaminophen (Tylenol Tab) 650 mg Q4HP PRN PO MILD PAIN or TEMP > 101; Start 03/23/17 at 18:15; Stop 04/22/17 at 18:14 Acetaminophen/ Hydrocodone Bitart (Hunt, Anexsia 5/325) 1 tab Q4HP PRN PO MODERATE PAIN (PS 5-7) Last administered on 03/24/17 02:36; Start 03/23/17 at 18:15; Stop 03/25/17 at 20:04; Status DC Acetaminophen/ Hydrocodone Bitart (Hunt, Anexsia 5/325) 2 tab Q6HP PRN PO SEVERE PAIN (PS 8-10) Last administered on 03/24/17 09:31; Start 03/23/17 at 18 :15; Stop 03/25/17 at 20:04; Status DC Albuterol Sulfate (Proventil Neb) 2.5 mg Q2HP PRN NEB SHORTNESS OF BREATH; Start 03/25/17 at 22:00; Stop 04/24/17 at 21:59 Albuterol Sulfate (Proventil, Ventolin Hfa) 2 puff QIDP PRN INH SHORTNESS OF BREATH Last administered on 03/24/17 22:09; Start 03/23/17 at 18:15; Stop at 18:14 Albuterol/ Ipratropium (Duoneb (Ipr 0.5mg/Alb 2.5mg)) 2.5 ml TIDP PRN INH SHORTNESS OF BREATH Last administered on 03/25/17 09:19; Start 03/23/17 at 18: 15; Stop 03/25/17 at 21:58; Status DC Albuterol/ Ipratropium (Duoneb (Ipr 0.5mg/Alb 2.5mg)) 3 ml RQ4H NEB Last administered on 03/27/17 07:07; Start 03/26/17 at 00:00; Stop 03/27/17 at 09:48 ; Status DC Alprazolam (Xanax) 0.5 mg QHS PO Last administered on 03/24/17 21:53; Start at 21:00; Stop 03/25/17 at 20:04; Status DC Alvimopan (Entereg) 12 mg BID PO ; Start 03/27/17 at 09:00; Stop 04/03/17 at 08 :59 Amino Ac/Electrol/ Dextrose/Calcium 2,000 ml @ 85 mls/hr ONCE@1800 IV Last administered on 03/26/17 17:27; Start 03/26/17 at 18:00; Stop 03/27/17 at 17:59 Budesonide (Pulmicort) 0.5 mg BIDP PRN INH SHORTNESS OF BREATH Last administered on 03/27/17 07:07; Start 03/23/17 at 18:15; Stop 03/27/17 at 09:47 ; Status DC Budesonide (Pulmicort) 0.5 mg RBID INH ; Start 03/27/17 at 20:00; Stop 04/26/17 at 19:59 Cetylpyridinium Chloride (Cepacol) 1 anish Q2HP PRN PO COUGH Last administered on 03/25/17 09:44; Start 03/25/17 at 08:45; Stop 03/25/17 at 20:04; Status DC Chlorhexidine Gluconate (Peridex Oral Rinse) SWAB/BRUSH ORAL CAVITY BID MT Last administered on 03/26/17 21:51; Start 03/25/17 at 21:00; Stop 03/27/17 at 09:48; Status DC Ciprofloxacin 400 mg/IV Miscellaneous Supplies 200 ml @ 200 mls/hr Q12H IV Last administered on 03/25/17 15:45; Start 03/24/17 at 16:00; Stop 03/25/17 at 20:04; Status DC Dextrose (Dextrose 50%) 25 ml ASDIRECTED PRN IV SEE LABEL COMMENTS; Start 03/27 at 08:30; Stop 04/26/17 at 08:29 Dextrose/Sodium Chloride 1,000 ml @ 100 mls/hr Q10H IV ; Start 03/23/17 at 17: 45; Stop 03/23/17 at 21:25; Status DC Diphenhydramine HCl (Benadryl) 12.5 mg Q4HP PRN IV ITCHING; Start 03/25/17 at 15:30; Stop 03/28/17 at 15:29 Enoxaparin Sodium (Lovenox) 30 mg DAILY SC Last administered on 03/24/17 08:28 ; Start 03/24/17 at 09:00; Stop 03/25/17 at 08:26; Status DC Ertapenem 1 gm/ Sodium Chloride 50 ml @ 100 mls/hr Q24H IV Last administered on 03/26/17 21:49; Start 03/25/17 at 22:00; Stop 04/01/17 at 21:59 Fat Emulsion Intravenous 500 ml @ 20 mls/hr ONCE@1800 IV Last administered on 03/26/17 17:28; Start 03/26/17 at 18:00; Stop 03/27/17 at 17:59 Fat Emulsion Intravenous 500 ml @ 20 mls/hr ONCE@1800 IV ; Start 03/27/17 at 18 :00; Stop 03/28/17 at 17:59 Fentanyl Citrate (Sublimaze) 25 mcg Q5MP PRN IV MODERATE PAIN (PS 4-7); Start 03/25/17 at 20:00; Stop 03/25/17 at 20:59; Status DC Fentanyl Citrate (Sublimaze) 25 mcg Q5MP PRN IV MODERATE PAIN (PS 4-7); Start 03/26/17 at 14:45; Stop 03/26/17 at 15:45; Status DC Fentanyl Citrate (Sublimaze) 50 mcg ASDIRECTED PRN IV PAIN Last administered on 03/25/17 14:55; Start 03/25/17 at 15:30; Stop 03/25/17 at 16:30; Status DC Fentanyl Citrate (Sublimaze) 50 mcg ASDIRECTED PRN IV PAIN; Start 03/25/17 at 20:15; Stop 03/25/17 at 20:59; Status DC Fentanyl/ Bupivacaine HCl 250 ml @ 5 mls/hr Q24H EPIDURAL Last administered on 03/27/17 10:50; Start 03/25/17 at 15:30; Stop 03/28/17 at 15:29 Furosemide (LASIX injection) 40 mg DAILY IV Last administered on 03/27/17 09: 16; Start 03/27/17 at 09:00; Stop 04/26/17 at 08:59 Gabapentin (Neurontin) 100 mg BID PO Last administered on 03/24/17 21:53; Start 03/23/17 at 21:00; Stop 03/25/17 at 20:04; Status DC Glucagon (Glucagon) 1 mg ASDIRECTED PRN SC SEE LABEL COMMENTS; Start 03/27/17 at 08:30; Stop 04/26/17 at 08:29 Glucose (Glucose) 16 GM ASDIRECTED PRN PO SEE LABEL COMMENTS; Start 03/27/17 at 08:30; Stop 04/26/17 at 08:29 Home Med (Med Rec Complete!) ASDIRECTED XX ; Start 03/23/17 at 15:15; Stop at 15:15; Status DC Insulin Human Lispro (HumaLOG INSULIN) SEE PROTOCOL TABLE Q6H SC ; Start at 06:00; Stop 04/26/17 at 05:59; Status Cancel Insulin Human Lispro (HumaLOG INSULIN) See Protocol Table Q6H SC Last administered on 03/27/17 12:35; Start 03/26/17 at 18:00; Stop 03/27/17 at 12:01 ; Status DC Insulin Human Lispro (HumaLOG INSULIN) See Protocol Table Q6H SC ; Start at 18:00; Stop 03/28/17 at 14:00 Lactated Ringer's 1,000 ml @ 80 mls/hr [id number] IV ; Start 03/25/17 at 20:00; Stop 03/25/17 at 20:04; Status DC Lactated Ringer's 1,000 ml @ 100 mls/hr Q10H IV Last administered on 15:36; Start 03/26/17 at 14:45; Stop 03/26/17 at 15:45; Status DC Lactated Ringer's 1,000 ml @ 125 mls/hr Q8H IV Last administered on 03/26/17 05:58; Start 03/23/17 at 18:10; Stop 03/26/17 at 17:49; Status DC Loratadine (Claritin) 10 mg DAILY PO Last administered on 03/24/17 08:30; Start 03/24/17 at 09:00; Stop 03/25/17 at 20:04; Status DC Magnesium Hydroxide (Milk Of Magnesia) 30 ml DAILYPRN PRN PO CONSTIPATION; Start 03/23/17 at 18:15; Stop 03/25/17 at 20:04; Status DC Methylprednisolone (SOLU medrol) 4 mg DAILY IV ; Start 03/27/17 at 09:00; Stop 03/27/17 at 09:10; Status DC Methylprednisolone (SOLUmedrol) 60 mg Q12H IV Last administered on 03/26/17 09 :16; Start 03/25/17 at 21:00; Stop 03/26/17 at 14:35; Status DC Metoclopramide HCl (REGLAN INJection) 10 mg Q6HP PRN IV NAUSEA; Start 03/25/17 at 15:30; Stop 03/28/17 at 15:29 Metronidazole 500 mg/IV Miscellaneous Supplies 100 ml @ 100 mls/hr Q8H IV Last administered on 03/25/17 15:18; Start 03/24/17 at 14:00; Stop 03/25/17 at 20:04; Status DC Midazolam HCl (Versed) 1 mg ASDIRECTED PRN IV ANXIETY Last administered on 03/25 14:55; Start 03/25/17 at 15:30; Stop 03/25/17 at 16:30; Status DC Midazolam HCl (Versed) 1 mg ASDIRECTED PRN IV ANXIETY; Start 03/25/17 at 20:00 ; Stop 03/25/17 at 20:59; Status DC Midazolam HCl (Versed) 2 mg Q15MP PRN IV AGITATION Last administered on 06:03; Start 03/25/17 at 22:00; Stop 03/27/17 at 09:48; Status DC Morphine Sulfate (Morphine Sulfate Inj) 2 mg Q2HP PRN IV PAIN Last administered on 03/25/17 23:53; Start 03/25/17 at 22:00; Stop 03/27/17 at 08:25 ; Status DC Morphine Sulfate (Morphine Sulfate Inj) 2 mg Q5MP PRN IV MODERATE/SEVERE PAIN ( PS 7-10); Start 03/25/17 at 20:00; Stop 03/25/17 at 20:04; Status DC Morphine Sulfate (Morphine Sulfate Inj) 4 mg Q2HP PRN IV SEVERE PAIN (PS 8-10) Last administered on 03/25/17 13:23; Start 03/23/17 at 18:15; Stop 03/25/17 at 20:04; Status DC Morphine Sulfate (Morphine Sulfate Inj) 4 mg Q30M PRN IV SEVERE PAIN (PS 8-10) Last administered on 03/23/17 19:59; Start 03/23/17 at 13:00; Stop 03/23/17 at 19:59; Status DC Multivitamins (Theragram-M) 1 tab BID PO Last administered on 03/24/17 21:53; Start 03/23/17 at 21:00; Stop 03/25/17 at 20:04; Status DC Naloxone HCl (Narcan) 0.1 mg Q5MP PRN IV SEE LABEL COMMENTS; Start 03/25/17 at 15:30; Stop 03/28/17 at 15:29 Non-Formulary Medication (Epidural/HEEL PADDER [place]) 1 each ASDIRECTED PRN XX SEE LABEL COMMENTS; Start 03/25/17 at 15:30; Stop 04/24/17 at 15:29 Non-Formulary Medication ([place]) ASDIRECTED PRN XX SEE LABEL COMMENTS; Start 03/25/17 at 15:30; Stop 04/24/17 at 15:29 Ondansetron HCl (ZOFRAN INJection) 4 mg Q4HP PRN IV NAUSEA OR VOMITING; Start 03/25/17 at 20:00; Stop 03/25/17 at 20:59; Status DC Ondansetron HCl (ZOFRAN INJection) 4 mg Q4HP PRN IV NAUSEA OR VOMITING; Start 03/26/17 at 14:45; Stop 03/26/17 at 15:45; Status DC Ondansetron HCl (ZOFRAN INJection) 4 mg Q6HP PRN IV NAUSEA OR VOMITING; Start 03/23/17 at 18:15; Stop 04/22/17 at 18:14 Pantoprazole Sodium (Protonix) 40 mg DAILY IV Last administered on 03/27/17 09 :16; Start 03/24/17 at 09:00; Stop 04/23/17 at 08:59 Potassium Chloride 20 meq/ Insulin Human Regular 10 units/ Amino Ac/Electrol/ Dextrose/Calcium 2,010.1 ml @ 70 mls/hr ONCE@1800 IV ; Start 03/27/17 at 18:00 ; Stop 03/28/17 at 17:59 Prednisolone Acetate (Predforte 1% Ophth Susp) 1 drop QID OD Last administered on 03/27/17 12:35; Start 03/23/17 at 21:00; Stop 04/22/17 at 20:59 Prednisone (Deltasone Liquid) 5 mg DAILY PO Last administered on 03/27/17 12: 35; Start 03/27/17 at 09:00; Stop 04/26/17 at 08:59 Prednisone (Deltasone) 5 mg DAILY PO Last administered on 03/24/17 08:28; Start 03/24/17 at 09:00; Stop 03/25/17 at 08:23; Status DC Propofol 1000 mg/ IV Miscellaneous Supplies 100 ml @ 3.6 mls/hr Q24H IV Last administered on 03/27/17 04:45; Start 03/25/17 at 20:15; Stop 03/27/17 at 09:48 ; Status DC Senna/Docusate Sodium (Senokot S) 1 tab BID PO Last administered on 03/24/17 21:53; Start 03/23/17 at 21:00; Stop 03/25/17 at 20:04; Status DC Sertraline HCl (Zoloft) 50 mg DAILY PO Last administered on 03/24/17 08:28; Start 03/24/17 at 09:00; Stop 03/25/17 at 20:04; Status DC Allergies Coded Allergies: Cephalosporins (Verified Allergy, Intermediate, HIVES COVERING TORSO, 03/16) Contrast Media (Verified Allergy, Intermediate, RASH - MANY YEARS AGO, 04/02/17) Objective Physical Examination Examination GENERAL APPEARANCE: Patient is sedated, intubated, moves around randomly, opens eyes intermittently SKIN: Warm and dry HEENT: NG tube in place, only a small amount of drainage from the NG tube postoperatively NECK: Supple, no thyromegaly. No obvious jugular venous distention. Right IJ triple-lumen catheter with dressing intact no bleeding noted LUNGS: Clear to auscultation bilaterally. No wheezing appreciated. HEART: No chest wall abnormalities. Regular rate and rhythm with no murmurs appreciated. ABDOMEN: Abdomen is , round, soft, minimally distended, hypoactive bowel sounds. Midline incision is closed with ilda with some serosanguineous drainage on the lower part of the incision. His left-sided colostomy site has a wound VAC which is working. His new colostomy is below the previous colostomy site on the left with pink colostomy mucosa but no function yet. EXTREMITIES: Extremities edema this. He has ilda on the left arm and sutures on the left hand from recent carpal tunnel repair. His overall dry. Vital Signs Vital Signs Date Time Temp Pulse Resp B/P (MAP) Pulse Ox O2 Delivery O2 Flow Rate FiO2 03/27/17 10:34 98.7 60 21 105/55 (72) Aerosol Mask 10.0 60 03/27/17 08:01 95 I&Os I&O- Last 24 Hours up to 6 AM 03/28/17 06:00 Intake Total 127 ml Balance 127 ml Laboratory Data Labs 24H Laboratory Tests 2 03/26/17 17:11: Bedside Glucose (Misc Panel) 226H 03/27/17 00:13: Bedside Glucose (Misc Panel) 293H 03/27/17 05:27: Bedside Glucose (Misc Panel) 342H 03/27/17 05:30: White Blood Count 22.7H, Red Blood Count 3.06L, Hemoglobin 7.0L, Hematocrit 22.7L, Mean Corpuscular Volume 74.2L, Mean Corpuscular Hemoglobin 22.9L, Mean Corpuscular Hemoglobin Concent 30.8L, Red Cell Distribution Width 18.8H, Platelet Count 166, Lymphocytes # (Auto) , Nucleated Red Blood Cells % (auto) 0.0, Neutrophils 97H, Band Neutrophils 1, Lymphocytes (Manual) 1L, Monocytes ( Manual) 1, Platelet Estimate NORMAL, Hypochromasia 1+, Anisocytosis 1+, Microcytosis 2+, Anion Gap 7L, Glomerular Filtration Rate 53.3, Blood Urea Nitrogen 32H, Creatinine 1.36H, Sodium Level 139, Potassium Level 3.4#L, Chloride Level 107, Carbon Dioxide Level 25, Calcium Level 7.4L 03/27/17 09:34: Blood Gas Bicarbonate Standard 23.6, Arterial Blood pH 7.436, Arterial Blood Partial Pressure CO2 34.9L, Arterial Blood Partial Pressure O2 71.9L, Arterial Blood Total CO2 24.0, Arterial Blood HCO3 23.0, Arterial Blood Base Excess -1.0 , Arterial Blood Oxygen Saturation 95.5 03/27/17 12:08: Bedside Glucose (Misc Panel) 209H CBC/BMP Laboratory Tests 03/27/17 05:30 Red Blood Count 3.06 L, Mean Corpuscular Volume 74.2 L, Mean Corpuscular Hemoglobin 22.9 L, Mean Corpuscular Hemoglobin Concent 30.8 L, Red Cell Distribution Width 18.8 H, Lymphocytes # (Auto) , Calcium Level 7.4 L Impression 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 His propofol has just been discontinued and he starting to wake up. He will be weaned off the ventilator per critical care. I initially placed him on stress dose of steroids but with discussion with Dr. Ge, we will place him back on his regular dose of 5 mg of prednisone He has continued to be anemic with anemia and hemoglobin of 7 today. This is mostly from him with a lesion. He is now 8 L positive since admission. I will give him a unit of blood given his comorbidities and started diuresing him. His colostomy is not functioning yet. We will continue TPN for now. His fingersticks are high from the TPN. He'll adjust the sliding scale coverage and place insulin the TPN for his next bag. Heparin for DVT prophylaxis. Patient has epidural for postop pain control. Continue with Invanz. Change of wound VAC on . Plan / VTE VTE Prophylaxis Ordered?: Yes Plan / Urinary Catheter Reason for insertion/continuin: Critical Pt monitoring SHAUNA WALTON MD Mar 27, 2017 12:56
--- NOTE | 2017-03-27 13:30 | CCN ---
DATE OF SERVICE: 03/27/2017 Mr. Altamirano remains critically ill with acute respiratory failure postoperatively requiring mechanical ventilation. No hemodynamic events overnight. He remains quite fluid-positive. Hemoglobin is decreased today, possibly dilutional. Mr. Altamirano is on his sedation holiday and is awake and alert and following commands. He indicated adequate pain control. OBJECTIVE: PHYSICAL EXAMINATION: GENERAL: Mr. Altamirano is lying in bed, in no acute distress. He is synchronous with the ventilator. VITAL SIGNS: Temperature 98.4 with a maximum temperature (Tmax) 98.7. Blood pressure 101/55 with a mean arterial pressure (MAP) of 74. Heart rate 70. Respiratory rate 15. SpO2 95% on an FiO2 of 0.4. HEENT: Anicteric. Pupils equal, round, and reactive to light and accommodation. Nares: Patent bilaterally. Right nasogastric (NG) tube in place. Oropharynx: Clear. Moist mucosa. Endotracheal tube (ET) in place. NECK: Supple. Without jugular venous distention (JVD), thyromegaly, or masses. Trachea is midline. LYMPH: With cervical or supraclavicular lymphadenopathy. LUNGS: Symmetric excursion. Generalized diminished air entry. No wheeze, rhonchi, or crackle on tidal excursion. Prolonged expiratory phase. No accessory muscle usage or retractions. CARDIOVASCULAR: Regular rate and rhythm with a normal S1, S2. Occasional ectopic beat. No murmur, rub, or gallop appreciated. ABDOMEN: Diminished bowel sounds. Soft. Midline incision clear. Ortega- Wright (GOLDY) drain in place. Wound vacuum-assisted closure (VAC) over previous colostomy. New colostomy with viable mucosa. EXTREMITIES: Without clubbing, cyanosis, or edema. Palpable pedal pulses bilaterally. LABORATORY DATA: Chemistries show a sodium of 139, potassium 3.4, chloride 107, bicarbonate 25, anion gap 7, BUN 32, creatinine 1.4, calcium 7.4, glucose 316. CBC shows a hemoglobin of 7.0, hematocrit 22.7, platelet count 166,000, white blood cell count 22,700 and the differential of 97% neutrophils. Yesterday, intake and output (I and O) showed 3720 in and 1390 out, making him positive 2330. Mr. Altamirano is on mechanical ventilation with the mode of pressure-regulated volume control (PRVC), tidal volume 400, respiratory rate 14, positive end-expiratory pressure (PEEP) of 5, and fraction of inspired oxygen (FIO2) of 0.4 . Plateau pressures in the teens. I reviewed his chest x-ray, as well the report from earlier today. That x-ray showed normal-appearing cardiac silhouette, pulmonary vascular shadows. No acute infiltrate. Still cannot totally visualize the left hemidiaphragm. ET tube and NG tube in appropriate position. IMPRESSION: 1. Acute respiratory failure postoperatively, leading to mechanical ventilation. 2. Status post resection of necrotic colostomy with formation of new colostomy, lysis of adhesions, and with closure of the abdomen. 3. Chronic obstructive pulmonary disease (COPD) secondary to asthma, on chronic prednisone for years. 4. Hyperglycemia, on sliding scale insulin. 5. Infectious disease. On ertapenem day #3. 6. Deep venous thrombosis (DVT) prophylaxis and stress ulcer prophylaxis in place. 7. Nutrition, on total parenteral nutrition. RECOMMENDATIONS: We will assess Mr. Altamirano for weaning trial. We will start oral prednisone at his baseline value of 5 mg. Continue bronchodilators. ADDENDUM: Mr. Altamirano underwent a weaning trial on pressure support of 5 and PEEP of 5. On these settings, he has rapid shallow breathing index was in the 20s. He was able to increase his spontaneous tidal volume to 1360 mL. An arterial blood gas done these settings because of his obstructive lung disease was acceptable at 7.436/35/72 with a measured saturation 96% and a base excess of -1. This was drawn on an FIO2 of 0.4. These numbers predict successful extubation. Mr. Altamirano was successfully extubated and is now comfortable on an aerosolized mask. We will continue oxygen supplementation as needed to obtain an SpO2 greater than 90%. We will start hyperinflation therapy. We will restart his budesonide 0.5 mg nebulization twice a day and change his bronchodilators to an as-needed basis. CRITICAL CARE TIME: 35 minutes, not including procedure time. BENEDICTO
[2017-03-27] MEDS: HEPARIN SOD (PORCINE) 5000 UNITS/ML VIAL SQ SCH ×2 (15:14→21:01)
--- NOTE | 2017-03-27 17:03 | ROOPDOC ---
[facility] Report Of Operation Report of Operation DATE OF PROCEDURE: 03/26/17 PREPROCEDURE DIAGNOSES: critical illness needing vascular access POSTPROCEDURE DIAGNOSES: same PROCEDURE: Insertion left internal jugular vein triple-lumen catheter SURGEON:Gretta Carlson MD PROP AND SCENERY MAKER: ANESTHESIA: general anesthesia ESTIMATED BLOOD LOSS: Approximately 20 mL. COMPLICATIONS: none PROCEDURE NOTE: This was done at the end of the expiratory laparotomy. DESCRIPTION OF PROCEDURE: Patient just underwent expiratory laparotomy. He remains intubated. His right chest and neck was prepped and draped in the usual sterile fashion with a Central line Bundle. He has a pacemaker on the left side. I initially started using the subclavian vein. This was accessed infraclavicularly by directing the needle from the curvature of the clavicle pointing towards the sternal notch. The subclavian vein was easily accessed but I could not thread the guidewire up to a certain point probably pointing to a stenosis somewhere at the subclavian vein. After 3 tries I then used the ultrasound machine to locate the internal jugular vein this was noted to be full. Via a lateral anterior approach the internal jugular vein was cannulized. Initially the guidewire was again getting caught up which I think is at the junction of the subclavian vein and internal jugular vein after repositioning the needle as able to thread the guidewire past the area of possible obstruction. Using modified Seldinger technique, a triple-lumen catheter was treated this with a guidewire and exchanged. All 3 ports were tested and noted to be working this was secured to the skin and antibiotic dressing placed. A postoperative chest x-ray was done to rule out pneumothorax. SHAUNA CARLSON MD Mar 27, 2017 17:03
[2017-03-27] MEDS ORDERED: [UNRECOGNIZED DRUG - OTHER] IV SCH (18:00)
[2017-03-27] MEDS ORDERED: INSULIN HUMAN REGULAR IV SCH (18:00)
[2017-03-27] MEDS ORDERED: POTASSIUM CHLORIDE IV SCH (18:00)
[2017-03-27] MEDS ORDERED: FAT EMULSION IV 20% 500 ML IV SCH (18:00)
[2017-03-27] MEDS: BUDESONIDE 0.5 MG/2 ML INHALATION SUSPENSION INH SCH (19:29)
[2017-03-27] MEDS: ERTAPENEM SODIUM 1 GM in NS MINI-BAG PLUS 50 ML IV SCH (21:01)
[2017-03-27] MEDS: ALBUTEROL SULFATE 2.5 MG/0.5 ML INH NEB SOLN NEB PRN (21:10)
[2017-03-28] VITALS (20 sets, daily range): BP systolic 90–171; BP diastolic 55–76; O2SAT 94
[2017-03-28] MEDS: HumaLOG INSULIN (NovoLOG) PER UNIT SC SCH ×5 (00:11→23:53)
[2017-03-28] MEDS: ALBUTEROL SULFATE 2.5 MG/0.5 ML INH NEB SOLN NEB PRN ×5 (00:55→19:13)
[2017-03-28] MEDS: HEPARIN SOD (PORCINE) 5000 UNITS/ML VIAL SQ SCH ×3 (05:54→21:12)
[2017-03-28 06:20] LABS: BASO % 0.1 % (0.0-1.0); IMMATURE GRANULOCYTE % 1.1 % (0-0); LYMPH # 0.6 10^3/uL (1.5-4.5); LYMPH % 2.2 % (24.0-44.0); MEAN CORPUSCULAR HEMOGLOBIN 23.1 pg (27.0-33.0); MEAN CORPUSCULAR HGB CONC 30.9 g/dl (32.0-36.5); MONO % 3.9 % (0.0-5.0); NEUTROPHILS % 92.7 % (36.0-66.0); PLATELET COUNT, AUTOMATED 200 10^3/uL (150-450); RED CELL DISTRIBUTION WIDTH 19.5 % (11.5-14.5); WHITE BLOOD COUNT 29.4 10^3/uL (4.0-10.0)
[2017-03-28 06:44] LABS: ANION GAP 7 MEQ/L (8-16); BLOOD UREA NITROGEN 45 MG/DL (7-18); CALCIUM LEVEL 7.9 MG/DL (8.8-10.2); CARBON DIOXIDE LEVEL 27 MEQ/L (21-32); CHLORIDE LEVEL 109 MEQ/L (98-107); CREATININE FOR GFR 1.22 MG/DL (0.70-1.30); GLOMERULAR FILTRATION RATE > 60.0 (>35); GLUCOSE, FASTING 125 MG/DL (83-110); POTASSIUM SERUM 3.7 MEQ/L (3.5-5.1); SODIUM LEVEL 143 MEQ/L (136-145)
[2017-03-28 07:15] LABS: ADD MORPHOLOGY? YES; MEAN CORPUSCULAR VOLUME 74.7 fl (80.0-96.0); MONO # 1.1 10^3/uL (0.0-0.8); NEUTROPHILS # 27.3 10^3/uL (1.8-7.7)
[2017-03-28 07:17] LABS: ANISOCYTOSIS 1+; HYPOCHROMASIA 2+; MICROCYTOSIS 2+
[2017-03-28] MEDS: FUROSEMIDE 40 MG/4 ML VIAL (J1940) IV SCH (07:44)
[2017-03-28] MEDS: PANTOPRAZOLE 40MG INJ (PROTONIX) (C9113) IV SCH (07:45)
[2017-03-28] MEDS: predniSONE 5MG/5ML SOLN ORAL SYRINGE PO SCH (07:45)
[2017-03-28] MEDS: ALVIMOPAN 12 MG CAPSULE (ENTEREG) PO SCH ×2 (07:45→21:11)
[2017-03-28] MEDS: prednisoLONE ACET 1% OPHTH SUSP 5ML OD SCH ×4 (07:46→21:12)
[2017-03-28] MEDS: BUDESONIDE 0.5 MG/2 ML INHALATION SUSPENSION INH SCH ×2 (08:03→19:13)
[2017-03-28] MEDS ORDERED: VANCOMYCIN HCL 1,000 MG in D5W 0 ML IV SCH (09:15)
--- NOTE | 2017-03-28 09:40 | IPNPDOC ---
Subjective General Date/Time Seen The patient was seen on 03/28/17 at 09:35. 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 He was seen this morning complaining of abdominal discomfort, mild nausea. He has anasarca. Nursing reports some wheezing with his breathing but patient denies shortness of breath. He is sitting up on the chair appears fairly comfortable. His colostomy starting to put out stool but much out off it yet. He is responding well to diuresis but still overall fluid positive. Current Medications Current Medications Current Medications Acetaminophen (Tylenol Tab) 650 mg Q4HP PRN PO MILD PAIN or TEMP > 101; Start 03/23/17 at 18:15; Stop 04/22/17 at 18:14 Acetaminophen/ Hydrocodone Bitart ([place], Anexsia 5/325) 1 tab Q4HP PRN PO MODERATE PAIN (PS 5-7) Last administered on 03/24/17 02:36; Start 03/23/17 at 18:15; Stop 03/25/17 at 20:04; Status DC Acetaminophen/ Hydrocodone Bitart ([place], Anexsia 5/325) 2 tab Q6HP PRN PO SEVERE PAIN (PS 8-10) Last administered on 03/24/17 09:31; Start 03/23/17 at 18 :15; Stop 03/25/17 at 20:04; Status DC Albuterol Sulfate (Proventil Neb) 2.5 mg Q2HP PRN NEB SHORTNESS OF BREATH Last administered on 03/28/17 04:11; Start 03/25/17 at 22:00; Stop 04/24/17 at 21: 59 Albuterol Sulfate (Proventil, Ventolin Hfa) 2 puff QIDP PRN INH SHORTNESS OF BREATH Last administered on 03/24/17 22:09; Start 03/23/17 at 18:15; Stop at 18:14 Albuterol/ Ipratropium (Duoneb (Ipr 0.5mg/Alb 2.5mg)) 2.5 ml TIDP PRN INH SHORTNESS OF BREATH Last administered on 03/25/17 09:19; Start 03/23/17 at 18: 15; Stop 03/25/17 at 21:58; Status DC Albuterol/ Ipratropium (Duoneb (Ipr 0.5mg/Alb 2.5mg)) 3 ml RQ4H NEB Last administered on 03/27/17 07:07; Start 03/26/17 at 00:00; Stop 03/27/17 at 09:48 ; Status DC Alprazolam (Xanax) 0.5 mg QHS PO Last administered on 03/24/17 21:53; Start at 21:00; Stop 03/25/17 at 20:04; Status DC Alvimopan (Entereg) 12 mg BID PO Last administered on 03/28/17 07:45; Start 03/27/17 at 09:00; Stop 04/03/17 at 08:59 Amino Ac/Electrol/ Dextrose/Calcium 2,000 ml @ 85 mls/hr ONCE@1800 IV Last administered on 03/26/17 17:27; Start 03/26/17 at 18:00; Stop 03/27/17 at 17:59 ; Status DC Budesonide (Pulmicort) 0.5 mg BIDP PRN INH SHORTNESS OF BREATH Last administered on 03/27/17 07:07; Start 03/23/17 at 18:15; Stop 03/27/17 at 09:47 ; Status DC Budesonide (Pulmicort) 0.5 mg RBID INH Last administered on 03/28/17 08:03; Start 03/27/17 at 20:00; Stop 04/26/17 at 19:59 Cetylpyridinium Chloride (Cepacol) 1 anish Q2HP PRN PO COUGH Last administered on 03/25/17 09:44; Start 03/25/17 at 08:45; Stop 03/25/17 at 20:04; Status DC Chlorhexidine Gluconate (Peridex Oral Rinse) SWAB/BRUSH ORAL CAVITY BID MT Last administered on 03/26/17 21:51; Start 03/25/17 at 21:00; Stop 03/27/17 at 09:48; Status DC Ciprofloxacin 400 mg/IV Miscellaneous Supplies 200 ml @ 200 mls/hr Q12H IV Last administered on 03/25/17 15:45; Start 03/24/17 at 16:00; Stop 03/25/17 at 20:04; Status DC Dextrose (Dextrose 50%) 25 ml ASDIRECTED PRN IV SEE LABEL COMMENTS; Start 03/27 at 08:30; Stop 04/26/17 at 08:29 Dextrose/Sodium Chloride 1,000 ml @ 100 mls/hr Q10H IV ; Start 03/23/17 at 17: 45; Stop 03/23/17 at 21:25; Status DC Diphenhydramine HCl (Benadryl) 12.5 mg Q4HP PRN IV ITCHING; Start 03/25/17 at 15:30; Stop 03/30/17 at 15:29 Enoxaparin Sodium (Lovenox) 30 mg DAILY SC Last administered on 03/24/17 08:28 ; Start 03/24/17 at 09:00; Stop 03/25/17 at 08:26; Status DC Ertapenem 1 gm/ Sodium Chloride 50 ml @ 100 mls/hr Q24H IV Last administered on 03/27/17 21:01; Start 03/25/17 at 22:00; Stop 04/01/17 at 21:59 Fat Emulsion Intravenous 500 ml @ 20 mls/hr ONCE@1800 IV Last administered on 03/26/17 17:28; Start 03/26/17 at 18:00; Stop 03/27/17 at 17:59; Status DC Fat Emulsion Intravenous 500 ml @ 20 mls/hr ONCE@1800 IV Last administered on 03/27/17 17:12; Start 03/27/17 at 18:00; Stop 03/28/17 at 17:59 Fentanyl Citrate (Sublimaze) 25 mcg Q5MP PRN IV MODERATE PAIN (PS 4-7); Start 03/25/17 at 20:00; Stop 03/25/17 at 20:59; Status DC Fentanyl Citrate (Sublimaze) 25 mcg Q5MP PRN IV MODERATE PAIN (PS 4-7); Start 03/26/17 at 14:45; Stop 03/26/17 at 15:45; Status DC Fentanyl Citrate (Sublimaze) 50 mcg ASDIRECTED PRN IV PAIN Last administered on 03/25/17 14:55; Start 03/25/17 at 15:30; Stop 03/25/17 at 16:30; Status DC Fentanyl Citrate (Sublimaze) 50 mcg ASDIRECTED PRN IV PAIN; Start 03/25/17 at 20:15; Stop 03/25/17 at 20:59; Status DC Fentanyl/ Bupivacaine HCl 250 ml @ 5 mls/hr Q24H EPIDURAL Last administered on 03/27/17 10:50; Start 03/25/17 at 15:30; Stop 03/30/17 at 15:29 Furosemide (LASIX injection) 40 mg DAILY IV Last administered on 03/28/17 07: 44; Start 03/27/17 at 09:00; Stop 04/26/17 at 08:59 Gabapentin (Neurontin) 100 mg BID PO Last administered on 03/24/17 21:53; Start 03/23/17 at 21:00; Stop 03/25/17 at 20:04; Status DC Glucagon (Glucagon) 1 mg ASDIRECTED PRN SC SEE LABEL COMMENTS; Start 03/27/17 at 08:30; Stop 04/26/17 at 08:29 Glucose (Glucose) 16 GM ASDIRECTED PRN PO SEE LABEL COMMENTS; Start 03/27/17 at 08:30; Stop 04/26/17 at 08:29 Heparin Sodium (Porcine) (Heparin) 5,000 units Q8H SQ Last administered on 03/28 05:54; Start 03/27/17 at 14:00; Stop 04/01/17 at 13:59 Home Med (Med Rec Complete!) ASDIRECTED XX ; Start 03/23/17 at 15:15; Stop at 15:15; Status DC Insulin Human Lispro (HumaLOG INSULIN) SEE PROTOCOL TABLE Q6H SC ; Start at 06:00; Stop 04/26/17 at 05:59; Status Cancel Insulin Human Lispro (HumaLOG INSULIN) See Protocol Table Q6H SC Last administered on 03/27/17 12:35; Start 03/26/17 at 18:00; Stop 03/27/17 at 12:01 ; Status DC Insulin Human Lispro (HumaLOG INSULIN) See Protocol Table Q6H SC Last administered on 03/28/17 05:55; Start 03/27/17 at 18:00; Stop 03/28/17 at 14:00 Lactated Ringer's 1,000 ml @ 80 mls/hr [id number] IV ; Start 03/25/17 at 20:00; Stop 03/25/17 at 20:04; Status DC Lactated Ringer's 1,000 ml @ 100 mls/hr Q10H IV Last administered on 15:36; Start 03/26/17 at 14:45; Stop 03/26/17 at 15:45; Status DC Lactated Ringer's 1,000 ml @ 125 mls/hr Q8H IV Last administered on 03/26/17 05:58; Start 03/23/17 at 18:10; Stop 03/26/17 at 17:49; Status DC Loratadine (Claritin) 10 mg DAILY PO Last administered on 03/24/17 08:30; Start 03/24/17 at 09:00; Stop 03/25/17 at 20:04; Status DC Magnesium Hydroxide (Milk Of Magnesia) 30 ml DAILYPRN PRN PO CONSTIPATION; Start 03/23/17 at 18:15; Stop 03/25/17 at 20:04; Status DC Methylprednisolone (SOLU medrol) 4 mg DAILY IV ; Start 03/27/17 at 09:00; Stop 03/27/17 at 09:10; Status DC Methylprednisolone (SOLUmedrol) 60 mg Q12H IV Last administered on 03/26/17 09 :16; Start 03/25/17 at 21:00; Stop 03/26/17 at 14:35; Status DC Metoclopramide HCl (REGLAN INJection) 10 mg Q6HP PRN IV NAUSEA; Start 03/25/17 at 15:30; Stop 03/30/17 at 15:29 Metronidazole 500 mg/IV Miscellaneous Supplies 100 ml @ 100 mls/hr Q8H IV Last administered on 03/25/17 15:18; Start 03/24/17 at 14:00; Stop 03/25/17 at 20:04; Status DC Midazolam HCl (Versed) 1 mg ASDIRECTED PRN IV ANXIETY Last administered on 03/25 14:55; Start 03/25/17 at 15:30; Stop 03/25/17 at 16:30; Status DC Midazolam HCl (Versed) 1 mg ASDIRECTED PRN IV ANXIETY; Start 03/25/17 at 20:00 ; Stop 03/25/17 at 20:59; Status DC Midazolam HCl (Versed) 2 mg Q15MP PRN IV AGITATION Last administered on 06:03; Start 03/25/17 at 22:00; Stop 03/27/17 at 09:48; Status DC Morphine Sulfate (Morphine Sulfate Inj) 2 mg Q2HP PRN IV PAIN Last administered on 03/25/17 23:53; Start 03/25/17 at 22:00; Stop 03/27/17 at 08:25 ; Status DC Morphine Sulfate (Morphine Sulfate Inj) 2 mg Q5MP PRN IV MODERATE/SEVERE PAIN ( PS 7-10); Start 03/25/17 at 20:00; Stop 03/25/17 at 20:04; Status DC Morphine Sulfate (Morphine Sulfate Inj) 4 mg Q2HP PRN IV SEVERE PAIN (PS 8-10) Last administered on 03/25/17 13:23; Start 03/23/17 at 18:15; Stop 03/25/17 at 20:04; Status DC Morphine Sulfate (Morphine Sulfate Inj) 4 mg Q30M PRN IV SEVERE PAIN (PS 8-10) Last administered on 03/23/17 19:59; Start 03/23/17 at 13:00; Stop 03/23/17 at 19:59; Status DC Multivitamins (Theragram-M) 1 tab BID PO Last administered on 03/24/17 21:53; Start 03/23/17 at 21:00; Stop 03/25/17 at 20:04; Status DC Naloxone HCl (Narcan) 0.1 mg Q5MP PRN IV SEE LABEL COMMENTS; Start 03/25/17 at 15:30; Stop 03/30/17 at 15:29 Non-Formulary Medication (Epidural/TRANSPORT T[employer] TECHNICIAN Weir) 1 each ASDIRECTED PRN XX SEE LABEL COMMENTS; Start 03/25/17 at 15:30; Stop 03/30/17 at 15:29 Non-Formulary Medication (Weir) ASDIRECTED PRN XX SEE LABEL COMMENTS; Start 03/25/17 at 15:30; Stop 03/30/17 at 15:29 Ondansetron HCl (ZOFRAN INJection) 4 mg Q4HP PRN IV NAUSEA OR VOMITING; Start 03/25/17 at 20:00; Stop 03/25/17 at 20:59; Status DC Ondansetron HCl (ZOFRAN INJection) 4 mg Q4HP PRN IV NAUSEA OR VOMITING; Start 03/26/17 at 14:45; Stop 03/26/17 at 15:45; Status DC Ondansetron HCl (ZOFRAN INJection) 4 mg Q6HP PRN IV NAUSEA OR VOMITING; Start 03/23/17 at 18:15; Stop 04/22/17 at 18:14 Pantoprazole Sodium (Protonix) 40 mg DAILY IV Last administered on 03/28/17 07 :45; Start 03/24/17 at 09:00; Stop 04/23/17 at 08:59 Potassium Chloride 20 meq/ Insulin Human Regular 10 units/ Amino Ac/Electrol/ Dextrose/Calcium 2,010.1 ml @ 70 mls/hr ONCE@1800 IV Last administered on 03/27 17:11; Start 03/27/17 at 18:00; Stop 03/28/17 at 17:59 Prednisolone Acetate (Predforte 1% Ophth Susp) 1 drop QID OD Last administered on 03/28/17 07:46; Start 03/23/17 at 21:00; Stop 04/22/17 at 20:59 Prednisone (Deltasone Liquid) 5 mg DAILY PO Last administered on 03/28/17 07: 45; Start 03/27/17 at 09:00; Stop 04/26/17 at 08:59 Prednisone (Deltasone) 5 mg DAILY PO Last administered on 03/24/17 08:28; Start 03/24/17 at 09:00; Stop 03/25/17 at 08:23; Status DC Propofol 1000 mg/ IV Miscellaneous Supplies 100 ml @ 3.6 mls/hr Q24H IV Last administered on 03/27/17 04:45; Start 03/25/17 at 20:15; Stop 03/27/17 at 09:48 ; Status DC Senna/Docusate Sodium (Senokot S) 1 tab BID PO Last administered on 03/24/17 21:53; Start 03/23/17 at 21:00; Stop 03/25/17 at 20:04; Status DC Sertraline HCl (Zoloft) 50 mg DAILY PO Last administered on 9/30/17at 08:28; Start 03/24/17 at 09:00; Stop 03/25/17 at 20:04; Status DC Vancomycin HCl 1000 mg/Dextrose 20 ml @ 20 mls/hr Q12H IV ; Start 03/28/17 at 09 :15; Stop 04/04/17 at 09:14; Status UNV Allergies Coded Allergies: Cephalosporins (Verified Allergy, Intermediate, HIVES COVERING TORSO, 03/16) Contrast Media (Verified Allergy, Unknown, 03/16/17) Objective Physical Examination Examination GENERAL APPEARANCE: Patient sitting up on the chair, awake, alert, oriented, fairly comfortable. SKIN: Skin is dry, lips dry. Improving erythema around previous colostomy site. HEENT: Nasogastric tube in place only put out on the 50 ML's past 24 hours. Been palpebral conjunctiva NECK: Supple no obvious jugular venous distention. Right IJ triple lumen catheter, skin exit site clean and dry without erythema or drainage. LUNGS: Some scattered rhonchi, occasional wheeze, no crackles. HEART: Pacer in place, regular rate and rhythm. ABDOMEN: Abdomen is round, soft, appears more distended than it was yesterday, tympanitic to percussion. His wound VAC was changed today as well as his colostomy appliance. The previous erythema around the infarcted colostomy site shows some receding. The wound bed has some scattered necrotic material but overall appears clean with no gross purulent material inside. Fascial closure is intact. No bleeding. His colostomy is swollen but viable and starting to have some stool in it though not much gas. Surrounding skin without any irritation. Midline incision is intact with ilda intact no erythema, minimal serosanguineous drainage at the lower portion of the incision. GOLDY drain is serosanguineous but not able to keep suction. This was removed.. EXTREMITIES: Anasarcous with improving erythema especially noted at the happens with the diuresis. Vital Signs Vital Signs Date Time Temp Pulse Resp B/P (MAP) Pulse Ox O2 Delivery O2 Flow Rate FiO2 03/28/17 08:04 90 03/28/17 08:00 98.8 28 157/73 (101) 90 Nasal Cannula 3.0 03/27/17 14:01 60 I&Os still net positive though diuresing well. Laboratory Data Labs 24H Laboratory Tests 2 03/27/17 12:08: Bedside Glucose (Misc Panel) 209H 03/27/17 17:11: Bedside Glucose (Misc Panel) 133H 03/28/17 00:06: Bedside Glucose (Misc Panel) 146H 03/28/17 05:51: Bedside Glucose (Misc Panel) 133H 03/28/17 06:06: Immature Granulocyte % (Auto) 1.1H, White Blood Count 29.4H, Red Blood Count 3.72L, Hemoglobin 8.6L, Hematocrit 27.8L, Mean Corpuscular Volume 74.7L, Mean Corpuscular Hemoglobin 23.1L, Mean Corpuscular Hemoglobin Concent 30.9L, Red Cell Distribution Width 19.5H, Platelet Count 200, Neutrophils (%) (Auto) 92.7H , Lymphocytes (%) (Auto) 2.2L, Monocytes (%) (Auto) 3.9, Eosinophils (%) (Auto) 0.0, Basophils (%) (Auto) 0.1, Neutrophils # (Auto) 27.3H, Lymphocytes # (Auto) 0.6L, Monocytes # (Auto) 1.1H, Eosinophils # (Auto) 0.0, Basophils # (Auto) 0.0 , Immature Granulocyte # (Auto) 0.3H, Nucleated Red Blood Cells % (auto) 0.1H, Platelet Estimate NORMAL, Hypochromasia 2+, Anisocytosis 1+, Microcytosis 2+, Anion Gap 7L, Glomerular Filtration Rate > 60.0, Blood Urea Nitrogen 45H, Creatinine 1.22, Sodium Level 143, Potassium Level 3.7, Chloride Level 109H, Carbon Dioxide Level 27, Calcium Level 7.9L CBC/BMP Laboratory Tests 03/28/17 06:06 Red Blood Count 3.72 L, Mean Corpuscular Volume 74.7 L, Mean Corpuscular Hemoglobin 23.1 L, Mean Corpuscular Hemoglobin Concent 30.9 L, Red Cell Distribution Width 19.5 H, Neutrophils (%) (Auto) 92.7 H, Lymphocytes (%) (Auto ) 2.2 L, Monocytes (%) (Auto) 3.9, Eosinophils (%) (Auto) 0.0, Basophils (%) ( Auto) 0.1, Neutrophils # (Auto) 27.3 H, Lymphocytes # (Auto) 0.6 L, Monocytes # (Auto) 1.1 H, Eosinophils # (Auto) 0.0, Basophils # (Auto) 0.0, Calcium Level 7.9 L Impression 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 initially placed him on stress dose of steroids but with discussion with Dr. Ge, we will place him back on his regular dose of 5 mg of prednisone anemia stable. He got 1 u prbc yesterday His colostomy shows beginning function, though not much gas in the bag and abdomen remains distended. cont with NGT today, reasses for removal tomorrow. His fingersticks are high from the TPN. He'll adjust the sliding scale coverage and place insulin the TPN for his next bag. Heparin for DVT prophylaxis. Patient has epidural for postop pain control. Continue with Invanz., I will add vancomycin to expand coverage to MRSA given necrotizing skin and soft tissue infection around colostomy site. Change of wound vac done today. Wound itself looks ok. Only a small amount of necrotic stuff on the wound bed. The skin has residual mild erythema but better. Will add vancomycin to expand coverage continue with santizo cath (epidural and critical care monitoring) Plan / VTE VTE Prophylaxis Ordered?: Yes Plan / Urinary Catheter Reason for insertion/continuin: Critical Pt monitoring SHAUNA WALTON MD Mar 28, 2017 09:40
[2017-03-28] MEDS: VANCOMYCIN HCL 1,000 MG, VIAL MATE ADAPTER 1 EACH in D5W 250 ML IV SCH (10:07)
--- NOTE | 2017-03-28 10:36 | REP ---
PORTABLE CHEST: AP portable view of the chest is performed and compared to prior study of 03/27/2017. The previously noted endotracheal tube appears to have been removed. Nasogastric tube is seen traversing below the level of the diaphragms. Right central venous catheter is again noted with the tip in the superior vena cava. Left dual lead pacemaker is again noted. The cardiomediastinal silhouette is again unchanged. There are bilateral infiltrates and effusions which appear stable. IMPRESSION: Stable bilateral infiltrates and effusions. Signed by Bright Kaplan MD 03/28/2017 02:45 P
[2017-03-28] MEDS ORDERED: VANCOMYCIN HCL 1,000 MG, VIAL MATE ADAPTER 1 EACH in D5W 250 ML IV ONE (11:00)
[2017-03-28 13:38] LABS: ABG BASE EXCESS -3.3 (-2.0-2.0); ABG HCO3 22.8 MEQ/L (22.0-26.0); ABG PARTIAL PRESSURE CO2 45.2 mmHg (35.0-45.0); ABG PARTIAL PRESSURE O2 60.5 mmHg (75.0-100.0); ABG STANDARD HCO3 21.5 MEQ/L (22.0-26.0); ABG TOTAL CO2 24.2 MEQ/L (23.0-31.0)
[2017-03-28] MEDS ORDERED: FUROSEMIDE 40 MG/4 ML VIAL (J1940) IV ONE (14:00)
--- NOTE | 2017-03-28 14:12 | REP ---
PORTABLE CHEST: AP portable view of the chest is performed. Comparison made with prior exam of the same day. Nasogastric tube is again seen traversing into the stomach. Right central venous catheter is again noted. Left dual lead pacemaker is again noted. Heart appears enlarged. There is vascular congestion. There are increasing bibasilar infiltrates and effusions. Findings suggest worsening CHF and pulmonary edema. Signed by Bright Kaplan MD 03/28/2017 02:45 P
--- NOTE | 2017-03-28 15:15 | PHACANCOPD ---
PHARMACY VANCOMYCIN DOSING Pt Demographics Demographics Patient Age:81 , Weight:84.000 , Gender: male Adjusted Body Weight Date: 03/28/17, Adjusted Body Weight: Kg Events Past 24 Hours Events Past 24 Hours: YES: Elevation in WBC Vancomycin Vancomycin indication: NECROTIZING INFECTION SKIN AND SOFT TISSUE ABDOMEN Vancomycin Target Ranges: 15-20 mcg/ml Vancomycin Load Y/N: Yes Load Dose Date Time Vancomycin Load Dose: 2g Date: 03/28/17 Time: 1000 Vancomycin Dose Date: 03/28/17. Current Vancomycin Dose: [1g IV Q24H] Intermittent Dosing?: No Labs Labs Item Value Date Time White Blood Count 29.4 10^3/uL H 03/28/17 0606 White Blood Count 22.7 10^3/uL H 03/27/17 0530 White Blood Count 20.9 10^3/uL H 03/26/17 0414 White Blood Count 16.7 10^3/uL H 03/25/172010 Lactic Acid Level 2.6 MMOL/L *H 03/28/17 1327 Creatinine 1.22 MG/DL 03/28/17 0606 Creatinine 1.36 MG/DL H 03/27/17 0530 Creatinine 1.43 MG/DL H 03/26/17 0414 Blood Urea Nitrogen 45 MG/DL H 03/28/17 0606 Blood Urea Nitrogen 32 MG/DL H 03/27/17 0530 Blood Urea Nitrogen 24 MG/DL H 03/26/17 0414 Creatinine Clearance Date:03/28/17. Estimated Creatinine Clearance: [~44ml/min]. Assessment and Plan Maintaining Current Dose?: Yes Reason for dose change: No Dose Change Pharmacist Note Pharmacist Note Date: 03/28/17. Pharmacist note: Day #1 empiric vancomycin tx initiated with a 2g loading dose, followed by a maintenance regimen of 1g IV Q24H for the treatment of a necrotizing skin and soft tissue infection of the colostomy site - aiming for a goal trough of 15-20mcg/ml. WBC and lactic acid are elevated, but the patient is afebrile. CXR from 03/28 revealed an increase in bibasilar infiltrates. 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 We will continue to monitor the patient and schedule a trough accordingly. SUSIE PATEL PHARMACY Mar 28, 2017 15:15
[2017-03-28] MEDS ORDERED: ACETAMINOPHEN 650 MG SUPP PR PRN (15:30)
[2017-03-28] MEDS: FENTANYL/BUPIVACAINE/NACL BAG 250 ML EPIDURAL SCH (15:43)
[2017-03-28] MEDS ORDERED: MULTIVITAMIN -ADULT INJECTION 10 ML, CR/CU/SE/MN/ZN INJ 1 ML, POTASSIUM CHLORIDE INJ 20... IV SCH ×5 (18:00)
[2017-03-28] MEDS ORDERED: FAT EMULSION IV 20% 500 ML IV SCH (18:00)
[2017-03-28] MEDS: ERTAPENEM SODIUM 1 GM in NS MINI-BAG PLUS 50 ML IV SCH (21:13)
[2017-03-29] VITALS (17 sets, daily range): BP systolic 105–170; BP diastolic 52–107; O2SAT 95–97
[2017-03-29] MEDS ORDERED: LORazepam 2 MG/ML VIAL (J2060) IV STA (00:46)
[2017-03-29] MEDS: ALBUTEROL SULFATE 2.5 MG/0.5 ML INH NEB SOLN NEB PRN ×4 (03:37→16:43)
[2017-03-29] MEDS: HEPARIN SOD (PORCINE) 5000 UNITS/ML VIAL SQ SCH ×3 (06:04→21:25)
[2017-03-29] MEDS: HumaLOG INSULIN (NovoLOG) PER UNIT SC SCH ×3 (06:05→17:59)
[2017-03-29 06:31] LABS: MEAN CORPUSCULAR HEMOGLOBIN 23.2 pg (27.0-33.0); PLATELET COUNT, AUTOMATED 139 10^3/uL (150-450); RED CELL DISTRIBUTION WIDTH 19.2 % (11.5-14.5); WHITE BLOOD COUNT 24.1 10^3/uL (4.0-10.0)
[2017-03-29 06:36] LABS: ADD MANUAL DIFFER YES; DIFF SLIDE NUMBER 21
[2017-03-29 06:37] LABS: CALCIUM LEVEL 7.5 MG/DL (8.8-10.2); CREATININE FOR GFR 1.25 MG/DL (0.70-1.30); GLOMERULAR FILTRATION RATE 58.7 (>35); POTASSIUM SERUM 3.7 MEQ/L (3.5-5.1)
[2017-03-29 07:24] LABS: BANDS 1 % (< 11); EOSINOPHILS 1 % (0-5)
[2017-03-29 07:25] LABS: ANISOCYTOSIS 2+; HYPOCHROMASIA 2+
--- NOTE | 2017-03-29 08:48 | IPNPDOC ---
Subjective General Date/Time Seen The patient was seen on 03/29/17 at 08:47. 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, status post resection and repositioning of the colostomy, necrotizing soft tissue infection He had episodes of difficulty breathing yesterday afternoon mainly from pulmonary edema from fluid overload. He was placed on BiPAP which helped. He is getting diuresis she seems to be responding to. He has one episode of febrile temperature at the 102 in the afternoon but no further episodes of fever noted overnight. He feels moderately better this morning. Current Medications Current Medications Current Medications Acetaminophen (Tylenol Suppository) 650 mg Q4HP PRN MS PAIN / FEVER Last administered on 03/28/17 15:42; Start 03/28/17 at 15:30; Stop 04/27/17 at 15:29 Acetaminophen (Tylenol Tab) 650 mg Q4HP PRN PO MILD PAIN or TEMP > 101; Start 03/23/17 at 18:15; Stop 04/22/17 at 18:14 Acetaminophen/ Hydrocodone Bitart ([place], Anexsia 5/325) 1 tab Q4HP PRN PO MODERATE PAIN (PS 5-7) Last administered on 03/24/17 02:36; Start 03/23/17 at 18:15; Stop 03/25/17 at 20:04; Status DC Acetaminophen/ Hydrocodone Bitart ([place], Anexsia 5/325) 2 tab Q6HP PRN PO SEVERE PAIN (PS 8-10) Last administered on 03/24/17 09:31; Start 03/23/17 at 18 :15; Stop 03/25/17 at 20:04; Status DC Albuterol Sulfate (Proventil Neb) 2.5 mg Q2HP PRN NEB SHORTNESS OF BREATH Last administered on 03/29/17 03:37; Start 03/25/17 at 22:00; Stop 04/24/17 at 21: 59 Albuterol Sulfate (Proventil, Ventolin Hfa) 2 puff QIDP PRN INH SHORTNESS OF BREATH Last administered on 03/24/17 22:09; Start 03/23/17 at 18:15; Stop at 18:14 Albuterol/ Ipratropium (Duoneb (Ipr 0.5mg/Alb 2.5mg)) 2.5 ml TIDP PRN INH SHORTNESS OF BREATH Last administered on 03/25/17 09:19; Start 03/23/17 at 18: 15; Stop 03/25/17 at 21:58; Status DC Albuterol/ Ipratropium (Duoneb (Ipr 0.5mg/Alb 2.5mg)) 3 ml RQ4H NEB Last administered on 03/27/17 07:07; Start 03/26/17 at 00:00; Stop 03/27/17 at 09:48 ; Status DC Alprazolam (Xanax) 0.5 mg QHS PO Last administered on 03/24/17 21:53; Start at 21:00; Stop 03/25/17 at 20:04; Status DC Alvimopan (Entereg) 12 mg BID PO Last administered on 03/28/17 21:11; Start 03/27/17 at 09:00; Stop 04/03/17 at 08:59 Amino Ac/Electrol/ Dextrose/Calcium 2,000 ml @ 85 mls/hr ONCE@1800 IV Last administered on 03/26/17 17:27; Start 03/26/17 at 18:00; Stop 03/27/17 at 17:59 ; Status DC Budesonide (Pulmicort) 0.5 mg BIDP PRN INH SHORTNESS OF BREATH Last administered on 03/27/17 07:07; Start 03/23/17 at 18:15; Stop 03/27/17 at 09:47 ; Status DC Budesonide (Pulmicort) 0.5 mg RBID INH Last administered on 03/28/17 19:13; Start 03/27/17 at 20:00; Stop 04/26/17 at 19:59 Cetylpyridinium Chloride (Cepacol) 1 anish Q2HP PRN PO COUGH Last administered on 03/25/17 09:44; Start 03/25/17 at 08:45; Stop 03/25/17 at 20:04; Status DC Chlorhexidine Gluconate (Peridex Oral Rinse) SWAB/BRUSH ORAL CAVITY BID MT Last administered on 03/26/17 21:51; Start 03/25/17 at 21:00; Stop 03/27/17 at 09:48; Status DC Ciprofloxacin 400 mg/IV Miscellaneous Supplies 200 ml @ 200 mls/hr Q12H IV Last administered on 03/25/17 15:45; Start 03/24/17 at 16:00; Stop 03/25/17 at 20:04; Status DC Dextrose (Dextrose 50%) 25 ml ASDIRECTED PRN IV SEE LABEL COMMENTS; Start 03/27 at 08:30; Stop 04/26/17 at 08:29 Dextrose/Sodium Chloride 1,000 ml @ 100 mls/hr Q10H IV ; Start 03/23/17 at 17: 45; Stop 03/23/17 at 21:25; Status DC Diphenhydramine HCl (Benadryl) 12.5 mg Q4HP PRN IV ITCHING Last administered on 03/28/17 23:53; Start 03/25/17 at 15:30; Stop 03/30/17 at 15:29 Enoxaparin Sodium (Lovenox) 30 mg DAILY SC Last administered on 03/24/17 08:28 ; Start 03/24/17 at 09:00; Stop 03/25/17 at 08:26; Status DC Ertapenem 1 gm/ Sodium Chloride 50 ml @ 100 mls/hr Q24H IV Last administered on 03/28/17 21:13; Start 03/25/17 at 22:00; Stop 04/01/17 at 21:59 Fat Emulsion Intravenous 500 ml @ 20 mls/hr ONCE@1800 IV Last administered on 03/26/17 17:28; Start 03/26/17 at 18:00; Stop 03/27/17 at 17:59; Status DC Fat Emulsion Intravenous 500 ml @ 20 mls/hr ONCE@1800 IV Last administered on 03/27/17 17:12; Start 03/27/17 at 18:00; Stop 03/28/17 at 17:59; Status DC Fat Emulsion Intravenous 500 ml @ 20 mls/hr ONCE@1800 IV Last administered on 03/28/17 17:15; Start 03/28/17 at 18:00; Stop 03/29/17 at 17:59 Fat Emulsion Intravenous 500 ml @ 20 mls/hr ONCE@1800 IV ; Start 03/29/17 at 18 :00; Stop 03/30/17 at 17:59 Fentanyl Citrate (Sublimaze) 25 mcg Q5MP PRN IV MODERATE PAIN (PS 4-7); Start 03/25/17 at 20:00; Stop 03/25/17 at 20:59; Status DC Fentanyl Citrate (Sublimaze) 25 mcg Q5MP PRN IV MODERATE PAIN (PS 4-7); Start 03/26/17 at 14:45; Stop 03/26/17 at 15:45; Status DC Fentanyl Citrate (Sublimaze) 50 mcg ASDIRECTED PRN IV PAIN Last administered on 03/25/17 14:55; Start 03/25/17 at 15:30; Stop 03/25/17 at 16:30; Status DC Fentanyl Citrate (Sublimaze) 50 mcg ASDIRECTED PRN IV PAIN; Start 03/25/17 at 20:15; Stop 03/25/17 at 20:59; Status DC Fentanyl/ Bupivacaine HCl 250 ml @ 9 mls/hr Q24H EPIDURAL Last administered on 03/28/17 15:43; Start 03/25/17 at 15:30; Stop 03/30/17 at 15:29 Furosemide (LASIX injection) 40 mg DAILY IV Last administered on 03/28/17 07: 44; Start 03/27/17 at 09:00; Stop 04/26/17 at 08:59 Gabapentin (Neurontin) 100 mg BID PO Last administered on 03/24/17 21:53; Start 03/23/17 at 21:00; Stop 03/25/17 at 20:04; Status DC Glucagon (Glucagon) 1 mg ASDIRECTED PRN SC SEE LABEL COMMENTS; Start 03/27/17 at 08:30; Stop 04/26/17 at 08:29 Glucose (Glucose) 16 GM ASDIRECTED PRN PO SEE LABEL COMMENTS; Start 03/27/17 at 08:30; Stop 04/26/17 at 08:29 Heparin Sodium (Porcine) (Heparin) 5,000 units Q8H SQ Last administered on 03/29 06:04; Start 03/27/17 at 14:00; Stop 04/01/17 at 13:59 Home Med (Med Rec Complete!) ASDIRECTED XX ; Start 03/23/17 at 15:15; Stop at 15:15; Status DC Insulin Human Lispro (HumaLOG INSULIN) SEE PROTOCOL TABLE Q6H SC ; Start at 06:00; Stop 04/26/17 at 05:59; Status Cancel Insulin Human Lispro (HumaLOG INSULIN) See Protocol Table Q6H SC Last administered on 03/27/17 12:35; Start 03/26/17 at 18:00; Stop 03/27/17 at 12:01 ; Status DC Insulin Human Lispro (HumaLOG INSULIN) See Protocol Table Q6H SC Last administered on 03/28/17 12:23; Start 03/27/17 at 18:00; Stop 03/28/17 at 14:00 ; Status DC Insulin Human Lispro (HumaLOG INSULIN) See Protocol Table Q6H SC Last administered on 03/29/17 06:05; Start 03/28/17 at 18:00; Stop 03/29/17 at 12:01 Insulin Human Lispro (HumaLOG INSULIN) See Protocol Table Q6H SC ; Start at 18:00; Stop 03/30/17 at 12:01 Lactated Ringer's 1,000 ml @ 80 mls/hr [id number] IV ; Start 03/25/17 at 20:00; Stop 03/25/17 at 20:04; Status DC Lactated Ringer's 1,000 ml @ 100 mls/hr Q10H IV Last administered on 15:36; Start 03/26/17 at 14:45; Stop 03/26/17 at 15:45; Status DC Lactated Ringer's 1,000 ml @ 125 mls/hr Q8H IV Last administered on 03/26/17 05:58; Start 03/23/17 at 18:10; Stop 03/26/17 at 17:49; Status DC Loratadine (Claritin) 10 mg DAILY PO Last administered on 03/24/17 08:30; Start 03/24/17 at 09:00; Stop 03/25/17 at 20:04; Status DC Lorazepam (Ativan) 1 mg STAT STAT IV Last administered on 03/29/17 00:54; Start 03/29/17 at 00:46; Stop 03/29/17 at 00:48; Status DC Magnesium Hydroxide (Milk Of Magnesia) 30 ml DAILYPRN PRN PO CONSTIPATION; Start 03/23/17 at 18:15; Stop 03/25/17 at 20:04; Status DC Methylprednisolone (SOLU medrol) 4 mg DAILY IV ; Start 03/27/17 at 09:00; Stop 03/27/17 at 09:10; Status DC Methylprednisolone (SOLUmedrol) 60 mg Q12H IV Last administered on 03/26/17 09 :16; Start 03/25/17 at 21:00; Stop 03/26/17 at 14:35; Status DC Metoclopramide HCl (REGLAN INJection) 10 mg Q6HP PRN IV NAUSEA; Start 03/25/17 at 15:30; Stop 03/30/17 at 15:29 Metronidazole 500 mg/IV Miscellaneous Supplies 100 ml @ 100 mls/hr Q8H IV Last administered on 03/25/17 15:18; Start 03/24/17 at 14:00; Stop 03/25/17 at 20:04; Status DC Midazolam HCl (Versed) 1 mg ASDIRECTED PRN IV ANXIETY Last administered on 03/25 14:55; Start 03/25/17 at 15:30; Stop 03/25/17 at 16:30; Status DC Midazolam HCl (Versed) 1 mg ASDIRECTED PRN IV ANXIETY; Start 03/25/17 at 20:00 ; Stop 03/25/17 at 20:59; Status DC Midazolam HCl (Versed) 2 mg Q15MP PRN IV AGITATION Last administered on 06:03; Start 03/25/17 at 22:00; Stop 03/27/17 at 09:48; Status DC Morphine Sulfate (Morphine Sulfate Inj) 2 mg Q2HP PRN IV PAIN Last administered on 03/25/17 23:53; Start 03/25/17 at 22:00; Stop 03/27/17 at 08:25 ; Status DC Morphine Sulfate (Morphine Sulfate Inj) 2 mg Q5MP PRN IV MODERATE/SEVERE PAIN ( PS 7-10); Start 03/25/17 at 20:00; Stop 03/25/17 at 20:04; Status DC Morphine Sulfate (Morphine Sulfate Inj) 4 mg Q2HP PRN IV SEVERE PAIN (PS 8-10) Last administered on 03/25/17 13:23; Start 03/23/17 at 18:15; Stop 03/25/17 at 20:04; Status DC Morphine Sulfate (Morphine Sulfate Inj) 4 mg Q30M PRN IV SEVERE PAIN (PS 8-10) Last administered on 03/23/17 19:59; Start 03/23/17 at 13:00; Stop 03/23/17 at 19:59; Status DC Multivitamins (Theragram-M) 1 tab BID PO Last administered on 03/24/17 21:53; Start 03/23/17 at 21:00; Stop 03/25/17 at 20:04; Status DC Multivitamins 10 ml/Chromium/ Copper/Manganese/ Seleni/Zn 1 ml/ Potassium Chloride 20 meq/ Insulin Human Regular 12 units/ Amino Ac/Electrol/ Dextrose/ Calcium 2,021.12 ml @ 70 mls/hr ONCE@1800 IV Last administered on 03/28/17 17 :15; Start 03/28/17 at 18:00; Stop 03/29/17 at 17:59 Naloxone HCl (Narcan) 0.1 mg Q5MP PRN IV SEE LABEL COMMENTS; Start 03/25/17 at 15:30; Stop 03/30/17 at 15:29 Non-Formulary Medication (Epidural/EXP[employer]ED [employer] [place]) 1 each ASDIRECTED PRN XX SEE LABEL COMMENTS; Start 03/25/17 at 15:30; Stop 03/30/17 at 15:29 Non-Formulary Medication ([place]) ASDIRECTED PRN XX SEE LABEL COMMENTS; Start 03/25/17 at 15:30; Stop 03/30/17 at 15:29 Ondansetron HCl (ZOFRAN INJection) 4 mg Q4HP PRN IV NAUSEA OR VOMITING; Start 03/25/17 at 20:00; Stop 03/25/17 at 20:59; Status DC Ondansetron HCl (ZOFRAN INJection) 4 mg Q4HP PRN IV NAUSEA OR VOMITING; Start 03/26/17 at 14:45; Stop 03/26/17 at 15:45; Status DC Ondansetron HCl (ZOFRAN INJection) 4 mg Q6HP PRN IV NAUSEA OR VOMITING; Start 03/23/17 at 18:15; Stop 04/22/17 at 18:14 Pantoprazole Sodium (Protonix) 40 mg DAILY IV Last administered on 03/28/17 07 :45; Start 03/24/17 at 09:00; Stop 04/23/17 at 08:59 Potassium Chloride 20 meq/ Insulin Human Regular 10 units/ Amino Ac/Electrol/ Dextrose/Calcium 2,010.1 ml @ 70 mls/hr ONCE@1800 IV Last administered on 03/27 17:11; Start 03/27/17 at 18:00; Stop 03/28/17 at 17:59; Status DC Potassium Chloride 20 meq/ Insulin Human Regular 10 units/ Amino Ac/Electrol/ Dextrose/Calcium 2,010.1 ml @ 70 mls/hr ONCE@1800 IV ; Start 03/29/17 at 18:00 ; Stop 03/30/17 at 17:59 Prednisolone Acetate (Predforte 1% Ophth Susp) 1 drop QID OD Last administered on 03/28/17 21:12; Start 03/23/17 at 21:00; Stop 04/22/17 at 20:59 Prednisone (Deltasone Liquid) 5 mg DAILY PO Last administered on 03/28/17 07: 45; Start 03/27/17 at 09:00; Stop 04/26/17 at 08:59 Prednisone (Deltasone) 5 mg DAILY PO Last administered on 03/24/17 08:28; Start 03/24/17 at 09:00; Stop 03/25/17 at 08:23; Status DC Propofol 1000 mg/ IV Miscellaneous Supplies 100 ml @ 3.6 mls/hr Q24H IV Last administered on 03/27/17 04:45; Start 03/25/17 at 20:15; Stop 03/27/17 at 09:48 ; Status DC Senna/Docusate Sodium (Senokot S) 1 tab BID PO Last administered on 03/24/17 21:53; Start 03/23/17 at 21:00; Stop 03/25/17 at 20:04; Status DC Sertraline HCl (Zoloft) 50 mg DAILY PO Last administered on 03/24/17 08:28; Start 03/24/17 at 09:00; Stop 03/25/17 at 20:04; Status DC Vancomycin HCl 1000 mg/Dextrose 20 ml @ 20 mls/hr Q12H IV ; Start 03/28/17 at 09 :15; Stop 03/28/17 at 09:42; Status DC Vancomycin HCl 1000 mg/IV Miscellaneous Supplies 1 each/ Dextrose 270 ml @ 270 mls/hr Q24H IV Last administered on 03/28/17t 10:07; Start 03/28/17 at 10:00; Stop 04/04/17 at 09:59 Allergies Coded Allergies: Cephalosporins (Verified Allergy, Intermediate, HIVES COVERING TORSO, 03/16) Contrast Media (Verified Allergy, Unknown, 03/16/17) Objective Physical Examination Examination GENERAL APPEARANCE: Patient laying on bed, awake, alert, oriented, fairly comfortable, off bipap. SKIN: Skin is dry, lips dry. Improving erythema around previous colostomy site. HEENT: Nasogastric tube in place only put out on the 200 ML's overnight pink palpebral conjunctiva NECK: Supple no obvious jugular venous distention. Right IJ triple lumen catheter, skin exit site clean and dry without erythema or drainage. LUNGS: Some scattered rhonchi, wheeze bilaterally, no crackles. HEART: Pacer in place, regular rate and rhythm. ABDOMEN: Abdomen is round, soft, appears less distended than it was yesterday, tympanitic to percussion. His wound VAC in place. Only faint erythema left on the skin around previous colostomy site. His colostomy starting to show functioning with brown stools and small amount of gas in the bag. Surrounding skin without any irritation. Midline incision is intact with ilda intact no erythema, no further drainage in between staple sites. Previous GOLDY drain site dry EXTREMITIES: Improved edema especially in the arms and hands. Vital Signs Vital Signs Date Time Temp Pulse Resp B/P (MAP) Pulse Ox O2 Delivery O2 Flow Rate FiO2 03/29/17 06:00 73 24 114/56 (75) 98 Nasal Cannula 6.0 03/29/17 04:00 40 03/29/17 04:00 98.1 Laboratory Data Labs 24H Laboratory Tests 2 03/28/17 12:20: Bedside Glucose (Misc Panel) 157H 03/28/17 13:27: Blood Gas Bicarbonate Standard 21.5L, Arterial Blood pH 7.320L, Arterial Blood Partial Pressure CO2 45.2H, Arterial Blood Partial Pressure O2 60.5L, Arterial Blood Total CO2 24.2, Arterial Blood HCO3 22.8, Arterial Blood Base Excess -3.3L , Arterial Blood Oxygen Saturation 88.0L, Lactic Acid Level 2.6*H 03/28/17 17:14: Bedside Glucose (Misc Panel) 111H 03/28/17 23:45: Bedside Glucose (Misc Panel) 152H 03/29/17 05:51: Immature Granulocyte % (Auto) , White Blood Count 24.1H, Red Blood Count 3.36L, Hemoglobin 7.8L, Hematocrit 25.2L, Mean Corpuscular Volume 75.0L, Mean Corpuscular Hemoglobin 23.2L, Mean Corpuscular Hemoglobin Concent 31.0L, Red Cell Distribution Width 19.2H, Platelet Count 139L, Monocytes # (Auto) , Nucleated Red Blood Cells % (auto) 0.0, Neutrophils 85H, Band Neutrophils 1, Lymphocytes (Manual) 10L, Eosinophils (Manual) 1, Metamyelocytes 2H, Myelocytes 1H, Platelet Estimate NORMAL, Hypochromasia 2+, Anisocytosis 2+, Anion Gap 8, Glomerular Filtration Rate 58.7, Blood Urea Nitrogen 50H, Creatinine 1.25, Sodium Level 143, Potassium Level 3.7, Chloride Level 107, Carbon Dioxide Level 28, Calcium Level 7.5L 03/29/17 05:54: Bedside Glucose (Misc Panel) 121H CBC/BMP Laboratory Tests 03/29/17 05:51 Red Blood Count 3.36 L, Mean Corpuscular Volume 75.0 L, Mean Corpuscular Hemoglobin 23.2 L, Mean Corpuscular Hemoglobin Concent 31.0 L, Red Cell Distribution Width 19.2 H, Monocytes # (Auto) , Calcium Level 7.5 L Microbiology Microbiology 03/28/17 Blood Culture, Received Pending 03/28/17 Blood Culture, Received Pending Imaging Studies Portable chest x-ray AP portable view of the chest is performed. Comparison made with prior exam of the same day. Nasogastric tube is again seen traversing into the stomach. Right central venous catheter is again noted. Left dual lead pacemaker is again noted. Heart appears enlarged. There is vascular congestion. There are increasing bibasilar infiltrates and effusions. Findings suggest worsening CHF and pulmonary edema. 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 His breathing is improved with the diuresis. For the past 24 hours he is negative. Continue with Invanz and vancomycin. His blood cultures are pending. His skin erythema is improving. He seems to be starting to have bowel function. His colostomy is viable. Remove NG tube and start with sips of water today. oob Heparin for DVT prophylaxis The Avilez catheter for critical care monitoring, diuresis Plan / VTE VTE Prophylaxis Ordered?: Yes Plan / Urinary Catheter Reason for insertion/continuin: Critical Pt monitoring SHAUNA WALTON MD Mar 29, 2017 08:48
[2017-03-29] MEDS: BUDESONIDE 0.5 MG/2 ML INHALATION SUSPENSION INH SCH ×2 (09:08→20:24)
[2017-03-29] MEDS: predniSONE 5MG/5ML SOLN ORAL SYRINGE PO SCH (09:12)
[2017-03-29] MEDS: ALVIMOPAN 12 MG CAPSULE (ENTEREG) PO SCH ×2 (09:12→21:23)
[2017-03-29] MEDS: FUROSEMIDE 40 MG/4 ML VIAL (J1940) IV SCH (09:15)
[2017-03-29] MEDS: PANTOPRAZOLE 40MG INJ (PROTONIX) (C9113) IV SCH (09:15)
[2017-03-29] MEDS: prednisoLONE ACET 1% OPHTH SUSP 5ML OD SCH ×4 (09:15→21:32)
[2017-03-29] MEDS: VANCOMYCIN HCL 1,000 MG, VIAL MATE ADAPTER 1 EACH in D5W 250 ML IV SCH (09:57)
[2017-03-29] MEDS: ACETAMINOPHEN TAB 650MG DOSE (2X325MG) PO PRN (11:48)
[2017-03-29] MEDS: FENTANYL/BUPIVACAINE/NACL BAG 250 ML EPIDURAL SCH (16:21)
[2017-03-29] MEDS ORDERED: FAT EMULSION IV 20% 500 ML IV SCH (18:00)
[2017-03-29] MEDS ORDERED: [UNRECOGNIZED DRUG - OTHER] IV SCH (18:00)
[2017-03-29] MEDS ORDERED: POTASSIUM CHLORIDE IV SCH (18:00)
[2017-03-29] MEDS ORDERED: INSULIN HUMAN REGULAR IV SCH (18:00)
[2017-03-29] MEDS: SODIUM CHLORIDE 0.9% INJ 10 ML SYR IV SCH (21:24)
[2017-03-29] MEDS: ERTAPENEM SODIUM 1 GM in NS MINI-BAG PLUS 50 ML IV SCH (21:24)
[2017-03-29] MEDS: ONDANSETRON 4MG/2ML VIAL (J2405) IV PRN (23:21)
[2017-03-30] VITALS (10 sets, daily range): BP systolic 141–179; BP diastolic 62–81; O2SAT 94–97
[2017-03-30] MEDS: HumaLOG INSULIN (NovoLOG) PER UNIT SC SCH ×4 (00:29→17:37)
[2017-03-30] MEDS: ALBUTEROL SULFATE 2.5 MG/0.5 ML INH NEB SOLN NEB PRN ×5 (03:18→22:18)
[2017-03-30 05:20] LABS: MEAN CORPUSCULAR HEMOGLOBIN 22.7 pg (27.0-33.0); MEAN CORPUSCULAR HGB CONC 30.1 g/dl (32.0-36.5); MEAN CORPUSCULAR VOLUME 75.5 fl (80.0-96.0); PLATELET COUNT, AUTOMATED 151 10^3/uL (150-450); RED CELL DISTRIBUTION WIDTH 19.7 % (11.5-14.5); WHITE BLOOD COUNT 23.1 10^3/uL (4.0-10.0)
[2017-03-30 05:22] LABS: ADD MANUAL DIFFER YES; DIFF SLIDE NUMBER 5
[2017-03-30 05:37] LABS: ANION GAP 7 MEQ/L (8-16); BLOOD UREA NITROGEN 41 MG/DL (7-18); CALCIUM LEVEL 6.9 MG/DL (8.8-10.2); CARBON DIOXIDE LEVEL 29 MEQ/L (21-32); CHLORIDE LEVEL 105 MEQ/L (98-107); CREATININE FOR GFR 1.04 MG/DL (0.70-1.30); GLOMERULAR FILTRATION RATE > 60.0 (>35); GLUCOSE, FASTING 116 MG/DL (83-110); POTASSIUM SERUM 3.8 MEQ/L (3.5-5.1); SODIUM LEVEL 141 MEQ/L (136-145)
[2017-03-30] MEDS: HEPARIN SOD (PORCINE) 5000 UNITS/ML VIAL SQ SCH ×3 (06:16→21:26)
[2017-03-30] MEDS: SODIUM CHLORIDE 0.9% INJ 10 ML SYR IV SCH ×3 (06:17→21:26)
[2017-03-30 06:28] LABS: EOSINOPHILS 1 % (0-5)
[2017-03-30 06:29] LABS: ANISOCYTOSIS 1+; HYPOCHROMASIA 1+; MICROCYTOSIS 1+
[2017-03-30] MEDS: BUDESONIDE 0.5 MG/2 ML INHALATION SUSPENSION INH SCH ×2 (08:03→19:53)
--- NOTE | 2017-03-30 08:04 | IPNPDOC ---
Subjective General Date/Time Seen The patient was seen on 03/30/17 at 07:22. 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, status post resection and repositioning of the colostomy, necrotizing soft tissue infection Current Medications Current Medications Current Medications Acetaminophen (Tylenol Suppository) 650 mg Q4HP PRN ID PAIN / FEVER Last administered on 03/28/17 15:42; Start 03/28/17 at 15:30; Stop 04/27/17 at 15:29 Acetaminophen (Tylenol Tab) 650 mg Q4HP PRN PO MILD PAIN or TEMP > 101 Last administered on 03/29/17 11:48; Start 03/23/17 at 18:15; Stop 04/22/17 at 18: 14 Acetaminophen/ Hydrocodone Bitart (Gilbert, Anexsia 5/325) 1 tab Q4HP PRN PO MODERATE PAIN (PS 5-7) Last administered on 03/24/17 02:36; Start 03/23/17 at 18:15; Stop 03/25/17 at 20:04; Status DC Acetaminophen/ Hydrocodone Bitart (Gilbert, Anexsia 5/325) 2 tab Q6HP PRN PO SEVERE PAIN (PS 8-10) Last administered on 03/24/17 09:31; Start 03/23/17 at 18 :15; Stop 03/25/17 at 20:04; Status DC Albuterol Sulfate (Proventil Neb) 2.5 mg Q2HP PRN NEB SHORTNESS OF BREATH Last administered on 03/30/17 03:18; Start 03/25/17 at 22:00; Stop 04/24/17 at 21: 59 Albuterol Sulfate (Proventil, Ventolin Hfa) 2 puff QIDP PRN INH SHORTNESS OF BREATH Last administered on 03/24/17 22:09; Start 03/23/17 at 18:15; Stop at 18:14 Albuterol/ Ipratropium (Duoneb (Ipr 0.5mg/Alb 2.5mg)) 2.5 ml TIDP PRN INH SHORTNESS OF BREATH Last administered on 03/25/17 09:19; Start 03/23/17 at 18: 15; Stop 03/25/17 at 21:58; Status DC Albuterol/ Ipratropium (Duoneb (Ipr 0.5mg/Alb 2.5mg)) 3 ml RQ4H NEB Last administered on 03/27/17 07:07; Start 03/26/17 at 00:00; Stop 03/27/17 at 09:48 ; Status DC Alprazolam (Xanax) 0.5 mg QHS PO Last administered on 03/24/17 21:53; Start at 21:00; Stop 03/25/17 at 20:04; Status DC Alvimopan (Entereg) 12 mg BID PO Last administered on 03/29/17 21:23; Start 03/27/17 at 09:00; Stop 04/03/17 at 08:59 Amino Ac/Electrol/ Dextrose/Calcium 2,000 ml @ 85 mls/hr ONCE@1800 IV Last administered on 03/26/17 17:27; Start 03/26/17 at 18:00; Stop 03/27/17 at 17:59 ; Status DC Budesonide (Pulmicort) 0.5 mg BIDP PRN INH SHORTNESS OF BREATH Last administered on 03/27/17 07:07; Start 03/23/17 at 18:15; Stop 03/27/17 at 09:47 ; Status DC Budesonide (Pulmicort) 0.5 mg RBID INH Last administered on 03/29/17 20:24; Start 03/27/17 at 20:00; Stop 04/26/17 at 19:59 Cetylpyridinium Chloride (Cepacol) 1 anish Q2HP PRN PO COUGH Last administered on 03/25/17 09:44; Start 03/25/17 at 08:45; Stop 03/25/17 at 20:04; Status DC Chlorhexidine Gluconate (Peridex Oral Rinse) SWAB/BRUSH ORAL CAVITY BID MT Last administered on 03/26/17 21:51; Start 03/25/17 at 21:00; Stop 03/27/17 at 09:48; Status DC Ciprofloxacin 400 mg/IV Miscellaneous Supplies 200 ml @ 200 mls/hr Q12H IV Last administered on 03/25/17 15:45; Start 03/24/17 at 16:00; Stop 03/25/17 at 20:04; Status DC Dextrose (Dextrose 50%) 25 ml ASDIRECTED PRN IV SEE LABEL COMMENTS; Start 03/27 at 08:30; Stop 04/26/17 at 08:29 Dextrose/Sodium Chloride 1,000 ml @ 100 mls/hr Q10H IV ; Start 03/23/17 at 17: 45; Stop 03/23/17 at 21:25; Status DC Diphenhydramine HCl (Benadryl) 12.5 mg Q4HP PRN IV ITCHING Last administered on 03/28/17 23:53; Start 03/25/17 at 15:30; Stop 04/01/17 at 15:29 Enoxaparin Sodium (Lovenox) 30 mg DAILY SC Last administered on 03/24/17 08:28 ; Start 03/24/17 at 09:00; Stop 03/25/17 at 08:26; Status DC Ertapenem 1 gm/ Sodium Chloride 50 ml @ 100 mls/hr Q24H IV Last administered on 03/29/17 21:24; Start 03/25/17 at 22:00; Stop 04/01/17 at 21:59 Fat Emulsion Intravenous 500 ml @ 20 mls/hr ONCE@1800 IV Last administered on 03/26/17 17:28; Start 03/26/17 at 18:00; Stop 03/27/17 at 17:59; Status DC Fat Emulsion Intravenous 500 ml @ 20 mls/hr ONCE@1800 IV Last administered on 03/27/17 17:12; Start 03/27/17 at 18:00; Stop 03/28/17 at 17:59; Status DC Fat Emulsion Intravenous 500 ml @ 20 mls/hr ONCE@1800 IV Last administered on 03/28/17 17:15; Start 03/28/17 at 18:00; Stop 03/29/17 at 17:59; Status DC Fat Emulsion Intravenous 500 ml @ 20 mls/hr ONCE@1800 IV Last administered on 03/29/17 17:54; Start 03/29/17 at 18:00; Stop 03/30/17 at 17:59 Fentanyl Citrate (Sublimaze) 25 mcg Q5MP PRN IV MODERATE PAIN (PS 4-7); Start 03/25/17 at 20:00; Stop 03/25/17 at 20:59; Status DC Fentanyl Citrate (Sublimaze) 25 mcg Q5MP PRN IV MODERATE PAIN (PS 4-7); Start 03/26/17 at 14:45; Stop 03/26/17 at 15:45; Status DC Fentanyl Citrate (Sublimaze) 50 mcg ASDIRECTED PRN IV PAIN Last administered on 03/25/17 14:55; Start 03/25/17 at 15:30; Stop 03/25/17 at 16:30; Status DC Fentanyl Citrate (Sublimaze) 50 mcg ASDIRECTED PRN IV PAIN; Start 03/25/17 at 20:15; Stop 03/25/17 at 20:59; Status DC Fentanyl/ Bupivacaine HCl 250 ml @ 13 mls/hr [id number] EPIDURAL Last administered on 03/29/17 16:21; Start 03/25/17 at 15:30; Stop 04/01/17 at 15:29 Furosemide (LASIX injection) 40 mg DAILY IV Last administered on 03/29/17 09: 15; Start 03/27/17 at 09:00; Stop 04/26/17 at 08:59 Gabapentin (Neurontin) 100 mg BID PO Last administered on 03/24/17 21:53; Start 03/23/17 at 21:00; Stop 03/25/17 at 20:04; Status DC Glucagon (Glucagon) 1 mg ASDIRECTED PRN SC SEE LABEL COMMENTS; Start 03/27/17 at 08:30; Stop 04/26/17 at 08:29 Glucose (Glucose) 16 GM ASDIRECTED PRN PO SEE LABEL COMMENTS; Start 03/27/17 at 08:30; Stop 04/26/17 at 08:29 Heparin Sodium (Heparin Lock Flush 10units/ml) 10 units ASDIRECTED PRN IV SEE LABEL COMMENTS; Start 03/29/17 at 16:45; Stop 04/28/17 at 16:44 Heparin Sodium (Heparin Lock Flush 10units/ml) 10 units HLF IV Last administered on 03/30/17 06:17; Start 03/29/17 at 22:00; Stop 04/28/17 at 21:59 Heparin Sodium (Porcine) (Heparin) 5,000 units Q8H SQ Last administered on 03/30 06:16; Start 03/27/17 at 14:00; Stop 04/01/17 at 13:59 Home Med (Med Rec Complete!) ASDIRECTED XX ; Start 03/23/17 at 15:15; Stop at 15:15; Status DC Insulin Human Lispro (HumaLOG INSULIN) SEE PROTOCOL TABLE Q6H SC ; Start at 06:00; Stop 04/26/17 at 05:59; Status Cancel Insulin Human Lispro (HumaLOG INSULIN) See Protocol Table Q6H SC Last administered on 03/27/17 12:35; Start 03/26/17 at 18:00; Stop 03/27/17 at 12:01 ; Status DC Insulin Human Lispro (HumaLOG INSULIN) See Protocol Table Q6H SC Last administered on 03/28/17 12:23; Start 03/27/17 at 18:00; Stop 03/28/17 at 14:00 ; Status DC Insulin Human Lispro (HumaLOG INSULIN) See Protocol Table Q6H SC Last administered on 03/29/17 12:35; Start 03/28/17 at 18:00; Stop 03/29/17 at 12:01 ; Status DC Insulin Human Lispro (HumaLOG INSULIN) See Protocol Table Q6H SC Last administered on 03/30/17 06:16; Start 03/29/17 at 18:00; Stop 03/30/17 at 12:01 Lactated Ringer's 1,000 ml @ 80 mls/hr [id number] IV ; Start 03/25/17 at 20:00; Stop 03/25/17 at 20:04; Status DC Lactated Ringer's 1,000 ml @ 100 mls/hr Q10H IV Last administered on 15:36; Start 03/26/17 at 14:45; Stop 03/26/17 at 15:45; Status DC Lactated Ringer's 1,000 ml @ 125 mls/hr Q8H IV Last administered on 03/26/17 05:58; Start 03/23/17 at 18:10; Stop 03/26/17 at 17:49; Status DC Loratadine (Claritin) 10 mg DAILY PO Last administered on 03/24/17 08:30; Start 03/24/17 at 09:00; Stop 03/25/17 at 20:04; Status DC Lorazepam (Ativan) 1 mg STAT STAT IV Last administered on 03/29/17 00:54; Start 03/29/17 at 00:46; Stop 03/29/17 at 00:48; Status DC Magnesium Hydroxide (Milk Of Magnesia) 30 ml DAILYPRN PRN PO CONSTIPATION; Start 03/23/17 at 18:15; Stop 03/25/17 at 20:04; Status DC Methylprednisolone (SOLU medrol) 4 mg DAILY IV ; Start 03/27/17 at 09:00; Stop 03/27/17 at 09:10; Status DC Methylprednisolone (SOLUmedrol) 60 mg Q12H IV Last administered on 03/26/17 09 :16; Start 03/25/17 at 21:00; Stop 03/26/17 at 14:35; Status DC Metoclopramide HCl (REGLAN INJection) 10 mg Q6HP PRN IV NAUSEA; Start 03/25/17 at 15:30; Stop 04/01/17 at 15:29 Metronidazole 500 mg/IV Miscellaneous Supplies 100 ml @ 100 mls/hr Q8H IV Last administered on 03/25/17 15:18; Start 03/24/17 at 14:00; Stop 03/25/17 at 20:04; Status DC Midazolam HCl (Versed) 1 mg ASDIRECTED PRN IV ANXIETY Last administered on 03/25 14:55; Start 03/25/17 at 15:30; Stop 03/25/17 at 16:30; Status DC Midazolam HCl (Versed) 1 mg ASDIRECTED PRN IV ANXIETY; Start 03/25/17 at 20:00 ; Stop 03/25/17 at 20:59; Status DC Midazolam HCl (Versed) 2 mg Q15MP PRN IV AGITATION Last administered on 06:03; Start 03/25/17 at 22:00; Stop 03/27/17 at 09:48; Status DC Morphine Sulfate (Morphine Sulfate Inj) 2 mg Q2HP PRN IV PAIN Last administered on 03/25/17 23:53; Start 03/25/17 at 22:00; Stop 03/27/17 at 08:25 ; Status DC Morphine Sulfate (Morphine Sulfate Inj) 2 mg Q5MP PRN IV MODERATE/SEVERE PAIN ( PS 7-10); Start 03/25/17 at 20:00; Stop 03/25/17 at 20:04; Status DC Morphine Sulfate (Morphine Sulfate Inj) 4 mg Q2HP PRN IV SEVERE PAIN (PS 8-10) Last administered on 03/25/17 13:23; Start 03/23/17 at 18:15; Stop 03/25/17 at 20:04; Status DC Morphine Sulfate (Morphine Sulfate Inj) 4 mg Q30M PRN IV SEVERE PAIN (PS 8-10) Last administered on 03/23/17 19:59; Start 03/23/17 at 13:00; Stop 03/23/17 at 19:59; Status DC Multivitamins (Theragram-M) 1 tab BID PO Last administered on 03/24/17 21:53; Start 03/23/17 at 21:00; Stop 03/25/17 at 20:04; Status DC Multivitamins 10 ml/Chromium/ Copper/Manganese/ Seleni/Zn 1 ml/ Potassium Chloride 20 meq/ Insulin Human Regular 12 units/ Amino Ac/Electrol/ Dextrose/ Calcium 2,021.12 ml @ 70 mls/hr ONCE@1800 IV Last administered on 03/28/17 17 :15; Start 03/28/17 at 18:00; Stop 03/29/17 at 17:59; Status DC Naloxone HCl (Narcan) 0.1 mg Q5MP PRN IV SEE LABEL COMMENTS; Start 03/25/17 at 15:30; Stop 04/01/17 at 15:29 Non-Formulary Medication (Epidural/[employer]OR Rowe) 1 each ASDIRECTED PRN XX SEE LABEL COMMENTS; Start 03/25/17 at 15:30; Stop 04/01/17 at 15:29 Non-Formulary Medication (Rowe) ASDIRECTED PRN XX SEE LABEL COMMENTS; Start 03/25/17 at 15:30; Stop 04/01/17 at 15:29 Ondansetron HCl (ZOFRAN INJection) 4 mg Q4HP PRN IV NAUSEA OR VOMITING; Start 03/25/17 at 20:00; Stop 03/25/17 at 20:59; Status DC Ondansetron HCl (ZOFRAN INJection) 4 mg Q4HP PRN IV NAUSEA OR VOMITING; Start 03/26/17 at 14:45; Stop 03/26/17 at 15:45; Status DC Ondansetron HCl (ZOFRAN INJection) 4 mg Q6HP PRN IV NAUSEA OR VOMITING Last administered on 03/29/17 23:21; Start 03/23/17 at 18:15; Stop 04/22/17 at 18: 14 Pantoprazole Sodium (Protonix) 40 mg DAILY IV Last administered on 03/29/17 09 :15; Start 03/24/17 at 09:00; Stop 04/23/17 at 08:59 Potassium Chloride 20 meq/ Insulin Human Regular 10 units/ Amino Ac/Electrol/ Dextrose/Calcium 2,010.1 ml @ 70 mls/hr ONCE@1800 IV Last administered on 03/27 17:11; Start 03/27/17 at 18:00; Stop 03/28/17 at 17:59; Status DC Potassium Chloride 20 meq/ Insulin Human Regular 10 units/ Amino Ac/Electrol/ Dextrose/Calcium 2,010.1 ml @ 70 mls/hr ONCE@1800 IV Last administered on 03/29 17:54; Start 03/29/17 at 18:00; Stop 03/30/17 at 17:59 Prednisolone Acetate (Predforte 1% Ophth Susp) 1 drop QID OD Last administered on 03/29/17 21:32; Start 03/23/17 at 21:00; Stop 04/22/17 at 20:59 Prednisone (Deltasone Liquid) 5 mg DAILY PO Last administered on 03/29/17 09: 12; Start 03/27/17 at 09:00; Stop 04/26/17 at 08:59 Prednisone (Deltasone) 5 mg DAILY PO Last administered on 03/24/17 08:28; Start 03/24/17 at 09:00; Stop 03/25/17 at 08:23; Status DC Propofol 1000 mg/ IV Miscellaneous Supplies 100 ml @ 3.6 mls/hr Q24H IV Last administered on 03/27/17 04:45; Start 03/25/17 at 20:15; Stop 03/27/17 at 09:48 ; Status DC Senna/Docusate Sodium (Senokot S) 1 tab BID PO Last administered on 03/24/17 21:53; Start 03/23/17 at 21:00; Stop 03/25/17 at 20:04; Status DC Sertraline HCl (Zoloft) 50 mg DAILY PO Last administered on 03/24/17 08:28; Start 03/24/17 at 09:00; Stop 03/25/17 at 20:04; Status DC Sodium Chloride (Saline Lock Flush) 10 ml ASDIRECTED PRN IV SEE LABEL COMMENTS ; Start 03/29/17 at 16:45; Stop 04/28/17 at 16:44 Sodium Chloride (Saline Lock Flush) 10 ml SLF IV Last administered on 06:17; Start 03/29/17 at 22:00; Stop 04/28/17 at 21:59 Vancomycin HCl 1000 mg/Dextrose 20 ml @ 20 mls/hr Q12H IV ; Start 03/28/17 at 09 :15; Stop 03/28/17 at 09:42; Status DC Vancomycin HCl 1000 mg/IV Miscellaneous Supplies 1 each/ Dextrose 270 ml @ 270 mls/hr Q24H IV Last administered on 03/29/17 09:57; Start 03/28/17 at 10:00; Stop 04/04/17 at 09:59 Allergies Coded Allergies: Cephalosporins (Verified Allergy, Intermediate, HIVES COVERING TORSO, 03/16) Contrast Media (Verified Allergy, Intermediate, RASH - MANY YEARS AGO, 04/02/17) Objective Physical Examination Examination GENERAL APPEARANCE:Patient seen, laying in bed, awake, alert, and oriented. Comfortable, in no acute distress. SKIN: Warm and dry HEENT: Normocephalic, atraumatic. mild pale palpebral conjunctiva, anicteric sclerae. Lips and mucosa appear dry NECK: Supple, no thyromegaly. No obvious jugular venous distention. Right IJ TLC , dressing intact. LUNGS: scattered rhonchi and wheezing, better air movement. HEART: No chest wall abnormalities. Regular rate and rhythm with no murmurs appreciated. ABDOMEN: Abdomen is moderately distended, tympanitic. Colostomy is pink, viable with small amount of air, and stool (green). Wound vac on previous colostomy in place. EXTREMITIES: Extremities have no deformities. No edema identified. Vital Signs Vital Signs Date Time Temp Pulse Resp B/P (MAP) Pulse Ox O2 Delivery O2 Flow Rate FiO2 03/30/17 04:30 91 26 96 High Flow Cannula 6.0 03/30/17 04:00 40 03/30/17 04:00 98.3 03/30/17 00:00 167/80 (109) Laboratory Data Labs 24H Laboratory Tests 2 03/29/17 12:21: Bedside Glucose (Misc Panel) 152H 03/29/17 17:53: Bedside Glucose (Misc Panel) 153H 03/30/17 00:24: Bedside Glucose (Misc Panel) 136H 03/30/17 04:55: Immature Granulocyte % (Auto) , White Blood Count 23.1H, Red Blood Count 3.79L, Hemoglobin 8.6L, Hematocrit 28.6L, Mean Corpuscular Volume 75.5L, Mean Corpuscular Hemoglobin 22.7L, Mean Corpuscular Hemoglobin Concent 30.1L, Red Cell Distribution Width 19.7H, Platelet Count 151, Monocytes # (Auto) , Nucleated Red Blood Cells % (auto) 0.1H, Neutrophils 90H, Lymphocytes (Manual) 4L, Monocytes (Manual) 5, Eosinophils (Manual) 1, Platelet Estimate NORMAL, Hypochromasia 1+, Anisocytosis 1+, Microcytosis 1+, Anion Gap 7L, Glomerular Filtration Rate > 60.0, Blood Urea Nitrogen 41H, Creatinine 1.04, Sodium Level 141, Potassium Level 3.8, Chloride Level 105, Carbon Dioxide Level 29, Calcium Level 6.9L CBC/BMP Laboratory Tests 03/30/17 04:55 Red Blood Count 3.79 L, Mean Corpuscular Volume 75.5 L, Mean Corpuscular Hemoglobin 22.7 L, Mean Corpuscular Hemoglobin Concent 30.1 L, Red Cell Distribution Width 19.7 H, Monocytes # (Auto) , Calcium Level 6.9 L Microbiology Microbiology 03/28/17 Blood Culture - Preliminary, Resulted No growth after 24 hours . All specim... 03/28/17 Blood Culture - Preliminary, Resulted No growth after 24 hours . All specim... 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 His breathing is improved with the diuresis. For the past 24 hours he is negative. Continue with Invanz and vancomycin. His blood cultures are pending. His skin erythema is improving. He seems to be starting to have bowel function. His colostomy is viable. I'll ask anesthesia to pull out the epidural and we will manage his pain with morphine [employer] DIRECTOR. Soft diet oob Heparin for DVT prophylaxis The Avilez catheter for critical care monitoring, diuresis Plan / VTE VTE Prophylaxis Ordered?: Yes Plan / Urinary Catheter Reason for insertion/continuin: Critical Pt monitoring SHAUNA WALTON MD Mar 30, 2017 07:23
[2017-03-30] MEDS: predniSONE 5MG/5ML SOLN ORAL SYRINGE PO SCH (08:11)
[2017-03-30] MEDS: ALVIMOPAN 12 MG CAPSULE (ENTEREG) PO SCH ×2 (08:11→21:25)
[2017-03-30] MEDS: PANTOPRAZOLE 40MG INJ (PROTONIX) (C9113) IV SCH (08:12)
[2017-03-30] MEDS: prednisoLONE ACET 1% OPHTH SUSP 5ML OD SCH ×4 (08:12→21:26)
[2017-03-30] MEDS: FUROSEMIDE 40 MG/4 ML VIAL (J1940) IV SCH (08:12)
[2017-03-30] MEDS ORDERED: NALBUPHINE HCL 10 MG/ML AMP (J2300) IV PRN (09:45)
[2017-03-30] MEDS ORDERED: ONDANSETRON 4MG/2ML VIAL (J2405) IV PRN (09:45)
[2017-03-30] MEDS ORDERED: EPIDURAL/PCA KEYS XX PRN (09:45)
[2017-03-30] MEDS ORDERED: NALOXONE INJ 0.4 MG/1 ML VIAL (J2310) IV PRN (09:45)
[2017-03-30] MEDS: VANCOMYCIN HCL 1,000 MG, VIAL MATE ADAPTER 1 EACH in D5W 250 ML IV SCH (10:55)
[2017-03-30] MEDS: NS 1,000 ML IV SCH (11:08)
[2017-03-30] MEDS: MORPHINE 1MG/ML IN 0.9% NACL 100ML IV BAG IV PRN (11:08)
[2017-03-30] MEDS: KETOROLAC 30 MG/ML VIAL (J1885) IV SCH ×2 (11:36→19:43)
--- NOTE | 2017-03-30 14:20 | PHACANCOPD ---
PHARMACY VANCOMYCIN DOSING Pt Demographics Demographics Patient Age:81 , Weight:77.600 , Gender: male Adjusted Body Weight Date: 03/28/17, Adjusted Body Weight: Kg Vancomycin Vancomycin indication: NECROTIZING INFECTION SKIN AND SOFT TISSUE ABDOMEN Vancomycin Target Ranges: 15-20 mcg/ml Vancomycin Load Y/N: Yes Load Dose Date Time Vancomycin Load Dose: 2g Date: 03/28/17 Time: 1000 Vancomycin Dose Date: 03/28/17. Current Vancomycin Dose: [1g IV Q24H] Intermittent Dosing?: No Labs Micro Microbiology 03/28/17 Blood Culture - Preliminary, Resulted No growth after 24 hours . All specim... 03/28/17 Blood Culture - Preliminary, Resulted No growth after 24 hours . All specim... Creatinine Clearance Date:03/28/17. Estimated Creatinine Clearance: [~44ml/min]. Assessment and Plan Maintaining Current Dose?: Yes Reason for dose change: No Dose Change Pharmacist Note Pharmacist Note 03/30/17: Scr and output continue to remain stable. I have scheduled a trough to be drawn prior to the 4th dose tomorrow, 03/31/17, @0900. We will continue to monitor and make dose adjustments if needed. Date: 03/28/17. Pharmacist note: Day #1 empiric vancomycin tx initiated with a 2g loading dose, followed by a maintenance regimen of 1g IV Q24H for the treatment of a necrotizing skin and soft tissue infection of the colostomy site - aiming for a goal trough of 15-20mcg/ml. WBC and lactic acid are elevated, but the patient is afebrile. CXR from 03/28 revealed an increase in bibasilar infiltrates. 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 We will continue to monitor the patient and schedule a trough accordingly. SUSIE PATEL PHARMACY Mar 30, 2017 14:20
[2017-03-30] MEDS ORDERED: FAT EMULSION IV 20% 500 ML IV SCH (18:00)
[2017-03-30] MEDS ORDERED: [UNRECOGNIZED DRUG - MIXTURE] IV SCH ×5 (18:00)
[2017-03-30] MEDS: ERTAPENEM SODIUM 1 GM in NS MINI-BAG PLUS 50 ML IV SCH (21:26)
[2017-03-30] MEDS: diphenhydrAMINE INJ 50MG/ML VIAL (J1200) IV PRN (22:31)
[2017-03-31] VITALS (9 sets, daily range): BP systolic 118–165; BP diastolic 61–76
[2017-03-31] MEDS: HumaLOG INSULIN (NovoLOG) PER UNIT SC SCH ×5 (00:15→23:38)
[2017-03-31] MEDS: diphenhydrAMINE INJ 50MG/ML VIAL (J1200) IV PRN ×2 (03:06→19:30)
[2017-03-31] MEDS: SODIUM CHLORIDE 0.9% INJ 10 ML SYR IV SCH ×3 (04:56→20:51)
[2017-03-31] MEDS: HEPARIN SOD (PORCINE) 5000 UNITS/ML VIAL SQ SCH ×3 (06:26→22:00)
[2017-03-31] MEDS: ONDANSETRON 4MG/2ML VIAL (J2405) IV PRN (07:45)
[2017-03-31] MEDS: BUDESONIDE 0.5 MG/2 ML INHALATION SUSPENSION INH SCH ×2 (07:57→19:04)
[2017-03-31] MEDS: prednisoLONE ACET 1% OPHTH SUSP 5ML OD SCH ×4 (09:27→20:51)
[2017-03-31] MEDS: predniSONE 5MG/5ML SOLN ORAL SYRINGE PO SCH (09:28)
[2017-03-31] MEDS: PANTOPRAZOLE 40MG INJ (PROTONIX) (C9113) IV SCH (09:28)
[2017-03-31] MEDS: ALVIMOPAN 12 MG CAPSULE (ENTEREG) PO SCH ×2 (09:28→20:50)
[2017-03-31] MEDS: VANCOMYCIN HCL 1,000 MG, VIAL MATE ADAPTER 1 EACH in D5W 250 ML IV SCH (09:29)
[2017-03-31] MEDS: FUROSEMIDE 40 MG/4 ML VIAL (J1940) IV SCH (09:29)
[2017-03-31] MEDS: NS 1,000 ML IV SCH ×2 (09:33→19:12)
[2017-03-31 10:16] LABS: MEAN CORPUSCULAR HEMOGLOBIN 22.7 pg (27.0-33.0); MEAN CORPUSCULAR HGB CONC 29.6 g/dl (32.0-36.5); MEAN CORPUSCULAR VOLUME 76.8 fl (80.0-96.0); PLATELET COUNT, AUTOMATED 237 10^3/uL (150-450); RED CELL DISTRIBUTION WIDTH 19.5 % (11.5-14.5); WHITE BLOOD COUNT 19.4 10^3/uL (4.0-10.0)
[2017-03-31 10:18] LABS: ADD MANUAL DIFFER YES; DIFF SLIDE NUMBER 113
[2017-03-31 10:38] LABS: ANION GAP 6 MEQ/L (8-16); BLOOD UREA NITROGEN 39 MG/DL (7-18); CALCIUM LEVEL 7.6 MG/DL (8.8-10.2); CARBON DIOXIDE LEVEL 29 MEQ/L (21-32); CHLORIDE LEVEL 102 MEQ/L (98-107); CREATININE FOR GFR 0.96 MG/DL (0.70-1.30); GLOMERULAR FILTRATION RATE > 60.0 (>35); GLUCOSE, FASTING 144 MG/DL (83-110); POTASSIUM SERUM 4.1 MEQ/L (3.5-5.1); SODIUM LEVEL 137 MEQ/L (136-145)
[2017-03-31 11:11] LABS: BANDS 1 % (< 11); EOSINOPHILS 3 % (0-5)
[2017-03-31 11:12] LABS: ANISOCYTOSIS 2+; HYPOCHROMASIA 1+; MICROCYTOSIS 1+; POIKILOCYTOSIS 1+
[2017-03-31 11:13] LABS: OVALOCYTES 1+
[2017-03-31] MEDS: KETOROLAC 30 MG/ML VIAL (J1885) IV SCH ×2 (12:36→19:31)
[2017-03-31] MEDS: ALBUTEROL SULFATE 2.5 MG/0.5 ML INH NEB SOLN NEB PRN ×2 (13:14→19:04)
[2017-03-31] MEDS ORDERED: [UNRECOGNIZED DRUG - OTHER] IV SCH (18:00)
[2017-03-31] MEDS ORDERED: FAT EMULSION IV 20% 500 ML IV SCH (18:00)
[2017-03-31] MEDS ORDERED: POTASSIUM CHLORIDE IV SCH (18:00)
[2017-03-31] MEDS ORDERED: INSULIN HUMAN REGULAR IV SCH (18:00)
[2017-03-31] MEDS: MORPHINE 1MG/ML IN 0.9% NACL 100ML IV BAG IV PRN (19:12)
[2017-03-31] MEDS: ERTAPENEM SODIUM 1 GM in NS MINI-BAG PLUS 50 ML IV SCH (20:51)
[2017-04-01] VITALS (8 sets, daily range): BP systolic 111–180; BP diastolic 55–75
[2017-04-01] MEDS: KETOROLAC 30 MG/ML VIAL (J1885) IV SCH ×3 (03:06→20:14)
[2017-04-01] MEDS: HumaLOG INSULIN (NovoLOG) PER UNIT SC SCH ×3 (05:27→17:45)
[2017-04-01] MEDS: SODIUM CHLORIDE 0.9% INJ 10 ML SYR IV SCH ×3 (05:28→21:19)
[2017-04-01] MEDS: HEPARIN SOD (PORCINE) 5000 UNITS/ML VIAL SQ SCH ×3 (05:28→21:18)
[2017-04-01 05:47] LABS: ADD MANUAL DIFFER YES; MEAN CORPUSCULAR HEMOGLOBIN 22.7 pg (27.0-33.0); MEAN CORPUSCULAR HGB CONC 29.2 g/dl (32.0-36.5); MEAN CORPUSCULAR VOLUME 77.8 fl (80.0-96.0); PLATELET COUNT, AUTOMATED 253 10^3/uL (150-450); RED CELL DISTRIBUTION WIDTH 19.3 % (11.5-14.5); WHITE BLOOD COUNT 18.6 10^3/uL (4.0-10.0)
[2017-04-01 05:48] LABS: DIFF SLIDE NUMBER 61
[2017-04-01 06:11] LABS: ANION GAP 5 MEQ/L (8-16); BLOOD UREA NITROGEN 42 MG/DL (7-18); CALCIUM LEVEL 8.2 MG/DL (8.8-10.2); CARBON DIOXIDE LEVEL 30 MEQ/L (21-32); CHLORIDE LEVEL 102 MEQ/L (98-107); CREATININE FOR GFR 1.04 MG/DL (0.70-1.30); GLOMERULAR FILTRATION RATE > 60.0 (>35); GLUCOSE, FASTING 104 MG/DL (83-110); POTASSIUM SERUM 4.3 MEQ/L (3.5-5.1); SODIUM LEVEL 137 MEQ/L (136-145); VANCOMYCIN RANDOM 15.7 UG/ML
[2017-04-01] MEDS: BUDESONIDE 0.5 MG/2 ML INHALATION SUSPENSION INH SCH ×2 (06:30→19:46)
[2017-04-01] MEDS: ALBUTEROL SULFATE 2.5 MG/0.5 ML INH NEB SOLN NEB PRN ×4 (06:30→19:46)
--- NOTE | 2017-04-01 06:30 | PHACANCOPD ---
PHARMACY VANCOMYCIN DOSING Pt Demographics Demographics Patient Age:81 , Weight:77.600 , Gender: male Adjusted Body Weight Date: 03/28/17, Adjusted Body Weight: Kg Vancomycin Vancomycin indication: NECROTIZING INFECTION SKIN AND SOFT TISSUE ABDOMEN Vancomycin Target Ranges: 15-20 mcg/ml Vancomycin Load Y/N: Yes Load Dose Date Time Vancomycin Load Dose: 2g Date: 03/28/17 Time: 1000 Vancomycin Dose Date: 03/28/17. Current Vancomycin Dose: [1g IV Q24H] Intermittent Dosing?: No Labs Micro Microbiology 03/28/17 Blood Culture - Preliminary, Resulted No Growth after 72 hours. All specime... 03/28/17 Blood Culture - Preliminary, Resulted No Growth after 72 hours. All specime... Creatinine Clearance Date:03/28/17. Estimated Creatinine Clearance: [~44ml/min]. Assessment and Plan Maintaining Current Dose?: Yes Reason for dose change: No Dose Change Pharmacist Note Pharmacist Note Date: 04/01/17. Pharmacist note:RANDOM DRAWN THIS AM@0540=15.7,WILL GIVE EXTRA 500MG DOSE X1@0900=TOTAL DOSE FOR TODAY OF 1500MG.WILL CONTINUE REGIMEN OF 1 GM IV Q24@10 GOING FORWARD.WILL CONTINUE TO FOLLOW LEVELS AND LABS 03/30/17: Scr and output continue to remain stable. I have scheduled a trough to be drawn prior to the 4th dose tomorrow, 03/31/17, @0900. We will continue to monitor and make dose adjustments if needed. Date: 03/28/17. Pharmacist note: Day #1 empiric vancomycin tx initiated with a 2g loading dose, followed by a maintenance regimen of 1g IV Q24H for the treatment of a necrotizing skin and soft tissue infection of the colostomy site - aiming for a goal trough of 15-20mcg/ml. WBC and lactic acid are elevated, but the patient is afebrile. CXR from 03/28 revealed an increase in bibasilar infiltrates. 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 We will continue to monitor the patient and schedule a trough accordingly. DEBORAH BENNETT PHARMACY Apr 01, 2017 06:30
[2017-04-01 06:44] LABS: EOSINOPHILS 3 % (0-5)
[2017-04-01 06:45] LABS: ANISOCYTOSIS 2+; HYPOCHROMASIA 2+; MICROCYTOSIS 2+
[2017-04-01 06:46] LABS: TOXIC GRANULATION 1+
[2017-04-01] MEDS ORDERED: VANCOMYCIN HCL 500 MG in D5W MINI-BAG PLUS 100 ML IV ONE (09:00)
[2017-04-01] MEDS: FUROSEMIDE 40 MG/4 ML VIAL (J1940) IV SCH (09:47)
[2017-04-01] MEDS: PANTOPRAZOLE 40MG INJ (PROTONIX) (C9113) IV SCH (09:47)
[2017-04-01] MEDS: ALVIMOPAN 12 MG CAPSULE (ENTEREG) PO SCH ×2 (09:47→20:13)
[2017-04-01] MEDS: predniSONE 5MG/5ML SOLN ORAL SYRINGE PO SCH (09:49)
[2017-04-01] MEDS: prednisoLONE ACET 1% OPHTH SUSP 5ML OD SCH ×4 (09:49→20:14)
[2017-04-01] MEDS: VANCOMYCIN HCL 1,000 MG, VIAL MATE ADAPTER 1 EACH in D5W 250 ML IV SCH (10:30)
[2017-04-01] MEDS: METOCLOPRAMIDE INJ 10MG/2ML VIAL (J2765) IV SCH ×2 (10:30→17:45)
--- NOTE | 2017-04-01 11:00 | IPNPDOC ---
Subjective General Date/Time Seen The patient was seen on 04/01/17 at 10:51. Subject Chief Complaint/History Patient seen this morning and appears more comfortable, breathing better, no longer having hiccups. Wound VAC was changed yesterday as well as his colostomy appliance. He continues to show small amount of function from his colostomy with gas and stool. No febrile episodes. Hemodynamically stable. Responding to diuresis but due to the TPN still mildly positive with his fluid balance. Current Medications Current Medications Current Medications Acetaminophen (Tylenol Suppository) 650 mg Q4HP PRN NV PAIN / FEVER Last administered on 03/28/17 15:42; Start 03/28/17 at 15:30; Stop 04/27/17 at 15:29 Acetaminophen (Tylenol Tab) 650 mg Q4HP PRN PO MILD PAIN or TEMP > 101 Last administered on 03/29/17 11:48; Start 03/23/17 at 18:15; Stop 04/22/17 at 18: 14 Acetaminophen/ Hydrocodone Bitart ([place], Anexsia 5/325) 1 tab Q4HP PRN PO MODERATE PAIN (PS 5-7) Last administered on 03/24/17 02:36; Start 03/23/17 at 18:15; Stop 03/25/17 at 20:04; Status DC Acetaminophen/ Hydrocodone Bitart ([place], Anexsia 5/325) 2 tab Q6HP PRN PO SEVERE PAIN (PS 8-10) Last administered on 03/24/17 09:31; Start 03/23/17 at 18 :15; Stop 03/25/17 at 20:04; Status DC Albuterol Sulfate (Proventil Neb) 2.5 mg Q2HP PRN NEB SHORTNESS OF BREATH Last administered on 04/01/17 06:30; Start 03/25/17 at 22:00; Stop 04/24/17 at 21: 59 Albuterol Sulfate (Proventil, Ventolin Hfa) 2 puff QIDP PRN INH SHORTNESS OF BREATH Last administered on 03/24/17 22:09; Start 03/23/17 at 18:15; Stop at 18:14 Albuterol/ Ipratropium (Duoneb (Ipr 0.5mg/Alb 2.5mg)) 2.5 ml TIDP PRN INH SHORTNESS OF BREATH Last administered on 03/25/17 09:19; Start 03/23/17 at 18: 15; Stop 03/25/17 at 21:58; Status DC Albuterol/ Ipratropium (Duoneb (Ipr 0.5mg/Alb 2.5mg)) 3 ml RQ4H NEB Last administered on 03/27/17 07:07; Start 03/26/17 at 00:00; Stop 03/27/17 at 09:48 ; Status DC Alprazolam (Xanax) 0.5 mg QHS PO Last administered on 03/24/17 21:53; Start at 21:00; Stop 03/25/17 at 20:04; Status DC Alvimopan (Entereg) 12 mg BID PO Last administered on 04/01/17 09:47; Start 03/27/17 at 09:00; Stop 04/03/17 at 08:59 Amino Ac/Electrol/ Dextrose/Calcium 2,000 ml @ 85 mls/hr ONCE@1800 IV Last administered on 03/26/17 17:27; Start 03/26/17 at 18:00; Stop 03/27/17 at 17:59 ; Status DC Budesonide (Pulmicort) 0.5 mg BIDP PRN INH SHORTNESS OF BREATH Last administered on 03/27/17 07:07; Start 03/23/17 at 18:15; Stop 03/27/17 at 09:47 ; Status DC Budesonide (Pulmicort) 0.5 mg RBID INH Last administered on 04/01/17 06:30; Start 03/27/17 at 20:00; Stop 04/26/17 at 19:59 Cetylpyridinium Chloride (Cepacol) 1 anish Q2HP PRN PO COUGH Last administered on 03/25/17 09:44; Start 03/25/17 at 08:45; Stop 03/25/17 at 20:04; Status DC Chlorhexidine Gluconate (Peridex Oral Rinse) SWAB/BRUSH ORAL CAVITY BID MT Last administered on 03/26/17 21:51; Start 03/25/17 at 21:00; Stop 03/27/17 at 09:48; Status DC Ciprofloxacin 400 mg/IV Miscellaneous Supplies 200 ml @ 200 mls/hr Q12H IV Last administered on 03/25/17 15:45; Start 03/24/17 at 16:00; Stop 03/25/17 at 20:04; Status DC Dextrose (Dextrose 50%) 25 ml ASDIRECTED PRN IV SEE LABEL COMMENTS; Start 03/27 at 08:30; Stop 04/26/17 at 08:29 Dextrose/Sodium Chloride 1,000 ml @ 100 mls/hr Q10H IV ; Start 03/23/17 at 17: 45; Stop 03/23/17 at 21:25; Status DC Diphenhydramine HCl (Benadryl) 12.5 mg Q4HP PRN IV ITCHING Last administered on 03/28/17 23:53; Start 03/25/17 at 15:30; Stop 03/30/17 at 10:58; Status DC Diphenhydramine HCl (Benadryl) 12.5 mg Q4HP PRN IV ITCHING Last administered on 03/31/17 19:30; Start 03/30/17 at 09:45; Stop 04/29/17 at 09:44 Enoxaparin Sodium (Lovenox) 30 mg DAILY SC Last administered on 03/24/17 08:28 ; Start 03/24/17 at 09:00; Stop 03/25/17 at 08:26; Status DC Ertapenem 1 gm/ Sodium Chloride 50 ml @ 100 mls/hr Q24H IV Last administered on 03/31/17 20:51; Start 03/25/17 at 22:00; Stop 04/07/17 at 21:59 Erythromycin Ethylsuccinate (Jacek-Ped 200mg/ 5ml) 200 mg Q6H PO ; Start 04/01/17 at 12:00; Stop 04/08/17 at 11:59 Fat Emulsion Intravenous 500 ml @ 20 mls/hr ONCE@1800 IV Last administered on 03/26/17 17:28; Start 03/26/17 at 18:00; Stop 03/27/17 at 17:59; Status DC Fat Emulsion Intravenous 500 ml @ 20 mls/hr ONCE@1800 IV Last administered on 03/27/17 17:12; Start 03/27/17 at 18:00; Stop 03/28/17 at 17:59; Status DC Fat Emulsion Intravenous 500 ml @ 20 mls/hr ONCE@1800 IV Last administered on 03/28/17 17:15; Start 03/28/17 at 18:00; Stop 03/29/17 at 17:59; Status DC Fat Emulsion Intravenous 500 ml @ 20 mls/hr ONCE@1800 IV Last administered on 03/29/17 17:54; Start 03/29/17 at 18:00; Stop 03/30/17 at 17:59; Status DC Fat Emulsion Intravenous 500 ml @ 20 mls/hr ONCE@1800 IV Last administered on 03/30/17 17:36; Start 03/30/17 at 18:00; Stop 03/31/17 at 17:59; Status DC Fat Emulsion Intravenous 500 ml @ 20 mls/hr ONCE@1800 IV Last administered on 03/31/17 17:25; Start 03/31/17 at 18:00; Stop 04/01/17 at 17:59 Fentanyl Citrate (Sublimaze) 25 mcg Q5MP PRN IV MODERATE PAIN (PS 4-7); Start 03/25/17 at 20:00; Stop 03/25/17 at 20:59; Status DC Fentanyl Citrate (Sublimaze) 25 mcg Q5MP PRN IV MODERATE PAIN (PS 4-7); Start 03/26/17 at 14:45; Stop 03/26/17 at 15:45; Status DC Fentanyl Citrate (Sublimaze) 50 mcg ASDIRECTED PRN IV PAIN Last administered on 03/25/17 14:55; Start 03/25/17 at 15:30; Stop 03/25/17 at 16:30; Status DC Fentanyl Citrate (Sublimaze) 50 mcg ASDIRECTED PRN IV PAIN; Start 03/25/17 at 20:15; Stop 03/25/17 at 20:59; Status DC Fentanyl/ Bupivacaine HCl 250 ml @ 13 mls/hr [id number] EPIDURAL Last administered on 03/29/17 16:21; Start 03/25/17 at 15:30; Stop 03/30/17 at 10:52 ; Status DC Furosemide (LASIX injection) 40 mg DAILY IV Last administered on 04/01/17 09: 47; Start 03/27/17 at 09:00; Stop 04/26/17 at 08:59 Gabapentin (Neurontin) 100 mg BID PO Last administered on 03/24/17 21:53; Start 03/23/17 at 21:00; Stop 03/25/17 at 20:04; Status DC Glucagon (Glucagon) 1 mg ASDIRECTED PRN SC SEE LABEL COMMENTS; Start 03/27/17 at 08:30; Stop 04/26/17 at 08:29 Glucose (Glucose) 16 GM ASDIRECTED PRN PO SEE LABEL COMMENTS; Start 03/27/17 at 08:30; Stop 04/26/17 at 08:29 Heparin Sodium (Heparin Lock Flush 10units/ml) 10 units ASDIRECTED PRN IV SEE LABEL COMMENTS; Start 03/29/17 at 16:45; Stop 04/28/17 at 16:44 Heparin Sodium (Heparin Lock Flush 10units/ml) 10 units HLF IV Last administered on 04/01/17 05:28; Start 03/29/17 at 22:00; Stop 04/28/17 at 21:59 Heparin Sodium (Porcine) (Heparin) 5,000 units Q8H SQ Last administered on 04/01 05:28; Start 03/27/17 at 14:00; Stop 04/05/17 at 13:59 Home Med (Med Rec Complete!) ASDIRECTED XX ; Start 03/23/17 at 15:15; Stop at 15:15; Status DC Insulin Human Lispro (HumaLOG INSULIN) SEE PROTOCOL TABLE Q6H SC ; Start at 06:00; Stop 04/26/17 at 05:59; Status Cancel Insulin Human Lispro (HumaLOG INSULIN) See Protocol Table Q6H SC Last administered on 03/27/17 12:35; Start 03/26/17 at 18:00; Stop 03/27/17 at 12:01 ; Status DC Insulin Human Lispro (HumaLOG INSULIN) See Protocol Table Q6H SC Last administered on 03/28/17 12:23; Start 03/27/17 at 18:00; Stop 03/28/17 at 14:00 ; Status DC Insulin Human Lispro (HumaLOG INSULIN) See Protocol Table Q6H SC Last administered on 03/29/17 12:35; Start 03/28/17 at 18:00; Stop 03/29/17 at 12:01 ; Status DC Insulin Human Lispro (HumaLOG INSULIN) See Protocol Table Q6H SC Last administered on 03/30/17 11:35; Start 03/29/17 at 18:00; Stop 03/30/17 at 12:01 ; Status DC Insulin Human Lispro (HumaLOG INSULIN) See Protocol Table Q6H SC Last administered on 03/31/17 12:36; Start 03/30/17 at 18:00; Stop 03/31/17 at 12:01 ; Status DC Insulin Human Lispro (HumaLOG INSULIN) See Protocol Table Q6H SC Last administered on 04/01/17 05:27; Start 03/31/17 at 18:00; Stop 04/01/17 at 14:00 Insulin Human Regular 10 units/ Potassium Chloride 20 meq/ Amino Ac/Electrol/ Dextrose/Calcium 2,010.1 ml @ 60 mls/hr ONCE@1800 IV Last administered on 03/31 17:25; Start 03/31/17 at 18:00; Stop 04/01/17 at 17:59 Ketorolac Tromethamine (ToRADol) 15 mg Q8H IV Last administered on 04/01/17 03 :06; Start 03/30/17 at 12:00; Stop 04/02/17 at 11:59 Lactated Ringer's 1,000 ml @ 80 mls/hr [id number] IV ; Start 03/25/17 at 20:00; Stop 03/25/17 at 20:04; Status DC Lactated Ringer's 1,000 ml @ 100 mls/hr Q10H IV Last administered on 15:36; Start 03/26/17 at 14:45; Stop 03/26/17 at 15:45; Status DC Lactated Ringer's 1,000 ml @ 125 mls/hr Q8H IV Last administered on 03/26/17 05:58; Start 03/23/17 at 18:10; Stop 03/26/17 at 17:49; Status DC Loratadine (Claritin) 10 mg DAILY PO Last administered on 03/24/17 08:30; Start 03/24/17 at 09:00; Stop 03/25/17 at 20:04; Status DC Lorazepam (Ativan) 1 mg STAT STAT IV Last administered on 03/29/17 00:54; Start 03/29/17 at 00:46; Stop 03/29/17 at 00:48; Status DC Magnesium Hydroxide (Milk Of Magnesia) 30 ml DAILYPRN PRN PO CONSTIPATION; Start 03/23/17 at 18:15; Stop 03/25/17 at 20:04; Status DC Methylprednisolone (SOLU medrol) 4 mg DAILY IV ; Start 03/27/17 at 09:00; Stop 03/27/17 at 09:10; Status DC Methylprednisolone (SOLUmedrol) 60 mg Q12H IV Last administered on 03/26/17 09 :16; Start 03/25/17 at 21:00; Stop 03/26/17 at 14:35; Status DC Metoclopramide HCl (REGLAN INJection) 10 mg Q6HP PRN IV NAUSEA; Start 03/25/17 at 15:30; Stop 03/30/17 at 10:58; Status DC Metoclopramide HCl (REGLAN INJection) 10 mg Q8H IV Last administered on 10:30; Start 04/01/17 at 10:00; Stop 05/01/17 at 09:59 Metronidazole 500 mg/IV Miscellaneous Supplies 100 ml @ 100 mls/hr Q8H IV Last administered on 03/25/17 15:18; Start 03/24/17 at 14:00; Stop 03/25/17 at 20:04; Status DC Midazolam HCl (Versed) 1 mg ASDIRECTED PRN IV ANXIETY Last administered on 03/25 14:55; Start 03/25/17 at 15:30; Stop 03/25/17 at 16:30; Status DC Midazolam HCl (Versed) 1 mg ASDIRECTED PRN IV ANXIETY; Start 03/25/17 at 20:00 ; Stop 03/25/17 at 20:59; Status DC Midazolam HCl (Versed) 2 mg Q15MP PRN IV AGITATION Last administered on 06:03; Start 03/25/17 at 22:00; Stop 03/27/17 at 09:48; Status DC Morphine Sulfate (Morphine Sulfate In 0.9%Nacl Iv Bag) Concentration 1 mg/ml ASDIRECTED PRN IV SEE LABEL COMMENTS Last administered on 03/31/17 19:12; Start 03/30/17 at 09:45; Stop 04/06/17 at 09:44 Morphine Sulfate (Morphine Sulfate Inj) 2 mg Q2HP PRN IV PAIN Last administered on 03/25/17 23:53; Start 03/25/17 at 22:00; Stop 03/27/17 at 08:25 ; Status DC Morphine Sulfate (Morphine Sulfate Inj) 2 mg Q5MP PRN IV MODERATE/SEVERE PAIN ( PS 7-10); Start 03/25/17 at 20:00; Stop 03/25/17 at 20:04; Status DC Morphine Sulfate (Morphine Sulfate Inj) 4 mg Q2HP PRN IV SEVERE PAIN (PS 8-10) Last administered on 03/25/17 13:23; Start 03/23/17 at 18:15; Stop 03/25/17 at 20:04; Status DC Morphine Sulfate (Morphine Sulfate Inj) 4 mg Q30M PRN IV SEVERE PAIN (PS 8-10) Last administered on 03/23/17 19:59; Start 03/23/17 at 13:00; Stop 03/23/17 at 19:59; Status DC Multivitamins (Theragram-M) 1 tab BID PO Last administered on 03/24/17 21:53; Start 03/23/17 at 21:00; Stop 03/25/17 at 20:04; Status DC Multivitamins 10 ml/Chromium/ Copper/Manganese/ Seleni/Zn 1 ml/ Insulin Human Regular 10 units/ Potassium Chloride 20 meq/ Amino Ac/Electrol/ Dextrose/ Calcium 2,021.1 ml @ 65 mls/hr ONCE@1800 IV Last administered on 03/30/17 17: 36; Start 03/30/17 at 18:00; Stop 03/31/17 at 17:59; Status DC Multivitamins 10 ml/Chromium/ Copper/Manganese/ Seleni/Zn 1 ml/ Potassium Chloride 20 meq/ Insulin Human Regular 12 units/ Amino Ac/Electrol/ Dextrose/ Calcium 2,021.12 ml @ 70 mls/hr ONCE@1800 IV Last administered on 03/28/17 17 :15; Start 03/28/17 at 18:00; Stop 03/29/17 at 17:59; Status DC Nalbuphine HCl (Nubain) 2.5 mg Q6HP PRN IV PRURITIS; Start 03/30/17 at 09:45; Stop 04/06/17 at 09:44 Naloxone HCl (Narcan) 0.1 mg Q5MP PRN IV SEE LABEL COMMENTS; Start 03/25/17 at 15:30; Stop 03/30/17 at 10:58; Status DC Naloxone HCl (Narcan) 0.1 mg Q5MP PRN IV SEE LABEL COMMENTS; Start 03/30/17 at 09:45; Stop 04/29/17 at 09:44 Non-Formulary Medication (Epidural/STUDENT SUPPORT ADVISOR [place]) 1 each ASDIRECTED PRN XX SEE LABEL COMMENTS; Start 03/25/17 at 15:30; Stop 03/30/17 at 10:58; Status DC Non-Formulary Medication (Epidural/STUDENT SUPPORT ADVISOR [place]) USE THIS ENTRY TO VEND ... Q1M PRN XX SEE LABEL COMMENTS; Start 03/30/17 at 09:45; Stop 04/29/17 at 09:44 Non-Formulary Medication ([place]) ASDIRECTED PRN XX SEE LABEL COMMENTS; Start 03/25/17 at 15:30; Stop 03/30/17 at 10:58; Status DC Ondansetron HCl (ZOFRAN INJection) 4 mg Q4HP PRN IV NAUSEA OR VOMITING; Start 03/25/17 at 20:00; Stop 03/25/17 at 20:59; Status DC Ondansetron HCl (ZOFRAN INJection) 4 mg Q4HP PRN IV NAUSEA OR VOMITING; Start 03/26/17 at 14:45; Stop 03/26/17 at 15:45; Status DC Ondansetron HCl (ZOFRAN INJection) 4 mg Q6HP PRN IV NAUSEA OR VOMITING Last administered on 03/31/17 07:45; Start 03/23/17 at 18:15; Stop 04/22/17 at 18: 14 Ondansetron HCl (ZOFRAN INJection) 4 mg Q6HP PRN IV NAUSEA; Start 03/30/17 at 09:45; Stop 04/29/17 at 09:44; Status Cancel Pantoprazole Sodium (Protonix) 40 mg DAILY IV Last administered on 04/01/17 09 :47; Start 03/24/17 at 09:00; Stop 04/23/17 at 08:59 Potassium Chloride 20 meq/ Insulin Human Regular 10 units/ Amino Ac/Electrol/ Dextrose/Calcium 2,010.1 ml @ 70 mls/hr ONCE@1800 IV Last administered on 03/27 17:11; Start 03/27/17 at 18:00; Stop 03/28/17 at 17:59; Status DC Potassium Chloride 20 meq/ Insulin Human Regular 10 units/ Amino Ac/Electrol/ Dextrose/Calcium 2,010.1 ml @ 70 mls/hr ONCE@1800 IV Last administered on 03/29 17:54; Start 03/29/17 at 18:00; Stop 03/30/17 at 17:59; Status DC Prednisolone Acetate (Predforte 1% Ophth Susp) 1 drop QID OD Last administered on 04/01/17 09:49; Start 03/23/17 at 21:00; Stop 04/22/17 at 20:59 Prednisone (Deltasone Liquid) 5 mg DAILY PO Last administered on 04/01/17 09: 49; Start 03/27/17 at 09:00; Stop 04/26/17 at 08:59 Prednisone (Deltasone) 5 mg DAILY PO Last administered on 03/24/17 08:28; Start 03/24/17 at 09:00; Stop 03/25/17 at 08:23; Status DC Propofol 1000 mg/ IV Miscellaneous Supplies 100 ml @ 3.6 mls/hr Q24H IV Last administered on 03/27/17 04:45; Start 03/25/17 at 20:15; Stop 03/27/17 at 09:48 ; Status DC Senna/Docusate Sodium (Senokot S) 1 tab BID PO Last administered on 03/24/17 21:53; Start 03/23/17 at 21:00; Stop 03/25/17 at 20:04; Status DC Sertraline HCl (Zoloft) 50 mg DAILY PO Last administered on 03/24/17 08:28; Start 03/24/17 at 09:00; Stop 03/25/17 at 20:04; Status DC Sodium Chloride 1,000 ml @ 15 mls/hr Q24H IV Last administered on 03/31/17 19 :12; Start 03/30/17 at 09:33; Stop 04/29/17 at 09:32 Sodium Chloride (Saline Lock Flush) 10 ml ASDIRECTED PRN IV SEE LABEL COMMENTS ; Start 03/29/17 at 16:45; Stop 04/28/17 at 16:44 Sodium Chloride (Saline Lock Flush) 10 ml SLF IV Last administered on 05:28; Start 03/29/17 at 22:00; Stop 04/28/17 at 21:59 Vancomycin HCl 1000 mg/Dextrose 20 ml @ 20 mls/hr Q12H IV ; Start 03/28/17 at 09 :15; Stop 03/28/17 at 09:42; Status DC Vancomycin HCl 1000 mg/IV Miscellaneous Supplies 1 each/ Dextrose 270 ml @ 270 mls/hr Q24H IV Last administered on 04/01/17 10:30; Start 03/28/17 at 10:00; Stop 04/04/17 at 09:59 Allergies Coded Allergies: Cephalosporins (Verified Allergy, Intermediate, HIVES COVERING [place], 03/16) Contrast Media (Verified Allergy, Unknown, 03/16/17) Objective Physical Examination Examination GENERAL APPEARANCE: Patient laying on bed, awake, alert, oriented, appears comfortable SKIN: Skin is dry, lips dry. Not much erythema left on the skin surrounding the old colostomy site HEENT: Lips are moist, slightly pale palpebral conjunctiva NECK: Supple no obvious jugular venous distention. Right IJ triple lumen catheter, skin exit site clean and dry without erythema or drainage. LUNGS: He has good air movement send barely any rhonchi. No wheezing or crackles today. HEART: Pacer in place, regular rate and rhythm. ABDOMEN: Abdomen is round, soft, appears less distended than it was yesterday, tympanitic to percussion. His wound VAC in place. Almost resolved erythema surrounding the old colostomy site skin. Colostomy pink, viable improving mucosal swelling, with air and small amount of stool in the bag EXTREMITIES: Improved edema especially in the arms and hands. Vital Signs Vital Signs Date Time Temp Pulse Resp B/P (MAP) Pulse Ox O2 Delivery O2 Flow Rate FiO2 04/01/17 10:00 98 High Flow Cannula 3.0 04/01/17 07:01 97.4 80 18 121/60 (80) 03/31/17 03:15 40 I&Os I&O- Last 24 Hours up to 6 AM 04/02/17 06:00 Intake Total 390 ml Output Total 485 ml Balance -95 ml 2690 in/2650 out Urine output 2225 mLs Laboratory Data Labs 24H Laboratory Tests 2 03/31/17 12:30: Bedside Glucose (Misc Panel) 137H 03/31/17 17:21: Bedside Glucose (Misc Panel) 132H 03/31/17 23:33: Bedside Glucose (Misc Panel) 162H 04/01/17 05:26: Bedside Glucose (Misc Panel) 121H 04/01/17 05:40: Immature Granulocyte % (Auto) , Nucleated Red Blood Cells % (auto) 0.0, Neutrophils 70, Lymphocytes (Manual) 14L, Monocytes (Manual) 7, Eosinophils ( Manual) 3, Metamyelocytes 3H, Myelocytes 3H, Toxic Granulation 1+, Platelet Estimate NORMAL, Hypochromasia 2+, Anisocytosis 2+, Microcytosis 2+, Anion Gap 5L, Glomerular Filtration Rate > 60.0, Blood Urea Nitrogen 42H, Creatinine 1.04 , Sodium Level 137, Potassium Level 4.3, Chloride Level 102, Carbon Dioxide Level 30, Calcium Level 8.2L, Random Vancomycin Level 15.7 CBC/BMP Laboratory Tests 04/01/17 05:40 Red Blood Count 3.70 L, Mean Corpuscular Volume 77.8 L, Mean Corpuscular Hemoglobin 22.7 L, Mean Corpuscular Hemoglobin Concent 29.2 L, Red Cell Distribution Width 19.3 H, Calcium Level 8.2 L Microbiology Microbiology 03/28/17 Blood Culture - Preliminary, Resulted No Growth after 72 hours. All specime... 03/28/17 Blood Culture - Preliminary, Resulted No Growth after 72 hours. All specime... 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 He still remains distended though there continues to be more function from his colostomy today. His hiccups has resolved but still has some episodes of nausea. He would like to try some milk or Ensure and though I think he'll not be able to take in that much, he might be worthwhile to try to stimulate his gut. I will also add some Reglan and erythromycin in addition to the Entereg to try to get his stomach to empty better and the small bowel to work better. In terms of his breathing, he seems to be more comfortable today. We will move him out of the ICU and making PCU status. Continue with the antibiotics. His leukocytosis is slowly getting better. His wound VAC was changed yesterday as well as his colostomy appliance. He remains on morphine STUDENT SUPPORT ADVISOR. We will keep the Avilez catheter to continue to monitor urine output and diuresing him and he still remains immobile. DVT prophylaxis in place Plan / VTE VTE Prophylaxis Ordered?: Yes Plan / Urinary Catheter Reason for insertion/continuin: Critical Pt monitoring SHAUNA WALTON MD Apr 01, 2017 10:56
[2017-04-01] MEDS: ERYTHROMYCIN ETHYLSUCC 200 MG SUSP (ERYPED) 100MLBTL PO SCH ×2 (13:01→17:44)
[2017-04-01 15:35] LABS: ABG BASE EXCESS 2.3 (-2.0-2.0); ABG DEVICE HIGH FLOW O2; ABG HCO3 26.4 MEQ/L (22.0-26.0); ABG PARTIAL PRESSURE CO2 39.1 mmHg (35.0-45.0); ABG PARTIAL PRESSURE O2 91.6 mmHg (75.0-100.0); ABG STANDARD HCO3 26.6 MEQ/L (22.0-26.0); ABG TOTAL CO2 27.6 MEQ/L (23.0-31.0); ABG pH (ARTERIAL) 7.448 UNITS (7.350-7.450)
[2017-04-01] MEDS: methylPREDNISolone INJ 125 MG/2 ML VIAL (J2930) IV SCH ×2 (15:49→21:19)
[2017-04-01] MEDS: ACETAMINOPHEN TAB 650MG DOSE (2X325MG) PO PRN (17:10)
[2017-04-01] MEDS ORDERED: [UNRECOGNIZED DRUG - OTHER] IV SCH (18:00)
[2017-04-01] MEDS ORDERED: POTASSIUM CHLORIDE IV SCH (18:00)
[2017-04-01] MEDS ORDERED: FAT EMULSION IV 20% 500 ML IV SCH (18:00)
[2017-04-01] MEDS ORDERED: INSULIN HUMAN REGULAR IV SCH (18:00)
[2017-04-01] MEDS: ERTAPENEM SODIUM 1 GM in NS MINI-BAG PLUS 50 ML IV SCH (21:52)
[2017-04-02] VITALS (8 sets, daily range): BP systolic 127–156; BP diastolic 56–73
[2017-04-02] MEDS: ERYTHROMYCIN ETHYLSUCC 200 MG SUSP (ERYPED) 100MLBTL PO SCH ×5 (00:06→23:24)
[2017-04-02] MEDS: HumaLOG INSULIN (NovoLOG) PER UNIT SC SCH ×5 (00:06→23:30)
[2017-04-02] MEDS: ALBUTEROL SULFATE 2.5 MG/0.5 ML INH NEB SOLN NEB PRN ×6 (02:27→22:39)
[2017-04-02] MEDS: METOCLOPRAMIDE INJ 10MG/2ML VIAL (J2765) IV SCH ×3 (02:30→17:54)
[2017-04-02] MEDS: KETOROLAC 30 MG/ML VIAL (J1885) IV SCH (04:58)
[2017-04-02] MEDS: methylPREDNISolone INJ 125 MG/2 ML VIAL (J2930) IV SCH ×3 (06:18→21:29)
[2017-04-02] MEDS: HEPARIN SOD (PORCINE) 5000 UNITS/ML VIAL SQ SCH ×3 (06:19→21:28)
[2017-04-02] MEDS: SODIUM CHLORIDE 0.9% INJ 10 ML SYR IV SCH ×3 (06:19→21:29)
[2017-04-02 06:42] LABS: BASO # 0.1 10^3/uL (0.0-0.2); BASO % 0.2 % (0.0-1.0); IMMATURE GRANULOCYTE % 3.9 % (0-0); LYMPH # 0.5 10^3/uL (1.5-4.5); LYMPH % 1.7 % (24.0-44.0); MEAN CORPUSCULAR HEMOGLOBIN 23.1 pg (27.0-33.0); MEAN CORPUSCULAR HGB CONC 30.6 g/dl (32.0-36.5); MEAN CORPUSCULAR VOLUME 75.6 fl (80.0-96.0); MONO # 0.4 10^3/uL (0.0-0.8); MONO % 1.4 % (0.0-5.0); NEUTROPHILS % 92.8 % (36.0-66.0); PLATELET COUNT, AUTOMATED 275 10^3/uL (150-450); RED CELL DISTRIBUTION WIDTH 18.6 % (11.5-14.5); WHITE BLOOD COUNT 28.9 10^3/uL (4.0-10.0)
[2017-04-02 07:15] LABS: NEUTROPHILS # 26.8 10^3/uL (1.8-7.7)
[2017-04-02 07:21] LABS: ANION GAP 8 MEQ/L (8-16); BLOOD UREA NITROGEN 48 MG/DL (7-18); CALCIUM LEVEL 8.1 MG/DL (8.8-10.2); CARBON DIOXIDE LEVEL 27 MEQ/L (21-32); CHLORIDE LEVEL 102 MEQ/L (98-107); CREATININE FOR GFR 1.13 MG/DL (0.70-1.30); GLOMERULAR FILTRATION RATE > 60.0 (>35); GLUCOSE, FASTING 188 MG/DL (83-110); SODIUM LEVEL 137 MEQ/L (136-145)
[2017-04-02] MEDS: BUDESONIDE 0.5 MG/2 ML INHALATION SUSPENSION INH SCH ×2 (07:30→20:11)
--- NOTE | 2017-04-02 07:54 | REP ---
REASON: Dyspnea. COMPARISON: Multiple, the latest 03/28/2017. The right-sided internal jugular central venous catheter is unchanged. The dual chamber bipolar pacemaker device is unchanged. The cardiomediastinal silhouette is unchanged. The technique utilized in obtaining the radiograph has magnified the cardiac silhouette and accentuated the interstitial markings. The lung el appear somewhat improved in that the increased interstitial markings seen previously are less heavy and bibasilar opacities have cleared somewhat. There is no change in the osseous structures. IMPRESSION: There has been some improvement and there are chronic findings as described above. Signed by Rufus Dodd DO 04/02/2017 12:10 P
[2017-04-02] MEDS: FUROSEMIDE 40 MG/4 ML VIAL (J1940) IV SCH (09:28)
[2017-04-02] MEDS: prednisoLONE ACET 1% OPHTH SUSP 5ML OD SCH ×4 (09:29→21:28)
[2017-04-02] MEDS: predniSONE 5MG/5ML SOLN ORAL SYRINGE PO SCH (09:29)
[2017-04-02] MEDS: PANTOPRAZOLE 40MG INJ (PROTONIX) (C9113) IV SCH (09:29)
[2017-04-02] MEDS: VANCOMYCIN HCL 1,000 MG, VIAL MATE ADAPTER 1 EACH in D5W 250 ML IV SCH (09:29)
[2017-04-02] MEDS: ALVIMOPAN 12 MG CAPSULE (ENTEREG) PO SCH ×2 (09:29→21:26)
--- NOTE | 2017-04-02 09:37 | IPNPDOC ---
Subjective General Date/Time Seen The patient was seen on 04/02/17 at 09:14. Subject Chief Complaint/History Patient looked better in the morning but had an episode of difficulty with his breathing, febrile spike later in the day. Current Medications Current Medications Current Medications Acetaminophen (Tylenol Suppository) 650 mg Q4HP PRN GA PAIN / FEVER Last administered on 03/28/17 15:42; Start 03/28/17 at 15:30; Stop 04/27/17 at 15:29 Acetaminophen (Tylenol Tab) 650 mg Q4HP PRN PO MILD PAIN or TEMP > 101 Last administered on 04/01/17 17:10; Start 03/23/17 at 18:15; Stop 04/22/17 at 18: 14 Acetaminophen/ Hydrocodone Bitart ([place], [place]nexsia 5/325) 1 tab Q4HP PRN PO MODERATE PAIN (PS 5-7) Last administered on 03/24/17 02:36; Start 03/23/17 at 18:15; Stop 03/25/17 at 20:04; Status DC Acetaminophen/ Hydrocodone Bitart ([place], [place] 5/325) 2 tab Q6HP PRN PO SEVERE PAIN (PS 8-10) Last administered on 03/24/17 09:31; Start 03/23/17 at 18 :15; Stop 03/25/17 at 20:04; Status DC Albuterol Sulfate (Proventil Neb) 2.5 mg Q2HP PRN NEB SHORTNESS OF BREATH Last administered on 04/02/17 07:30; Start 03/25/17 at 22:00; Stop 04/24/17 at 21: 59 Albuterol Sulfate (Proventil, Ventolin Hfa) 2 puff QIDP PRN INH SHORTNESS OF BREATH Last administered on 03/24/17 22:09; Start 03/23/17 at 18:15; Stop at 18:14 Albuterol/ Ipratropium (Duoneb (Ipr 0.5mg/Alb 2.5mg)) 2.5 ml TIDP PRN INH SHORTNESS OF BREATH Last administered on 03/25/17 09:19; Start 03/23/17 at 18: 15; Stop 03/25/17 at 21:58; Status DC Albuterol/ Ipratropium (Duoneb (Ipr 0.5mg/Alb 2.5mg)) 3 ml RQ4H NEB Last administered on 03/27/17 07:07; Start 03/26/17 at 00:00; Stop 03/27/17 at 09:48 ; Status DC Alprazolam (Xanax) 0.5 mg QHS PO Last administered on 03/24/17 21:53; Start at 21:00; Stop 03/25/17 at 20:04; Status DC Alvimopan (Entereg) 12 mg BID PO Last administered on 04/01/17 20:13; Start 03/27/17 at 09:00; Stop 04/03/17 at 08:59 Amino Ac/Electrol/ Dextrose/Calcium 2,000 ml @ 85 mls/hr ONCE@1800 IV Last administered on 03/26/17 17:27; Start 03/26/17 at 18:00; Stop 03/27/17 at 17:59 ; Status DC Budesonide (Pulmicort) 0.5 mg BIDP PRN INH SHORTNESS OF BREATH Last administered on 03/27/17 07:07; Start 03/23/17 at 18:15; Stop 03/27/17 at 09:47 ; Status DC Budesonide (Pulmicort) 0.5 mg RBID INH Last administered on 04/02/17 07:30; Start 03/27/17 at 20:00; Stop 04/26/17 at 19:59 Cetylpyridinium Chloride (Cepacol) 1 anish Q2HP PRN PO COUGH Last administered on 03/25/17 09:44; Start 03/25/17 at 08:45; Stop 03/25/17 at 20:04; Status DC Chlorhexidine Gluconate (Peridex Oral Rinse) SWAB/BRUSH ORAL CAVITY BID MT Last administered on 03/26/17 21:51; Start 03/25/17 at 21:00; Stop 03/27/17 at 09:48; Status DC Ciprofloxacin 400 mg/IV Miscellaneous Supplies 200 ml @ 200 mls/hr Q12H IV Last administered on 03/25/17 15:45; Start 03/24/17 at 16:00; Stop 03/25/17 at 20:04; Status DC Dextrose (Dextrose 50%) 25 ml ASDIRECTED PRN IV SEE LABEL COMMENTS; Start 03/27 at 08:30; Stop 04/26/17 at 08:29 Dextrose/Sodium Chloride 1,000 ml @ 100 mls/hr Q10H IV ; Start 03/23/17 at 17: 45; Stop 03/23/17 at 21:25; Status DC Diphenhydramine HCl (Benadryl) 12.5 mg Q4HP PRN IV ITCHING Last administered on 03/28/17 23:53; Start 03/25/17 at 15:30; Stop 03/30/17 at 10:58; Status DC Diphenhydramine HCl (Benadryl) 12.5 mg Q4HP PRN IV ITCHING Last administered on 03/31/17 19:30; Start 03/30/17 at 09:45; Stop 04/29/17 at 09:44 Enoxaparin Sodium (Lovenox) 30 mg DAILY SC Last administered on 03/24/17 08:28 ; Start 03/24/17 at 09:00; Stop 03/25/17 at 08:26; Status DC Ertapenem 1 gm/ Sodium Chloride 50 ml @ 100 mls/hr Q24H IV Last administered on 04/01/17 21:52; Start 03/25/17 at 22:00; Stop 04/07/17 at 21:59 Erythromycin Ethylsuccinate (Jacek-Ped 200mg/ 5ml) 200 mg Q6H PO Last administered on 04/02/17 05:06; Start 04/01/17 at 12:00; Stop 04/08/17 at 11: 59 Fat Emulsion Intravenous 500 ml @ 20 mls/hr ONCE@1800 IV Last administered on 03/26/17 17:28; Start 03/26/17 at 18:00; Stop 03/27/17 at 17:59; Status DC Fat Emulsion Intravenous 500 ml @ 20 mls/hr ONCE@1800 IV Last administered on 03/27/17 17:12; Start 03/27/17 at 18:00; Stop 03/28/17 at 17:59; Status DC Fat Emulsion Intravenous 500 ml @ 20 mls/hr ONCE@1800 IV Last administered on 03/28/17 17:15; Start 03/28/17 at 18:00; Stop 03/29/17 at 17:59; Status DC Fat Emulsion Intravenous 500 ml @ 20 mls/hr ONCE@1800 IV Last administered on 03/29/17 17:54; Start 03/29/17 at 18:00; Stop 03/30/17 at 17:59; Status DC Fat Emulsion Intravenous 500 ml @ 20 mls/hr ONCE@1800 IV Last administered on 03/30/17 17:36; Start 03/30/17 at 18:00; Stop 03/31/17 at 17:59; Status DC Fat Emulsion Intravenous 500 ml @ 20 mls/hr ONCE@1800 IV Last administered on 03/31/17 17:25; Start 03/31/17 at 18:00; Stop 04/01/17 at 17:59; Status DC Fat Emulsion Intravenous 500 ml @ 20 mls/hr ONCE@1800 IV Last administered on 04/01/17 17:45; Start 04/01/17 at 18:00; Stop 04/02/17 at 17:59 Fentanyl Citrate (Sublimaze) 25 mcg Q5MP PRN IV MODERATE PAIN (PS 4-7); Start 03/25/17 at 20:00; Stop 03/25/17 at 20:59; Status DC Fentanyl Citrate (Sublimaze) 25 mcg Q5MP PRN IV MODERATE PAIN (PS 4-7); Start 03/26/17 at 14:45; Stop 03/26/17 at 15:45; Status DC Fentanyl Citrate (Sublimaze) 50 mcg ASDIRECTED PRN IV PAIN Last administered on 03/25/17 14:55; Start 03/25/17 at 15:30; Stop 03/25/17 at 16:30; Status DC Fentanyl Citrate (Sublimaze) 50 mcg ASDIRECTED PRN IV PAIN; Start 03/25/17 at 20:15; Stop 03/25/17 at 20:59; Status DC Fentanyl/ Bupivacaine HCl 250 ml @ 13 mls/hr [id number] EPIDURAL Last administered on 03/29/17 16:21; Start 03/25/17 at 15:30; Stop 03/30/17 at 10:52 ; Status DC Furosemide (LASIX injection) 40 mg DAILY IV Last administered on 04/01/17 09: 47; Start 03/27/17 at 09:00; Stop 04/26/17 at 08:59 Gabapentin (Neurontin) 100 mg BID PO Last administered on 03/24/17 21:53; Start 03/23/17 at 21:00; Stop 03/25/17 at 20:04; Status DC Glucagon (Glucagon) 1 mg ASDIRECTED PRN SC SEE LABEL COMMENTS; Start 03/27/17 at 08:30; Stop 04/26/17 at 08:29 Glucose (Glucose) 16 GM ASDIRECTED PRN PO SEE LABEL COMMENTS; Start 03/27/17 at 08:30; Stop 04/26/17 at 08:29 Heparin Sodium (Heparin Lock Flush 10units/ml) 10 units ASDIRECTED PRN IV SEE LABEL COMMENTS; Start 03/29/17 at 16:45; Stop 04/28/17 at 16:44 Heparin Sodium (Heparin Lock Flush 10units/ml) 10 units HLF IV Last administered on 04/02/17 06:18; Start 03/29/17 at 22:00; Stop 04/28/17 at 21:59 Heparin Sodium (Porcine) (Heparin) 5,000 units Q8H SQ Last administered on 04/02 06:19; Start 03/27/17 at 14:00; Stop 04/05/17 at 13:59 Home Med (Med Rec Complete!) ASDIRECTED XX ; Start 03/23/17 at 15:15; Stop at 15:15; Status DC Insulin Human Lispro (HumaLOG INSULIN) SEE PROTOCOL TABLE Q6H SC ; Start at 06:00; Stop 04/26/17 at 05:59; Status Cancel Insulin Human Lispro (HumaLOG INSULIN) See Protocol Table Q6H SC Last administered on 03/27/17 12:35; Start 03/26/17 at 18:00; Stop 03/27/17 at 12:01 ; Status DC Insulin Human Lispro (HumaLOG INSULIN) See Protocol Table Q6H SC Last administered on 03/28/17 12:23; Start 03/27/17 at 18:00; Stop 03/28/17 at 14:00 ; Status DC Insulin Human Lispro (HumaLOG INSULIN) See Protocol Table Q6H SC Last administered on 03/29/17 12:35; Start 03/28/17 at 18:00; Stop 03/29/17 at 12:01 ; Status DC Insulin Human Lispro (HumaLOG INSULIN) See Protocol Table Q6H SC Last administered on 03/30/17 11:35; Start 03/29/17 at 18:00; Stop 03/30/17 at 12:01 ; Status DC Insulin Human Lispro (HumaLOG INSULIN) See Protocol Table Q6H SC Last administered on 03/31/17 12:36; Start 03/30/17 at 18:00; Stop 03/31/17 at 12:01 ; Status DC Insulin Human Lispro (HumaLOG INSULIN) See Protocol Table Q6H SC Last administered on 04/01/17 13:01; Start 03/31/17 at 18:00; Stop 04/01/17 at 14:00 ; Status DC Insulin Human Lispro (HumaLOG INSULIN) See Protocol Table Q6H SC Last administered on 04/02/17 06:17; Start 04/01/17 at 18:00; Stop 04/02/17 at 12:01 Insulin Human Regular 10 units/ Potassium Chloride 20 meq/ Amino Ac/Electrol/ Dextrose/Calcium 2,010.1 ml @ 60 mls/hr ONCE@1800 IV Last administered on 03/31 17:25; Start 03/31/17 at 18:00; Stop 04/01/17 at 17:59; Status DC Insulin Human Regular 10 units/ Potassium Chloride 20 meq/ Amino Ac/Electrol/ Dextrose/Calcium 2,010.1 ml @ 60 mls/hr ONCE@1800 IV Last administered on 04/01 17:46; Start 04/01/17 at 18:00; Stop 04/02/17 at 17:59 Ketorolac Tromethamine (ToRADol) 15 mg Q8H IV Last administered on 04/02/17 04 :58; Start 03/30/17 at 12:00; Stop 04/02/17 at 11:59 Lactated Ringer's 1,000 ml @ 80 mls/hr [id number] IV ; Start 03/25/17 at 20:00; Stop 03/25/17 at 20:04; Status DC Lactated Ringer's 1,000 ml @ 100 mls/hr Q10H IV Last administered on 15:36; Start 03/26/17 at 14:45; Stop 03/26/17 at 15:45; Status DC Lactated Ringer's 1,000 ml @ 125 mls/hr Q8H IV Last administered on 03/26/17 05:58; Start 03/23/17 at 18:10; Stop 03/26/17 at 17:49; Status DC Loratadine (Claritin) 10 mg DAILY PO Last administered on 03/24/17 08:30; Start 03/24/17 at 09:00; Stop 03/25/17 at 20:04; Status DC Lorazepam (Ativan) 1 mg STAT STAT IV Last administered on 03/29/17 00:54; Start 03/29/17 at 00:46; Stop 03/29/17 at 00:48; Status DC Magnesium Hydroxide (Milk Of Magnesia) 30 ml DAILYPRN PRN PO CONSTIPATION; Start 03/23/17 at 18:15; Stop 03/25/17 at 20:04; Status DC Methylprednisolone (SOLU medrol) 4 mg DAILY IV ; Start 03/27/17 at 09:00; Stop 03/27/17 at 09:10; Status DC Methylprednisolone (SOLUmedrol) 40 mg Q8H IV ; Start 04/02/17 at 14:00; Stop at 13:59 Methylprednisolone (SOLUmedrol) 60 mg Q12H IV Last administered on 03/26/17 09 :16; Start 03/25/17 at 21:00; Stop 03/26/17 at 14:35; Status DC Methylprednisolone (SOLUmedrol) 80 mg Q8H IV Last administered on 04/02/17 06: 18; Start 04/01/17 at 14:00; Stop 04/02/17 at 08:31; Status DC Metoclopramide HCl (REGLAN INJection) 10 mg Q6HP PRN IV NAUSEA; Start 03/25/17 at 15:30; Stop 03/30/17 at 10:58; Status DC Metoclopramide HCl (REGLAN INJection) 10 mg Q8H IV Last administered on 02:30; Start 04/01/17 at 10:00; Stop 05/01/17 at 09:59 Metronidazole 500 mg/IV Miscellaneous Supplies 100 ml @ 100 mls/hr Q8H IV Last administered on 03/25/17 15:18; Start 03/24/17 at 14:00; Stop 03/25/17 at 20:04; Status DC Midazolam HCl (Versed) 1 mg ASDIRECTED PRN IV ANXIETY Last administered on 03/25 14:55; Start 03/25/17 at 15:30; Stop 03/25/17 at 16:30; Status DC Midazolam HCl (Versed) 1 mg ASDIRECTED PRN IV ANXIETY; Start 03/25/17 at 20:00 ; Stop 03/25/17 at 20:59; Status DC Midazolam HCl (Versed) 2 mg Q15MP PRN IV AGITATION Last administered on 06:03; Start 03/25/17 at 22:00; Stop 03/27/17 at 09:48; Status DC Morphine Sulfate (Morphine Sulfate In 0.9%Nacl Iv Bag) Concentration 1 mg/ml ASDIRECTED PRN IV SEE LABEL COMMENTS Last administered on 03/31/17 19:12; Start 03/30/17 at 09:45; Stop 04/06/17 at 09:44 Morphine Sulfate (Morphine Sulfate Inj) 2 mg Q2HP PRN IV PAIN Last administered on 03/25/17 23:53; Start 03/25/17 at 22:00; Stop 03/27/17 at 08:25 ; Status DC Morphine Sulfate (Morphine Sulfate Inj) 2 mg Q5MP PRN IV MODERATE/SEVERE PAIN ( PS 7-10); Start 03/25/17 at 20:00; Stop 03/25/17 at 20:04; Status DC Morphine Sulfate (Morphine Sulfate Inj) 4 mg Q2HP PRN IV SEVERE PAIN (PS 8-10) Last administered on 03/25/17 13:23; Start 03/23/17 at 18:15; Stop 03/25/17 at 20:04; Status DC Morphine Sulfate (Morphine Sulfate Inj) 4 mg Q30M PRN IV SEVERE PAIN (PS 8-10) Last administered on 03/23/17 19:59; Start 03/23/17 at 13:00; Stop 03/23/17 at 19:59; Status DC Multivitamins (Theragram-M) 1 tab BID PO Last administered on 03/24/17 21:53; Start 03/23/17 at 21:00; Stop 03/25/17 at 20:04; Status DC Multivitamins 10 ml/Chromium/ Copper/Manganese/ Seleni/Zn 1 ml/ Insulin Human Regular 10 units/ Potassium Chloride 20 meq/ Amino Ac/Electrol/ Dextrose/ Calcium 2,021.1 ml @ 65 mls/hr ONCE@1800 IV Last administered on 03/30/17 17: 36; Start 03/30/17 at 18:00; Stop 03/31/17 at 17:59; Status DC Multivitamins 10 ml/Chromium/ Copper/Manganese/ Seleni/Zn 1 ml/ Potassium Chloride 20 meq/ Insulin Human Regular 12 units/ Amino Ac/Electrol/ Dextrose/ Calcium 2,021.12 ml @ 70 mls/hr ONCE@1800 IV Last administered on 03/28/17 17 :15; Start 03/28/17 at 18:00; Stop 03/29/17 at 17:59; Status DC Nalbuphine HCl (Nubain) 2.5 mg Q6HP PRN IV PRURITIS; Start 03/30/17 at 09:45; Stop 04/06/17 at 09:44 Naloxone HCl (Narcan) 0.1 mg Q5MP PRN IV SEE LABEL COMMENTS; Start 03/25/17 at 15:30; Stop 03/30/17 at 10:58; Status DC Naloxone HCl (Narcan) 0.1 mg Q5MP PRN IV SEE LABEL COMMENTS; Start 03/30/17 at 09:45; Stop 04/29/17 at 09:44 Non-Formulary Medication (Epidural/[employer] [place]) 1 each ASDIRECTED PRN XX SEE LABEL COMMENTS; Start 03/25/17 at 15:30; Stop 03/30/17 at 10:58; Status DC Non-Formulary Medication (Epidural/[employer] [place]) USE THIS ENTRY TO VEND ... Q1M PRN XX SEE LABEL COMMENTS; Start 03/30/17 at 09:45; Stop 04/29/17 at 09:44 Non-Formulary Medication ([place]) ASDIRECTED PRN XX SEE LABEL COMMENTS; Start 03/25/17 at 15:30; Stop 03/30/17 at 10:58; Status DC Ondansetron HCl (ZOFRAN INJection) 4 mg Q4HP PRN IV NAUSEA OR VOMITING; Start 03/25/17 at 20:00; Stop 03/25/17 at 20:59; Status DC Ondansetron HCl (ZOFRAN INJection) 4 mg Q4HP PRN IV NAUSEA OR VOMITING; Start 03/26/17 at 14:45; Stop 03/26/17 at 15:45; Status DC Ondansetron HCl (ZOFRAN INJection) 4 mg Q6HP PRN IV NAUSEA OR VOMITING Last administered on 03/31/17 07:45; Start 03/23/17 at 18:15; Stop 04/22/17 at 18: 14 Ondansetron HCl (ZOFRAN INJection) 4 mg Q6HP PRN IV NAUSEA; Start 03/30/17 at 09:45; Stop 04/29/17 at 09:44; Status Cancel Pantoprazole Sodium (Protonix) 40 mg DAILY IV Last administered on 04/01/17 09 :47; Start 03/24/17 at 09:00; Stop 04/23/17 at 08:59 Potassium Chloride 20 meq/ Insulin Human Regular 10 units/ Amino Ac/Electrol/ Dextrose/Calcium 2,010.1 ml @ 70 mls/hr ONCE@1800 IV Last administered on 03/27 17:11; Start 03/27/17 at 18:00; Stop 03/28/17 at 17:59; Status DC Potassium Chloride 20 meq/ Insulin Human Regular 10 units/ Amino Ac/Electrol/ Dextrose/Calcium 2,010.1 ml @ 70 mls/hr ONCE@1800 IV Last administered on 03/29 17:54; Start 03/29/17 at 18:00; Stop 03/30/17 at 17:59; Status DC Prednisolone Acetate (Predforte 1% Ophth Susp) 1 drop QID OD Last administered on 04/01/17 20:14; Start 03/23/17 at 21:00; Stop 04/22/17 at 20:59 Prednisone (Deltasone Liquid) 5 mg DAILY PO Last administered on 04/01/17 09: 49; Start 03/27/17 at 09:00; Stop 04/26/17 at 08:59 Prednisone (Deltasone) 5 mg DAILY PO Last administered on 03/24/17 08:28; Start 03/24/17 at 09:00; Stop 03/25/17 at 08:23; Status DC Propofol 1000 mg/ IV Miscellaneous Supplies 100 ml @ 3.6 mls/hr Q24H IV Last administered on 03/27/17 04:45; Start 03/25/17 at 20:15; Stop 03/27/17 at 09:48 ; Status DC Senna/Docusate Sodium (Senokot S) 1 tab BID PO Last administered on 03/24/17 21:53; Start 03/23/17 at 21:00; Stop 03/25/17 at 20:04; Status DC Sertraline HCl (Zoloft) 50 mg DAILY PO Last administered on 03/24/17 08:28; Start 03/24/17 at 09:00; Stop 03/25/17 at 20:04; Status DC Sodium Chloride 1,000 ml @ 15 mls/hr Q24H IV Last administered on 03/31/17 19 :12; Start 03/30/17 at 09:33; Stop 04/29/17 at 09:32 Sodium Chloride (Saline Lock Flush) 10 ml ASDIRECTED PRN IV SEE LABEL COMMENTS ; Start 03/29/17 at 16:45; Stop 04/28/17 at 16:44 Sodium Chloride (Saline Lock Flush) 10 ml SLF IV Last administered on 06:19; Start 03/29/17 at 22:00; Stop 04/28/17 at 21:59 Vancomycin HCl 1000 mg/Dextrose 20 ml @ 20 mls/hr Q12H IV ; Start 03/28/17 at 09 :15; Stop 03/28/17 at 09:42; Status DC Vancomycin HCl 1000 mg/IV Miscellaneous Supplies 1 each/ Dextrose 270 ml @ 270 mls/hr Q24H IV Last administered on 04/01/17 10:30; Start 03/28/17 at 10:00; Stop 04/04/17 at 09:59 Allergies Coded Allergies: Cephalosporins (Verified Allergy, Intermediate, HIVES [place]OVERING [place], 03/16) Contrast Media (Verified Allergy, Unknown, 03/16/17) Objective Physical Examination Examination GENERAL APPEARANCE:Looks comfortable this morning,. SKIN: warm and dry. HEENT: mild pale palpebral conjunctiva, dry lips, upper soft palate with small linear ulcerations, . NECK: Supple, no thyromegaly. No obvious jugular venous distention. LUNGS: few rhonchi, no wheezing, no rales, good air movement . HEART: No chest wall abnormalities. Regular rate and rhythm with no murmurs appreciated., pacer ABDOMEN: Abdomen is round, soft, moderately distended. hypoactive bowel sounds, colostomy minimally functioning (+)air, small amount of stools, no more erythema on the skin surrounding the old colostomy. EXTREMITIES: improving edema. Vital Signs Vital Signs Date Time Temp Pulse Resp B/P (MAP) Pulse Ox O2 Delivery O2 Flow Rate FiO2 04/02/17 08:00 97.7 78 23 144/66 (92) 98 High Flow Cannula 3.0 03/31/17 03:15 40 Laboratory Data Labs 24H Laboratory Tests 2 04/01/17 12:47: Bedside Glucose (Misc Panel) 213H 04/01/17 15:24: Blood Gas Bicarbonate Standard 26.6H, Arterial Blood pH 7.448, Arterial Blood Partial Pressure CO2 39.1, Arterial Blood Partial Pressure O2 91.6, Arterial Blood Total CO2 27.6, Arterial Blood HCO3 26.4H, Arterial Blood Base Excess 2.3H , Arterial Blood Oxygen Saturation 97.9, Oxygen Delivery Device HIGH FLOW O2 04/01/17 17:36: Bedside Glucose (Misc Panel) 134H 04/01/17 23:55: Bedside Glucose (Misc Panel) 244H 04/02/17 05:53: Bedside Glucose (Misc Panel) 198H 04/02/17 06:20: Immature Granulocyte % (Auto) 3.9H, White Blood Count 28.9H, Red Blood Count 3.24L, Hemoglobin 7.5L, Hematocrit 24.5L, Mean Corpuscular Volume 75.6L, Mean Corpuscular Hemoglobin 23.1L, Mean Corpuscular Hemoglobin Concent 30.6L, Red Cell Distribution Width 18.6H, Platelet Count 275, Neutrophils (%) (Auto) 92.8H , Lymphocytes (%) (Auto) 1.7L, Monocytes (%) (Auto) 1.4, Eosinophils (%) (Auto) 0.0, Basophils (%) (Auto) 0.2, Neutrophils # (Auto) 26.8H, Lymphocytes # (Auto) 0.5L, Monocytes # (Auto) 0.4, Eosinophils # (Auto) 0.0, Basophils # (Auto) 0.1, Immature Granulocyte # (Auto) 1.1H, Nucleated Red Blood Cells % (auto) 0.0, Anion Gap 8, Glomerular Filtration Rate > 60.0, Blood Urea Nitrogen 48H, Creatinine 1.13, Sodium Level 137, Potassium Level 5.0, Chloride Level 102, Carbon Dioxide Level 27, Calcium Level 8.1L CBC/BMP Laboratory Tests 04/02/17 06:20 Red Blood Count 3.24 L, Mean Corpuscular Volume 75.6 L, Mean Corpuscular Hemoglobin 23.1 L, Mean Corpuscular Hemoglobin Concent 30.6 L, Red Cell Distribution Width 18.6 H, Neutrophils (%) (Auto) 92.8 H, Lymphocytes (%) (Auto ) 1.7 L, Monocytes (%) (Auto) 1.4, Eosinophils (%) (Auto) 0.0, Basophils (%) ( Auto) 0.2, Neutrophils # (Auto) 26.8 H, Lymphocytes # (Auto) 0.5 L, Monocytes # (Auto) 0.4, Eosinophils # (Auto) 0.0, Basophils # (Auto) 0.1, Calcium Level 8.1 L Microbiology Microbiology 03/28/17 Blood Culture - Preliminary, Resulted No Growth after 72 hours. All specime... 03/28/17 Blood Culture - Preliminary, Resulted No Growth after 72 hours. All specime... Imaging Studies pCXR 04/01 The right-sided internal jugular central venous catheter is unchanged. The dual chamber bipolar pacemaker device is unchanged. The cardiomediastinal silhouette is unchanged. The technique utilized in obtaining the radiograph has magnified the cardiac silhouette and accentuated the interstitial markings. The lung el appear somewhat improved in that the increased interstitial markings seen previously are less heavy and bibasilar opacities have cleared somewhat. There is no change in the osseous structures. 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 His WBC this morning jumped to 28 from 18 yesterday. Concerns at this point is if there are any intraabdominal process like abscess, anastomic leakage that is driving the above findings. I would get a CT abdomen pelvis today. Plan / VTE VTE Prophylaxis Ordered?: Yes Plan / Urinary Catheter Reason for insertion/continuin: Critical Pt monitoring SHAUNA WALTON MD Apr 02, 2017 09:14
[2017-04-02] MEDS ORDERED: READI-CAT 2 PO ONE ×2 (10:15→10:45)
[2017-04-02] MEDS ORDERED: diphenhydrAMINE 25 MG CAP PO ONE (10:45)
[2017-04-02] MEDS ORDERED: GASTROGRAFIN SOLUTION 30ML PO ONE (11:00)
[2017-04-02] MEDS: NYSTATIN 500,000 U/5 ML SUSP UDC SS SCH ×3 (11:02→23:24)
[2017-04-02] MEDS: SERTRALINE HCL 50 MG TAB PO SCH (11:03)
[2017-04-02] MEDS ORDERED: GASTROGRAFIN SOLUTION 30ML (Q9963) PO ONE (11:30)
--- NOTE | 2017-04-02 14:34 | REP ---
CT abdomen pelvis without IV or oral contrast: History: Postop, infarcted colostomy, check for abscess. Comparison CT study: March 23, 2017. There is a small amount of new right pleural fluid. There is no evidence of ascites of free intraperitoneal air. The left mid abdominal colostomy has been revised in the interval since the March 23, 2017 study. No intra-abdominal abscess cavity is seen. Bowel gas pattern is unremarkable. There is a loop of oral contrast filled colon which appears to be adherent to the anterior abdominal wall cephalad to the enterostomy. There is evidence of a wound VAC overlying this area directly. There are small bubbles of air in the abdominal wall soft tissues underlying the wound vac. Incidental findings including left renal cysts, retroaortic left renal vein, and mesh ventral hernia repair are again noted. A Avilez catheter is noted in the urinary bladder. Impression: No evidence of abscess or free intraperitoneal air. There is a loop of oral contrast filled transverse colon adherent to the anterior abdominal wall in the area of a wound VAC in the left upper quadrant. Signed by Greg Shirley MD 04/02/2017 04:44 P
[2017-04-02] MEDS ORDERED: [UNRECOGNIZED DRUG - MIXTURE] IV SCH ×4 (18:00)
[2017-04-02] MEDS ORDERED: FAT EMULSION IV 20% 500 ML IV SCH (18:00)
[2017-04-02] MEDS: ERTAPENEM SODIUM 1 GM in NS MINI-BAG PLUS 50 ML IV SCH ×2 (21:27→22:05)
[2017-04-03] MEDS: ALBUTEROL SULFATE 2.5 MG/0.5 ML INH NEB SOLN NEB PRN ×7 (00:43→20:29)
[2017-04-03] MEDS: METOCLOPRAMIDE INJ 10MG/2ML VIAL (J2765) IV SCH ×3 (01:22→17:18)
[2017-04-03] MEDS: diphenhydrAMINE INJ 50MG/ML VIAL (J1200) IV PRN (03:07)
[2017-04-03 03:51] VITALS: BP 154/71
[2017-04-03] MEDS: SODIUM CHLORIDE 0.9% INJ 10 ML SYR IV SCH ×3 (04:54→21:39)
[2017-04-03 04:56] LABS: BASO # 0.1 10^3/uL (0.0-0.2); BASO % 0.2 % (0.0-1.0); LYMPH # 0.6 10^3/uL (1.5-4.5); LYMPH % 1.3 % (24.0-44.0); MEAN CORPUSCULAR HEMOGLOBIN 23.1 pg (27.0-33.0); MEAN CORPUSCULAR HGB CONC 30.5 g/dl (32.0-36.5); MEAN CORPUSCULAR VOLUME 75.8 fl (80.0-96.0); MONO # 1.3 10^3/uL (0.0-0.8); MONO % 3.1 % (0.0-5.0); NEUTROPHILS % 92.4 % (36.0-66.0); PLATELET COUNT, AUTOMATED 377 10^3/uL (150-450); RED CELL DISTRIBUTION WIDTH 19.4 % (11.5-14.5)
[2017-04-03] MEDS: ERYTHROMYCIN ETHYLSUCC 200 MG SUSP (ERYPED) 100MLBTL PO SCH ×3 (05:05→17:18)
[2017-04-03] MEDS: HEPARIN SOD (PORCINE) 5000 UNITS/ML VIAL SQ SCH ×3 (05:06→21:39)
[2017-04-03] MEDS: methylPREDNISolone INJ 125 MG/2 ML VIAL (J2930) IV SCH (05:06)
[2017-04-03] MEDS: NYSTATIN 500,000 U/5 ML SUSP UDC SS SCH ×3 (05:06→17:27)
[2017-04-03 05:25] LABS: CREATININE FOR GFR 1.29 MG/DL (0.70-1.30); GLOMERULAR FILTRATION RATE 56.6 (>35); POTASSIUM SERUM 4.7 MEQ/L (3.5-5.1)
[2017-04-03] MEDS: HumaLOG INSULIN (NovoLOG) PER UNIT SC SCH ×3 (05:38→17:28)
[2017-04-03 05:47] LABS: WHITE BLOOD COUNT 43.5 10^3/uL (4.0-10.0)
[2017-04-03 05:48] LABS: NEUTROPHILS # 40.2 10^3/uL (1.8-7.7)
[2017-04-03 07:30] VITALS: BP 148/67
[2017-04-03] MEDS: BUDESONIDE 0.5 MG/2 ML INHALATION SUSPENSION INH SCH ×2 (07:43→20:29)
[2017-04-03] MEDS: NS 1,000 ML IV SCH ×2 (08:37→09:51)
[2017-04-03] MEDS: PANTOPRAZOLE 40MG INJ (PROTONIX) (C9113) IV SCH (08:38)
[2017-04-03] MEDS: FUROSEMIDE 40 MG/4 ML VIAL (J1940) IV SCH (08:38)
[2017-04-03] MEDS: predniSONE 5 MG TAB PO SCH (08:38)
[2017-04-03] MEDS: SERTRALINE HCL 50 MG TAB PO SCH (08:38)
[2017-04-03] MEDS: prednisoLONE ACET 1% OPHTH SUSP 5ML OD SCH ×4 (08:38→21:38)
[2017-04-03] MEDS: VANCOMYCIN HCL 1,000 MG, VIAL MATE ADAPTER 1 EACH in D5W 250 ML IV SCH (09:58)
--- NOTE | 2017-04-03 10:12 | IPNPDOC ---
Subjective General Date/Time Seen The patient was seen on 04/03/17 at 10:02. Subject Chief Complaint/History Patient seen sitting up on his bed. He reports he did not get much sleep last night due to breathing difficulties. His activity still limited by episodes of shortness of breath. He is not tolerating much oral intake due to the abdominal distention. I did a CT scan of the abdomen and pelvis yesterday as his leukocytosis was worsening. Despite this patient still looks the same and does not seem to be worsened by the leukocytosis. No fevers since Sunday. His abdomen remains distended. Only a small amount of air and not much stool output from the colostomy. Current Medications Current Medications Current Medications Acetaminophen (Tylenol Suppository) [address] PAIN / FEVER Last administered on 03/28/17 15:42; Start 03/28/17 at 15:30; Stop 04/27/17 at 15:29 Acetaminophen (Tylenol Tab) 650 mg Q4HP PRN PO MILD PAIN or TEMP > 101 Last administered on 04/01/17 17:10; Start 03/23/17 at 18:15; Stop 04/22/17 at 18: 14 Acetaminophen/ Hydrocodone Bitart ([place], Anexsia 5/325) 1 tab Q4HP PRN PO MODERATE PAIN (PS 5-7) Last administered on 03/24/17 02:36; Start 03/23/17 at 18:15; Stop 03/25/17 at 20:04; Status DC Acetaminophen/ Hydrocodone Bitart ([place], Anexsia 5/325) 2 tab Q6HP PRN PO SEVERE PAIN (PS 8-10) Last administered on 03/24/17 09:31; Start 03/23/17 at 18 :15; Stop 03/25/17 at 20:04; Status DC Albuterol Sulfate (Proventil Neb) 2.5 mg Q2HP PRN NEB SHORTNESS OF BREATH Last administered on 04/03/17 07:43; Start 03/25/17 at 22:00; Stop 04/24/17 at 21: 59 Albuterol Sulfate (Proventil, Ventolin Hfa) 2 puff QIDP PRN INH SHORTNESS OF BREATH Last administered on 03/24/17 22:09; Start 03/23/17 at 18:15; Stop at 18:14 Albuterol/ Ipratropium (Duoneb (Ipr 0.5mg/Alb 2.5mg)) 2.5 ml TIDP PRN INH SHORTNESS OF BREATH Last administered on 03/25/17 09:19; Start 03/23/17 at 18: 15; Stop 03/25/17 at 21:58; Status DC Albuterol/ Ipratropium (Duoneb (Ipr 0.5mg/Alb 2.5mg)) 3 ml RQ4H NEB Last administered on 03/27/17 07:07; Start 03/26/17 at 00:00; Stop 03/27/17 at 09:48 ; Status DC Alprazolam (Xanax) 0.5 mg QHS PO Last administered on 03/24/17 21:53; Start at 21:00; Stop 03/25/17 at 20:04; Status DC Alvimopan (Entereg) 12 mg BID PO Last administered on 04/02/17 21:26; Start 03/27/17 at 09:00; Stop 04/03/17 at 08:59; Status DC Amino Ac/Electrol/ Dextrose/Calcium 2,000 ml @ 85 mls/hr ONCE@1800 IV Last administered on 03/26/17 17:27; Start 03/26/17 at 18:00; Stop 03/27/17 at 17:59 ; Status DC Budesonide (Pulmicort) 0.5 mg BIDP PRN INH SHORTNESS OF BREATH Last administered on 03/27/17 07:07; Start 03/23/17 at 18:15; Stop 03/27/17 at 09:47 ; Status DC Budesonide (Pulmicort) 0.5 mg RBID INH Last administered on 04/03/17 07:43; Start 03/27/17 at 20:00; Stop 04/26/17 at 19:59 Cetylpyridinium Chloride (Cepacol) 1 anish Q2HP PRN PO COUGH Last administered on 03/25/17 09:44; Start 03/25/17 at 08:45; Stop 03/25/17 at 20:04; Status DC Chlorhexidine Gluconate (Peridex Oral Rinse) SWAB/BRUSH ORAL CAVITY BID MT Last administered on 03/26/17 21:51; Start 03/25/17 at 21:00; Stop 03/27/17 at 09:48; Status DC Ciprofloxacin 400 mg/IV Miscellaneous Supplies 200 ml @ 200 mls/hr Q12H IV Last administered on 03/25/17 15:45; Start 03/24/17 at 16:00; Stop 03/25/17 at 20:04; Status DC Dextrose (Dextrose 50%) 25 ml ASDIRECTED PRN IV SEE LABEL COMMENTS; Start 03/27 at 08:30; Stop 04/26/17 at 08:29 Dextrose/Sodium Chloride 1,000 ml @ 100 mls/hr Q10H IV ; Start 03/23/17 at 17: 45; Stop 03/23/17 at 21:25; Status DC Diphenhydramine HCl (Benadryl) 12.5 mg Q4HP PRN IV ITCHING Last administered on 03/28/17 23:53; Start 03/25/17 at 15:30; Stop 03/30/17 at 10:58; Status DC Diphenhydramine HCl (Benadryl) 12.5 mg Q4HP PRN IV ITCHING Last administered on 04/03/17 03:07; Start 03/30/17 at 09:45; Stop 04/29/17 at 09:44 Enoxaparin Sodium (Lovenox) 30 mg DAILY SC Last administered on 03/24/17 08:28 ; Start 03/24/17 at 09:00; Stop 03/25/17 at 08:26; Status DC Ertapenem 1 gm/ Sodium Chloride 50 ml @ 100 mls/hr Q24H IV Last administered on 04/02/17 22:05; Start 03/25/17 at 22:00; Stop 04/07/17 at 21:59 Erythromycin Ethylsuccinate (Jacek-Ped 200mg/ 5ml) 200 mg Q6H PO Last administered on 04/03/17 05:05; Start 04/01/17 at 12:00; Stop 04/08/17 at 11: 59 Fat Emulsion Intravenous 500 ml @ 20 mls/hr ONCE@1800 IV Last administered on 03/26/17 17:28; Start 03/26/17 at 18:00; Stop 03/27/17 at 17:59; Status DC Fat Emulsion Intravenous 500 ml @ 20 mls/hr ONCE@1800 IV Last administered on 03/27/17 17:12; Start 03/27/17 at 18:00; Stop 03/28/17 at 17:59; Status DC Fat Emulsion Intravenous 500 ml @ 20 mls/hr ONCE@1800 IV Last administered on 03/28/17 17:15; Start 03/28/17 at 18:00; Stop 03/29/17 at 17:59; Status DC Fat Emulsion Intravenous 500 ml @ 20 mls/hr ONCE@1800 IV Last administered on 03/29/17 17:54; Start 03/29/17 at 18:00; Stop 03/30/17 at 17:59; Status DC Fat Emulsion Intravenous 500 ml @ 20 mls/hr ONCE@1800 IV Last administered on 03/30/17 17:36; Start 03/30/17 at 18:00; Stop 03/31/17 at 17:59; Status DC Fat Emulsion Intravenous 500 ml @ 20 mls/hr ONCE@1800 IV Last administered on 03/31/17 17:25; Start 03/31/17 at 18:00; Stop 04/01/17 at 17:59; Status DC Fat Emulsion Intravenous 500 ml @ 20 mls/hr ONCE@1800 IV Last administered on 04/01/17 17:45; Start 04/01/17 at 18:00; Stop 04/02/17 at 17:59; Status DC Fat Emulsion Intravenous 500 ml @ 20 mls/hr ONCE@1800 IV Last administered on 04/02/17 17:57; Start 04/02/17 at 18:00; Stop 04/03/17 at 17:59 Fentanyl Citrate (Sublimaze) 25 mcg Q5MP PRN IV MODERATE PAIN (PS 4-7); Start 03/25/17 at 20:00; Stop 03/25/17 at 20:59; Status DC Fentanyl Citrate (Sublimaze) 25 mcg Q5MP PRN IV MODERATE PAIN (PS 4-7); Start 03/26/17 at 14:45; Stop 03/26/17 at 15:45; Status DC Fentanyl Citrate (Sublimaze) 50 mcg ASDIRECTED PRN IV PAIN Last administered on 03/25/17 14:55; Start 03/25/17 at 15:30; Stop 03/25/17 at 16:30; Status DC Fentanyl Citrate (Sublimaze) 50 mcg ASDIRECTED PRN IV PAIN; Start 03/25/17 at 20:15; Stop 03/25/17 at 20:59; Status DC Fentanyl/ Bupivacaine HCl 250 ml @ 13 mls/hr [id number] EPIDURAL Last administered on 03/29/17 16:21; Start 03/25/17 at 15:30; Stop 03/30/17 at 10:52 ; Status DC Furosemide (LASIX injection) 40 mg DAILY IV Last administered on 04/03/17 08: 38; Start 03/27/17 at 09:00; Stop 04/26/17 at 08:59 Gabapentin (Neurontin) 100 mg BID PO Last administered on 03/24/17 21:53; Start 03/23/17 at 21:00; Stop 03/25/17 at 20:04; Status DC Glucagon (Glucagon) 1 mg ASDIRECTED PRN SC SEE LABEL COMMENTS; Start 03/27/17 at 08:30; Stop 04/26/17 at 08:29 Glucose (Glucose) 16 GM ASDIRECTED PRN PO SEE LABEL COMMENTS; Start 03/27/17 at 08:30; Stop 04/26/17 at 08:29 Heparin Sodium (Heparin Lock Flush 10units/ml) 10 units ASDIRECTED PRN IV SEE LABEL COMMENTS; Start 03/29/17 at 16:45; Stop 04/28/17 at 16:44 Heparin Sodium (Heparin Lock Flush 10units/ml) 10 units HLF IV Last administered on 04/03/17 04:54; Start 03/29/17 at 22:00; Stop 04/28/17 at 21: 59 Heparin Sodium (Porcine) (Heparin) 5,000 units Q8H SQ Last administered on 05:06; Start 03/27/17 at 14:00; Stop 04/05/17 at 13:59 Home Med (Med Rec Complete!) ASDIRECTED XX ; Start 03/23/17 at 15:15; Stop at 15:15; Status DC Insulin Human Lispro (HumaLOG INSULIN) SEE PROTOCOL TABLE Q6H SC ; Start at 06:00; Stop 04/26/17 at 05:59; Status Cancel Insulin Human Lispro (HumaLOG INSULIN) See Protocol Table Q6H SC Last administered on 03/27/17 12:35; Start 03/26/17 at 18:00; Stop 03/27/17 at 12:01 ; Status DC Insulin Human Lispro (HumaLOG INSULIN) See Protocol Table Q6H SC Last administered on 03/28/17 12:23; Start 03/27/17 at 18:00; Stop 03/28/17 at 14:00 ; Status DC Insulin Human Lispro (HumaLOG INSULIN) See Protocol Table Q6H SC Last administered on 03/29/17 12:35; Start 03/28/17 at 18:00; Stop 03/29/17 at 12:01 ; Status DC Insulin Human Lispro (HumaLOG INSULIN) See Protocol Table Q6H SC Last administered on 03/30/17 11:35; Start 03/29/17 at 18:00; Stop 03/30/17 at 12:01 ; Status DC Insulin Human Lispro (HumaLOG INSULIN) See Protocol Table Q6H SC Last administered on 03/31/17 12:36; Start 03/30/17 at 18:00; Stop 03/31/17 at 12:01 ; Status DC Insulin Human Lispro (HumaLOG INSULIN) See Protocol Table Q6H SC Last administered on 04/01/17 13:01; Start 03/31/17 at 18:00; Stop 04/01/17 at 14:00 ; Status DC Insulin Human Lispro (HumaLOG INSULIN) See Protocol Table Q6H SC Last administered on 04/02/17 12:09; Start 04/01/17 at 18:00; Stop 04/02/17 at 12:01 ; Status DC Insulin Human Lispro (HumaLOG INSULIN) See Protocol Table Q6H SC Last administered on 04/03/17 05:38; Start 04/02/17 at 18:00; Stop 04/03/17 at 12: 01 Insulin Human Regular 10 units/ Potassium Chloride 20 meq/ Amino Ac/Electrol/ Dextrose/Calcium 2,010.1 ml @ 60 mls/hr ONCE@1800 IV Last administered on 03/31 17:25; Start 03/31/17 at 18:00; Stop 04/01/17 at 17:59; Status DC Insulin Human Regular 10 units/ Potassium Chloride 20 meq/ Amino Ac/Electrol/ Dextrose/Calcium 2,010.1 ml @ 60 mls/hr ONCE@1800 IV Last administered on 04/01 17:46; Start 04/01/17 at 18:00; Stop 04/02/17 at 17:59; Status DC Ketorolac Tromethamine (ToRADol) 15 mg Q8H IV Last administered on 04/02/17 04 :58; Start 03/30/17 at 12:00; Stop 04/02/17 at 11:59; Status DC Lactated Ringer's 1,000 ml @ 80 mls/hr [id number] IV ; Start 03/25/17 at 20:00; Stop 03/25/17 at 20:04; Status DC Lactated Ringer's 1,000 ml @ 100 mls/hr Q10H IV Last administered on 15:36; Start 03/26/17 at 14:45; Stop 03/26/17 at 15:45; Status DC Lactated Ringer's 1,000 ml @ 125 mls/hr Q8H IV Last administered on 03/26/17 05:58; Start 03/23/17 at 18:10; Stop 03/26/17 at 17:49; Status DC Loratadine (Claritin) 10 mg DAILY PO Last administered on 03/24/17 08:30; Start 03/24/17 at 09:00; Stop 03/25/17 at 20:04; Status DC Lorazepam (Ativan) 1 mg STAT STAT IV Last administered on 03/29/17 00:54; Start 03/29/17 at 00:46; Stop 03/29/17 at 00:48; Status DC Magnesium Hydroxide (Milk Of Magnesia) 30 ml DAILYPRN PRN PO CONSTIPATION; Start 03/23/17 at 18:15; Stop 03/25/17 at 20:04; Status DC Methylprednisolone (SOLU medrol) 4 mg DAILY IV ; Start 03/27/17 at 09:00; Stop 03/27/17 at 09:10; Status DC Methylprednisolone (SOLUmedrol) 40 mg Q8H IV Last administered on 04/03/17 05 :06; Start 04/02/17 at 14:00; Stop 05/02/17 at 13:59 Methylprednisolone (SOLUmedrol) 60 mg Q12H IV Last administered on 03/26/17 09 :16; Start 03/25/17 at 21:00; Stop 03/26/17 at 14:35; Status DC Methylprednisolone (SOLUmedrol) 80 mg Q8H IV Last administered on 04/02/17 06: 18; Start 04/01/17 at 14:00; Stop 04/02/17 at 08:31; Status DC Metoclopramide HCl (REGLAN INJection) 10 mg Q6HP PRN IV NAUSEA; Start 03/25/17 at 15:30; Stop 03/30/17 at 10:58; Status DC Metoclopramide HCl (REGLAN INJection) 10 mg Q8H IV Last administered on 09:59; Start 04/01/17 at 10:00; Stop 05/01/17 at 09:59 Metronidazole 500 mg/IV Miscellaneous Supplies 100 ml @ 100 mls/hr Q8H IV Last administered on 03/25/17 15:18; Start 03/24/17 at 14:00; Stop 03/25/17 at 20:04; Status DC Midazolam HCl (Versed) 1 mg ASDIRECTED PRN IV ANXIETY Last administered on 03/25 14:55; Start 03/25/17 at 15:30; Stop 03/25/17 at 16:30; Status DC Midazolam HCl (Versed) 1 mg ASDIRECTED PRN IV ANXIETY; Start 03/25/17 at 20:00 ; Stop 03/25/17 at 20:59; Status DC Midazolam HCl (Versed) 2 mg Q15MP PRN IV AGITATION Last administered on 06:03; Start 03/25/17 at 22:00; Stop 03/27/17 at 09:48; Status DC Morphine Sulfate (Morphine Sulfate In 0.9%Nacl Iv Bag) Concentration 1 mg/ml ASDIRECTED PRN IV SEE LABEL COMMENTS Last administered on 03/31/17 19:12; Start 03/30/17 at 09:45; Stop 04/06/17 at 09:44 Morphine Sulfate (Morphine Sulfate Inj) 2 mg Q2HP PRN IV PAIN Last administered on 03/25/17 23:53; Start 03/25/17 at 22:00; Stop 03/27/17 at 08:25 ; Status DC Morphine Sulfate (Morphine Sulfate Inj) 2 mg Q5MP PRN IV MODERATE/SEVERE PAIN ( PS 7-10); Start 03/25/17 at 20:00; Stop 03/25/17 at 20:04; Status DC Morphine Sulfate (Morphine Sulfate Inj) 4 mg Q2HP PRN IV SEVERE PAIN (PS 8-10) Last administered on 03/25/17 13:23; Start 03/23/17 at 18:15; Stop 03/25/17 at 20:04; Status DC Morphine Sulfate (Morphine Sulfate Inj) 4 mg Q30M PRN IV SEVERE PAIN (PS 8-10) Last administered on 03/23/17 19:59; Start 03/23/17 at 13:00; Stop 03/23/17 at 19:59; Status DC Multivitamins (Theragram-M) 1 tab BID PO Last administered on 03/24/17 21:53; Start 03/23/17 at 21:00; Stop 03/25/17 at 20:04; Status DC Multivitamins 10 ml/Chromium/ Copper/Manganese/ Seleni/Zn 1 ml/ Insulin Human Regular 10 units/ Amino Ac/Electrol/ Dextrose/Calcium 2,011.1 ml @ 60 mls/hr ONCE@1800 IV Last administered on 04/02/17 17:57; Start 04/02/17 at 18:00; Stop 04/03/17 at 17:59 Multivitamins 10 ml/Chromium/ Copper/Manganese/ Seleni/Zn 1 ml/ Insulin Human Regular 10 units/ Potassium Chloride 20 meq/ Amino Ac/Electrol/ Dextrose/ Calcium 2,021.1 ml @ 65 mls/hr ONCE@1800 IV Last administered on 03/30/17 17: 36; Start 03/30/17 at 18:00; Stop 03/31/17 at 17:59; Status DC Multivitamins 10 ml/Chromium/ Copper/Manganese/ Seleni/Zn 1 ml/ Potassium Chloride 20 meq/ Insulin Human Regular 12 units/ Amino Ac/Electrol/ Dextrose/ Calcium 2,021.12 ml @ 70 mls/hr ONCE@1800 IV Last administered on 03/28/17 17 :15; Start 03/28/17 at 18:00; Stop 03/29/17 at 17:59; Status DC Nalbuphine HCl (Nubain) 2.5 mg Q6HP PRN IV PRURITIS; Start 03/30/17 at 09:45; Stop 04/06/17 at 09:44 Naloxone HCl (Narcan) 0.1 mg Q5MP PRN IV SEE LABEL COMMENTS; Start 03/25/17 at 15:30; Stop 03/30/17 at 10:58; Status DC Naloxone HCl (Narcan) 0.1 mg Q5MP PRN IV SEE LABEL COMMENTS; Start 03/30/17 at 09:45; Stop 04/29/17 at 09:44 Non-Formulary Medication (Epidural/DEMOLITION WORKER Salome) 1 each ASDIRECTED PRN XX SEE LABEL COMMENTS; Start 03/25/17 at 15:30; Stop 03/30/17 at 10:58; Status DC Non-Formulary Medication (Epidural/DEMOLITION WORKER Salome) USE THIS ENTRY TO VEND ... Q1M PRN XX SEE LABEL COMMENTS; Start 03/30/17 at 09:45; Stop 04/29/17 at 09:44 Non-Formulary Medication (Salome) ASDIRECTED PRN XX SEE LABEL COMMENTS; Start 03/25/17 at 15:30; Stop 03/30/17 at 10:58; Status DC Nystatin (Mycostatin) 5 ml Q6H SS Last administered on 04/03/17 05:06; Start 04/02/17 at 12:00; Stop 04/05/17 at 11:59 Ondansetron HCl (ZOFRAN INJection) 4 mg Q4HP PRN IV NAUSEA OR VOMITING; Start 03/25/17 at 20:00; Stop 03/25/17 at 20:59; Status DC Ondansetron HCl (ZOFRAN INJection) 4 mg Q4HP PRN IV NAUSEA OR VOMITING; Start 03/26/17 at 14:45; Stop 03/26/17 at 15:45; Status DC Ondansetron HCl (ZOFRAN INJection) 4 mg Q6HP PRN IV NAUSEA OR VOMITING Last administered on 03/31/17 07:45; Start 03/23/17 at 18:15; Stop 04/22/17 at 18: 14 Ondansetron HCl (ZOFRAN INJection) 4 mg Q6HP PRN IV NAUSEA; Start 03/30/17 at 09:45; Stop 04/29/17 at 09:44; Status Cancel Pantoprazole Sodium (Protonix) 40 mg DAILY IV Last administered on 04/03/17 08:38; Start 03/24/17 at 09:00; Stop 04/23/17 at 08:59 Potassium Chloride 20 meq/ Insulin Human Regular 10 units/ Amino Ac/Electrol/ Dextrose/Calcium 2,010.1 ml @ 70 mls/hr ONCE@1800 IV Last administered on 03/27 17:11; Start 03/27/17 at 18:00; Stop 03/28/17 at 17:59; Status DC Potassium Chloride 20 meq/ Insulin Human Regular 10 units/ Amino Ac/Electrol/ Dextrose/Calcium 2,010.1 ml @ 70 mls/hr ONCE@1800 IV Last administered on 03/29 17:54; Start 03/29/17 at 18:00; Stop 03/30/17 at 17:59; Status DC Prednisolone Acetate (Predforte 1% Ophth Susp) 1 drop QID OD Last administered on 04/03/17 08:38; Start 03/23/17 at 21:00; Stop 04/22/17 at 20:59 Prednisone (Deltasone Liquid) 5 mg DAILY PO Last administered on 04/02/17 09: 29; Start 03/27/17 at 09:00; Stop 04/02/17 at 10:33; Status DC Prednisone (Deltasone) 5 mg DAILY PO Last administered on 03/24/17 08:28; Start 03/24/17 at 09:00; Stop 03/25/17 at 08:23; Status DC Prednisone (Deltasone) 5 mg DAILY PO Last administered on 04/03/17 08:38; Start 04/03/17 at 09:00; Stop 05/03/17 at 08:59 Propofol 1000 mg/ IV Miscellaneous Supplies 100 ml @ 3.6 mls/hr Q24H IV Last administered on 03/27/17 04:45; Start 03/25/17 at 20:15; Stop 03/27/17 at 09:48 ; Status DC Senna/Docusate Sodium (Senokot S) 1 tab BID PO Last administered on 03/24/17 21:53; Start 03/23/17 at 21:00; Stop 03/25/17 at 20:04; Status DC Sertraline HCl (Zoloft) 50 mg DAILY PO Last administered on 03/24/17 08:28; Start 03/24/17 at 09:00; Stop 03/25/17 at 20:04; Status DC Sertraline HCl (Zoloft) 50 mg DAILY PO Last administered on 04/03/17 08:38; Start 04/02/17 at 09:00; Stop 05/02/17 at 08:59 Sodium Chloride 1,000 ml @ 15 mls/hr Q24H IV Last administered on 04/03/17 08:37; Start 03/30/17 at 09:33; Stop 04/29/17 at 09:32 Sodium Chloride (Saline Lock Flush) 10 ml ASDIRECTED PRN IV SEE LABEL COMMENTS ; Start 03/29/17 at 16:45; Stop 04/28/17 at 16:44 Sodium Chloride (Saline Lock Flush) 10 ml SLF IV Last administered on 04:54; Start 03/29/17 at 22:00; Stop 04/28/17 at 21:59 Vancomycin HCl 1000 mg/Dextrose 20 ml @ 20 mls/hr Q12H IV ; Start 03/28/17 at 09 :15; Stop 03/28/17 at 09:42; Status DC Vancomycin HCl 1000 mg/IV Miscellaneous Supplies 1 each/ Dextrose 270 ml @ 270 mls/hr Q24H IV Last administered on 04/03/17 09:58; Start 03/28/17 at 10:00; Stop 04/04/17 at 09:59 Allergies Coded Allergies: Cephalosporins (Verified Allergy, Intermediate, HIVES COVERING TORSO, 03/16) Contrast Media (Verified Allergy, Intermediate, RASH - MANY YEARS AGO, 04/02/17) Objective Physical Examination Examination GENERAL APPEARANCE: Relatively comfortable though he seems to be expanding some effort with breathing. SKIN: Warm and dry. HEENT: Lips and mucosa moist, aphthous ulcer on the soft palate stable. NECK: No jugular venous distention. LUNGS: Scattered wheezing and rhonchi, no rales. HEART: No chest wall abnormalities. Regular rate and rhythm with no murmurs appreciated. ABDOMEN: Abdomen is round, soft, moderately distended which seems slightly worse than it was yesterday. Still hypoactive bowel sounds. Wound VAC in place. Small amount of serosanguineous drainage at the midline incision. Colostomy is viable with air but not much stool in the bag. Nontender and palpation. Skin erythema has resolved. EXTREMITIES: Improving extremity edema. Vital Signs Vital Signs Date Time Temp Pulse Resp B/P (MAP) Pulse Ox O2 Delivery O2 Flow Rate FiO2 04/03/17 08:55 Nasal Cannula 3.0 04/03/17 03:51 97.5 89 20 154/71 (98) 97 03/31/17 03:15 40 Laboratory Data Labs 24H Laboratory Tests 2 04/02/17 11:37: Bedside Glucose (Misc Panel) 221H 04/02/17 17:57: Bedside Glucose (Misc Panel) 177H 04/03/17 04:48: Immature Granulocyte % (Auto) 3.0H, White Blood Count 43.5*H, Red Blood Count 3.51L, Hemoglobin 8.1L, Hematocrit 26.6L, Mean Corpuscular Volume 75.8L, Mean Corpuscular Hemoglobin 23.1L, Mean Corpuscular Hemoglobin Concent 30.5L, Red Cell Distribution Width 19.4H, Platelet Count 377#, Neutrophils (%) (Auto) 92.4H , Lymphocytes (%) (Auto) 1.3L, Monocytes (%) (Auto) 3.1, Eosinophils (%) (Auto) 0.0, Basophils (%) (Auto) 0.2, Neutrophils # (Auto) 40.2H, Lymphocytes # (Auto) 0.6L, Monocytes # (Auto) 1.3H, Eosinophils # (Auto) 0.0, Basophils # (Auto) 0.1 , Immature Granulocyte # (Auto) 1.3H, Nucleated Red Blood Cells % (auto) 0.0 04/03/17 04:49: Anion Gap 9, Glomerular Filtration Rate 56.6, Blood Urea Nitrogen 49H, Creatinine 1.29, Sodium Level 137, Potassium Level 4.7, Chloride Level 101, Carbon Dioxide Level 27, Calcium Level 9.0 CBC/BMP Laboratory Tests 04/03/17 04:48 Red Blood Count 3.51 L, Mean Corpuscular Volume 75.8 L, Mean Corpuscular Hemoglobin 23.1 L, Mean Corpuscular Hemoglobin Concent 30.5 L, Red Cell Distribution Width 19.4 H, Neutrophils (%) (Auto) 92.4 H, Lymphocytes (%) (Auto ) 1.3 L, Monocytes (%) (Auto) 3.1, Eosinophils (%) (Auto) 0.0, Basophils (%) ( Auto) 0.2, Neutrophils # (Auto) 40.2 H, Lymphocytes # (Auto) 0.6 L, Monocytes # (Auto) 1.3 H, Eosinophils # (Auto) 0.0, Basophils # (Auto) 0.1 04/03/17 04:49 Calcium Level 9.0 Microbiology Microbiology 04/03/17 Blood Culture, Received Pending 03/28/17 Blood Culture - Final, Complete NO GROWTH AFTER 5 DAYS 03/28/17 Blood Culture - Final, Complete NO GROWTH AFTER [address] abdomen and pelvis with by mouth contrast No evidence of abscess or free intraperitoneal air. There is a loop of oral contrast filled transverse colon adherent to the anterior abdominal wall in the area of a wound VAC in the left upper quadrant. 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 Despite this he does not look septic. I have already done a CT of the abdomen and pelvis and no fluid collections. No signs of bowel obstruction despite his abdominal distention. I actually saw some contrast go through the colostomy with a CT. Despite this patient is not able to eat much more than a few sips of Ensure. I have talked to him about just putting him on bowel rest and placing an NG tube to relieve the abdominal distention. His abdominal distention I think is also having some negative effect with his breathing and also with this degree of activity with his shortness of breath he gets with light activity. I will continue the TPN for now I will also send new blood cultures x-ray. I placed a call to Dr. Terese Walker for him to be seen and evaluated for infectious disease standpoint and maybe adjust her antibiotics though we did not have any growth on our previous culture. Plan / VTE VTE Prophylaxis Ordered?: Yes Plan / Urinary Catheter Reason for insertion/continuin: Critical Pt monitoring BARAYUGA,SHAUNA B. MD Apr 03, 2017 10:12
[2017-04-03 11:40] VITALS: BP 148/67
[2017-04-03] MEDS: MORPHINE 1MG/ML IN 0.9% NACL 100ML IV BAG IV PRN (13:38)
--- NOTE | 2017-04-03 15:14 | REP ---
PORTABLE CHEST X-RAY: SINGLE VIEW. HISTORY: Hypoxia. COMPARISON STUDY: April 01, 2017 FINDINGS: Nasogastric tube enters the left upper quadrant of the abdomen. 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 EKG monitoring electrodes are noted. Ventral cervical discectomy and fusion is seen in the lower cervical spine. There are skin folds projecting over the chest bilaterally. There is no evidence of pneumothorax on either side. Heart is not enlarged. No new infiltrate is seen. IMPRESSION: No new infiltrate noted. Signed by Greg Shirley MD 04/03/2017 05:28 P
[2017-04-03 16:10] VITALS: BP 131/63
[2017-04-03] MEDS ORDERED: CALC IV SCH (18:00)
[2017-04-03] MEDS ORDERED: AMINO AC IV SCH (18:00)
[2017-04-03] MEDS ORDERED: DEX IV SCH (18:00)
[2017-04-03] MEDS ORDERED: ELECTROLYTE IV SCH (18:00)
[2017-04-03] MEDS ORDERED: POTASSIUM CHLORIDE IV SCH (18:00)
[2017-04-03] MEDS ORDERED: FAT EMULSION IV 20% 500 ML IV SCH (18:00)
[2017-04-03 19:57] VITALS: BP 124/58
[2017-04-03] MEDS: methylPREDNISolone INJ 40 MG/1 ML VIAL (J2920) IV SCH (21:37)
[2017-04-03] MEDS: ERTAPENEM SODIUM 1 GM in NS MINI-BAG PLUS 50 ML IV SCH (21:39)
[2017-04-03] MEDS: ALPRAZolam 0.25 MG TAB PO PRN (21:40)
[2017-04-04 00:22] VITALS: BP 139/63
[2017-04-04] MEDS: NYSTATIN 500,000 U/5 ML SUSP UDC SS SCH ×2 (00:24→05:46)
[2017-04-04] MEDS: ERYTHROMYCIN ETHYLSUCC 200 MG SUSP (ERYPED) 100MLBTL PO SCH ×4 (00:24→17:53)
[2017-04-04] MEDS: HumaLOG INSULIN (NovoLOG) PER UNIT SC SCH ×4 (00:25→17:57)
[2017-04-04] MEDS: ALBUTEROL SULFATE 2.5 MG/0.5 ML INH NEB SOLN NEB PRN ×6 (00:41→20:48)
[2017-04-04] MEDS: METOCLOPRAMIDE INJ 10MG/2ML VIAL (J2765) IV SCH ×3 (01:31→17:57)
[2017-04-04 05:28] VITALS: BP 159/74
[2017-04-04 05:44] LABS: BASO # 0.1 10^3/uL (0.0-0.2); BASO % 0.2 % (0.0-1.0); IMMATURE GRANULOCYTE % 2.8 % (0-0); LYMPH # 0.5 10^3/uL (1.5-4.5); LYMPH % 1.3 % (24.0-44.0); MEAN CORPUSCULAR HEMOGLOBIN 23.4 pg (27.0-33.0); MEAN CORPUSCULAR HGB CONC 31.1 g/dl (32.0-36.5); MEAN CORPUSCULAR VOLUME 75.1 fl (80.0-96.0); MONO # 1.2 10^3/uL (0.0-0.8); MONO % 3.3 % (0.0-5.0); NEUTROPHILS % 92.4 % (36.0-66.0); PLATELET COUNT, AUTOMATED 362 10^3/uL (150-450); RED CELL DISTRIBUTION WIDTH 19.2 % (11.5-14.5)
[2017-04-04] MEDS: SODIUM CHLORIDE 0.9% INJ 10 ML SYR IV SCH ×3 (05:47→20:53)
[2017-04-04] MEDS: HEPARIN SOD (PORCINE) 5000 UNITS/ML VIAL SQ SCH ×3 (05:47→20:51)
[2017-04-04 05:55] LABS: ANION GAP 7 MEQ/L (8-16); BLOOD UREA NITROGEN 55 MG/DL (7-18); CALCIUM LEVEL 8.2 MG/DL (8.8-10.2); CARBON DIOXIDE LEVEL 30 MEQ/L (21-32); CHLORIDE LEVEL 101 MEQ/L (98-107); CREATININE FOR GFR 1.18 MG/DL (0.70-1.30); GLOMERULAR FILTRATION RATE > 60.0 (>35); GLUCOSE, FASTING 134 MG/DL (83-110); POTASSIUM SERUM 4.7 MEQ/L (3.5-5.1); SODIUM LEVEL 138 MEQ/L (136-145)
[2017-04-04] MEDS: BUDESONIDE 0.5 MG/2 ML INHALATION SUSPENSION INH SCH ×2 (06:04→20:48)
[2017-04-04 06:29] LABS: NEUTROPHILS # 34.1 10^3/uL (1.8-7.7)
[2017-04-04 07:30] VITALS: BP 155/77
--- NOTE | 2017-04-04 07:37 | CR ---
DATE OF CONSULTATION: 04/03/2017 REASON FOR CONSULTATION: Asked to consult by Dr. 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 The patient is in a pleasant 81-year-old gentleman who has a history of colon cancer over 30 years ago with a colostomy. The patient has had multiple complications with bowel obstructions and had a parastomal hernia. 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 He has been started on broad-spectrum antibiotics intravenous (IV) ertapenem since 03/25/2017 and IV vancomycin since 03/28. The patient was taken to the operating room (OR) with Dr. Carlson for revision of the colostomy and bowel resection of the infarcted bowel. He has remained on antibiotic and has had persistent leukocytosis. His white count on admission was 25,000; on 04/01/2017 was down to 18,000 but the patient has progressively gotten more short of breath and therefore he was started on IV Solu-Medrol 80 mg every eight hours on 04/01/2017. He received three doses of 80 mg. On 04/02/2017, he was switched to Solu-Medrol 40 mg IV every eight hours, and today he was decreased to every 12 hours. The patient clinically feels much better. His oxygen has been tapered off. He has mild shortness of breath. No nausea or vomiting. His colostomy is functioning well. He has minimal abdominal pain only when he is being examined. He has small decubitus ulcer on his buttock area. He is alert and oriented. Denies any headache. No chest pain. 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 PAST SURGICAL HISTORY: Colostomy and multiple revisions, mesh placement for repair of abdominal hernias. Recurrent small-bowel obstructions. REVIEW OF SYSTEMS: The patient denies having any fever or chills. No nausea, vomiting, no diarrhea. He has a colectomy with soft stools. He has some back pain. He recently had a right-sided carpal tunnel repair two days prior to admission and ulnar nerve reconstruction. He has chronic shortness of breath on exertion is on chronic prednisone 5 mg daily but received recently dose of Solu-Medrol. ALLERGIES; CEPHALOSPORIN and CONTRAST MEDIA. MEDICATIONS: - methylprednisolone 40 mg IV every 12 hours - Xanax 0.25 mg by mouth every eight as needed - total parenteral nutrition (TPN) - insulin sliding scale - prednisone 5 mg by mouth daily - Nystatin 5 mL swish and swallow every six as needed - Zoloft 50 mg by mouth daily - erythromycin by mouth every six hours - Reglan 10 mg IV every eight hours - morphine as needed for pain - vancomycin 1 gram IV every 23 hours, currently since 03/28 - ertapenem 1 gram IV every 24 hours - budesonide 0.5 mg inhaled twice a day - Protonix 40 mg IV daily - Pred Forte ophthalmic solution one drop right eye four times a day - Zofran as needed - Tylenol as needed - albuterol as needed LABORATORY DATA White count is 43.5, hemoglobin 8.1, hematocrit 26.6, platelets 377, 92% neutrophils, 2% lymphocytes, 3% monocytes. Sodium 137, potassium 4.7, chloride 101, bicarb 27, BUN 49, creatinine 1.29, glucose 154, calcium nine. CRP 6.52. ESR 81 and a random vancomycin level is 15.7. MICROBIOLOGY: Blood cultures on 03/28 were negative. Repeat blood cultures two sets from are pending. Urine culture is pending. Urinalysis was not sent with the urine culture. IMPRESSION This is an 81-year-old gentleman who has been admitted 10 days ago with an infarcted colostomy, status post revision in by Dr. Carlson. The patient has done fairly well. Currently, he has been on IV ertapenem and vancomycin for the past 10 days. He recently developed some increasing respiratory discomfort with COPD exacerbation and has required increase in his steroids and has received 48 hours of increased Solu-Medrol at 80 mg every eight hours followed by 40 mg every eight hours. Since then, his white count has increased from 18,000, 48 hours ago to 43,000 today. The patient feels much better compared to 2 days ago with no evidence of infection. He had a central line which has been placed since admission which does appear to be infected. Two sets of blood cultures have been ordered. Chest x-ray done portable on 04/03 shows no new infiltrates. Heart is not enlarged. CT of the abdomen pelvis showed no evidence of abscess or free intraperitoneal air. There is a loop of oral contrast fills the transverse colon adherent to the abdominal wall. There is a wound vacuum-assisted closure (VAC) in place. PHYSICAL EXAMINATION: On physical exam he is an elderly, healthy-looking gentleman in no acute distress. VITAL SIGNS: Temperature is 99.1, pulse 89, respirations 18, blood pressure 124/58, O2 saturation 94% on three liters nasal cannula. HEART: Normal S1, S2 with no murmurs. LUNGS: Diminished breath sounds bilaterally. Few expiratory wheezes. ABDOMEN: Colostomy left lower quadrant with soft brown stool in the bag. There is a wound VAC in place around the colostomy site. Abdominal midline incision is well-healed. BACK: No costovertebral angle tenderness. EXTREMITIES: +1 pitting edema both ankles. Arms there is a right ecchymotic, bluish, erythematous area of the right forearm, nontender. +1 edema of the right forearm presumably was previous IV site that had infiltrated. He has a right internal jugular (IJ) catheter with no tenderness around it that has been placed on admission. GENITOURINARY (): Normal. A Avilez catheter in place draining dark urine. Discussed with family the removal of catheter. IMPRESSION: This is an 81-year-old gentleman who had an infarcted colostomy status post revision with marked improvement in his symptoms. The patient has been on broad-spectrum antibiotic with ertapenem and vancomycin for the past 10 days. In spite of that, he has had worsening leukocytosis with no evidence of infection. The patient recently had a large steroid booster dose of Solu-Medrol and this is most likely a steroid-induced thrombocytosis. Clinically he does not seem to have any other infection. PLAN: Obtain two sets of blood culture to rule out line sepsis. Discontinue Avilez catheter. Obtain urinalysis (UA), urine culture. The patient has mild suprapubic catheter tenderness. Will not change his antibiotics at this point. Discussed with Dr. Wiseman whether his steroid dose could be further tapered down. I have discussed with Dr. Carlson discontinuing the Avilez catheter and he has agreed with that. [facility]
[2017-04-04] MEDS: PANTOPRAZOLE 40MG INJ (PROTONIX) (C9113) IV SCH (09:38)
[2017-04-04] MEDS: SERTRALINE HCL 50 MG TAB PO SCH (09:38)
[2017-04-04] MEDS: predniSONE 5 MG TAB PO SCH (09:38)
[2017-04-04] MEDS: prednisoLONE ACET 1% OPHTH SUSP 5ML OD SCH ×4 (09:39→20:51)
[2017-04-04] MEDS: methylPREDNISolone INJ 40 MG/1 ML VIAL (J2920) IV SCH ×2 (09:39→20:51)
[2017-04-04] MEDS: VANCOMYCIN HCL 1,000 MG, VIAL MATE ADAPTER 1 EACH in D5W 250 ML IV SCH (10:52)
[2017-04-04 13:15] VITALS: BP 135/68
[2017-04-04 15:40] VITALS: BP 132/63
[2017-04-04] MEDS: SODIUM CHLORIDE 0.9% INJ 10 ML SYR IV PRN (17:59)
[2017-04-04] MEDS ORDERED: [UNRECOGNIZED DRUG - MIXTURE] IV SCH ×4 (18:00)
[2017-04-04] MEDS ORDERED: FAT EMULSION IV 20% 500 ML IV SCH (18:00)
[2017-04-04 20:00] VITALS: BP 150/82
[2017-04-04] MEDS: ERTAPENEM SODIUM 1 GM in NS MINI-BAG PLUS 50 ML IV SCH (20:53)
[2017-04-04] MEDS: ALPRAZolam 0.25 MG TAB PO PRN (20:53)
[2017-04-05] VITALS (7 sets, daily range): BP systolic 124–165; BP diastolic 60–80
[2017-04-05] MEDS: ERYTHROMYCIN ETHYLSUCC 200 MG SUSP (ERYPED) 100MLBTL PO SCH ×5 (00:05→23:47)
[2017-04-05] MEDS: HumaLOG INSULIN (NovoLOG) PER UNIT SC SCH ×5 (00:06→23:54)
[2017-04-05] MEDS: ALBUTEROL SULFATE 2.5 MG/0.5 ML INH NEB SOLN NEB PRN ×4 (00:55→20:37)
[2017-04-05] MEDS: METOCLOPRAMIDE INJ 10MG/2ML VIAL (J2765) IV SCH ×3 (01:20→17:10)
[2017-04-05] MEDS: SODIUM CHLORIDE 0.9% INJ 10 ML SYR IV SCH ×3 (05:19→21:01)
[2017-04-05] MEDS: NS 1,000 ML IV SCH ×2 (05:20→08:53)
[2017-04-05] MEDS: HEPARIN SOD (PORCINE) 5000 UNITS/ML VIAL SQ SCH ×3 (05:20→21:01)
[2017-04-05 05:25] LABS: MEAN CORPUSCULAR HEMOGLOBIN 23.1 pg (27.0-33.0); MEAN CORPUSCULAR HGB CONC 30.2 g/dl (32.0-36.5); MEAN CORPUSCULAR VOLUME 76.4 fl (80.0-96.0); PLATELET COUNT, AUTOMATED 432 10^3/uL (150-450); RED CELL DISTRIBUTION WIDTH 19.6 % (11.5-14.5)
[2017-04-05] MEDS: ALPRAZolam 0.25 MG TAB PO PRN ×3 (05:25→23:47)
[2017-04-05 05:30] LABS: WHITE BLOOD COUNT 36.4 10^3/uL (4.0-10.0)
[2017-04-05 05:31] LABS: ADD MANUAL DIFFER YES; DIFF SLIDE NUMBER 17
[2017-04-05] MEDS ORDERED: FUROSEMIDE 40 MG/4 ML VIAL (J1940) IV ONE (06:00)
[2017-04-05 06:03] LABS: ANION GAP 7 MEQ/L (8-16); BLOOD UREA NITROGEN 52 MG/DL (7-18); CALCIUM LEVEL 8.4 MG/DL (8.8-10.2); CARBON DIOXIDE LEVEL 29 MEQ/L (21-32); CHLORIDE LEVEL 102 MEQ/L (98-107); CREATININE FOR GFR 1.14 MG/DL (0.70-1.30); GLOMERULAR FILTRATION RATE > 60.0 (>35); GLUCOSE, FASTING 123 MG/DL (83-110); POTASSIUM SERUM 4.8 MEQ/L (3.5-5.1); SODIUM LEVEL 138 MEQ/L (136-145)
[2017-04-05 06:14] LABS: ANISOCYTOSIS 2+; HYPOCHROMASIA 1+
[2017-04-05] MEDS: BUDESONIDE 0.5 MG/2 ML INHALATION SUSPENSION INH SCH ×2 (08:25→20:37)
[2017-04-05] MEDS: methylPREDNISolone INJ 40 MG/1 ML VIAL (J2920) IV SCH ×2 (08:52→20:53)
[2017-04-05] MEDS: SERTRALINE HCL 50 MG TAB PO SCH (08:52)
[2017-04-05] MEDS: prednisoLONE ACET 1% OPHTH SUSP 5ML OD SCH ×4 (08:52→20:54)
[2017-04-05] MEDS: predniSONE 5 MG TAB PO SCH (08:52)
[2017-04-05] MEDS: PANTOPRAZOLE 40MG INJ (PROTONIX) (C9113) IV SCH (08:52)
[2017-04-05] MEDS: VANCOMYCIN HCL 1,000 MG, VIAL MATE ADAPTER 1 EACH in D5W 250 ML IV SCH (09:54)
[2017-04-05] MEDS ORDERED: MORPHINE 4 MG/ML 1ML SYRINGE IV PRN (11:30)
--- NOTE | 2017-04-05 14:09 | REP ---
Chest one-view HISTORY: Shortness of breath Comparison: 04/03/2017 The lungs are clear. The heart is normal in size. The pulmonary vasculature is normal in appearance. A cardiac pacemaker , central line and NG tube are present. Impression: No acute disease. Signed by Woo Luna MD 04/05/2017 02:00 P
--- NOTE | 2017-04-05 14:34 | REP ---
KUB, ONE VIEW: HISTORY: Abdominal distension. COMPARISON: 01/05/2017. A small amount of air is present in small and large intestine. There are no air fluid levels or dilated loops of intestine. There is no pneumoperitoneum. A drainage tube is present in the left upper quadrant. Multiple surgical clips are present. The patient is status post anterior abdominal wall surgery. An NG tube is present with the tip at gastroesophageal junction. IMPRESSION: 1. Nonspecific bowel gas pattern. 2. An NG tube is present with the tip at the gastroesophageal junction. Signed by Woo Luna MD 04/05/2017 02:43 P
[2017-04-05] MEDS ORDERED: AMINO AC IV SCH (18:00)
[2017-04-05] MEDS ORDERED: INSULIN HUMAN REGULAR IV SCH (18:00)
[2017-04-05] MEDS ORDERED: DEX IV SCH (18:00)
[2017-04-05] MEDS ORDERED: CALC IV SCH (18:00)
[2017-04-05] MEDS ORDERED: FAT EMULSION IV 20% 500 ML IV SCH (18:00)
[2017-04-05] MEDS ORDERED: ELECTROLYTE IV SCH (18:00)
[2017-04-05] MEDS ORDERED: CEPACOL LOZENGE PO PRN (18:45)
[2017-04-05] MEDS: ERTAPENEM SODIUM 1 GM in NS MINI-BAG PLUS 50 ML IV SCH (21:05)
[2017-04-06] MEDS: ALBUTEROL SULFATE 2.5 MG/0.5 ML INH NEB SOLN NEB PRN ×5 (00:04→15:09)
[2017-04-06] MEDS: METOCLOPRAMIDE INJ 10MG/2ML VIAL (J2765) IV SCH ×3 (01:03→17:58)
[2017-04-06 04:00] VITALS: BP 162/84
[2017-04-06] MEDS: SODIUM CHLORIDE 0.9% INJ 10 ML SYR IV SCH ×3 (05:20→21:28)
[2017-04-06] MEDS: HEPARIN SOD (PORCINE) 5000 UNITS/ML VIAL SQ SCH ×3 (05:21→21:28)
[2017-04-06] MEDS: HumaLOG INSULIN (NovoLOG) PER UNIT SC SCH ×4 (05:21→23:54)
[2017-04-06] MEDS: ERYTHROMYCIN ETHYLSUCC 200 MG SUSP (ERYPED) 100MLBTL PO SCH ×4 (05:22→23:51)
[2017-04-06 06:05] LABS: BASO % 0.1 % (0.0-1.0); IMMATURE GRANULOCYTE % 4.5 % (0-0); LYMPH # 0.4 10^3/uL (1.5-4.5); LYMPH % 1.4 % (24.0-44.0); MEAN CORPUSCULAR HEMOGLOBIN 23.5 pg (27.0-33.0); MEAN CORPUSCULAR HGB CONC 30.7 g/dl (32.0-36.5); MEAN CORPUSCULAR VOLUME 76.5 fl (80.0-96.0); MONO # 1.1 10^3/uL (0.0-0.8); NEUTROPHILS # 24.8 10^3/uL (1.8-7.7); PLATELET COUNT, AUTOMATED 408 10^3/uL (150-450); RED CELL DISTRIBUTION WIDTH 19.3 % (11.5-14.5); WHITE BLOOD COUNT 27.5 10^3/uL (4.0-10.0)
[2017-04-06 06:17] LABS: ANION GAP 4 MEQ/L (8-16); BLOOD UREA NITROGEN 50 MG/DL (7-18); CALCIUM LEVEL 8.2 MG/DL (8.8-10.2); CARBON DIOXIDE LEVEL 33 MEQ/L (21-32); CHLORIDE LEVEL 101 MEQ/L (98-107); CREATININE FOR GFR 1.14 MG/DL (0.70-1.30); GLOMERULAR FILTRATION RATE > 60.0 (>35); GLUCOSE, FASTING 136 MG/DL (83-110); POTASSIUM SERUM 4.6 MEQ/L (3.5-5.1); SODIUM LEVEL 138 MEQ/L (136-145)
[2017-04-06] MEDS: BUDESONIDE 0.5 MG/2 ML INHALATION SUSPENSION INH SCH ×2 (07:09→21:02)
[2017-04-06 08:00] VITALS: BP 98/60
[2017-04-06] MEDS: FORMOTEROL FUMARATE 20 MCG/2 ML INHALATION SOLUTION (PERFOROMIST) INH SCH ×2 (08:00→21:01)
--- NOTE | 2017-04-06 08:02 | IPNPDOC ---
Subjective General Date/Time Seen The patient was seen on 04/06/17 at 07:58. Subject Chief Complaint/History Patient still reports periods of shortness of breath overnight. He seems to be breathing at his baseline this morning. He reports he has had increasing amounts of gas and stool in his colostomy, feeling better in terms of his abdomen. 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 Current Medications Current Medications Current Medications Acetaminophen (Tylenol Suppository) 650 mg Q4HP PRN [place] PAIN / FEVER Last administered on 03/28/17 15:42; Start 03/28/17 at 15:30; Stop 04/27/17 at 15:29 Acetaminophen (Tylenol Tab) 650 mg Q4HP PRN PO MILD PAIN or TEMP > 101 Last administered on 04/01/17 17:10; Start 03/23/17 at 18:15; Stop 04/22/17 at 18: 14 Acetaminophen/ Hydrocodone Bitart ([place], Anexsia 5/325) 1 tab Q4HP PRN PO MODERATE PAIN (PS 5-7) Last administered on 03/24/17 02:36; Start 03/23/17 at 18:15; Stop 03/25/17 at 20:04; Status DC Acetaminophen/ Hydrocodone Bitart ([place], Anexsia 5/325) 2 tab Q6HP PRN PO SEVERE PAIN (PS 8-10) Last administered on 03/24/17 09:31; Start 03/23/17 at 18 :15; Stop 03/25/17 at 20:04; Status DC Albuterol Sulfate (Proventil Neb) 2.5 mg Q2HP PRN NEB SHORTNESS OF BREATH Last administered on 04/06/17 07:09; Start 03/25/17 at 22:00; Stop 04/24/17 at 21: 59 Albuterol Sulfate (Proventil, Ventolin Hfa) 2 puff QIDP PRN INH SHORTNESS OF BREATH Last administered on 03/24/17 22:09; Start 03/23/17 at 18:15; Stop at 18:14 Albuterol/ Ipratropium (Duoneb (Ipr 0.5mg/Alb 2.5mg)) 2.5 ml TIDP PRN INH SHORTNESS OF BREATH Last administered on 03/25/17 09:19; Start 03/23/17 at 18: 15; Stop 03/25/17 at 21:58; Status DC Albuterol/ Ipratropium (Duoneb (Ipr 0.5mg/Alb 2.5mg)) 3 ml RQ4H NEB Last administered on 03/27/17 07:07; Start 03/26/17 at 00:00; Stop 03/27/17 at 09:48 ; Status DC Alprazolam (Xanax) 0.25 mg Q8HP PRN PO ANXIETY Last administered on 04/05/17 23:47; Start 04/03/17 at 18:15; Stop 04/10/17 at 18:14 Alprazolam (Xanax) 0.5 mg QHS PO Last administered on 03/24/17 21:53; Start at 21:00; Stop 03/25/17 at 20:04; Status DC Alvimopan (Entereg) 12 mg BID PO Last administered on 04/02/17 21:26; Start 03/27/17 at 09:00; Stop 04/03/17 at 08:59; Status DC Amino Ac/Electrol/ Dextrose/Calcium 2,000 ml @ 85 mls/hr ONCE@1800 IV Last administered on 03/26/17 17:27; Start 03/26/17 at 18:00; Stop 03/27/17 at 17:59 ; Status DC Budesonide (Pulmicort) 0.5 mg BIDP PRN INH SHORTNESS OF BREATH Last administered on 03/27/17 07:07; Start 03/23/17 at 18:15; Stop 03/27/17 at 09:47 ; Status DC Budesonide (Pulmicort) 0.5 mg RBID INH Last administered on 04/06/17 07:09; Start 03/27/17 at 20:00; Stop 04/26/17 at 19:59 Cetylpyridinium Chloride (Cepacol) 1 anish Q2HP PRN PO COUGH Last administered on 03/25/17 09:44; Start 03/25/17 at 08:45; Stop 03/25/17 at 20:04; Status DC Cetylpyridinium Chloride (Cepacol) 1 anish Q6HP PRN PO SORE THROAT; Start at 18:45; Stop 05/05/17 at 18:44 Chlorhexidine Gluconate (Peridex Oral Rinse) SWAB/BRUSH ORAL CAVITY BID MT Last administered on 03/26/17 21:51; Start 03/25/17 at 21:00; Stop 03/27/17 at 09:48; Status DC Ciprofloxacin 400 mg/IV Miscellaneous Supplies 200 ml @ 200 mls/hr Q12H IV Last administered on 03/25/17 15:45; Start 03/24/17 at 16:00; Stop 03/25/17 at 20:04; Status DC Dextrose (Dextrose 50%) 25 ml ASDIRECTED PRN IV SEE LABEL COMMENTS; Start 03/27 at 08:30; Stop 04/26/17 at 08:29 Dextrose/Sodium Chloride 1,000 ml @ 100 mls/hr Q10H IV ; Start 03/23/17 at 17: 45; Stop 03/23/17 at 21:25; Status DC Diphenhydramine HCl (Benadryl) 12.5 mg Q4HP PRN IV ITCHING Last administered on 03/28/17 23:53; Start 03/25/17 at 15:30; Stop 03/30/17 at 10:58; Status DC Diphenhydramine HCl (Benadryl) 12.5 mg Q4HP PRN IV ITCHING Last administered on 04/03/17 03:07; Start 03/30/17 at 09:45; Stop 04/05/17 at 11:32; Status DC Enoxaparin Sodium (Lovenox) 30 mg DAILY SC Last administered on 03/24/17 08:28 ; Start 03/24/17 at 09:00; Stop 03/25/17 at 08:26; Status DC Ertapenem 1 gm/ Sodium Chloride 50 ml @ 100 mls/hr Q24H IV Last administered on 04/05/17 21:05; Start 03/25/17 at 22:00; Stop 04/07/17 at 21:59 Erythromycin Ethylsuccinate (Jacek-Ped 200mg/ 5ml) 200 mg Q6H PO Last administered on 04/06/17 05:22; Start 04/01/17 at 12:00; Stop 04/08/17 at 11: 59 Fat Emulsion Intravenous 500 ml @ 20 mls/hr ONCE@1800 IV Last administered on 04/03/17 17:17; Start 04/03/17 at 18:00; Stop 04/04/17 at 17:59; Status DC Fat Emulsion Intravenous 500 ml @ 20 mls/hr ONCE@1800 IV Last administered on 04/04/17 17:54; Start 04/04/17 at 18:00; Stop 04/05/17 at 17:59; Status DC Fat Emulsion Intravenous 500 ml @ 20 mls/hr ONCE@1800 IV Last administered on 04/05/17 17:09; Start 04/05/17 at 18:00; Stop 04/06/17 at 17:59 Fat Emulsion Intravenous 500 ml @ 20 mls/hr ONCE@1800 IV Last administered on 03/26/17 17:28; Start 03/26/17 at 18:00; Stop 03/27/17 at 17:59; Status DC Fat Emulsion Intravenous 500 ml @ 20 mls/hr ONCE@1800 IV Last administered on 03/27/17 17:12; Start 03/27/17 at 18:00; Stop 03/28/17 at 17:59; Status DC Fat Emulsion Intravenous 500 ml @ 20 mls/hr ONCE@1800 IV Last administered on 03/28/17 17:15; Start 03/28/17 at 18:00; Stop 03/29/17 at 17:59; Status DC Fat Emulsion Intravenous 500 ml @ 20 mls/hr ONCE@1800 IV Last administered on 03/29/17 17:54; Start 03/29/17 at 18:00; Stop 03/30/17 at 17:59; Status DC Fat Emulsion Intravenous 500 ml @ 20 mls/hr ONCE@1800 IV Last administered on 03/30/17 17:36; Start 03/30/17 at 18:00; Stop 03/31/17 at 17:59; Status DC Fat Emulsion Intravenous 500 ml @ 20 mls/hr ONCE@1800 IV Last administered on 03/31/17 17:25; Start 03/31/17 at 18:00; Stop 04/01/17 at 17:59; Status DC Fat Emulsion Intravenous 500 ml @ 20 mls/hr ONCE@1800 IV Last administered on 04/01/17 17:45; Start 04/01/17 at 18:00; Stop 04/02/17 at 17:59; Status DC Fat Emulsion Intravenous 500 ml @ 20 mls/hr ONCE@1800 IV Last administered on 04/02/17 17:57; Start 04/02/17 at 18:00; Stop 04/03/17 at 17:59; Status DC Fentanyl Citrate (Sublimaze) 25 mcg Q5MP PRN IV MODERATE PAIN (PS 4-7); Start 03/25/17 at 20:00; Stop 03/25/17 at 20:59; Status DC Fentanyl Citrate (Sublimaze) 25 mcg Q5MP PRN IV MODERATE PAIN (PS 4-7); Start 03/26/17 at 14:45; Stop 03/26/17 at 15:45; Status DC Fentanyl Citrate (Sublimaze) 50 mcg ASDIRECTED PRN IV PAIN Last administered on 03/25/17 14:55; Start 03/25/17 at 15:30; Stop 03/25/17 at 16:30; Status DC Fentanyl Citrate (Sublimaze) 50 mcg ASDIRECTED PRN IV PAIN; Start 03/25/17 at 20:15; Stop 03/25/17 at 20:59; Status DC Fentanyl/ Bupivacaine HCl 250 ml @ 13 mls/hr [id number] EPIDURAL Last administered on 03/29/17 16:21; Start 03/25/17 at 15:30; Stop 03/30/17 at 10:52 ; Status DC Furosemide (LASIX injection) 40 mg DAILY IV ; Start 04/06/17 at 09:00; Stop at 08:59 Furosemide (LASIX injection) 40 mg DAILY IV Last administered on 04/03/17 08: 38; Start 03/27/17 at 09:00; Stop 04/04/17 at 07:35; Status DC Gabapentin (Neurontin) 100 mg BID PO Last administered on 03/24/17 21:53; Start 03/23/17 at 21:00; Stop 03/25/17 at 20:04; Status DC Glucagon (Glucagon) 1 mg ASDIRECTED PRN SC SEE LABEL COMMENTS; Start 03/27/17 at 08:30; Stop 04/26/17 at 08:29 Glucose (Glucose) 16 GM ASDIRECTED PRN PO SEE LABEL COMMENTS; Start 03/27/17 at 08:30; Stop 04/26/17 at 08:29 Heparin Sodium (Heparin Lock Flush 10units/ml) 10 units ASDIRECTED PRN IV SEE LABEL COMMENTS Last administered on 04/04/17 17:59; Start 03/29/17 at 16:45; Stop 04/28/17 at 16:44 Heparin Sodium (Heparin Lock Flush 10units/ml) 10 units HLF IV Last administered on 04/06/17 05:20; Start 03/29/17 at 22:00; Stop 04/28/17 at 21: 59 Heparin Sodium (Porcine) (Heparin) 5,000 units Q8H SQ Last administered on 05:21; Start 03/27/17 at 14:00; Stop 04/09/17 at 13:59 Home Med (Med Rec Complete!) ASDIRECTED XX ; Start 03/23/17 at 15:15; Stop at 15:15; Status DC Insulin Human Lispro (HumaLOG INSULIN) SEE PROTOCOL TABLE Q6H SC ; Start at 06:00; Stop 04/26/17 at 05:59; Status Cancel Insulin Human Lispro (HumaLOG INSULIN) See Protocol Table Q6H SC Last administered on 04/04/17 14:09; Start 04/03/17 at 18:00; Stop 04/04/17 at 12 :01; Status DC Insulin Human Lispro (HumaLOG INSULIN) See Protocol Table Q6H SC Last administered on 04/05/17 11:44; Start 04/04/17 at 18:00; Stop 04/05/17 at 12 :01; Status DC Insulin Human Lispro (HumaLOG INSULIN) See Protocol Table Q6H SC Last administered on 04/06/17 05:21; Start 04/05/17 at 18:00; Stop 04/06/17 at 14 :00 Insulin Human Lispro (HumaLOG INSULIN) See Protocol Table Q6H SC Last administered on 03/27/17 12:35; Start 03/26/17 at 18:00; Stop 03/27/17 at 12:01 ; Status DC Insulin Human Lispro (HumaLOG INSULIN) See Protocol Table Q6H SC Last administered on 03/28/17 12:23; Start 03/27/17 at 18:00; Stop 03/28/17 at 14:00 ; Status DC Insulin Human Lispro (HumaLOG INSULIN) See Protocol Table Q6H SC Last administered on 03/29/17 12:35; Start 03/28/17 at 18:00; Stop 03/29/17 at 12:01 ; Status DC Insulin Human Lispro (HumaLOG INSULIN) See Protocol Table Q6H SC Last administered on 03/30/17 11:35; Start 03/29/17 at 18:00; Stop 03/30/17 at 12:01 ; Status DC Insulin Human Lispro (HumaLOG INSULIN) See Protocol Table Q6H SC Last administered on 03/31/17 12:36; Start 03/30/17 at 18:00; Stop 03/31/17 at 12:01 ; Status DC Insulin Human Lispro (HumaLOG INSULIN) See Protocol Table Q6H SC Last administered on 04/01/17 13:01; Start 03/31/17 at 18:00; Stop 04/01/17 at 14:00 ; Status DC Insulin Human Lispro (HumaLOG INSULIN) See Protocol Table Q6H SC Last administered on 04/02/17 12:09; Start 04/01/17 at 18:00; Stop 04/02/17 at 12:01 ; Status DC Insulin Human Lispro (HumaLOG INSULIN) See Protocol Table Q6H SC Last administered on 04/03/17 12:22; Start 04/02/17 at 18:00; Stop 04/03/17 at 12: 01; Status DC Insulin Human Regular 10 units/ Amino Ac/Electrol/ Dextrose/Calcium 2,000.1 ml @ 60 mls/hr ONCE@1800 IV Last administered on 04/05/17 17:09; Start at 18:00; Stop 04/06/17 at 17:59 Insulin Human Regular 10 units/ Potassium Chloride 20 meq/ Amino Ac/Electrol/ Dextrose/Calcium 2,010.1 ml @ 60 mls/hr ONCE@1800 IV Last administered on 03/31 17:25; Start 03/31/17 at 18:00; Stop 04/01/17 at 17:59; Status DC Insulin Human Regular 10 units/ Potassium Chloride 20 meq/ Amino Ac/Electrol/ Dextrose/Calcium 2,010.1 ml @ 60 mls/hr ONCE@1800 IV Last administered on 04/01 17:46; Start 04/01/17 at 18:00; Stop 04/02/17 at 17:59; Status DC Ketorolac Tromethamine (ToRADol) 15 mg Q8H IV Last administered on 04/02/17 04 :58; Start 03/30/17 at 12:00; Stop 04/02/17 at 11:59; Status DC Lactated Ringer's 1,000 ml @ 80 mls/hr [id number] IV ; Start 03/25/17 at 20:00; Stop 03/25/17 at 20:04; Status DC Lactated Ringer's 1,000 ml @ 100 mls/hr Q10H IV Last administered on 15:36; Start 03/26/17 at 14:45; Stop 03/26/17 at 15:45; Status DC Lactated Ringer's 1,000 ml @ 125 mls/hr Q8H IV Last administered on 03/26/17 05:58; Start 03/23/17 at 18:10; Stop 03/26/17 at 17:49; Status DC Loratadine (Claritin) 10 mg DAILY PO Last administered on 03/24/17 08:30; Start 03/24/17 at 09:00; Stop 03/25/17 at 20:04; Status DC Lorazepam (Ativan) 1 mg STAT STAT IV Last administered on 03/29/17 00:54; Start 03/29/17 at 00:46; Stop 03/29/17 at 00:48; Status DC Magnesium Hydroxide (Milk Of Magnesia) 30 ml DAILY PO ; Start 04/06/17 at 09:00 ; Stop 05/06/17 at 08:59 Magnesium Hydroxide (Milk Of Magnesia) 30 ml DAILYPRN PRN PO CONSTIPATION; Start 03/23/17 at 18:15; Stop 03/25/17 at 20:04; Status DC Methylprednisolone (SOLU medrol) 4 mg DAILY IV ; Start 03/27/17 at 09:00; Stop 03/27/17 at 09:10; Status DC Methylprednisolone (SOLU medrol) 40 mg RQ12H IV Last administered on 20:53; Start 04/03/17 at 20:00; Stop 05/02/17 at 13:59 Methylprednisolone (SOLUmedrol) 40 mg Q8H IV Last administered on 04/03/17 05 :06; Start 04/02/17 at 14:00; Stop 04/03/17 at 10:29; Status DC Methylprednisolone (SOLUmedrol) 60 mg Q12H IV Last administered on 03/26/17 09 :16; Start 03/25/17 at 21:00; Stop 03/26/17 at 14:35; Status DC Methylprednisolone (SOLUmedrol) 80 mg Q8H IV Last administered on 04/02/17 06: 18; Start 04/01/17 at 14:00; Stop 04/02/17 at 08:31; Status DC Metoclopramide HCl (REGLAN INJection) 10 mg Q6HP PRN IV NAUSEA; Start 03/25/17 at 15:30; Stop 03/30/17 at 10:58; Status DC Metoclopramide HCl (REGLAN INJection) 10 mg Q8H IV Last administered on 01:03; Start 04/01/17 at 10:00; Stop 05/01/17 at 09:59 Metronidazole 500 mg/IV Miscellaneous Supplies 100 ml @ 100 mls/hr Q8H IV Last administered on 03/25/17 15:18; Start 03/24/17 at 14:00; Stop 03/25/17 at 20:04; Status DC Midazolam HCl (Versed) 1 mg ASDIRECTED PRN IV ANXIETY Last administered on 03/25 14:55; Start 03/25/17 at 15:30; Stop 03/25/17 at 16:30; Status DC Midazolam HCl (Versed) 1 mg ASDIRECTED PRN IV ANXIETY; Start 03/25/17 at 20:00 ; Stop 03/25/17 at 20:59; Status DC Midazolam HCl (Versed) 2 mg Q15MP PRN IV AGITATION Last administered on 06:03; Start 03/25/17 at 22:00; Stop 03/27/17 at 09:48; Status DC Morphine Sulfate (Morphine Sulfate In 0.9%Nacl Iv Bag) Concentration 1 mg/ml ASDIRECTED PRN IV SEE LABEL COMMENTS Last administered on 04/03/17 13:38; Start 03/30/17 at 09:45; Stop 04/05/17 at 11:32; Status DC Morphine Sulfate (Morphine Sulfate Inj) 2 mg Q2HP PRN IV PAIN Last administered on 03/25/17 23:53; Start 03/25/17 at 22:00; Stop 03/27/17 at 08:25 ; Status DC Morphine Sulfate (Morphine Sulfate Inj) 2 mg Q5MP PRN IV MODERATE/SEVERE PAIN ( PS 7-10); Start 03/25/17 at 20:00; Stop 03/25/17 at 20:04; Status DC Morphine Sulfate (Morphine Sulfate Inj) 4 mg Q2HP PRN IV SEVERE PAIN (PS 8-10) Last administered on 03/25/17 13:23; Start 03/23/17 at 18:15; Stop 03/25/17 at 20:04; Status DC Morphine Sulfate (Morphine Sulfate Inj) 4 mg Q30M PRN IV SEVERE PAIN (PS 8-10) Last administered on 03/23/17 19:59; Start 03/23/17 at 13:00; Stop 03/23/17 at 19:59; Status DC Morphine Sulfate (Morphine Sulfate Inj) 4 mg Q3HP PRN IV SEVERE PAIN (PS 8-10) ; Start 04/05/17 at 11:30; Stop 04/12/17 at 11:29 Multivitamins (Theragram-M) 1 tab BID PO Last administered on 03/24/17 21:53; Start 03/23/17 at 21:00; Stop 03/25/17 at 20:04; Status DC Multivitamins 10 ml/Chromium/ Copper/Manganese/ Seleni/Zn 1 ml/ Insulin Human Regular 10 units/ Amino Ac/Electrol/ Dextrose/Calcium 2,011.1 ml @ 60 mls/hr ONCE@1800 IV Last administered on 04/04/17 17:56; Start 04/04/17 at 18:00; Stop 04/05/17 at 17:59; Status DC Multivitamins 10 ml/Chromium/ Copper/Manganese/ Seleni/Zn 1 ml/ Insulin Human Regular 10 units/ Amino Ac/Electrol/ Dextrose/Calcium 2,011.1 ml @ 60 mls/hr ONCE@1800 IV Last administered on 04/02/17 17:57; Start 04/02/17 at 18:00; Stop 04/03/17 at 17:59; Status DC Multivitamins 10 ml/Chromium/ Copper/Manganese/ Seleni/Zn 1 ml/ Insulin Human Regular 10 units/ Potassium Chloride 20 meq/ Amino Ac/Electrol/ Dextrose/ Calcium 2,021.1 ml @ 65 mls/hr ONCE@1800 IV Last administered on 03/30/17 17: 36; Start 03/30/17 at 18:00; Stop 03/31/17 at 17:59; Status DC Multivitamins 10 ml/Chromium/ Copper/Manganese/ Seleni/Zn 1 ml/ Potassium Chloride 20 meq/ Insulin Human Regular 12 units/ Amino Ac/Electrol/ Dextrose/ Calcium 2,021.12 ml @ 70 mls/hr ONCE@1800 IV Last administered on 03/28/17 17 :15; Start 03/28/17 at 18:00; Stop 03/29/17 at 17:59; Status DC Nalbuphine HCl (Nubain) 2.5 mg Q6HP PRN IV PRURITIS; Start 03/30/17 at 09:45; Stop 04/05/17 at 11:32; Status DC Naloxone HCl (Narcan) 0.1 mg Q5MP PRN IV SEE LABEL COMMENTS; Start 03/25/17 at 15:30; Stop 03/30/17 at 10:58; Status DC Naloxone HCl (Narcan) 0.1 mg Q5MP PRN IV SEE LABEL COMMENTS; Start 03/30/17 at 09:45; Stop 04/05/17 at 11:32; Status DC Non-Formulary Medication (Epidural/PATIENT NAVIGATOR Avalon) 1 each ASDIRECTED PRN XX SEE LABEL COMMENTS; Start 03/25/17 at 15:30; Stop 03/30/17 at 10:58; Status DC Non-Formulary Medication (Epidural/PATIENT NAVIGATOR Avalon) USE THIS ENTRY TO VEND ... Q1M PRN XX SEE LABEL COMMENTS; Start 03/30/17 at 09:45; Stop 04/05/17 at 11:32; Status DC Non-Formulary Medication (Avalon) ASDIRECTED PRN XX SEE LABEL COMMENTS; Start 03/25/17 at 15:30; Stop 03/30/17 at 10:58; Status DC Nystatin (Mycostatin) 5 ml Q6H SS Last administered on 04/04/17 05:46; Start 04/02/17 at 12:00; Stop 04/04/17 at 12:57; Status DC Ondansetron HCl (ZOFRAN INJection) 4 mg Q4HP PRN IV NAUSEA OR VOMITING; Start 03/25/17 at 20:00; Stop 03/25/17 at 20:59; Status DC Ondansetron HCl (ZOFRAN INJection) 4 mg Q4HP PRN IV NAUSEA OR VOMITING; Start 03/26/17 at 14:45; Stop 03/26/17 at 15:45; Status DC Ondansetron HCl (ZOFRAN INJection) 4 mg Q6HP PRN IV NAUSEA OR VOMITING Last administered on 03/31/17 07:45; Start 03/23/17 at 18:15; Stop 04/22/17 at 18: 14 Ondansetron HCl (ZOFRAN INJection) 4 mg Q6HP PRN IV NAUSEA; Start 03/30/17 at 09:45; Stop 04/29/17 at 09:44; Status Cancel Pantoprazole Sodium (Protonix) 40 mg DAILY IV Last administered on 04/05/17 08:52; Start 03/24/17 at 09:00; Stop 04/23/17 at 08:59 Potassium Chloride 13.9 meq/ Amino Ac/Electrol/ Dextrose/Calcium 2,006.95 ml @ 60 mls/hr ONCE@1800 IV Last administered on 04/03/17 17:18; Start 04/03/17 at 18:00; Stop 04/04/17 at 17:59; Status DC Potassium Chloride 20 meq/ Insulin Human Regular 10 units/ Amino Ac/Electrol/ Dextrose/Calcium 2,010.1 ml @ 70 mls/hr ONCE@1800 IV Last administered on 03/27 17:11; Start 03/27/17 at 18:00; Stop 03/28/17 at 17:59; Status DC Potassium Chloride 20 meq/ Insulin Human Regular 10 units/ Amino Ac/Electrol/ Dextrose/Calcium 2,010.1 ml @ 70 mls/hr ONCE@1800 IV Last administered on 03/29 17:54; Start 03/29/17 at 18:00; Stop 03/30/17 at 17:59; Status DC Prednisolone Acetate (Predforte 1% Ophth Susp) 1 drop QID OD Last administered on 04/05/17 20:54; Start 03/23/17 at 21:00; Stop 04/22/17 at 20:59 Prednisone (Deltasone Liquid) 5 mg DAILY PO Last administered on 04/02/17 09: 29; Start 03/27/17 at 09:00; Stop 04/02/17 at 10:33; Status DC Prednisone (Deltasone) 5 mg DAILY PO Last administered on 03/24/17 08:28; Start 03/24/17 at 09:00; Stop 03/25/17 at 08:23; Status DC Prednisone (Deltasone) 5 mg DAILY PO Last administered on 04/05/17 08:52; Start 04/03/17 at 09:00; Stop 05/03/17 at 08:59 Propofol 1000 mg/ IV Miscellaneous Supplies 100 ml @ 3.6 mls/hr Q24H IV Last administered on 03/27/17 04:45; Start 03/25/17 at 20:15; Stop 03/27/17 at 09:48 ; Status DC Senna/Docusate Sodium (Senokot S) 1 tab BID PO Last administered on 03/24/17 21:53; Start 03/23/17 at 21:00; Stop 03/25/17 at 20:04; Status DC Sertraline HCl (Zoloft) 50 mg DAILY PO Last administered on 03/24/17 08:28; Start 03/24/17 at 09:00; Stop 03/25/17 at 20:04; Status DC Sertraline HCl (Zoloft) 50 mg DAILY PO Last administered on 04/05/17 08:52; Start 04/02/17 at 09:00; Stop 05/02/17 at 08:59 Sodium Chloride 1,000 ml @ 15 mls/hr Q24H IV Last administered on 04/05/17 08:53; Start 03/30/17 at 09:33; Stop 04/05/17 at 11:32; Status DC Sodium Chloride (Saline Lock Flush) 10 ml ASDIRECTED PRN IV SEE LABEL COMMENTS Last administered on 04/04/17 17:59; Start 03/29/17 at 16:45; Stop 04/28/17 at 16:44 Sodium Chloride (Saline Lock Flush) 10 ml SLF IV Last administered on 05:20; Start 03/29/17 at 22:00; Stop 04/28/17 at 21:59 Vancomycin HCl 1000 mg/Dextrose 20 ml @ 20 mls/hr Q12H IV ; Start 03/28/17 at 09 :15; Stop 03/28/17 at 09:42; Status DC Vancomycin HCl 1000 mg/IV Miscellaneous Supplies 1 each/ Dextrose 270 ml @ 270 mls/hr Q24H IV Last administered on 04/05/17 09:54; Start 03/28/17 at 10:00; Stop 04/10/17 at 09:59 Allergies Coded Allergies: Cephalosporins (Verified Allergy, Intermediate, HIVES COVERING TORSO, 03/16) Contrast Media (Verified Allergy, Intermediate, RASH - MANY YEARS AGO, 04/02/17) Objective Physical Examination Examination GENERAL APPEARANCE:Patient seen, laying in bed, awake, alert, and oriented. Comfortable, in no acute distress. SKIN: Warm and dry HEENT: Normocephalic, atraumatic. Pale palpebral conjunctiva, anicteric sclerae. Lips and mucosa appear dry NECK: Supple, no thyromegaly. No obvious jugular venous distention. LUNGS: Occasional wheezing, but better air movement. No crackles HEART: No chest wall abnormalities. Regular rate and rhythm with no murmurs appreciated. ABDOMEN: Abdomen is , round, soft, less distended. His colostomy has a lot of of liquid stool and gas in it. His wound VAC is in place. Midline incision is healing accordingly, clean, dry and intact Vital Signs Vital Signs Date Time Temp Pulse Resp B/P (MAP) Pulse Ox O2 Delivery O2 Flow Rate FiO2 04/06/17 04:00 Nasal Cannula 3.0 04/06/17 04:00 99.1 82 18 162/84 (110) 99 03/31/17 03:15 40 Laboratory Data Labs 24H Laboratory Tests 2 04/06/17 05:10: Bedside Glucose (Misc Panel) 137H 04/06/17 05:45: Immature Granulocyte % (Auto) 4.5H, White Blood Count 27.5H, Red Blood Count 3.19L, Hemoglobin 7.5L, Hematocrit 24.4L, Mean Corpuscular Volume 76.5L, Mean Corpuscular Hemoglobin 23.5L, Mean Corpuscular Hemoglobin Concent 30.7L, Red Cell Distribution Width 19.3H, Platelet Count 408, Neutrophils (%) (Auto) 90.0H , Lymphocytes (%) (Auto) 1.4L, Monocytes (%) (Auto) 4.0, Eosinophils (%) (Auto) 0.0, Basophils (%) (Auto) 0.1, Neutrophils # (Auto) 24.8H, Lymphocytes # (Auto) 0.4L, Monocytes # (Auto) 1.1H, Eosinophils # (Auto) 0.0, Basophils # (Auto) 0.0 , Immature Granulocyte # (Auto) 1.2H, Nucleated Red Blood Cells % (auto) 0.0, Anion Gap 4L, Glomerular Filtration Rate > 60.0, Blood Urea Nitrogen 50H, Creatinine 1.14, Sodium Level 138, Potassium Level 4.6, Chloride Level 101, Carbon Dioxide Level 33H, Calcium Level 8.2L CBC/BMP Laboratory Tests 04/06/17 05:45 Red Blood Count 3.19 L, Mean Corpuscular Volume 76.5 L, Mean Corpuscular Hemoglobin 23.5 L, Mean Corpuscular Hemoglobin Concent 30.7 L, Red Cell Distribution Width 19.3 H, Neutrophils (%) (Auto) 90.0 H, Lymphocytes (%) (Auto ) 1.4 L, Monocytes (%) (Auto) 4.0, Eosinophils (%) (Auto) 0.0, Basophils (%) ( Auto) 0.1, Neutrophils # (Auto) 24.8 H, Lymphocytes # (Auto) 0.4 L, Monocytes # (Auto) 1.1 H, Eosinophils # (Auto) 0.0, Basophils # (Auto) 0.0, Calcium Level 8.2 L Microbiology Microbiology 04/03/17 Blood Culture - Preliminary, Resulted No Growth after 48 hours. All Specime... 04/03/17 Blood Culture - Preliminary, Resulted No Growth after 48 hours. All Specime... 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 We will try him on sips of water and if he does okay the rest of the day, most likely start some clears on. I spoke with Dr. Burton and she will review the steroid medications as he seems to be getting both methylprednisolone and prednisone. Hopefully get him to participate with physical therapy more as his breathing improves. Plan / VTE VTE Prophylaxis Ordered?: Yes Plan / Urinary Catheter Reason for insertion/continuin: Critical Pt monitoring SHAUNA WALTON MD Apr 06, 2017 08:02
[2017-04-06] MEDS: PANTOPRAZOLE 40MG INJ (PROTONIX) (C9113) IV SCH (09:01)
[2017-04-06] MEDS: MOM 30ML SUSPENSION UDC PO SCH (09:01)
[2017-04-06] MEDS: FUROSEMIDE 40 MG/4 ML VIAL (J1940) IV SCH (09:01)
[2017-04-06] MEDS: SERTRALINE HCL 50 MG TAB PO SCH (09:01)
[2017-04-06] MEDS: methylPREDNISolone INJ 40 MG/1 ML VIAL (J2920) IV SCH (09:01)
[2017-04-06] MEDS: predniSONE 5 MG TAB PO SCH (09:01)
[2017-04-06] MEDS: prednisoLONE ACET 1% OPHTH SUSP 5ML OD SCH ×4 (09:02→20:26)
[2017-04-06 11:50] VITALS: BP 149/73
[2017-04-06 16:00] VITALS: BP 130/56
--- NOTE | 2017-04-06 16:06 | IPN ---
DATE: 04/06/2017 Mr. Altamirano was seen this morning. His daughter is visiting. He has no new complaints. He actually wants to get out of bed and start walking. He wants to eat more. An attempt was done to remove his Avilez catheter a couple of days ago, he had urinary retention, this was placed again. His breathing seems to be back to baseline. Temperature is 98.6, pulse 86, respirations 18, blood pressure 149/73, oxygen saturation 97% on 3 liters nasal cannula. Heart: Normal S1, S2. No murmurs. Lungs: Decreased breath sounds with few expiratory wheezes. Abdomen: Soft, healing nicely, colostomy working well. Wound vacuum assisted closure (VAC) in place. Extremities: Trace edema. Avilez catheter in place. LABORATORY DATA: White count is 27.5 down from 43, hemoglobin 7.5, hematocrit 24.4, platelets 408, 90% neutrophils, 2% lymphocytes, 4% monocytes. Sodium 138, potassium 4.6, chloride 101, bicarbonate 33, BUN 50, creatinine 1.1, glucose 136, calcium 8.2, CRP 3.2 down from 6.5. Blood cultures from 04/03/2017, is no growth. Urine culture is negative. IMPRESSION: 1. 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 The patient has been on broad-spectrum antibiotic with IV ertapenem and vancomycin. Vancomycin will be discontinued today. The patient has been on ertapenem since 03/25/2017, currently day #13. Would consider discontinuing IV Invanz tomorrow for a total of 14 days. There is no evidence of infection. 2. Leukocytosis, most likely steroid induced. The patient was on Solu-Medrol 40 every 12 hours, switched to prednisone 20 mg today. 3. Urinary retention. Still has a Avilez catheter. Suggest maybe adding Flomax and discontinue Avilez catheter again, encourage ambulation and discontinue Invanz tomorrow.
[2017-04-06] MEDS ORDERED: [UNRECOGNIZED DRUG - MIXTURE] IV SCH ×4 (18:00)
[2017-04-06] MEDS ORDERED: FAT EMULSION IV 20% 500 ML IV SCH (18:00)
[2017-04-06 20:11] VITALS: BP 136/61
[2017-04-06] MEDS: ERTAPENEM SODIUM 1 GM in NS MINI-BAG PLUS 50 ML IV SCH (20:43)
[2017-04-06 23:44] VITALS: BP 126/60
[2017-04-07] MEDS: ALBUTEROL SULFATE 2.5 MG/0.5 ML INH NEB SOLN NEB PRN ×4 (00:03→23:51)
[2017-04-07] MEDS: METOCLOPRAMIDE INJ 10MG/2ML VIAL (J2765) IV SCH ×3 (02:36→17:48)
[2017-04-07 05:14] VITALS: BP 126/59
[2017-04-07] MEDS: ERYTHROMYCIN ETHYLSUCC 200 MG SUSP (ERYPED) 100MLBTL PO SCH (06:17)
[2017-04-07] MEDS: SODIUM CHLORIDE 0.9% INJ 10 ML SYR IV SCH ×3 (06:18→20:39)
[2017-04-07] MEDS: HEPARIN SOD (PORCINE) 5000 UNITS/ML VIAL SQ SCH ×3 (06:18→20:53)
[2017-04-07] MEDS: HumaLOG INSULIN (NovoLOG) PER UNIT SC SCH ×4 (06:30→23:14)
[2017-04-07 06:38] LABS: MEAN CORPUSCULAR HEMOGLOBIN 23.3 pg (27.0-33.0); MEAN CORPUSCULAR HGB CONC 30.9 g/dl (32.0-36.5); MEAN CORPUSCULAR VOLUME 75.3 fl (80.0-96.0); PLATELET COUNT, AUTOMATED 377 10^3/uL (150-450); RED CELL DISTRIBUTION WIDTH 19.5 % (11.5-14.5); WHITE BLOOD COUNT 22.9 10^3/uL (4.0-10.0)
[2017-04-07 06:42] LABS: ADD MANUAL DIFFER YES; DIFF SLIDE NUMBER 8
[2017-04-07 07:00] LABS: ANION GAP 8 MEQ/L (8-16); BLOOD UREA NITROGEN 45 MG/DL (7-18); CARBON DIOXIDE LEVEL 31 MEQ/L (21-32); CHLORIDE LEVEL 103 MEQ/L (98-107); CREATININE FOR GFR 1.18 MG/DL (0.70-1.30); GLOMERULAR FILTRATION RATE > 60.0 (>35); GLUCOSE, FASTING 97 MG/DL (83-110); POTASSIUM SERUM 4.1 MEQ/L (3.5-5.1); SODIUM LEVEL 142 MEQ/L (136-145)
[2017-04-07 07:15] LABS: BANDS 1 % (< 11); HYPOCHROMASIA 2+; MICROCYTOSIS 1+
[2017-04-07 08:00] VITALS: BP 129/59
[2017-04-07] MEDS: PANTOPRAZOLE 40MG INJ (PROTONIX) (C9113) IV SCH (08:46)
[2017-04-07] MEDS: predniSONE 20 MG TAB PO SCH (08:46)
[2017-04-07] MEDS: FUROSEMIDE 40 MG/4 ML VIAL (J1940) IV SCH (08:46)
[2017-04-07] MEDS: SERTRALINE HCL 50 MG TAB PO SCH (08:46)
[2017-04-07] MEDS: MOM 30ML SUSPENSION UDC PO SCH (08:47)
[2017-04-07] MEDS: prednisoLONE ACET 1% OPHTH SUSP 5ML OD SCH ×4 (08:47→20:38)
[2017-04-07] MEDS: FORMOTEROL FUMARATE 20 MCG/2 ML INHALATION SOLUTION (PERFOROMIST) INH SCH ×2 (08:51→19:15)
[2017-04-07] MEDS: BUDESONIDE 0.5 MG/2 ML INHALATION SUSPENSION INH SCH ×2 (08:51→19:15)
[2017-04-07 12:00] VITALS: BP 131/77
--- NOTE | 2017-04-07 12:52 | IPN ---
DATE: 04/07/2017 The patient is now 13 days postoperative from exploratory laparotomy for an infarction of a portion of his colon and recreation of a colostomy. He has had a slow return of bowel function, but this has improved over the last several days. He reports today that he is feeling much better. He still has some shortness of breath, but this has improved. He has tolerated a few popsicles and notes improved output from his colostomy. VITAL SIGNS: His maximum temperature over the last 24 hours was 99.7. His pulse is in the low 80s. Respiratory rate is 16-18 with a blood pressure systolic in the 120s. He remains on oxygen at 3 liters by nasal cannula. INTAKE AND OUTPUT: On the showed 1570 in with 2900 out. He has been receiving a daily dose of Lasix. PHYSICAL EXAMINATION: The patient is sitting up in a chair. He has a dressing on a right neck triple-lumen catheter. He is alert and oriented. Heart exam shows a regular rate and rhythm. Lungs show somewhat distant breath sounds, but there are no wheezes or rhonchi. The abdomen shows a healed midline incision with ilda still in place. There is a wound Vac dressing in the left upper quadrant which is intact. He has a colostomy with a bag in place in the left mid to lower abdomen with drainage of some brownish bilious material. He has bowel sounds present. The abdomen is soft. His Avilez catheter is draining very clear almost colorless urine. LABORATORY STUDIES: Show normal electrolytes with a BUN of 45, creatinine 1.2 and a glucose of 97. CBC shows a white count of 23,000 with a hemoglobin of 7, hematocrit of 22 and platelet count of 377. Differential count shows 86% neutrophils, 1 band and 7 lymphocytes. He has no new imaging studies. IMPRESSION: 1. Good return of bowel function with no current nausea or vomiting and good output from his colostomy. 2. Anemia with hematocrit of 22 today. He was 24 on the and though the hematocrit went up several points the next day, it was 24 also on the , so this probably does not represent a significant change. He did receive 1 unit of packed red blood cells on the , but otherwise has not required transfusion. 3. Nutrition. The patient has not had a check of his protein or albumin really since admission and this seems to be an oversight. He remains on total parenteral nutrition at this time. Plan: He will be advanced to full liquids today and I will decrease his TPN to the minimal rate that is allowed of 50 mL/hour. I will order a CPA to check his protein and albumin tomorrow. We will also repeat a CBC tomorrow to see if his hematocrit remains stable. MTDD
[2017-04-07] MEDS: NYSTATIN 500,000 U/5 ML SUSP UDC PO SCH ×3 (12:59→23:14)
[2017-04-07] MEDS: ACETAMINOPHEN TAB 650MG DOSE (2X325MG) PO PRN ×2 (13:00→17:47)
[2017-04-07 16:00] VITALS: BP 138/60
[2017-04-07] MEDS ORDERED: AMINO AC/ELECTROLYTE/DEX/CALC 2,000 ML IV SCH (18:00)
[2017-04-07] MEDS ORDERED: FAT EMULSION IV 20% 500 ML IV SCH (18:00)
[2017-04-07 19:21] VITALS: BP 128/61
[2017-04-07] MEDS: ERTAPENEM SODIUM 1 GM in NS MINI-BAG PLUS 50 ML IV SCH (20:38)
[2017-04-07 23:08] VITALS: BP 153/74
[2017-04-08] MEDS: METOCLOPRAMIDE INJ 10MG/2ML VIAL (J2765) IV SCH ×3 (01:09→17:24)
[2017-04-08] MEDS: ALBUTEROL SULFATE 2.5 MG/0.5 ML INH NEB SOLN NEB PRN ×3 (03:22→15:29)
[2017-04-08 03:28] VITALS: BP 141/65
[2017-04-08] MEDS: SODIUM CHLORIDE 0.9% INJ 10 ML SYR IV SCH ×3 (03:52→21:37)
[2017-04-08 04:05] LABS: MEAN CORPUSCULAR HEMOGLOBIN 23.7 pg (27.0-33.0); MEAN CORPUSCULAR HGB CONC 31.2 g/dl (32.0-36.5); RED CELL DISTRIBUTION WIDTH 19.9 % (11.5-14.5); WHITE BLOOD COUNT 24.1 10^3/uL (4.0-10.0)
[2017-04-08 04:32] LABS: ALBUMIN 2.2 GM/DL (3.2-5.2); ALBUMIN/GLOBULIN RATIO 0.67 (1.00-1.93); ALKALINE PHOSPHATASE 112 U/L (45-117); ALT/SGPT 50 U/L (12-78); ANION GAP 7 MEQ/L (8-16); AST/SGOT 49 U/L (15-37); BILIRUBIN,TOTAL 0.3 MG/DL (0.2-1.0); BLOOD UREA NITROGEN 38 MG/DL (7-18); CALCIUM LEVEL 7.5 MG/DL (8.8-10.2); CARBON DIOXIDE LEVEL 31 MEQ/L (21-32); CHLORIDE LEVEL 102 MEQ/L (98-107); CREATININE FOR GFR 1.19 MG/DL (0.70-1.30); GLOMERULAR FILTRATION RATE > 60.0 (>35); GLUCOSE, FASTING 90 MG/DL (83-110); POTASSIUM SERUM 3.9 MEQ/L (3.5-5.1); SODIUM LEVEL 140 MEQ/L (136-145); TOTAL PROTEIN 5.5 GM/DL (6.4-8.2)
[2017-04-08] MEDS: HumaLOG INSULIN (NovoLOG) PER UNIT SC SCH ×2 (04:54→12:05)
[2017-04-08] MEDS: NYSTATIN 500,000 U/5 ML SUSP UDC PO SCH ×3 (05:02→17:26)
[2017-04-08] MEDS: HEPARIN SOD (PORCINE) 5000 UNITS/ML VIAL SQ SCH ×2 (05:02→13:22)
[2017-04-08 08:00] VITALS: BP 122/60
[2017-04-08] MEDS: FUROSEMIDE 40 MG/4 ML VIAL (J1940) IV SCH (08:15)
[2017-04-08] MEDS: MOM 30ML SUSPENSION UDC PO SCH (08:15)
[2017-04-08] MEDS: SERTRALINE HCL 50 MG TAB PO SCH (08:15)
[2017-04-08] MEDS: predniSONE 20 MG TAB PO SCH (08:15)
[2017-04-08] MEDS: prednisoLONE ACET 1% OPHTH SUSP 5ML OD SCH ×4 (08:15→21:37)
[2017-04-08] MEDS: PANTOPRAZOLE 40MG TAB (PROTONIX) PO SCH (08:15)
[2017-04-08] MEDS: FORMOTEROL FUMARATE 20 MCG/2 ML INHALATION SOLUTION (PERFOROMIST) INH SCH ×2 (08:42→20:14)
[2017-04-08] MEDS: BUDESONIDE 0.5 MG/2 ML INHALATION SUSPENSION INH SCH ×2 (08:42→20:14)
[2017-04-08] MEDS: CLOTRIMAZOLE 10 MG TROCHE PO PRN ×2 (10:42→13:22)
[2017-04-08 12:00] VITALS: BP 134/74
[2017-04-08 16:00] VITALS: BP 140/75
[2017-04-08] MEDS: SODIUM CHLORIDE 0.9% INJ 10 ML SYR IV PRN (17:25)
--- NOTE | 2017-04-08 18:38 | IPN ---
DATE: 04/08/2017 HISTORY: The patient is an 81-year-old man, now 14 days postoperative from surgery for a partially infarcted colostomy. He required a resection of a portion of the colon and relocating of his colostomy. He has been making some progress in the last couple days with resolution of some shortness of breath and mobilization of some third-space fluid with the aid of a daily dose of Lasix. Today he feels better and reports that his diet has improved somewhat, though he is still not taking a large volume of intake. His colostomy is functioning well. OBJECTIVE: VITAL SIGNS: Temperature maximum (T-max) in the past 24 hours is 99.9. Pulse is 83-90, respiratory rate is 18-20 and his blood pressure is fine. Oxygen saturations on two liters are in the high 90s. INTAKE AND OUTPUT: On 04/07, 1905 in, 3550 out. Only 75 mL of oral intake is recorded with 1830 of total parenteral nutrition (TPN). Stool output was 350 with urine output of 3200. PHYSICAL EXAMINATION: The patient is an elderly gentleman sitting up in a chair at the bedside. He appears quite comfortable. He is breathing easily on some nasal cannula oxygen. He has a wound vacuum-assisted closure (VAC) attached to the left side of the abdomen. He has a central line in the right neck with TPN running. Heart exam shows a regular rhythm and the lungs show some distant breath sounds. The abdomen is soft. He has a small amount of drainage coming from a punctate opening along his midline wound. The ostomy is functioning well in the left side of the abdomen and he has the wound VAC attached in the left upper quadrant. LABORATORY DATA: CBC today shows white count 24,000 with hemoglobin eight, hematocrit 25 and platelet count of 403,000. Chemistry profile shows normal electrolytes with BUN 38, creatinine 1.2, and his total protein is 5.5 with an albumin of 2.2. IMPRESSION: The patient appears to be making some progress. His ostomy is functioning well and his oral intake seems to be slightly improved. His is present today and we discussed plans going forward as far as continuing care. She would be interested in pursuing inpatient acute rehabilitation, but I do not know that the patient will be a candidate for this, given his level of frailty. PLAN: I am going to let his TPN run out this evening and encouraged him to increase his oral intake. He should continue physical therapy and we will need to make plans as to whether he may be a candidate for discharge home with outpatient physical therapy versus inpatient acute rehabilitation versus subacute rehabilitation. BENEDICTO
[2017-04-08 20:06] VITALS: BP 152/73
[2017-04-08] MEDS: ERTAPENEM SODIUM 1 GM in NS MINI-BAG PLUS 50 ML IV SCH (21:37)
[2017-04-09] VITALS (8 sets, daily range): BP systolic 125–151; BP diastolic 63–81; O2SAT 87
[2017-04-09] MEDS: NYSTATIN 500,000 U/5 ML SUSP UDC PO SCH ×4 (00:15→17:16)
[2017-04-09] MEDS: METOCLOPRAMIDE INJ 10MG/2ML VIAL (J2765) IV SCH (01:56)
[2017-04-09 04:59] LABS: MEAN CORPUSCULAR HEMOGLOBIN 23.6 pg (27.0-33.0); MEAN CORPUSCULAR HGB CONC 30.9 g/dl (32.0-36.5); MEAN CORPUSCULAR VOLUME 76.4 fl (80.0-96.0); PLATELET COUNT, AUTOMATED 392 10^3/uL (150-450); RED CELL DISTRIBUTION WIDTH 19.9 % (11.5-14.5); WHITE BLOOD COUNT 22.1 10^3/uL (4.0-10.0)
[2017-04-09] MEDS: SODIUM CHLORIDE 0.9% INJ 10 ML SYR IV SCH ×3 (05:01→20:50)
[2017-04-09] MEDS: ALBUTEROL SULFATE 2.5 MG/0.5 ML INH NEB SOLN NEB PRN ×2 (05:10→18:04)
[2017-04-09 05:12] LABS: ADD MANUAL DIFFER YES; DIFF SLIDE NUMBER 111; POS COUNT POS FLAG; POSITIVE DIFF POS FLAG; POSITIVE MORPH POS FLAG
[2017-04-09 05:17] LABS: ANION GAP 7 MEQ/L (8-16); BLOOD UREA NITROGEN 35 MG/DL (7-18); CALCIUM LEVEL 7.7 MG/DL (8.8-10.2); CARBON DIOXIDE LEVEL 30 MEQ/L (21-32); CHLORIDE LEVEL 101 MEQ/L (98-107); CREATININE FOR GFR 1.19 MG/DL (0.70-1.30); GLOMERULAR FILTRATION RATE > 60.0 (>35); GLUCOSE, FASTING 76 MG/DL (83-110); SODIUM LEVEL 138 MEQ/L (136-145)
[2017-04-09 05:43] LABS: ANISOCYTOSIS 2+
[2017-04-09 05:44] LABS: HYPOCHROMASIA 2+
[2017-04-09] MEDS: FORMOTEROL FUMARATE 20 MCG/2 ML INHALATION SOLUTION (PERFOROMIST) INH SCH ×2 (07:44→20:19)
[2017-04-09] MEDS: BUDESONIDE 0.5 MG/2 ML INHALATION SUSPENSION INH SCH ×2 (07:44→20:19)
--- NOTE | 2017-04-09 09:22 | REP ---
PORTABLE CHEST: AP portable view of the chest is performed and compared to a prior study of 04/05/2017. There is mild right basilar atelectasis/infiltrate. Left lung remains clear. Cardiomediastinal silhouette is unchanged. Right central venous catheter is again noted with the tip in the superior vena cava. Nasogastric tube has been removed. Signed by Bright Kaplan MD 04/10/2017 07:37 P
[2017-04-09] MEDS: PANTOPRAZOLE 40MG TAB (PROTONIX) PO SCH (09:58)
[2017-04-09] MEDS: ENOXAPARIN 40 MG/0.4 ML SYRINGE (J1650) SC SCH (09:58)
[2017-04-09] MEDS: predniSONE 5 MG TAB PO SCH (09:58)
--- NOTE | 2017-04-09 09:58 | IPN ---
DATE OF SERVICE: 04/09/2017 The patient is now 15 days postop from surgery for a partially infarcted stoma which required bowel resection and recreation of a stoma. He has been making progress with improved bowel function over the last few days. He is now on a regular diet. Vital signs: T-max is 100.1 at 8 p.m. on the . Pulses in the 80s, respiratory rate is 18 and his blood pressure is fine. Oxygen saturations on 2 liters of nasal cannula oxygen are excellent. Intake and output 2100 in, 3700 out on April 08. Weight today is 68.8 kg which is down from 73.5 kg on the . PHYSICAL EXAMINATION: The patient is sitting up in a chair looking fairly comfortable. He is thin and elderly. He is alert and oriented to exam. I came in just as his colostomy bag opened up and drained all over the floor. Lungs: Sounds are generally clear but distant bilaterally. Heart: Exam shows a regular rhythm. The abdomen is soft. He has minimal amount of drainage at a pinpoint opening along the middle of his incision. The ostomy in the left lower quadrant is clearly functioning well. The wound Vac remains in place at a site above the level of his current ostomy. He has a Avilez catheter in place draining clear light yellow urine. Lower extremities: Show some pitting edema fairly well limited to the distal half of the lower legs and ankles. LABORATORY STUDIES: White blood cell count is 22,000, hemoglobin 8, hematocrit 26 and platelet count of 392,000. Differential shows 83% neutrophils, 7 lymphocytes and 3 monocytes. Chemistries show normal electrolytes with BUN 35, creatinine 1.2 and glucose of 76. IMPRESSION: The patient has had a good return of bowel function. He is now tolerating a regular diet. He denies any nausea or vomiting today. He has remained on ertapenem since his surgery and this is now over 2 weeks. His white count remains elevated but as I look back in the record, it has been above the normal range for the last year, at its lowest point it was 11,000. PLAN: I will stop his ertapenem. We will remove his triple lumen catheter. His Avilez catheter will be removed though I encouraged him to use the urinal so that we could continue to monitor his intake and output. I will change his IV Lasix to oral though now that he is receiving no IV fluid, it may be appropriate to just stop the diuretic within the next day or two. We will monitor his dietary intake and see if he is able to take enough calories to sustain himself. Hopefully he will be able to be out of the hospital within a few days. BENEDICTO
[2017-04-09] MEDS: prednisoLONE ACET 1% OPHTH SUSP 5ML OD SCH ×4 (09:59→20:53)
[2017-04-09] MEDS: SERTRALINE HCL 50 MG TAB PO SCH (09:59)
[2017-04-09] MEDS: FUROSEMIDE 40 MG TAB PO SCH (09:59)
[2017-04-09] MEDS: CLOTRIMAZOLE 10 MG TROCHE PO PRN ×2 (14:25→17:16)
--- NOTE | 2017-04-09 14:47 | IPNPDOC ---
Date Seen The patient was seen on 04/09/17. Progress Note SUBJECTIVE: 81-year-old with a history of colon cancer with a colostomy. He is status post colostomy and bowel resection, due to infarcted bowel with perforations and necrotizing infection. Pulmonary was consulted because the patient was experiencing increase shortness of breath. Patient has a baseline history of chronic obstructive asthma. He is currently on prednisone 15 mg, fumarate in a 20 mcg nebulized, along with budesonide 0.5 mg also as a nebulized. This morning patient has decreased work of breathing, he is currently on nasal cannula at 1 liter. Patient was resting comfortably in bed. Patient explained that he had experienced some productive green sputum cough in the morning. And he was still coughing up the remainder of the sputum. OBJECTIVE PHYSICAL EXAMINATION: VITAL SIGNS: Please see below. GENERAL: Alert, resting comfortably in bed, HEENT: Thrush noted in patient's mouth on soft palate. some vesicles on the tongue. CARDIOVASCULAR: S1 and S2 present, no murmurs, no rubs, no gallops. No elevated jvp. RESPIRATORY: Lungs were clear to auscultate, anterior, and posterior bilaterally. No rales, rhonchi or wheeze. ABDOMINAL: Soft, no hepatosplenomegaly noted, ostomy with brown stool LABORATORY DATA: Please see below. MICROBIOLOGY: Please see below. ASSESSMENT AND PLAN: An 81-year-old male consulted by pulmonary because of difficulty breathing PROBLEMS: 1. COPD, continue on 15 mg of prednisone. We'll consider reducing to 10 mg tomorrow 2. Wheezing, cleared with cough: 3. Oral thrush, recommend nystatin wash VS, I&O, 24H, Fishbone Vital Signs/I&O Vital Signs Date Time Temp Pulse Resp B/P (MAP) Pulse Ox O2 Delivery O2 Flow Rate FiO2 04/09/17 12:00 98.3 96 20 125/63 (83) 90 Nasal Cannula 2.0 04/09/17 09:00 40 I&O- Last 24 Hours up to 6 AM 04/10/17 06:00 Intake Total 600 ml Balance 600 ml Laboratory Data 24H LABS Laboratory Tests 2 04/08/17 17:19: Bedside Glucose (Misc Panel) 142H 04/09/17 04:51: Immature Granulocyte % (Auto) , White Blood Count 22.1H, Red Blood Count 3.35L, Hemoglobin 7.9L, Hematocrit 25.6L, Mean Corpuscular Volume 76.4L, Mean Corpuscular Hemoglobin 23.6L, Mean Corpuscular Hemoglobin Concent 30.9L, Red Cell Distribution Width 19.9H, Platelet Count 392, Monocytes # (Auto) , Nucleated Red Blood Cells % (auto) 0.0, Neutrophils 83H, Lymphocytes (Manual) 7L , Monocytes (Manual) 3, Metamyelocytes 4H, Myelocytes 3H, Platelet Estimate INCREASED, Hypochromasia 2+, Anisocytosis 2+, Anion Gap 7L, Glomerular Filtration Rate > 60.0, Blood Urea Nitrogen 35H, Creatinine 1.19, Sodium Level 138, Potassium Level 4.0, Chloride Level 101, Carbon Dioxide Level 30, Calcium Level 7.7L CBC/BMP Laboratory Tests 04/09/17 04:51 Red Blood Count 3.35 L, Mean Corpuscular Volume 76.4 L, Mean Corpuscular Hemoglobin 23.6 L, Mean Corpuscular Hemoglobin Concent 30.9 L, Red Cell Distribution Width 19.9 H, Monocytes # (Auto) , Calcium Level 7.7 L Microbiology Microbiology 04/03/17 Blood Culture - Final, Complete NO GROWTH AFTER 5 DAYS 04/03/17 Blood Culture - Final, Complete NO GROWTH AFTER 5 DAYS 04/03/17 Urine Culture - Final, Complete GME ATTESTATION GME ATTESTATION My preceptor for this patient encounter was physically present in the building during the encounter and was fully available. As needed, all aspects of the patient interview, examination, medical decision making process, and medical care plan development were reviewed and approved by the preceptor. Preceptor is aware and concurs with the plan as stated in the body of this note and will attest to such by his/her cosignature. SAMY MILLER DO Apr 09, 2017 14:47 FABIÁN DUMAS DO F.CEricCEricP Apr 16, 2017 16:18
[2017-04-09] MEDS ORDERED: MAGIC MOUTHWASH SUSPENSION BTL SS PRN (17:45)
--- NOTE | 2017-04-09 17:51 | IPN ---
DATE: 04/09/2017 Mr. Altamirano is sitting at the bedside eating his dinner. He states he is hungry but has difficulty swallowing due to pain in his throat and on his tongue. He has been on Nystatin swish and swallow since and clotrimazole since 04/07/2017 with no improvement of his symptoms. His cough and shortness of breath are at baseline. He is improving. Invanz was discontinued today after 15 days of treatment. Heart: Normal S1, S2. No murmurs. Lungs: A few expiratory rhonchi bilaterally. Abdomen: Soft, nontender. Wound VAC in place, has been changed on Sunday. Extremities: +1 edema. Oropharynx: Ulcers on his tongue and his palate. No thrush appreciated. Also he has a herpetic lesion on his lower lip. IMPRESSION: 1. Herpes oralis. No improvement after Nystatin he had received since 04/02/2017. 2. Intraabdominal infection. Status post 15 days of Invanz with incarcerated colostomy improving. The patient continues on wound VAC. Antibiotics are discontinued. 3. Chronic obstructive pulmonary disease (COPD) exacerbation. Doing better. Dose of steroids has been decreased, currently on 15 mg daily. LABORATORY DATA: White count 22.1, hemoglobin 7.9, hematocrit 25.6, platelets 392, 83% neutrophils, 7% lymphocytes. Sodium 138, potassium 4, chloride 101, bicarbonate 30, BUN 35, creatinine 1.2, glucose 76, calcium 7.7. PLAN: Discontinue Nystatin and clotrimazole. We will treat him with Valtrex 500 mg by mouth three times a day, Magic Mouthwash three times a day for comfort. Discontinue intravenous (IV) ertapenem; last dose was on 04/08/2017. Review of chest x-ray shows left lung being clear and right middle lobe infiltrate/atelectasis unchanged.
[2017-04-09] MEDS: MAGIC MOUTHWASH SUSPENSION BTL SS PRN (18:32)
[2017-04-09] MEDS: valACYclovir HCL 500 MG TAB PO SCH (18:32)
[2017-04-10] VITALS (7 sets, daily range): BP systolic 117–156; BP diastolic 56–82
[2017-04-10] MEDS: MAGIC MOUTHWASH SUSPENSION BTL SS PRN ×4 (00:10→17:19)
[2017-04-10] MEDS: SODIUM CHLORIDE 0.9% INJ 10 ML SYR IV SCH (00:10)
[2017-04-10] MEDS: valACYclovir HCL 500 MG TAB PO SCH ×3 (00:56→17:19)
[2017-04-10] MEDS: ALBUTEROL SULFATE 2.5 MG/0.5 ML INH NEB SOLN NEB PRN (03:54)
[2017-04-10] MEDS: BUDESONIDE 0.5 MG/2 ML INHALATION SUSPENSION INH SCH ×2 (07:08→18:19)
[2017-04-10] MEDS: FORMOTEROL FUMARATE 20 MCG/2 ML INHALATION SOLUTION (PERFOROMIST) INH SCH ×2 (07:08→18:19)
[2017-04-10 07:23] LABS: MEAN CORPUSCULAR HEMOGLOBIN 23.4 pg (27.0-33.0); MEAN CORPUSCULAR HGB CONC 30.4 g/dl (32.0-36.5); MEAN CORPUSCULAR VOLUME 76.9 fl (80.0-96.0); WHITE BLOOD COUNT 16.9 10^3/uL (4.0-10.0)
[2017-04-10 07:24] LABS: RED CELL DISTRIBUTION WIDTH 20.8 % (11.5-14.5)
[2017-04-10 07:48] LABS: CALCIUM LEVEL 8.5 MG/DL (8.8-10.2); CREATININE FOR GFR 1.29 MG/DL (0.70-1.30); GLOMERULAR FILTRATION RATE 56.6 (>35)
[2017-04-10] MEDS: SERTRALINE HCL 50 MG TAB PO SCH (08:38)
[2017-04-10] MEDS: predniSONE 5 MG TAB PO SCH (08:38)
[2017-04-10] MEDS: FUROSEMIDE 40 MG TAB PO SCH (08:38)
[2017-04-10] MEDS: PANTOPRAZOLE 40MG TAB (PROTONIX) PO SCH (08:38)
[2017-04-10] MEDS: ENOXAPARIN 40 MG/0.4 ML SYRINGE (J1650) SC SCH (08:38)
[2017-04-10] MEDS: prednisoLONE ACET 1% OPHTH SUSP 5ML OD SCH ×4 (08:39→20:25)
--- NOTE | 2017-04-10 15:10 | IPNPDOC ---
Subjective Date Seen The patient was seen on 04/10/17. Subjective Chief Complaint/HPI The patient is a 81-year-old male admitted with a reason for visit of Peristomal Hernia,Sbo. General: Denies: Chills, Night Sweats Constitutional: Denies: Chills Eyes: Denies: Pain, Vision change ENT: Reports: Other Symptoms (states he can now eat with reduced pain and that the new medications are helping him greatly), Denies: Head Aches, Dysphagia Skin: Denies: Rash Pulmonary: Denies: Dyspnea, Cough Cardiovascular: Denies: Chest Pain Gastrointestinal: Denies: Nausea, Vomiting Psych: Reports: Mood Normal Objective Physical Examination General Exam: Positive: Alert, Cooperative, No Acute Distress Eye Exam: Positive: Conjunctiva & lids normal, EOMI, Negative: Sclera icteric, Ptosis ENT Exam: Positive: Mucous membr. moist/pink, Other ENT (healed oral sore on lower lip, also healing oral ulcer on top of soft palette) Neck Exam: Positive: Supple Chest Exam: Positive: Clear to auscultation, Normal air movement, Negative: Rales, Rhonchi, Wheezing Heart Exam: Positive: Rate Normal Telemetry: Positive: No significant arrhythmia Abdomen Exam: Positive: Normal bowel sounds Skin Exam: Negative: Rash, Breakdown Assessment /Plan Problems (1) Herpes virus infection of oral mucosa Status: Acute Response to Treatment: Stable Problem Text: pt states that his oral ulcers are better and has noted he is now able to eat with less discomfort since starting his new medication regime will c/w valtrex therapy and magic mouthwash, on physical exam the patients ulcers seem to be healing well. Will change his magic mouthwash to q4hp so he may have extra relief, especially when eating. (2) Intra-abdominal infection Status: Acute Response to Treatment: Stable Problem Text: s/p invanz treatment, pt. does not complain of abdominal pain or d/c, afebrile and white count 16.9, decreasing abx d/c. c/w wound vac. Plan/VTE VTE Prophylaxis Ordered?: Yes Plan/Urinary Catheter Reason for insertion/continuin: Critical Pt monitoring VS, I&O, 24H, Fishbone Vital Signs/I&O Vital Signs Date Time Temp Pulse Resp B/P (MAP) Pulse Ox O2 Delivery O2 Flow Rate FiO2 04/10/17 12:00 97.8 85 18 134/77 (96) 92 Nasal Cannula 1.0 04/09/17 09:00 40 I&O- Last 24 Hours up to 6 AM 04/11/17 06:00 Intake Total 480 ml Balance 480 ml Laboratory Data 24H LABS Laboratory Tests 2 04/10/17 07:02: Nucleated Red Blood Cells % (auto) 0.0, Anion Gap 7L, Glomerular Filtration Rate 56.6, Blood Urea Nitrogen 34H, Creatinine 1.29, Sodium Level 138, Potassium Level 4.0, Chloride Level 103, Carbon Dioxide Level 28, Calcium Level 8.5L CBC/BMP Laboratory Tests 04/10/17 07:02 Red Blood Count 3.85 L, Mean Corpuscular Volume 76.9 L, Mean Corpuscular Hemoglobin 23.4 L, Mean Corpuscular Hemoglobin Concent 30.4 L, Red Cell Distribution Width 20.8 H, Calcium Level 8.5 L Microbiology Microbiology 04/03/17 Blood Culture - Final, Complete NO GROWTH AFTER 5 DAYS 04/03/17 Blood Culture - Final, Complete NO GROWTH AFTER 5 DAYS 04/03/17 Urine Culture - Final, Complete GME ATTESTATION GME ATTESTATION My preceptor for this patient encounter was physically present in the building during the encounter and was fully available. As needed, all aspects of the patient interview, examination, medical decision making process, and medical care plan development were reviewed and approved by the preceptor. Preceptor is aware and concurs with the plan as stated in the body of this note and will attest to such by his/her cosignature. JACQUELINE MCGRATH DO Apr 10, 2017 15:10
--- NOTE | 2017-04-10 18:05 | IPN ---
DATE: 04/10/2017 HISTORY: Patient is now 16 days postop from surgery for an infarction of a peristomal hernia, necessitating a bowel resection and recreation of a new colostomy. He has significant underlying lung disease. We have made good progress in the last few days, having stopped his total parenteral nutrition (TPN) and removed his triple lumen. His Avilez catheter has been removed and he is voiding. VITAL SIGNS: Patient's maximum temperature (T-max) for the last 24 hours was 99.7 and he was afebrile today. Pulse is in the 80s, respiratory rate is 18 and his blood pressure is fine. Oxygen saturation on 1 liter of nasal cannula oxygen are in the mid 90s. Intake and output (I and O) yesterday showed 1000 mL in and 2150 out. His weight today is down 2 kg from yesterday. PHYSICAL EXAMINATION: Patient is lying quietly in the bed and looks quite comfortable. He reports that he has been doing well and he is able to get up to the bathroom largely unaided. His skin is warm and dry. The triple lumen sight in his neck is dressed and appears clean. Heart exam shows a regular rhythm. The lungs show distant breath sounds. The abdomen remains mildly distended. His ostomy is functioning. The wound VAC is in place on an open area in the left upper quadrant. His midline incision appears to be largely well-healed, although there is a single, roughly 2 mm punctate opening in the center of the wound, from which a minimal amount of serous fluid can be expressed. He has still some pitting edema of his distal lower legs bilaterally. LABORATORY STUDIES: White count is down today to 16.9, with a hemoglobin of 9, hematocrit of 30, and a platelet count of 421,000. Chemistry profile shows normal electrolytes with a BUN of 34, creatinine of 1.3 and a glucose of 85. He has no new imaging today. IMPRESSION: Patient is doing well with good ostomy function. His pulmonary status has improved markedly over the last four or five days and he is much more comfortable. He has been having issues with mouth pain, which Dr. Walker has now diagnosed as a herpetic infection rather than thrush and she has instituted treatment. Patient is voiding without his Avilez and all of his lines and tubes are out. PLAN: I have asked the nurse to start placing a small dressing on the small draining spot in his wound. His wound VAC is due for change today. He is undergoing physical therapy today and we will need to determine if he is a candidate for inpatient rehabilitation versus subacute rehabilitation versus home with outpatient services. I am thinking he may be able to leave the hospital within the next couple of days. BENEDICTO
[2017-04-10] MEDS: MAGIC MOUTHWASH SUSPENSION BTL SS SCH (20:25)
[2017-04-11] MEDS: valACYclovir HCL 500 MG TAB PO SCH ×3 (02:00→17:02)
[2017-04-11] MEDS: MAGIC MOUTHWASH SUSPENSION BTL SS PRN ×3 (02:02→17:02)
[2017-04-11 04:00] VITALS: BP 149/68
[2017-04-11] MEDS: MAGIC MOUTHWASH SUSPENSION BTL SS SCH ×3 (06:00→21:23)
[2017-04-11] MEDS: BUDESONIDE 0.5 MG/2 ML INHALATION SUSPENSION INH SCH ×2 (06:01→20:14)
[2017-04-11] MEDS: FORMOTEROL FUMARATE 20 MCG/2 ML INHALATION SOLUTION (PERFOROMIST) INH SCH ×2 (06:01→20:14)
[2017-04-11 08:00] VITALS: BP 140/69
[2017-04-11] MEDS ORDERED: predniSONE 10 MG TAB PO SCH (09:00)
[2017-04-11] MEDS: PANTOPRAZOLE 40MG TAB (PROTONIX) PO SCH (09:16)
[2017-04-11] MEDS: ENOXAPARIN 40 MG/0.4 ML SYRINGE (J1650) SC SCH (09:16)
[2017-04-11] MEDS: SERTRALINE HCL 50 MG TAB PO SCH (09:16)
[2017-04-11] MEDS: prednisoLONE ACET 1% OPHTH SUSP 5ML OD SCH ×4 (09:17→21:22)
--- NOTE | 2017-04-11 10:09 | IPNPDOC ---
Subjective General Date/Time Seen The patient was seen on 03/31/17 at 0900. Patient seen in the morning at the bedside, at the bedside with him. He complains of hiccups, pain at the old colostomy site, occasional nausea. He is putting out more air in the colostomy. He was tried on BiPAP but could not tolerate it last night. He reports his breathing is slightly better this morning. Subject Chief Complaint/History The patient is a 81-year-old male admitted with a reason for visit of Peristomal Hernia,Sbo. Current Medications Current Medications Current Medications Acetaminophen (Tylenol Suppository) 650 mg Q4HP PRN AR PAIN / FEVER Last administered on 03/28/17 15:42; Start 03/28/17 at 15:30; Stop 04/27/17 at 15:29 Acetaminophen (Tylenol Tab) 650 mg Q4HP PRN PO MILD PAIN or TEMP > 101 Last administered on 03/29/17 11:48; Start 03/23/17 at 18:15; Stop 04/22/17 at 18: 14 Acetaminophen/ Hydrocodone Bitart ([place], Anexsia 5/325) 1 tab Q4HP PRN PO MODERATE PAIN (PS 5-7) Last administered on 03/24/17 02:36; Start 03/23/17 at 18:15; Stop 03/25/17 at 20:04; Status DC Acetaminophen/ Hydrocodone Bitart ([place], Anexsia 5/325) 2 tab Q6HP PRN PO SEVERE PAIN (PS 8-10) Last administered on 03/24/17 09:31; Start 03/23/17 at 18 :15; Stop 03/25/17 at 20:04; Status DC Albuterol Sulfate (Proventil Neb) 2.5 mg Q2HP PRN NEB SHORTNESS OF BREATH Last administered on 03/30/17 22:18; Start 03/25/17 at 22:00; Stop 04/24/17 at 21: 59 Albuterol Sulfate (Proventil, Ventolin Hfa) 2 puff QIDP PRN INH SHORTNESS OF BREATH Last administered on 03/24/17 22:09; Start 03/23/17 at 18:15; Stop at 18:14 Albuterol/ Ipratropium (Duoneb (Ipr 0.5mg/Alb 2.5mg)) 2.5 ml TIDP PRN INH SHORTNESS OF BREATH Last administered on 03/25/17 09:19; Start 03/23/17 at 18: 15; Stop 03/25/17 at 21:58; Status DC Albuterol/ Ipratropium (Duoneb (Ipr 0.5mg/Alb 2.5mg)) 3 ml RQ4H NEB Last administered on 03/27/17 07:07; Start 03/26/17 at 00:00; Stop 03/27/17 at 09:48 ; Status DC Alprazolam (Xanax) 0.5 mg QHS PO Last administered on 03/24/17 21:53; Start at 21:00; Stop 03/25/17 at 20:04; Status DC Alvimopan (Entereg) 12 mg BID PO Last administered on 03/31/17 09:28; Start 03/27/17 at 09:00; Stop 04/03/17 at 08:59 Amino Ac/Electrol/ Dextrose/Calcium 2,000 ml @ 85 mls/hr ONCE@1800 IV Last administered on 03/26/17 17:27; Start 03/26/17 at 18:00; Stop 03/27/17 at 17:59 ; Status DC Budesonide (Pulmicort) 0.5 mg BIDP PRN INH SHORTNESS OF BREATH Last administered on 03/27/17 07:07; Start 03/23/17 at 18:15; Stop 03/27/17 at 09:47 ; Status DC Budesonide (Pulmicort) 0.5 mg RBID INH Last administered on 03/30/17 19:53; Start 03/27/17 at 20:00; Stop 04/26/17 at 19:59 Cetylpyridinium Chloride (Cepacol) 1 anish Q2HP PRN PO COUGH Last administered on 03/25/17 09:44; Start 03/25/17 at 08:45; Stop 03/25/17 at 20:04; Status DC Chlorhexidine Gluconate (Peridex Oral Rinse) SWAB/BRUSH ORAL CAVITY BID MT Last administered on 03/26/17 21:51; Start 03/25/17 at 21:00; Stop 03/27/17 at 09:48; Status DC Ciprofloxacin 400 mg/IV Miscellaneous Supplies 200 ml @ 200 mls/hr Q12H IV Last administered on 03/25/17 15:45; Start 03/24/17 at 16:00; Stop 03/25/17 at 20:04; Status DC Dextrose (Dextrose 50%) 25 ml ASDIRECTED PRN IV SEE LABEL COMMENTS; Start 03/27 at 08:30; Stop 04/26/17 at 08:29 Dextrose/Sodium Chloride 1,000 ml @ 100 mls/hr Q10H IV ; Start 03/23/17 at 17: 45; Stop 03/23/17 at 21:25; Status DC Diphenhydramine HCl (Benadryl) 12.5 mg Q4HP PRN IV ITCHING Last administered on 03/28/17 23:53; Start 03/25/17 at 15:30; Stop 03/30/17 at 10:58; Status DC Diphenhydramine HCl (Benadryl) 12.5 mg Q4HP PRN IV ITCHING Last administered on 03/31/17 03:06; Start 03/30/17 at 09:45; Stop 04/29/17 at 09:44 Enoxaparin Sodium (Lovenox) 30 mg DAILY SC Last administered on 03/24/17 08:28 ; Start 03/24/17 at 09:00; Stop 03/25/17 at 08:26; Status DC Ertapenem 1 gm/ Sodium Chloride 50 ml @ 100 mls/hr Q24H IV Last administered on 03/30/17 21:26; Start 03/25/17 at 22:00; Stop 04/01/17 at 21:59 Fat Emulsion Intravenous 500 ml @ 20 mls/hr ONCE@1800 IV Last administered on 03/26/17 17:28; Start 03/26/17 at 18:00; Stop 03/27/17 at 17:59; Status DC Fat Emulsion Intravenous 500 ml @ 20 mls/hr ONCE@1800 IV Last administered on 03/27/17 17:12; Start 03/27/17 at 18:00; Stop 03/28/17 at 17:59; Status DC Fat Emulsion Intravenous 500 ml @ 20 mls/hr ONCE@1800 IV Last administered on 03/28/17 17:15; Start 03/28/17 at 18:00; Stop 03/29/17 at 17:59; Status DC Fat Emulsion Intravenous 500 ml @ 20 mls/hr ONCE@1800 IV Last administered on 03/29/17 17:54; Start 03/29/17 at 18:00; Stop 03/30/17 at 17:59; Status DC Fat Emulsion Intravenous 500 ml @ 20 mls/hr ONCE@1800 IV Last administered on 03/30/17 17:36; Start 03/30/17 at 18:00; Stop 03/31/17 at 17:59 Fat Emulsion Intravenous 500 ml @ 20 mls/hr ONCE@1800 IV ; Start 03/31/17 at 18 :00; Stop 04/01/17 at 17:59 Fentanyl Citrate (Sublimaze) 25 mcg Q5MP PRN IV MODERATE PAIN (PS 4-7); Start 03/25/17 at 20:00; Stop 03/25/17 at 20:59; Status DC Fentanyl Citrate (Sublimaze) 25 mcg Q5MP PRN IV MODERATE PAIN (PS 4-7); Start 03/26/17 at 14:45; Stop 03/26/17 at 15:45; Status DC Fentanyl Citrate (Sublimaze) 50 mcg ASDIRECTED PRN IV PAIN Last administered on 03/25/17 14:55; Start 03/25/17 at 15:30; Stop 03/25/17 at 16:30; Status DC Fentanyl Citrate (Sublimaze) 50 mcg ASDIRECTED PRN IV PAIN; Start 03/25/17 at 20:15; Stop 03/25/17 at 20:59; Status DC Fentanyl/ Bupivacaine HCl 250 ml @ 13 mls/hr [id number] EPIDURAL Last administered on 03/29/17 16:21; Start 03/25/17 at 15:30; Stop 03/30/17 at 10:52 ; Status DC Furosemide (LASIX injection) 40 mg DAILY IV Last administered on 03/31/17 09: 29; Start 03/27/17 at 09:00; Stop 04/26/17 at 08:59 Gabapentin (Neurontin) 100 mg BID PO Last administered on 03/24/17 21:53; Start 03/23/17 at 21:00; Stop 03/25/17 at 20:04; Status DC Glucagon (Glucagon) 1 mg ASDIRECTED PRN SC SEE LABEL COMMENTS; Start 03/27/17 at 08:30; Stop 04/26/17 at 08:29 Glucose (Glucose) 16 GM ASDIRECTED PRN PO SEE LABEL COMMENTS; Start 03/27/17 at 08:30; Stop 04/26/17 at 08:29 Heparin Sodium (Heparin Lock Flush 10units/ml) 10 units ASDIRECTED PRN IV SEE LABEL COMMENTS; Start 03/29/17 at 16:45; Stop 04/28/17 at 16:44 Heparin Sodium (Heparin Lock Flush 10units/ml) 10 units HLF IV Last administered on 03/31/17 04:56; Start 03/29/17 at 22:00; Stop 04/28/17 at 21:59 Heparin Sodium (Porcine) (Heparin) 5,000 units Q8H SQ Last administered on 03/31 06:26; Start 03/27/17 at 14:00; Stop 04/01/17 at 13:59 Home Med (Med Rec Complete!) ASDIRECTED XX ; Start 03/23/17 at 15:15; Stop at 15:15; Status DC Insulin Human Lispro (HumaLOG INSULIN) SEE PROTOCOL TABLE Q6H SC ; Start at 06:00; Stop 04/26/17 at 05:59; Status Cancel Insulin Human Lispro (HumaLOG INSULIN) See Protocol Table Q6H SC Last administered on 03/27/17 12:35; Start 03/26/17 at 18:00; Stop 03/27/17 at 12:01 ; Status DC Insulin Human Lispro (HumaLOG INSULIN) See Protocol Table Q6H SC Last administered on 03/28/17 12:23; Start 03/27/17 at 18:00; Stop 03/28/17 at 14:00 ; Status DC Insulin Human Lispro (HumaLOG INSULIN) See Protocol Table Q6H SC Last administered on 03/29/17 12:35; Start 03/28/17 at 18:00; Stop 03/29/17 at 12:01 ; Status DC Insulin Human Lispro (HumaLOG INSULIN) See Protocol Table Q6H SC Last administered on 03/30/17 11:35; Start 03/29/17 at 18:00; Stop 03/30/17 at 12:01 ; Status DC Insulin Human Lispro (HumaLOG INSULIN) See Protocol Table Q6H SC Last administered on 03/31/17 12:36; Start 03/30/17 at 18:00; Stop 03/31/17 at 12:01 ; Status DC Insulin Human Lispro (HumaLOG INSULIN) See Protocol Table Q6H SC ; Start at 18:00; Stop 04/01/17 at 14:00 Insulin Human Regular 10 units/ Potassium Chloride 20 meq/ Amino Ac/Electrol/ Dextrose/Calcium 2,010.1 ml @ 60 mls/hr ONCE@1800 IV ; Start 03/31/17 at 18:00 ; Stop 04/01/17 at 17:59 Ketorolac Tromethamine (ToRADol) 15 mg Q8H IV Last administered on 03/31/17 12 :36; Start 03/30/17 at 12:00; Stop 04/02/17 at 11:59 Lactated Ringer's 1,000 ml @ 80 mls/hr [id number] IV ; Start 03/25/17 at 20:00; Stop 03/25/17 at 20:04; Status DC Lactated Ringer's 1,000 ml @ 100 mls/hr Q10H IV Last administered on 15:36; Start 03/26/17 at 14:45; Stop 03/26/17 at 15:45; Status DC Lactated Ringer's 1,000 ml @ 125 mls/hr Q8H IV Last administered on 03/26/17 05:58; Start 03/23/17 at 18:10; Stop 03/26/17 at 17:49; Status DC Loratadine (Claritin) 10 mg DAILY PO Last administered on 03/24/17 08:30; Start 03/24/17 at 09:00; Stop 03/25/17 at 20:04; Status DC Lorazepam (Ativan) 1 mg STAT STAT IV Last administered on 03/29/17 00:54; Start 03/29/17 at 00:46; Stop 03/29/17 at 00:48; Status DC Magnesium Hydroxide (Milk Of Magnesia) 30 ml DAILYPRN PRN PO CONSTIPATION; Start 03/23/17 at 18:15; Stop 03/25/17 at 20:04; Status DC Methylprednisolone (SOLU medrol) 4 mg DAILY IV ; Start 03/27/17 at 09:00; Stop 03/27/17 at 09:10; Status DC Methylprednisolone (SOLUmedrol) 60 mg Q12H IV Last administered on 03/26/17 09 :16; Start 03/25/17 at 21:00; Stop 03/26/17 at 14:35; Status DC Metoclopramide HCl (REGLAN INJection) 10 mg Q6HP PRN IV NAUSEA; Start 03/25/17 at 15:30; Stop 03/30/17 at 10:58; Status DC Metronidazole 500 mg/IV Miscellaneous Supplies 100 ml @ 100 mls/hr Q8H IV Last administered on 03/25/17 15:18; Start 03/24/17 at 14:00; Stop 03/25/17 at 20:04; Status DC Midazolam HCl (Versed) 1 mg ASDIRECTED PRN IV ANXIETY Last administered on 03/25 14:55; Start 03/25/17 at 15:30; Stop 03/25/17 at 16:30; Status DC Midazolam HCl (Versed) 1 mg ASDIRECTED PRN IV ANXIETY; Start 03/25/17 at 20:00 ; Stop 03/25/17 at 20:59; Status DC Midazolam HCl (Versed) 2 mg Q15MP PRN IV AGITATION Last administered on 06:03; Start 03/25/17 at 22:00; Stop 03/27/17 at 09:48; Status DC Morphine Sulfate (Morphine Sulfate In 0.9%Nacl Iv Bag) Concentration 1 mg/ml ASDIRECTED PRN IV SEE LABEL COMMENTS Last administered on 03/30/17 11:08; Start 03/30/17 at 09:45; Stop 04/06/17 at 09:44 Morphine Sulfate (Morphine Sulfate Inj) 2 mg Q2HP PRN IV PAIN Last administered on 03/25/17 23:53; Start 03/25/17 at 22:00; Stop 03/27/17 at 08:25 ; Status DC Morphine Sulfate (Morphine Sulfate Inj) 2 mg Q5MP PRN IV MODERATE/SEVERE PAIN ( PS 7-10); Start 03/25/17 at 20:00; Stop 03/25/17 at 20:04; Status DC Morphine Sulfate (Morphine Sulfate Inj) 4 mg Q2HP PRN IV SEVERE PAIN (PS 8-10) Last administered on 03/25/17 13:23; Start 03/23/17 at 18:15; Stop 03/25/17 at 20:04; Status DC Morphine Sulfate (Morphine Sulfate Inj) 4 mg Q30M PRN IV SEVERE PAIN (PS 8-10) Last administered on 03/23/17 19:59; Start 03/23/17 at 13:00; Stop 03/23/17 at 19:59; Status DC Multivitamins (Theragram-M) 1 tab BID PO Last administered on 03/24/17 21:53; Start 03/23/17 at 21:00; Stop 03/25/17 at 20:04; Status DC Multivitamins 10 ml/Chromium/ Copper/Manganese/ Seleni/Zn 1 ml/ Insulin Human Regular 10 units/ Potassium Chloride 20 meq/ Amino Ac/Electrol/ Dextrose/ Calcium 2,021.1 ml @ 65 mls/hr ONCE@1800 IV Last administered on 03/30/17 17: 36; Start 03/30/17 at 18:00; Stop 03/31/17 at 17:59 Multivitamins 10 ml/Chromium/ Copper/Manganese/ Seleni/Zn 1 ml/ Potassium Chloride 20 meq/ Insulin Human Regular 12 units/ Amino Ac/Electrol/ Dextrose/ Calcium 2,021.12 ml @ 70 mls/hr ONCE@1800 IV Last administered on 03/28/17 17 :15; Start 03/28/17 at 18:00; Stop 03/29/17 at 17:59; Status DC Nalbuphine HCl (Nubain) 2.5 mg Q6HP PRN IV PRURITIS; Start 03/30/17 at 09:45; Stop 04/06/17 at 09:44 Naloxone HCl (Narcan) 0.1 mg Q5MP PRN IV SEE LABEL COMMENTS; Start 03/25/17 at 15:30; Stop 03/30/17 at 10:58; Status DC Naloxone HCl (Narcan) 0.1 mg Q5MP PRN IV SEE LABEL COMMENTS; Start 03/30/17 at 09:45; Stop 04/29/17 at 09:44 Non-Formulary Medication (Epidural/LINE STAKER Ephesus) 1 each ASDIRECTED PRN XX SEE LABEL COMMENTS; Start 03/25/17 at 15:30; Stop 03/30/17 at 10:58; Status DC Non-Formulary Medication (Epidural/LINE STAKER Ephesus) USE THIS ENTRY TO VEND ... Q1M PRN XX SEE LABEL COMMENTS; Start 03/30/17 at 09:45; Stop 04/29/17 at 09:44 Non-Formulary Medication (Ephesus) ASDIRECTED PRN XX SEE LABEL COMMENTS; Start 03/25/17 at 15:30; Stop 03/30/17 at 10:58; Status DC Ondansetron HCl (ZOFRAN INJection) 4 mg Q4HP PRN IV NAUSEA OR VOMITING; Start 03/25/17 at 20:00; Stop 03/25/17 at 20:59; Status DC Ondansetron HCl (ZOFRAN INJection) 4 mg Q4HP PRN IV NAUSEA OR VOMITING; Start 03/26/17 at 14:45; Stop 03/26/17 at 15:45; Status DC Ondansetron HCl (ZOFRAN INJection) 4 mg Q6HP PRN IV NAUSEA OR VOMITING Last administered on 03/31/17 07:45; Start 03/23/17 at 18:15; Stop 04/22/17 at 18: 14 Ondansetron HCl (ZOFRAN INJection) 4 mg Q6HP PRN IV NAUSEA; Start 03/30/17 at 09:45; Stop 04/29/17 at 09:44 Pantoprazole Sodium (Protonix) 40 mg DAILY IV Last administered on 03/31/17 09 :28; Start 03/24/17 at 09:00; Stop 04/23/17 at 08:59 Potassium Chloride 20 meq/ Insulin Human Regular 10 units/ Amino Ac/Electrol/ Dextrose/Calcium 2,010.1 ml @ 70 mls/hr ONCE@1800 IV Last administered on 03/27 17:11; Start 03/27/17 at 18:00; Stop 03/28/17 at 17:59; Status DC Potassium Chloride 20 meq/ Insulin Human Regular 10 units/ Amino Ac/Electrol/ Dextrose/Calcium 2,010.1 ml @ 70 mls/hr ONCE@1800 IV Last administered on 03/29 17:54; Start 03/29/17 at 18:00; Stop 03/30/17 at 17:59; Status DC Prednisolone Acetate (Predforte 1% Ophth Susp) 1 drop QID OD Last administered on 03/31/17 09:27; Start 03/23/17 at 21:00; Stop 04/22/17 at 20:59 Prednisone (Deltasone Liquid) 5 mg DAILY PO Last administered on 03/31/17 09: 28; Start 03/27/17 at 09:00; Stop 04/26/17 at 08:59 Prednisone (Deltasone) 5 mg DAILY PO Last administered on 03/24/17 08:28; Start 03/24/17 at 09:00; Stop 03/25/17 at 08:23; Status DC Propofol 1000 mg/ IV Miscellaneous Supplies 100 ml @ 3.6 mls/hr Q24H IV Last administered on 03/27/17 04:45; Start 03/25/17 at 20:15; Stop 03/27/17 at 09:48 ; Status DC Senna/Docusate Sodium (Senokot S) 1 tab BID PO Last administered on 03/24/17 21:53; Start 03/23/17 at 21:00; Stop 03/25/17 at 20:04; Status DC Sertraline HCl (Zoloft) 50 mg DAILY PO Last administered on 03/24/17 08:28; Start 03/24/17 at 09:00; Stop 03/25/17 at 20:04; Status DC Sodium Chloride 1,000 ml @ 15 mls/hr Q24H IV Last administered on 03/30/17 11 :08; Start 03/30/17 at 09:33; Stop 04/29/17 at 09:32 Sodium Chloride (Saline Lock Flush) 10 ml ASDIRECTED PRN IV SEE LABEL COMMENTS ; Start 03/29/17 at 16:45; Stop 04/28/17 at 16:44 Sodium Chloride (Saline Lock Flush) 10 ml SLF IV Last administered on 04:56; Start 03/29/17 at 22:00; Stop 04/28/17 at 21:59 Vancomycin HCl 1000 mg/Dextrose 20 ml @ 20 mls/hr Q12H IV ; Start 03/28/17 at 09 :15; Stop 03/28/17 at 09:42; Status DC Vancomycin HCl 1000 mg/IV Miscellaneous Supplies 1 each/ Dextrose 270 ml @ 270 mls/hr Q24H IV Last administered on 03/31/17t 09:29; Start 03/28/17 at 10:00; Stop 04/04/17 at 09:59 Allergies Coded Allergies: Cephalosporins (Verified Allergy, Intermediate, HIVES COVERING TORSO, 03/16) Contrast Media (Verified Allergy, Intermediate, RASH - MANY YEARS AGO, 04/02/17) Objective Physical Examination Examination GENERAL APPEARANCE: He is laying in bed, awake, still pursed lips with breathing but overall looks a bit more comfortable than the past couple days. SKIN: Warm and dry, and its are dry. HEENT: Mildly pale palpebral conjunctiva, lips are dry. NECK: Supple no obvious jugular venous distention. LUNGS: Scattered rales and rhonchi, better air movement, less tight, no crackles. Still first lips when breathing, slight use of abdominal muscles when breathing. HEART: No chest wall abnormalities. Regular rate and rhythm with no murmurs appreciated. ABDOMEN: Abdomen is round, soft, moderately distended, tympanitic, hypoactive bowel sounds. No hepatosplenomegaly. No umbilical or groin herniations, nondistended. No noticeable rebound or guarding. No grimacing with palpation. No rebound tenderness. No masses appreciated. EXTREMITIES: Extremities have no deformities. No edema identified. Vital Signs Vital Signs Date Time Temp Pulse Resp B/P (MAP) Pulse Ox O2 Delivery O2 Flow Rate FiO2 03/31/17 11:01 90 13 148/66 (93) 98 High Flow Cannula 6.0 03/31/17 07:30 97.5 03/31/17 03:15 40 I&Os I&O- Last 24 Hours up to 6 AM 04/01/17 05:59 Intake Total 260 ml Output Total 1725 ml Balance -1465 ml Laboratory Data Labs 24H Laboratory Tests 2 03/30/17 17:24: Bedside Glucose (Misc Panel) 137H 03/30/17 23:51: Bedside Glucose (Misc Panel) 129H 03/31/17 06:15: Bedside Glucose (Misc Panel) 109 03/31/17 09:53: Immature Granulocyte % (Auto) , Nucleated Red Blood Cells % (auto) 0.0, Neutrophils 75, Band Neutrophils 1, Lymphocytes (Manual) 7L, Monocytes (Manual) 3, Eosinophils (Manual) 3, Metamyelocytes 5H, Myelocytes 4H, Atypical Lymphocytes 2, Hypochromasia 1+, Poikilocytosis 1+, Anisocytosis 2+, Microcytosis 1+, Ovalocytes 1+, Anion Gap 6L, Glomerular Filtration Rate > 60.0 , Blood Urea Nitrogen 39H, Creatinine 0.96, Sodium Level 137, Potassium Level 4.1, Chloride Level 102, Carbon Dioxide Level 29, Calcium Level 7.6L 03/31/17 12:30: Bedside Glucose (Misc Panel) 137H CBC/BMP Laboratory Tests 03/31/17 09:53 Red Blood Count 3.79 L, Mean Corpuscular Volume 76.8 L, Mean Corpuscular Hemoglobin 22.7 L, Mean Corpuscular Hemoglobin Concent 29.6 L, Red Cell Distribution Width 19.5 H, Calcium Level 7.6 L Microbiology Microbiology 03/28/17 Blood Culture - Preliminary, Resulted No Growth after 48 hours. All Specime... 03/28/17 Blood Culture - Preliminary, Resulted No Growth after 48 hours. All Specime... 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 His breathing is improved with the diuresis. For the past 24 hours he is negative. Continue with Invanz and vancomycin. His blood cultures are pending. His skin erythema is improving. He seems to be starting to have bowel function. His colostomy is viable. I'll ask anesthesia to pull out the epidural and we will manage his pain with morphine LINE STAKER. maintain on clears oob Heparin for DVT prophylaxis Keep Avilez catheter for critical care monitoring, diuresis Plan / VTE VTE Prophylaxis Ordered?: Yes Plan / Urinary Catheter Reason for insertion/continuin: Critical Pt monitoring SHAUNA WALTON MD Mar 31, 2017 13:07
[2017-04-11] MEDS: ALBUTEROL SULFATE 2.5 MG/0.5 ML INH NEB SOLN NEB PRN (14:25)
[2017-04-11 16:00] VITALS: BP 139/61
[2017-04-11 18:55] VITALS: BP 141/56
--- NOTE | 2017-04-11 20:59 | IPN ---
DATE: 04/11/2017 HISTORY: The patient is now 17 days postoperative from resection of his infarcted stoma and recreation of a new stoma. The patient reports he is feeling better. He has been ambulating and is much less short of breath. He reports that his appetite has improved, and he reports voiding well. Vital signs: The patient is afebrile with a pulse in the mid 80s and a good blood pressure. Intake and output: Yesterday he had 720 in recorded and 500 of urine output with several voids and one bowel movement recorded. PHYSICAL EXAMINATION: The patient appears more comfortable, and his affect is perhaps a little better. Sclerae are anicteric. Heart and lung exams are unremarkable. The abdomen shows that he has some seepage of stool beneath the flange of his stoma wafer. I will let the nurses know about this. His wound vacuum-assisted closure (VAC) remains in place, and I will need to see this wound probably tomorrow. The minimal opening in the center of his wound appears unchanged, and there is no sign of wound infection. The abdomen is otherwise soft and nontender. LABORATORY FINDINGS: The patient did not have any new labs today. IMPRESSION: The patient is now making good progress. He has done better with physical therapy with improved endurance. He is less short of breath and feels stronger. He is taking a diet better. PLAN: I will plan to examine his wound tomorrow when the wound VAC is changed. He is currently off antibiotics and is on primarily medications for his breathing. He is on 10 mg of prednisone daily. I will check his labs in the morning. BENEDICTO
[2017-04-11 22:00] VITALS: BP 144/70
[2017-04-12 02:00] VITALS: BP 145/78
[2017-04-12] MEDS: MAGIC MOUTHWASH SUSPENSION BTL SS PRN ×3 (02:15→17:18)
[2017-04-12] MEDS: valACYclovir HCL 500 MG TAB PO SCH ×3 (02:16→17:18)
[2017-04-12] MEDS: MAGIC MOUTHWASH SUSPENSION BTL SS SCH ×3 (05:44→21:51)
[2017-04-12 06:00] VITALS: BP 138/65
[2017-04-12 06:09] LABS: MEAN CORPUSCULAR HEMOGLOBIN 24.3 pg (27.0-33.0); MEAN CORPUSCULAR VOLUME 78.4 fl (80.0-96.0); PLATELET COUNT, AUTOMATED 358 10^3/uL (150-450); WHITE BLOOD COUNT 12.9 10^3/uL (4.0-10.0)
[2017-04-12 06:20] LABS: ADD MANUAL DIFFER YES; DIFF SLIDE NUMBER 71; POS COUNT POS FLAG; POSITIVE MORPH POS FLAG; RED CELL DISTRIBUTION WIDTH 21.4 % (11.5-14.5)
[2017-04-12 06:27] LABS: ALBUMIN 2.2 GM/DL (3.2-5.2); ALBUMIN/GLOBULIN RATIO 0.59 (1.00-1.93); BILIRUBIN,TOTAL 0.4 MG/DL (0.2-1.0); CALCIUM LEVEL 7.9 MG/DL (8.8-10.2); CREATININE FOR GFR 1.4 MG/DL (0.70-1.30); GLOMERULAR FILTRATION RATE 51.5 (>35); TOTAL PROTEIN 5.9 GM/DL (6.4-8.2)
[2017-04-12 06:53] LABS: ANISOCYTOSIS 2+; BANDS 1 % (< 11); EOSINOPHILS 2 % (0-5); MICROCYTOSIS 1+
[2017-04-12 06:54] LABS: HYPOCHROMASIA 1+
[2017-04-12] MEDS: FORMOTEROL FUMARATE 20 MCG/2 ML INHALATION SOLUTION (PERFOROMIST) INH SCH ×2 (07:10→19:23)
[2017-04-12] MEDS: BUDESONIDE 0.5 MG/2 ML INHALATION SUSPENSION INH SCH ×2 (07:10→19:23)
[2017-04-12] MEDS: ALBUTEROL SULFATE 2.5 MG/0.5 ML INH NEB SOLN NEB PRN ×2 (09:59→17:55)
[2017-04-12 10:00] VITALS: BP 137/67
[2017-04-12] MEDS: SERTRALINE HCL 50 MG TAB PO SCH (10:41)
[2017-04-12] MEDS: PANTOPRAZOLE 40MG TAB (PROTONIX) PO SCH (10:41)
[2017-04-12] MEDS: predniSONE 5 MG TAB PO SCH (10:41)
[2017-04-12] MEDS: ENOXAPARIN 40 MG/0.4 ML SYRINGE (J1650) SC SCH (10:41)
[2017-04-12] MEDS: prednisoLONE ACET 1% OPHTH SUSP 5ML OD SCH ×4 (10:43→21:51)
[2017-04-12 14:00] VITALS: BP 139/81
--- NOTE | 2017-04-12 15:19 | IPN ---
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 The patient reports that he is feeling better. His oral lesions are healing and he has much more success chewing and eating now. He has been able to ambulate but did get somewhat short of breath when ambulating this morning according to the nurse. He has had his prednisone dose decreased by Dr. Burton. Vital signs show that the patient has been afebrile with a blood pressure that is in the high 130s to low 140s and a pulse in the 80s. His intake and output shows yesterday 1050 in and 500 of urine output with some stool for ileostomy. PHYSICAL EXAMINATION: The patient is lying quietly on the hospital bed. He is alert and oriented. He appears comfortable. Heart exam shows a regular rhythm. The abdomen is flat. The nurse is in the process of changing his colostomy appliance. It is clear that the bowel has pulled away from the skin edge on the medial third of the stoma but the stoma itself appears pink and viable and nicely everted. The VAC dressing in the left upper quadrant is intact and is due to be changed tomorrow. His midline incision appears pretty well healed with no significant drainage from the pinpoint opening in the center of the wound. The abdomen is otherwise soft and nontender. Lower extremities show some pitting edema up to about the mid lower leg level bilaterally. LABORATORY STUDIES: Today the patient has a CBC showing a white count of 13 with a hemoglobin of 8, hematocrit of 27 and platelet count of 358,000. Differential count shows 75% neutrophils, 1 band, 14 lymphocytes and 7 monocytes. Chemistry profile shows a sodium of 143, potassium 4.0, chloride 109, CO2 of 27, BUN of 32 , creatinine 1.4, glucose of 87. His total protein is 5.9 with an albumin of 2.2. IMPRESSION: The patient is doing well at this point. He is gaining some strength with physical therapy. He was not felt to be a candidate for acute rehabilitation. He is off antibiotics and his steroids are being tapered. PLAN: We will continue his care with physical therapy. His diet is still as tolerated and hopefully as his stomatitis improves he will have a better intake. His stoma, that is his colostomy, appears to be healing well though he will need to granulate in the small area between the edge of the bowel and the skin edge. I will check his wound when the wound VAC is changed tomorrow. BENEDICTO
[2017-04-12 18:00] VITALS: BP 141/76
[2017-04-12] MEDS: ALPRAZolam 0.5 MG TAB PO SCH (21:50)
[2017-04-12 22:00] VITALS: BP 134/68
[2017-04-13 02:00] VITALS: BP 154/77
[2017-04-13] MEDS: valACYclovir HCL 500 MG TAB PO SCH ×3 (02:06→17:08)
[2017-04-13] MEDS: MAGIC MOUTHWASH SUSPENSION BTL SS PRN ×2 (02:06→17:08)
[2017-04-13 06:00] VITALS: BP 142/73
[2017-04-13] MEDS: MAGIC MOUTHWASH SUSPENSION BTL SS SCH ×3 (06:11→21:02)
[2017-04-13] MEDS: FORMOTEROL FUMARATE 20 MCG/2 ML INHALATION SOLUTION (PERFOROMIST) INH SCH ×2 (07:16→18:16)
[2017-04-13] MEDS: BUDESONIDE 0.5 MG/2 ML INHALATION SUSPENSION INH SCH ×2 (07:16→18:16)
[2017-04-13] MEDS: PANTOPRAZOLE 40MG TAB (PROTONIX) PO SCH (08:39)
[2017-04-13] MEDS: SERTRALINE HCL 50 MG TAB PO SCH (08:39)
[2017-04-13] MEDS: predniSONE 5 MG TAB PO SCH (08:39)
[2017-04-13] MEDS: ENOXAPARIN 40 MG/0.4 ML SYRINGE (J1650) SC SCH (08:40)
[2017-04-13] MEDS: prednisoLONE ACET 1% OPHTH SUSP 5ML OD SCH ×4 (08:40→21:01)
[2017-04-13 10:00] VITALS: BP 129/75
[2017-04-13] MEDS: ACETAMINOPHEN TAB 650MG DOSE (2X325MG) PO PRN (10:18)
[2017-04-13 14:00] VITALS: BP 135/78
--- NOTE | 2017-04-13 14:26 | IPN ---
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 He has been making good progress this week and the limiting step for discharge seems to be his overall strength and ambulation. VITAL SIGNS: He is afebrile with a pulse from 77-91 and a good blood pressure and respiratory rate. He has excellent room air sats. Intake and output yesterday showed 1100 in and 1000 out. He has been voiding acceptably. His weight has come down to 65-1/2 kg from 69 on the . PHYSICAL EXAMINATION The patient is alert and oriented. He appears comfortable. His mouth appears to be improving and he feels much better in this regard. Heart exam shows a regular rate and rhythm. The lungs show clear breath sounds. The abdomen is soft. His midline incision appears dry today. His wound VAC is changed and shows an open wound with a healthy-appearing muscle in the base. This is approximately 7-8 cm in length x 3-4 cm in width. There is no nonviable tissue evident. There is some overhang of the skin edge on the left but all of the tissue beneath this appears viable. His ostomy is functioning and the abdomen is soft and without significant tenderness. LABORATORY STUDIES: The patient has no new labs today. Most recent physical therapy note suggested that he is not yet safe for discharge. IMPRESSION: Excellent postop result at this time with return of bowel function and improved respiratory status and improving strength and stamina. PLAN: The wound VAC will be continued, and I instructed the nurse to avoid putting the sponge beneath the overhang laterally as I think this will stick down nicely if we just place the sponge over the open area alone. We will continue this and anticipate continuing this after discharge. Ostomy care will continue. He will continue with occupational therapy (OT) and physical therapy (PT) services. BENEDICTO
[2017-04-13 18:00] VITALS: BP 133/79
[2017-04-13] MEDS: ALPRAZolam 0.5 MG TAB PO SCH (21:01)
[2017-04-13 21:10] VITALS: BP 132/70
[2017-04-14 01:50] VITALS: BP 132/74
[2017-04-14] MEDS: valACYclovir HCL 500 MG TAB PO SCH ×3 (02:19→17:36)
[2017-04-14 05:02] VITALS: BP 139/73
[2017-04-14] MEDS: MAGIC MOUTHWASH SUSPENSION BTL SS SCH ×3 (06:00→22:56)
[2017-04-14 06:30] LABS: ALBUMIN 2.2 GM/DL (3.2-5.2); CREATININE FOR GFR 1.23 MG/DL (0.70-1.30); GLOMERULAR FILTRATION RATE 59.8 (>35); PHOSPHORUS LEVEL 2.7 MG/DL (2.5-4.9)
[2017-04-14] MEDS: BUDESONIDE 0.5 MG/2 ML INHALATION SUSPENSION INH SCH ×2 (07:07→19:32)
[2017-04-14] MEDS: FORMOTEROL FUMARATE 20 MCG/2 ML INHALATION SOLUTION (PERFOROMIST) INH SCH ×2 (07:07→19:32)
[2017-04-14] MEDS: prednisoLONE ACET 1% OPHTH SUSP 5ML OD SCH ×4 (09:05→22:01)
[2017-04-14] MEDS: PANTOPRAZOLE 40MG TAB (PROTONIX) PO SCH (09:05)
[2017-04-14] MEDS: predniSONE 5 MG TAB PO SCH (09:05)
[2017-04-14] MEDS: SERTRALINE HCL 50 MG TAB PO SCH (09:05)
[2017-04-14] MEDS: ENOXAPARIN 40 MG/0.4 ML SYRINGE (J1650) SC SCH (09:05)
[2017-04-14] MEDS: ALBUTEROL SULFATE 2.5 MG/0.5 ML INH NEB SOLN NEB PRN (09:26)
[2017-04-14 10:00] VITALS: BP 131/65
[2017-04-14] MEDS: MAGIC MOUTHWASH SUSPENSION BTL SS PRN ×2 (12:27→17:37)
[2017-04-14 14:00] VITALS: BP 122/78
[2017-04-14] MEDS: ALBUTEROL 90 MCG/ACT 8GM HFA INHALER INH PRN ×2 (14:07→17:42)
[2017-04-14 18:00] VITALS: BP 137/81
[2017-04-14 22:00] VITALS: BP 130/71
[2017-04-14] MEDS: ALPRAZolam 0.5 MG TAB PO SCH (22:57)
[2017-04-15 02:00] VITALS: BP 138/65
[2017-04-15] MEDS: valACYclovir HCL 500 MG TAB PO SCH ×3 (02:51→17:10)
[2017-04-15 06:00] VITALS: BP 132/79
[2017-04-15] MEDS: MAGIC MOUTHWASH SUSPENSION BTL SS SCH ×3 (06:17→21:16)
[2017-04-15] MEDS: BUDESONIDE 0.5 MG/2 ML INHALATION SUSPENSION INH SCH ×2 (08:19→19:47)
[2017-04-15] MEDS: FORMOTEROL FUMARATE 20 MCG/2 ML INHALATION SOLUTION (PERFOROMIST) INH SCH ×2 (08:19→19:46)
[2017-04-15] MEDS: ENOXAPARIN 40 MG/0.4 ML SYRINGE (J1650) SC SCH (08:42)
[2017-04-15] MEDS: SERTRALINE HCL 50 MG TAB PO SCH (08:42)
[2017-04-15] MEDS: predniSONE 5 MG TAB PO SCH (08:42)
[2017-04-15] MEDS: PANTOPRAZOLE 40MG TAB (PROTONIX) PO SCH (08:42)
[2017-04-15] MEDS: prednisoLONE ACET 1% OPHTH SUSP 5ML OD SCH ×4 (08:43→21:16)
[2017-04-15 10:00] VITALS: BP 129/63
[2017-04-15 14:00] VITALS: BP 132/71
[2017-04-15 18:00] VITALS: BP 136/74
[2017-04-15] MEDS: ALPRAZolam 0.5 MG TAB PO SCH (21:16)
[2017-04-15 22:00] VITALS: BP 134/71
[2017-04-16] VITALS (7 sets, daily range): BP systolic 121–151; BP diastolic 64–82
[2017-04-16] MEDS: valACYclovir HCL 500 MG TAB PO SCH ×3 (01:44→17:42)
[2017-04-16] MEDS: ALBUTEROL SULFATE 2.5 MG/0.5 ML INH NEB SOLN NEB PRN ×2 (05:13→11:11)
[2017-04-16] MEDS: MAGIC MOUTHWASH SUSPENSION BTL SS SCH ×3 (06:00→21:23)
[2017-04-16 06:13] LABS: MEAN CORPUSCULAR HEMOGLOBIN 24.6 pg (27.0-33.0); MEAN CORPUSCULAR HGB CONC 30.3 g/dl (32.0-36.5); MEAN CORPUSCULAR VOLUME 81.1 fl (80.0-96.0); PLATELET COUNT, AUTOMATED 312 10^3/uL (150-450); WHITE BLOOD COUNT 15.9 10^3/uL (4.0-10.0)
[2017-04-16 06:19] LABS: RED CELL DISTRIBUTION WIDTH 23.1 % (11.5-14.5)
[2017-04-16 06:24] LABS: CALCIUM LEVEL 8.2 MG/DL (8.8-10.2); CREATININE FOR GFR 1.3 MG/DL (0.70-1.30); GLOMERULAR FILTRATION RATE 56.1 (>35)
[2017-04-16] MEDS: FORMOTEROL FUMARATE 20 MCG/2 ML INHALATION SOLUTION (PERFOROMIST) INH SCH ×2 (07:29→19:34)
[2017-04-16] MEDS: BUDESONIDE 0.5 MG/2 ML INHALATION SUSPENSION INH SCH ×2 (07:29→19:34)
[2017-04-16] MEDS: predniSONE 5 MG TAB PO SCH (08:38)
[2017-04-16] MEDS: SERTRALINE HCL 50 MG TAB PO SCH (08:38)
[2017-04-16] MEDS: PANTOPRAZOLE 40MG TAB (PROTONIX) PO SCH (08:38)
[2017-04-16] MEDS: prednisoLONE ACET 1% OPHTH SUSP 5ML OD SCH ×4 (08:39→21:23)
[2017-04-16] MEDS: ENOXAPARIN 40 MG/0.4 ML SYRINGE (J1650) SC SCH (08:39)
[2017-04-16] MEDS: ALPRAZolam 0.5 MG TAB PO SCH (21:23)
[2017-04-17 02:00] VITALS: BP 118/65
[2017-04-17] MEDS: valACYclovir HCL 500 MG TAB PO SCH ×2 (03:16→10:52)
[2017-04-17] MEDS: MAGIC MOUTHWASH SUSPENSION BTL SS SCH (05:36)
[2017-04-17] MEDS: ALBUTEROL SULFATE 2.5 MG/0.5 ML INH NEB SOLN NEB PRN (05:42)
[2017-04-17 06:00] VITALS: BP 133/60
[2017-04-17] MEDS: BUDESONIDE 0.5 MG/2 ML INHALATION SUSPENSION INH SCH (07:17)
[2017-04-17] MEDS: FORMOTEROL FUMARATE 20 MCG/2 ML INHALATION SOLUTION (PERFOROMIST) INH SCH (07:17)
[2017-04-17] MEDS: PANTOPRAZOLE 40MG TAB (PROTONIX) PO SCH (08:11)
[2017-04-17] MEDS: prednisoLONE ACET 1% OPHTH SUSP 5ML OD SCH (08:12)
[2017-04-17] MEDS: ENOXAPARIN 40 MG/0.4 ML SYRINGE (J1650) SC SCH (08:12)
[2017-04-17] MEDS: SERTRALINE HCL 50 MG TAB PO SCH (08:12)
[2017-04-17] MEDS: predniSONE 5 MG TAB PO SCH (08:12)
[2017-04-17] MEDS ORDERED: NORC1TAB4 PO (09:39)
[2017-04-17] MEDS ORDERED: MAGICMW SS (09:39)
[2017-04-17 10:00] VITALS: BP 146/75
--- NOTE | 2017-05-25 11:01 | DS.PDOC ---
Discharge Summary General Date of Admission Mar 23, 2017 at 18:10 Date of Discharge 04/17/2017 Attending Physician: SHAUNA WALTON MD Specialist/Consultants Involve: Cynthia ALFARO MD Discharge Summary PROCEDURES PERFORMED DURING STAY: 1. Exploratory laparotomy, resection of the infarcted colon/colostomy. Lysis of adhesions Repair of enterotomy with [id number] anastomosis. Open abdomen placement of wound VAC for temporary closure (06/2016) 2. Exploratory Laparotomy, lysis of adhesion, freeing up of the remainder of descending colon to the splenic flexure, formation and maturation of new colostomy Closure of abdominal wall at colostomy site, wound vac placement Placement of right internal jugular venous triple lumen catheter under US guidance. (03/26/2017) ADMITTING DIAGNOSES: 1. Small bowel obstruction 2. Parastomal hernia 3. Incisional hernia 4. COPD, severe, on chronic steroids. DISCHARGE DIAGNOSES: 1. 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 COPD with exacerbation 4. Respiratory failure requiring prolonged intubation resolved 5. Acute debility 6. Protein calorie Malnutrition COMPLICATIONS/CHIEF COMPLAINT: Peristomal Hernia,Sbo. HISTORY OF PRESENT ILLNESS: See HPI. HOSPITAL COURSE: Patient was admitted after being seen in the emergency room. A nasogastric tube was placed to try bowel decompression. He has had several of this admission for intermittent obstruction related to his incisional and parastomal hernia which most of the time resolved on its own after bowel decompression. He was deemed a poor surgical candidate for elective repair due to his severe COPD likewise the extensive postsurgical adhesions in his abdomen. Unfortunately he did not improve and he continued to have worsening leukocytosis and beginning of erythema on his abdomen. I then recommended surgery but patient was initially wanting to continue with nonoperative treatment for fear of needing prolonged intubation and mechanical ventilation postoperatively. On March 25, with worsening pain and increasing erythema on his abdominal wall he agreed to undergo surgery. I brought him to the operating room performed abdominal exploration. He was found to have frozen abdomen with extensive abdominal adhesions. Main pathology is infarction of the subcutaneous portion of his colostomy. This was resected but I was not able to free up the colostomy to pull it out of the abdominal wall and reposition it. Likewise the small bowel was not able to be freed up. He was left intubated overnight and continued resuscitation and IV antibiotics were continued for the soft tissue necrotizing infection related to the infarcted colostomy. He was subsequently brought to the operating room the next day. The splenic flexure was able to be freed up to the extent that we can pull the colostomy stump his original location over the left lower quadrant area also we closed the abdominal fascial defect on the colostomy site. The colostomy was then matured on its new location. He returned to the ICU remaining intubated. He was slowly weaned off the mechanical ventilator and was successfully extubated a couple days after but has had problems with intermittent episodes of shortness of breath requiring BiPAP therapy. He was also diuresed. He was started on TPN while awaiting function of his colostomy. 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 Though clinically he seemsto be improving, his colostomy took a while to start functioning. He was meanwhile continued on TPN. His steroids were increased to help with his COPD exacerbation. He had subsequent reactive leukocytosis/ leukemoid reaction with his white count rising was highest 37,000 CT scan of the abdomen and pelvis was done for workup with no fluid collection or signs of bowel inflammation or injury was found. He does have some mild wrist or infiltrates but clinically was also improving with regards to his breathing. I consulted Dr. Walker from infectious disease who concurred that this most likely is a leukemoid reaction from the steroids. We gradually came down and his steroid dose and his leukocytosis gradually resolved. Apparently at about the third week his colostomy started functioning and were able to gradually increase his oral intake. After another week he was able to tolerate regular food. At this point he is on the regular floors and breathing has still limited him with regards to his activity. He has been working with physical therapy as well as occupational therapy with activity has been severely limited by debility as well as limitations from shortness of breath. He was able to make progress with the help of physical therapy and subsequently was discharged to home. At this time his wound has continued to heal and initially the open colostomy site wound was managed with wound VAC. A week prior. This is I was not missing some softness in the area which may be the bowel close to the closure. Thus we were managing this with wet-to-dry gauze dressing being changed twice a day. This was continued as well at discharge. On discharge she is ambulating by himself without oxygen. He still remains limited with his activity secondary to weakness and shortness of breath but he was deemed stable. He will continue working with physical therapy as an outpatient. He has completed his antibiotics and this has been discontinued. He has been discharged on some when necessary narcotic pain medications. He is discharged on prednisone. He will follow-up with Dr. Ni with regards to his COPD. . DISCHARGE MEDICATIONS: Please see below. ALLERGIES: Please see below. PHYSICAL EXAMINATION ON DISCHARGE: VITAL SIGNS: Please see below. GENERAL: Awake, comfortable, oriented HEENT: Mildly pale palpebral conjunctiva, lips and mucosa are moist NECK: No jugular venous distention CARDIOVASCULAR EXAMINATION: Regular heart rate and rhythm RESPIRATORY EXAMINATION: Clear breath sounds TO auscultation bilaterally ABDOMINAL EXAMINATION: Flat, nondistended, midline incision is healed. [place] have been removed. He has a left side, left lower quadrant ostomy is functioning. About this is an open wound from his crease colostomy site that is being packed with wet-to-dry gauze dressing. Previous skin erythema along the abdominal wall has fully resolved. EXTREMITIES: No erythema no edema SKIN: No skin rashes NEUROLOGICAL EXAMINATION: Awake, alert and oriented PSYCHIATRIC EXAMINATION: Mood and affect are normal LABORATORY DATA: Please see below. IMAGING: CT of the abdomen and pelvis PROGNOSIS: Good ACTIVITY: As tolerated. DIET: As tolerated. DISCHARGE PLAN: Patient is discharged home. Provisions made for visiting nurses for continuing wound care and monitoring of the patient DISPOSITION: 01 Home, Self-Care. DISCHARGE INSTRUCTIONS: 1. Activity as tolerated. 2. Wet-to-dry gauze dressing daily. 3. Follow-up with me as well as with Dr. Ni. DISCHARGE CONDITION: Stable. TIME SPENT ON DISCHARGE: Greater than 45 minutes. Discharge Medications Scheduled Alprazolam (Alprazolam) 0.5 Mg Tab, 0.5 MG PO QHS, (Reported) Arformoterol Tartrate (Brovana) 15 Mcg/2 Ml Neb, 15 MCG INH BID, (Reported) Gabapentin (Gabapentin) 100 Mg Cap, 100 MG PO BID, (Reported) Loratadine (Loratadine Allergy Relief) 10 Mg Tab, 10 MG PO DAILY, (Reported) Multivitamins *[facility] STOCKED* (Thera M Plus *[facility] STOCKED*) 1 Tab Tab, 1 TAB PO BID , (Reported) with minerals Pantoprazole Sodium Sesquihydr (Protonix) 40 Mg Tab, 40 MG PO QHS, (Reported) Prednisolone Acetate (Prednisolone Acetate 1% Opth Susp) 100 Drop/5 Ml Susp, 1 DROP OD QID, (Reported) Prednisone (Prednisone) 5 Mg Tab, 5 MG PO DAILY, (Reported) Sertraline HCl (Sertraline HCl) 100 Mg Tab, 50 MG PO DAILY, (Reported) Scheduled PRN Acetaminophen/Hydrocodone ([place] 5-325 mg) 1 Tab Tab, 1 TAB PO qhp PRN for pain Albuterol Sulfate (Proventil Hfa) 167 Puff/6.7 Gm Aers, 2 PUFFS INH QID PRN for SHORTNESS OF BREATH, (Reported) Albuterol/Ipratropium (Ipratropium Armstrong/Albut 0.5-2.5 (3) mg/3Ml) 1 Kevin Kevin, 1 KEVIN INH TID PRN for SHORTNESS OF BREATH, (Reported) Budesonide (Pulmicort) 0.5 Mg/2 Ml [place], 0.5 MG INH BID PRN for SHORTNESS OF BREATH, (Reported) Magic Mouthwash (First-Mouthwash Blm) 1 Ea Susp, 10-20 EA SS Q8HP PRN for DISCOMFORT Allergies Coded Allergies: Cephalosporins (Verified Allergy, Intermediate, HIVES COVERING TORSO, 03/16) Contrast Media (Verified Allergy, Intermediate, RASH - MANY YEARS AGO, 04/02/17) SHAUNA WALTON MD May 25, 2017 11:01
== END 2017-04-17 13:00 | disposition home health service (06) | DRG 329 ==
LOC: M ED 11:29 → EDBD 11:29 → M ED INP 18:10 → M MSPAV 20:18 → M ICU 03-25 14:20 → M PCU 04-02 14:08 → M MSPAV 04-11 18:56
PROVIDERS: ADMIT Surgery; ATTEND Surgery
PROC: 0DBB0ZZ Excision of Ileum, Open Approach (ICD-10-PCS; 2017-03-25)
PROC: 0WQF0ZZ Repair Abdominal Wall, Open Approach (ICD-10-PCS; 2017-03-25)
PROC: 0D1N0Z4 Bypass Sigmoid Colon to Cutaneous, Open Approach (ICD-10-PCS; 2017-03-26)
PROC: 0DNM0ZZ Release Descending Colon, Open Approach (ICD-10-PCS; 2017-03-26)
PROC: 0DNL0ZZ Release Transverse Colon, Open Approach (ICD-10-PCS; 2017-03-26)
PROC: 02HV33Z Insertion of Infusion Device into Superior Vena Cava, Percutaneous Approach (ICD-10-PCS; principal; 2017-03-26 11:00)
PROC: 30233N1 Transfusion of Nonautologous Red Blood Cells into Peripheral Vein, Percutaneous Approach (ICD-10-PCS; 2017-03-27)
DX: K94.02 Colostomy infection (principal); K55.049 Acute infarction of large intestine, extent unspecified; J95.821 Acute postprocedural respiratory failure; K63.1 Perforation of intestine (nontraumatic); K43.4 Parastomal hernia with gangrene; J44.1 Chronic obstructive pulmonary disease with (acute) exacerbation; E46 Unspecified protein-calorie malnutrition; I96 Gangrene, not elsewhere classified; K56.50 Intestinal adhesions [bands], unspecified as to partial versus complete obstruction; B37.0 Candidal stomatitis; B00.1 Herpesviral vesicular dermatitis; K94.09 Other complications of colostomy; Z79.52 Long term (current) use of systemic steroids; D72.829 Elevated white blood cell count, unspecified; Z88.8 Allergy status to other drugs, medicaments and biological substances; Z91.041 Radiographic dye allergy status; Z85.038 Personal history of other malignant neoplasm of large intestine; E78.5 Hyperlipidemia, unspecified; I11.9 Hypertensive heart disease without heart failure; K21.9 Gastro-esophageal reflux disease without esophagitis; Z95.0 Presence of cardiac pacemaker; G47.00 Insomnia, unspecified; Z79.899 Other long term (current) drug therapy; D64.9 Anemia, unspecified; R73.9 Hyperglycemia, unspecified; K12.1 Other forms of stomatitis; R33.9 Retention of urine, unspecified

== ENCOUNTER 2017-07-28 15:30 | Inpatient (IN) | payer MEDICARE ==
[2017-07-28 16:20] LABS: BASO # 0.1 10^3/uL (0.0-0.2); BASO % 0.6 % (0.0-1.0); EOS # 0.2 10^3/uL (0.0-0.50); HEMATOCRIT 37.2 % (42.0-52.0); HEMOGLOBIN 11.1 g/dl (14.0-18.0); IMMATURE GRANULOCYTE # 0.1 10^3/uL (0-0); IMMATURE GRANULOCYTE % 0.7 % (0-0); LYMPH # 1.6 10^3/uL (1.5-4.5); LYMPH % 9.2 % (24.0-44.0); MEAN CORPUSCULAR HEMOGLOBIN 22.8 pg (27.0-33.0); MEAN CORPUSCULAR HGB CONC 29.8 g/dl (32.0-36.5); MEAN CORPUSCULAR VOLUME 76.5 fl (80.0-96.0); MONO % 5.7 % (0.0-5.0); NEUTROPHILS % 82.8 % (36.0-66.0); PLATELET COUNT, AUTOMATED 337 10^3/uL (150-450); RED BLOOD COUNT 4.86 10^6/uL (4.30-6.10); RED CELL DISTRIBUTION WIDTH 17.2 % (11.5-14.5); WHITE BLOOD COUNT 16.9 10^3/uL (4.0-10.0)
[2017-07-28 16:27] LABS: INR 0.94; PROTHROMBIN TIME 12.7 SECONDS (12.4-14.5)
[2017-07-28] MEDS: ONDANSETRON 4MG/2ML VIAL (J2405) IV (16:36)
[2017-07-28] MEDS: PANTOPRAZOLE 40MG INJ (PROTONIX) (C9113) IV (16:36)
[2017-07-28] MEDS: KETOROLAC 30 MG/ML VIAL (J1885) IV (16:36)
[2017-07-28] MEDS: NS 1,000 ML IV ×2 (16:36→20:00)
[2017-07-28 16:39] LABS: ALBUMIN 3.4 GM/DL (3.2-5.2); ALBUMIN/GLOBULIN RATIO 0.87 (1.00-1.93); ALKALINE PHOSPHATASE 88 U/L (45-117); ALT/SGPT 16 U/L (12-78); AMYLASE 75 U/L (25-115); ANION GAP 8 MEQ/L (8-16); AST/SGOT 20 U/L (7-37); BILIRUBIN,DIRECT < 0.1 MG/DL (0.0-0.2); BILIRUBIN,TOTAL 0.3 MG/DL (0.2-1.0); BLOOD UREA NITROGEN 26 MG/DL (7-18); CALCIUM LEVEL 8.7 MG/DL (8.8-10.2); CARBON DIOXIDE LEVEL 24 MEQ/L (21-32); CHLORIDE LEVEL 110 MEQ/L (98-107); CREATININE FOR GFR 1.42 MG/DL (0.70-1.30); GLOMERULAR FILTRATION RATE 50.6 (>35); GLUCOSE, FASTING 145 MG/DL (70-100); LIPASE 120 U/L (73-393); POTASSIUM SERUM 4.2 MEQ/L (3.5-5.1); SODIUM LEVEL 142 MEQ/L (136-145); TOTAL PROTEIN 7.3 GM/DL (6.4-8.2)
[2017-07-28] MEDS ORDERED: ONDANSETRON 4MG/2ML VIAL (J2405) IV (17:45)
[2017-07-28] MEDS: ALBUTEROL SULFATE 2.5 MG/0.5 ML INH NEB SOLN INH ×2 (20:00→22:29)
[2017-07-28] MEDS: BUDESONIDE 0.5 MG/2 ML INHALATION SUSPENSION INH (20:00)
[2017-07-28 20:31] LABS: APPEARANCE, URINE HAZY (CLEAR); BACTERIA, URINE AUTO 1+ (NEGATIVE); BILIRUBIN, URINE AUTO NEGATIVE (NEGATIVE); BLOOD, URINE BLOOD 2+ (NEGATIVE); COLOR, URINE YELLOW (YELLOW); GLUCOSE, URINE (UA) AUTO NEGATIVE (NEGATIVE); KETONE, URINE AUTO NEGATIVE (NEGATIVE); LEUKOCYTE ESTERASE, URINE AUTO 2+ (NEGATIVE); MUCUS, URINE SMALL (NEGATIVE); NITRITE, URINE AUTO NEGATIVE (NEGATIVE); PROTEIN, URINE AUTO 1+ mg/dL (NEGATIVE); RBC, URINE AUTO 35 /HPF (0-3); SQUAMOUS EPITHELIAL CELL UR AU 0 /HPF (0-6); UROBILINOGEN, URINE AUTO 0.2 mg/dL (0.0-2.0); WBC, URINE AUTO 75 /HPF (0-3)
[2017-07-28] MEDS: CIPROFLOXACIN 400 MG in APPROPRIATE DILUENT 1 EA IV (20:31)
[2017-07-28] MEDS: SENOKOT S TAB PO (20:32)
[2017-07-28] MEDS: PANTOPRAZOLE 40MG TAB (PROTONIX) PO (20:32)
[2017-07-28] MEDS: ALPRAZolam 0.25 MG TAB PO (20:32)
[2017-07-28] MEDS: HYDROCORTISONE 100 MG/2 ML VIAL (J1720) IV (20:32)
[2017-07-28] MEDS: prednisoLONE ACET 1% OPHTH SUSP 5ML OD (20:47)
[2017-07-28] MEDS ORDERED: BROVANA INH (21:00)
[2017-07-29] MEDS: HYDROCORTISONE 100 MG/2 ML VIAL (J1720) IV ×4 (01:42→20:17)
[2017-07-29] MEDS: NS 1,000 ML IV ×2 (04:16→20:26)
[2017-07-29] MEDS: ALBUTEROL SULFATE 2.5 MG/0.5 ML INH NEB SOLN INH ×5 (07:16→23:33)
[2017-07-29 08:17] LABS: BASO # 0.1 10^3/uL (0.0-0.2); BASO % 0.3 % (0.0-1.0); EOS % 0.1 % (0.0-3.0); HEMOGLOBIN 9.6 g/dl (14.0-18.0); IMMATURE GRANULOCYTE # 0.1 10^3/uL (0-0); IMMATURE GRANULOCYTE % 0.5 % (0-0); LYMPH # 1.6 10^3/uL (1.5-4.5); LYMPH % 10.1 % (24.0-44.0); MEAN CORPUSCULAR HEMOGLOBIN 23.4 pg (27.0-33.0); MONO # 0.7 10^3/uL (0.0-0.8); MONO % 4.4 % (0.0-5.0); NEUTROPHILS # 13.1 10^3/uL (1.8-7.7); NEUTROPHILS % 84.6 % (36.0-66.0); PLATELET COUNT, AUTOMATED 256 10^3/uL (150-450); RED CELL DISTRIBUTION WIDTH 17.1 % (11.5-14.5); WHITE BLOOD COUNT 15.5 10^3/uL (4.0-10.0)
[2017-07-29 08:33] LABS: ALBUMIN 2.7 GM/DL (3.2-5.2); ALBUMIN/GLOBULIN RATIO 0.79 (1.00-1.93); ALKALINE PHOSPHATASE 76 U/L (45-117); ALT/SGPT 14 U/L (12-78); ANION GAP 5 MEQ/L (8-16); AST/SGOT 14 U/L (7-37); BILIRUBIN,TOTAL 0.3 MG/DL (0.2-1.0); BLOOD UREA NITROGEN 30 MG/DL (7-18); CARBON DIOXIDE LEVEL 26 MEQ/L (21-32); CHLORIDE LEVEL 112 MEQ/L (98-107); CREATININE FOR GFR 1.46 MG/DL (0.70-1.30); GLUCOSE, FASTING 116 MG/DL (70-100); MAGNESIUM LEVEL 2.3 MG/DL (1.8-2.4); POTASSIUM SERUM 4.3 MEQ/L (3.5-5.1); SODIUM LEVEL 143 MEQ/L (136-145); TOTAL PROTEIN 6.1 GM/DL (6.4-8.2)
[2017-07-29] MEDS: SENOKOT S TAB PO ×2 (08:44→20:19)
[2017-07-29] MEDS: CIPROFLOXACIN 400 MG in APPROPRIATE DILUENT 1 EA IV ×2 (08:45→20:17)
[2017-07-29] MEDS: prednisoLONE ACET 1% OPHTH SUSP 5ML OD ×3 (08:45→20:30)
[2017-07-29] MEDS: CONRAY-60 60% 50ML VIAL (Q9961) As Ordered (12:47)
[2017-07-29] MEDS: BUDESONIDE 0.5 MG/2 ML INHALATION SUSPENSION INH ×2 (12:51→20:11)
[2017-07-29] MEDS ORDERED: ONDANSETRON 4MG/2ML VIAL (J2405) As Ordered (12:55)
[2017-07-29] MEDS ORDERED: PROPOFOL 200 MG/20 ML VIAL As Ordered (13:28)
[2017-07-29] MEDS ORDERED: LIDOCAINE 2% INJ 100 MG/5 ML SYRINGE As Ordered (13:28)
[2017-07-29] MEDS ORDERED: fentaNYL 100 MCG/2 ML INJECTION (J3010) As Ordered (13:28)
[2017-07-29] MEDS ORDERED: ONDANSETRON 4MG/2ML VIAL (J2405) IV (13:45)
[2017-07-29] MEDS: LR 1,000 ML IV (13:45)
[2017-07-29] MEDS ORDERED: fentaNYL 100 MCG/2 ML INJECTION (J3010) IV (13:45)
[2017-07-29] MEDS: MORPHINE 2 MG/ML 1ML SYRINGE IV (16:16)
[2017-07-29] MEDS: TAMSULOSIN 0.4 MG CAP PO (20:18)
[2017-07-29] MEDS: PANTOPRAZOLE 40MG TAB (PROTONIX) PO (20:18)
[2017-07-29] MEDS: ALPRAZolam 0.25 MG TAB PO (20:19)
[2017-07-29] MEDS: ACETAMINOPHEN TAB 650MG DOSE (2X325MG) PO (22:55)
[2017-07-29] MEDS ORDERED: HEPARIN SOD (PORCINE) 5000 UNITS/ML VIAL SQ (23:00)
[2017-07-30] MEDS: HYDROCORTISONE 100 MG/2 ML VIAL (J1720) IV ×3 (02:27→20:08)
[2017-07-30 05:30] LABS: HEMATOCRIT 31.2 % (42.0-52.0); HEMOGLOBIN 9.3 g/dl (14.0-18.0); MEAN CORPUSCULAR HEMOGLOBIN 23.1 pg (27.0-33.0); MEAN CORPUSCULAR HGB CONC 29.8 g/dl (32.0-36.5); MEAN CORPUSCULAR VOLUME 77.6 fl (80.0-96.0); PLATELET COUNT, AUTOMATED 245 10^3/uL (150-450); RED BLOOD COUNT 4.02 10^6/uL (4.30-6.10); WHITE BLOOD COUNT 21.1 10^3/uL (4.0-10.0)
[2017-07-30 05:56] LABS: ANION GAP 8 MEQ/L (8-16); BLOOD UREA NITROGEN 33 MG/DL (7-18); CALCIUM LEVEL 7.9 MG/DL (8.8-10.2); CARBON DIOXIDE LEVEL 23 MEQ/L (21-32); CHLORIDE LEVEL 112 MEQ/L (98-107); CREATININE FOR GFR 1.48 MG/DL (0.70-1.30); GLOMERULAR FILTRATION RATE 48.2 (>35); GLUCOSE, FASTING 125 MG/DL (70-100); SODIUM LEVEL 143 MEQ/L (136-145)
[2017-07-30] MEDS: ALBUTEROL SULFATE 2.5 MG/0.5 ML INH NEB SOLN INH ×4 (08:01→20:28)
[2017-07-30] MEDS: BUDESONIDE 0.5 MG/2 ML INHALATION SUSPENSION INH ×2 (08:02→20:28)
[2017-07-30 08:34] LABS: C REACTIVE PROTEIN QUANTITATIV 5.49 MG/DL (0.00-0.30)
[2017-07-30] MEDS: CIPROFLOXACIN 400 MG in APPROPRIATE DILUENT 1 EA IV ×2 (09:15→20:08)
[2017-07-30] MEDS: SLF 3 ML SYR IV ×3 (09:18→21:25)
[2017-07-30] MEDS: SENOKOT S TAB PO ×2 (09:20→21:25)
[2017-07-30] MEDS: ASPIRIN 81 MG ENTERIC TAB PO (09:20)
[2017-07-30] MEDS: predniSONE 5 MG TAB PO (09:20)
[2017-07-30] MEDS: prednisoLONE ACET 1% OPHTH SUSP 5ML OD ×3 (09:20→21:25)
[2017-07-30] MEDS: HEPARIN SOD (PORCINE) 5000 UNITS/ML VIAL SQ ×2 (09:23→20:09)
[2017-07-30 11:03] LABS: KETONE, URINE AUTO RFX NEGATIVE (NEGATIVE); MUCUS, URINE RFX SMALL (NEGATIVE); NITRITE, URINE AUTO RFX NEGATIVE (NEGATIVE); RBC, URINE AUTO RFX TNTC /HPF (0-3); SPECIFIC GRAVITY UR AUTO RFX 1.021 (1.002-1.035); SQUAM EPITHELIAL CELL UR AURFX 0 /HPF (0-6); YEAST LIKE CELL URINE AUTO RFX MODERATE
[2017-07-30 11:09] LABS: LEUKOCYTE ESTERASE UR AUTO RFX 1+ (NEGATIVE); WBC, URINE AUTO RFX 107 /HPF (0-3)
[2017-07-30] MEDS: MIRALAX *UNIT DOSE* 17GM PACKET PO (11:55)
[2017-07-30] MEDS: MORPHINE 2 MG/ML 1ML SYRINGE IV (13:31)
[2017-07-30] MEDS: TAMSULOSIN 0.4 MG CAP PO (21:25)
[2017-07-30] MEDS: ALPRAZolam 0.25 MG TAB PO (21:25)
[2017-07-30] MEDS: PANTOPRAZOLE 40MG TAB (PROTONIX) PO (21:25)
[2017-07-30] MEDS: GABAPENTIN 100 MG CAP PO (21:25)
[2017-07-31] MEDS: SLF 3 ML SYR IV (05:11)
[2017-07-31 05:34] LABS: HEMATOCRIT 29.3 % (42.0-52.0); HEMOGLOBIN 8.7 g/dl (14.0-18.0); MEAN CORPUSCULAR HEMOGLOBIN 22.9 pg (27.0-33.0); MEAN CORPUSCULAR HGB CONC 29.7 g/dl (32.0-36.5); MEAN CORPUSCULAR VOLUME 77.1 fl (80.0-96.0); PLATELET COUNT, AUTOMATED 217 10^3/uL (150-450); RED CELL DISTRIBUTION WIDTH 17.2 % (11.5-14.5); WHITE BLOOD COUNT 10.9 10^3/uL (4.0-10.0)
[2017-07-31 05:43] LABS: ANION GAP 7 MEQ/L (8-16); BLOOD UREA NITROGEN 30 MG/DL (7-18); CALCIUM LEVEL 8.1 MG/DL (8.8-10.2); CARBON DIOXIDE LEVEL 24 MEQ/L (21-32); CHLORIDE LEVEL 111 MEQ/L (98-107); CREATININE FOR GFR 1.24 MG/DL (0.70-1.30); GLOMERULAR FILTRATION RATE 59.1 (>35); GLUCOSE, FASTING 108 MG/DL (70-100); SODIUM LEVEL 142 MEQ/L (136-145)
[2017-07-31] MEDS: ALBUTEROL SULFATE 2.5 MG/0.5 ML INH NEB SOLN INH ×2 (07:05→11:01)
[2017-07-31] MEDS: BUDESONIDE 0.5 MG/2 ML INHALATION SUSPENSION INH (07:05)
[2017-07-31] MEDS: HEPARIN SOD (PORCINE) 5000 UNITS/ML VIAL SQ (08:50)
[2017-07-31] MEDS: HYDROCORTISONE 100 MG/2 ML VIAL (J1720) IV (08:51)
[2017-07-31] MEDS: predniSONE 5 MG TAB PO (08:52)
[2017-07-31] MEDS: CIPROFLOXACIN 400 MG in APPROPRIATE DILUENT 1 EA IV ×2 (08:52→09:00)
[2017-07-31] MEDS: SENOKOT S TAB PO (08:52)
[2017-07-31] MEDS: prednisoLONE ACET 1% OPHTH SUSP 5ML OD (08:53)
[2017-07-31] MEDS: MIRALAX *UNIT DOSE* 17GM PACKET PO (08:57)
[2017-07-31] MEDS: CIPROFLOXACIN 500 MG TAB PO (09:32)
== END 2017-07-31 12:59 | disposition home or self-care (01) | DRG 669 ==
LOC: M PCU 07-29 14:14 → M ED 15:30 → M ED INP 17:40
PROC: 0TC68ZZ Extirpation of Matter from Right Ureter, Via Natural or Artificial Opening Endoscopic (ICD-10-PCS; principal; 2017-07-29 10:00)
PROC: 0T768DZ Dilation of Right Ureter with Intraluminal Device, Via Natural or Artificial Opening Endoscopic (ICD-10-PCS; 2017-07-29 10:00)
DX: N13.1 Hydronephrosis with ureteral stricture, not elsewhere classified (principal); N17.9 Acute kidney failure, unspecified; D50.9 Iron deficiency anemia, unspecified; K29.70 Gastritis, unspecified, without bleeding; I13.10 Hypertensive heart and chronic kidney disease without heart failure, with stage 1 through stage 4 chronic kidney disease, or unspecified chronic kidney disease; E78.5 Hyperlipidemia, unspecified; N18.9 Chronic kidney disease, unspecified; K21.9 Gastro-esophageal reflux disease without esophagitis; J44.9 Chronic obstructive pulmonary disease, unspecified; I25.10 Atherosclerotic heart disease of native coronary artery without angina pectoris; G47.00 Insomnia, unspecified; Z95.0 Presence of cardiac pacemaker; Z85.038 Personal history of other malignant neoplasm of large intestine; Z90.49 Acquired absence of other specified parts of digestive tract; Z79.82 Long term (current) use of aspirin; Z79.899 Other long term (current) drug therapy; Z79.52 Long term (current) use of systemic steroids; Z93.3 Colostomy status

== ENCOUNTER → 2017-08-27 | Outpatient (REF) | payer MEDICARE ==
[2017-08-27 19:37] LABS: AMORPHOUS SEDIMENT SMALL (NEGATIVE); APPEARANCE, URINE HAZY (CLEAR); BACTERIA, URINE AUTO 2+ (NEGATIVE); BILIRUBIN, URINE AUTO NEGATIVE (NEGATIVE); BLOOD, URINE BLOOD NEGATIVE (NEGATIVE); CALCIUM OXALATE CRYSTALS LARGE; COLOR, URINE YELLOW (YELLOW); GLUCOSE, URINE (UA) AUTO NEGATIVE (NEGATIVE); KETONE, URINE AUTO NEGATIVE (NEGATIVE); LEUKOCYTE ESTERASE, URINE AUTO TRACE (NEGATIVE); MUCUS, URINE SMALL (NEGATIVE); NITRITE, URINE AUTO NEGATIVE (NEGATIVE); PROTEIN, URINE AUTO NEGATIVE (NEGATIVE); RBC, URINE AUTO 1 /HPF (0-3); SPECIFIC GRAVITY URINE AUTO 1.019 (1.002-1.035); SQUAMOUS EPITHELIAL CELL UR AU 0 /HPF (0-6); UROBILINOGEN, URINE AUTO 0.2 mg/dL (0.0-2.0); WBC, URINE AUTO 11 /HPF (0-3)
== END ==
LOC: M SMT 16:51
DX: Z46.6 Encounter for fitting and adjustment of urinary device (principal); Z79.899 Other long term (current) drug therapy
CPT/HCPCS: 81001

== ENCOUNTER 2017-09-13 09:56 | Day surgery (SDC) | payer MEDICARE ==
[2017-09-13] MEDS: PROPARACAINE 0.5% OPHTH SOL 15ML OD (07:00)
[2017-09-13] MEDS: MAXITROL OPHTH SUSP 5 ML As Ordered (07:21)
[2017-09-13] MEDS: LIDOCAINE 2% MDV 20 ML VIAL As Ordered (07:21)
[~2017-09-13 09:56] MED LIST changes: +ACETAMINOPHEN 325 MG TAB PO; -ALBU17IN2 INH; -ALBU83IN INH; -ALPR0.5T3 PO; -ASPI81TAEC PO; -BROV15NE INH; -BUDE0.5S6 INH; -CIPR-249 PO; -CIPR-250 PO; -CLAR10CA3 PO; -ECOT81TA5 PO; -FELO5TAB PO; -FLAG250T PO; -GABA-279 PO; -IPRAINH INH; -IPRASOL4 IN; -IPRASOL4 INH; -LISI-538 PO; -LISI40TAB PO; -LORATAB PO; -MULT1TAB10 PO; -NYST50SS SS; +OFLOXACIN 0.3 % (OCUFLOX) OPTH SOL 5ML OD; +PHENYLEPHRINE 2.5% OPHTH SOL 2ML XX; -PRED10PA2 PO; -PRED10TA2 PO; -PRED5TA PO; -PROT1TAB2 PO; -PROTPAK PO; -PULM0.5S INH; +TROPICAMIDE 1% OPHTH SOLN 2ML XX; -TYLE325T5 PO; -VITA500046 PO; -VITMTA PO; -XANA0.5T PO; -ZOLO100T PO
[2017-09-13] MEDS ORDERED: fentaNYL 100 MCG/2 ML INJECTION (J3010) As Ordered (10:24)
[2017-09-13] MEDS ORDERED: MIDAZOLAM INJ 2 MG/2 ML VIAL (J2250) As Ordered (10:24)
[2017-09-13] MEDS: PILOCARPINE 1% OPHTH SOLN 15 ML OD (10:30)
[2017-09-13] MEDS: OFLOXACIN 0.3 % (OCUFLOX) OPTH SOL 5ML XX (10:35)
[2017-09-13] MEDS ORDERED: PILOCARPINE 1% OPHTH SOLN 15 ML OD (11:45)
[2017-09-13] MEDS: BUPIVACAINE HCL 0.25% 10 ML VIAL As Ordered (12:20)
[2017-09-13] MEDS: POVIDONE-IODINE 5% OPHTH PREP SOL 30ML As Ordered (12:20)
[2017-09-13] MEDS: BALANCED SALT IRRIGATION SOLUTION 500ML BAG (FOR OR EYE MACHINE) As Ordered (12:20)
[2017-09-13] MEDS: PROPARACAINE 0.5% OPHTH SOL 15ML As Ordered (12:21)
[2017-09-13] MEDS: ACETYLCHOLINE OPHTH SOLN 1% 2ML (MIOCHOL-E) As Ordered (12:21)
[2017-09-13] MEDS: TRYPAN BLUE 0.06 % 2.25 ML OPHTH SYR (VISIONBLUE) As Ordered (12:22)
[2017-09-13] MEDS: DUOVISC (0.50ML VISCOAT/0.55ML PROVISC) OPHTH KIT As Ordered (12:23)
[2017-09-13] MEDS: TOBRADEX OPHTH OINT 3.5 GM As Ordered (12:42)
[2017-09-13] MEDS ORDERED: TRIMETHOBENZAMIDE 300 MG CAP PO (13:30)
== END 2017-09-13 14:35 | disposition home or self-care (01) ==
LOC: M SDC 09:56
DX: H18.11 Bullous keratopathy, right eye (principal); H18.20 Unspecified corneal edema; Z96.1 Presence of intraocular lens; I48.0 Paroxysmal atrial fibrillation; R00.1 Bradycardia, unspecified; K57.80 Diverticulitis of intestine, part unspecified, with perforation and abscess without bleeding; K44.9 Diaphragmatic hernia without obstruction or gangrene; K21.9 Gastro-esophageal reflux disease without esophagitis; M12.9 Arthropathy, unspecified; G56.01 Carpal tunnel syndrome, right upper limb; F41.9 Anxiety disorder, unspecified; F32.9 Major depressive disorder, single episode, unspecified; J45.909 Unspecified asthma, uncomplicated; J44.9 Chronic obstructive pulmonary disease, unspecified; R06.02 Shortness of breath; Z88.1 Allergy status to other antibiotic agents; Z91.041 Radiographic dye allergy status; Z79.899 Other long term (current) drug therapy; Z79.82 Long term (current) use of aspirin; Z87.440 Personal history of urinary (tract) infections; Z87.442 Personal history of urinary calculi; Z86.79 Personal history of other diseases of the circulatory system; Z95.0 Presence of cardiac pacemaker
CPT/HCPCS: 65756

== ENCOUNTER → 2017-09-17 | Outpatient (REF) | payer MEDICARE ==
[2017-09-17 13:48] LABS: AMORPHOUS SEDIMENT SMALL (NEGATIVE); APPEARANCE, URINE HAZY (CLEAR); BACTERIA, URINE AUTO NEGATIVE (NEGATIVE); BILIRUBIN, URINE AUTO NEGATIVE (NEGATIVE); BLOOD, URINE BLOOD NEGATIVE (NEGATIVE); CALCIUM OXALATE CRYSTALS LARGE; COLOR, URINE YELLOW (YELLOW); GLUCOSE, URINE (UA) AUTO NEGATIVE (NEGATIVE); KETONE, URINE AUTO NEGATIVE (NEGATIVE); LEUKOCYTE ESTERASE, URINE AUTO 1+ (NEGATIVE); MUCUS, URINE SMALL (NEGATIVE); NITRITE, URINE AUTO NEGATIVE (NEGATIVE); PROTEIN, URINE AUTO NEGATIVE (NEGATIVE); RBC, URINE AUTO 3 /HPF (0-3); SPECIFIC GRAVITY URINE AUTO 1.021 (1.002-1.035); SQUAMOUS EPITHELIAL CELL UR AU 0 /HPF (0-6); UROBILINOGEN, URINE AUTO 0.2 mg/dL (0.0-2.0); WBC, URINE AUTO 15 /HPF (0-3)
== END ==
LOC: M SMT 13:28
DX: N30.00 Acute cystitis without hematuria (principal)
CPT/HCPCS: 81001

== ENCOUNTER → 2017-10-05 | Outpatient (REF) | payer MEDICARE ==
[2017-10-05 18:50] LABS: APPEARANCE, URINE HAZY (CLEAR); BACTERIA, URINE AUTO NEGATIVE (NEGATIVE); BILIRUBIN, URINE AUTO NEGATIVE (NEGATIVE); BLOOD, URINE BLOOD NEGATIVE (NEGATIVE); CALCIUM OXALATE CRYSTALS LARGE; COLOR, URINE YELLOW (YELLOW); GLUCOSE, URINE (UA) AUTO NEGATIVE (NEGATIVE); KETONE, URINE AUTO NEGATIVE (NEGATIVE); LEUKOCYTE ESTERASE, URINE AUTO NEGATIVE (NEGATIVE); MUCUS, URINE SMALL (NEGATIVE); NITRITE, URINE AUTO NEGATIVE (NEGATIVE); PROTEIN, URINE AUTO NEGATIVE (NEGATIVE); RBC, URINE AUTO 1 /HPF (0-3); SPECIFIC GRAVITY URINE AUTO 1.023 (1.002-1.035); SQUAMOUS EPITHELIAL CELL UR AU 0 /HPF (0-6); UROBILINOGEN, URINE AUTO 0.2 mg/dL (0.0-2.0); WBC, URINE AUTO 4 /HPF (0-3)
== END ==
LOC: M SMT 16:56
DX: N30.00 Acute cystitis without hematuria (principal)
CPT/HCPCS: 81001

== ENCOUNTER 2017-11-22 10:41 | Day surgery (SDC) | payer MEDICARE ==
[~2017-11-22 10:41] MED LIST changes: -ACETAMINOPHEN 325 MG TAB PO; +MIDAZOLAM INJ 2 MG/2 ML VIAL (J2250) As Ordered; +PHENYLEPHRINE 2.5% OPHTH SOL 2ML OD; -PHENYLEPHRINE 2.5% OPHTH SOL 2ML XX; +PILOCARPINE 1% OPHTH SOLN 15 ML OD; +PROPARACAINE 0.5% OPHTH SOL 15ML OD; +TROPICAMIDE 1% OPHTH SOLN 2ML OD; -TROPICAMIDE 1% OPHTH SOLN 2ML XX; +fentaNYL 100 MCG/2 ML INJECTION (J3010) As Ordered
[2017-11-22] MEDS ORDERED: ACETAMINOPHEN TAB 650MG DOSE (2X325MG) PO (11:15)
[2017-11-22] MEDS ORDERED: ONDANSETRON 4MG/2ML VIAL (J2405) IV (11:15)
[2017-11-22] MEDS: POVIDONE-IODINE 5% OPHTH PREP SOL 30ML As Ordered (12:54)
[2017-11-22] MEDS: ACETYLCHOLINE OPHTH SOLN 1% 2ML (MIOCHOL-E) As Ordered (12:55)
[2017-11-22] MEDS: LIDOCAINE PRES-FREE 2% 10ML AMP As Ordered (12:55)
[2017-11-22] MEDS: DUOVISC (0.50ML VISCOAT/0.55ML PROVISC) OPHTH KIT As Ordered ×2 (12:55→12:56)
[2017-11-22] MEDS: TOBRADEX OPHTH OINT 3.5 GM As Ordered (12:55)
[2017-11-22] MEDS: BALANCED SALT IRRIGATION SOL 500ML GLASS BOTTLE (FOR OR EYE COMPOUND) As Ordered (12:56)
== END 2017-11-22 13:25 | disposition home or self-care (01) ==
LOC: M SDC 10:41
DX: T86.841 Corneal transplant failure (principal); I10 Essential (primary) hypertension; J45.909 Unspecified asthma, uncomplicated; R00.1 Bradycardia, unspecified; K57.80 Diverticulitis of intestine, part unspecified, with perforation and abscess without bleeding; K44.9 Diaphragmatic hernia without obstruction or gangrene; K21.9 Gastro-esophageal reflux disease without esophagitis; D64.9 Anemia, unspecified; M12.9 Arthropathy, unspecified; J44.9 Chronic obstructive pulmonary disease, unspecified; R06.09 Other forms of dyspnea; Z88.1 Allergy status to other antibiotic agents; Z91.041 Radiographic dye allergy status; Z79.899 Other long term (current) drug therapy; Z79.82 Long term (current) use of aspirin; Z95.0 Presence of cardiac pacemaker; Z96.1 Presence of intraocular lens
CPT/HCPCS: 65756

== ENCOUNTER → 2019-02-21 | Outpatient (REF) | payer MEDICARE ==
[~2019-02-21] MED LIST changes: +ALBU17IN2 INH; +ALBU83IN INH; +ALPR0.5T3 PO; +ASPI81TA26 PO; +ASPI81TAEC PO; +BROV15NE INH; +BUDE0.5S6 INH; +CIPR-249 PO; +CIPR-250 PO; +CIPR5SUS PO; +CLAR10CA3 PO; +ECOT81TA5 PO; +FELO5TAB26 PO; +FLAG250T PO; +FLOM0.4C39 PO; +GABA-1171 PO; +GABA-845 PO; +IPRA0.00 IN; +IPRA0.00 INH; +IPRAINH INH; +LISI-538 PO; +LISI40TA PO; +LORATAB PO; +MAGICMW SS; -MIDAZOLAM INJ 2 MG/2 ML VIAL (J2250) As Ordered; +MULT1TAB10 PO; +NORC1TAB7 PO; +NYST50SS SS; -OFLOXACIN 0.3 % (OCUFLOX) OPTH SOL 5ML OD; -PHENYLEPHRINE 2.5% OPHTH SOL 2ML OD; -PILOCARPINE 1% OPHTH SOLN 15 ML OD; +PRED10PA2 PO; +PRED10TA2 PO; +PRED5TA PO; +PREDOPD OD; -PROPARACAINE 0.5% OPHTH SOL 15ML OD; +PROT1TAB2 PO; +PROTPAK PO; +PULM0.5S INH; +SERT-138 PO; -TROPICAMIDE 1% OPHTH SOLN 2ML OD; +TYLE325T5 PO; +VITA500046 PO; +VITA500055 PO; +VITMTA PO; +XANA0.5T PO; +ZOLO100T PO; +ZOLO25TA PO; +ZYVO1TAB PO; -fentaNYL 100 MCG/2 ML INJECTION (J3010) As Ordered
== END ==
LOC: M LAB REF 12:26
PROVIDERS: ATTEND Nurse Practitioner Family
DX: N39.0 Urinary tract infection, site not specified (principal)

== ENCOUNTER → 2019-03-21 | Outpatient (REF) | payer MEDICARE ==
[~2019-03-21] MED LIST changes: +FELO5TAB PO; -FELO5TAB26 PO
[2019-03-21 18:32] LABS: TOTAL PROTEIN 6.6 GM/DL (6.4-8.2)
[2019-03-21 20:07] LABS: FOLATE 15.2 NG/ML; VITAMIN B12 LEVEL 372 PG/ML
[2019-03-25 09:42] LABS: ALBUMIN 3.47 GM/DL (3.29-5.55); ALBUMIN % 52.5 % (55.8-66.1); ALPHA-1-GLOBULIN % 4.2 % (2.9-4.9); ALPHA-1-GLOBULINS 0.28 GM/DL (0.17-0.41); ALPHA-2-GLOBULINS 0.63 GM/DL (0.42-0.99); ALPHA-2-GLOBULINS % 9.5 % (7.1-11.8); BETA-1-GLOBULINS 0.48 GM/DL (0.28-0.60); BETA-1-GLOBULINS % 7.3 % (4.7-7.2); BETA-2-GLOBULINS 1.01 GM/DL (0.19-0.55); BETA-2-GLOBULINS % 15.3 % (3.2-6.5); GAMMA GLOBULIN % 11.2 % (11.1-18.8); GAMMA GLOBULINS 0.74 GM/DL (0.65-1.58)
[2019-03-25 10:00] LABS: IMMUNOTYPING SERUM IGM ABNORMAL (NORMAL); IMMUNOTYPING SERUM KAPPA ABNORMAL (NORMAL)
== END ==
LOC: M LAB REF 17:10
PROVIDERS: ATTEND Internal Medicine
DX: R20.2 Paresthesia of skin (principal)

== ENCOUNTER → 2019-04-11 | Outpatient (CLI) | payer MEDICARE ==
--- NOTE | 2019-04-11 11:56 | REP ---
CT cervical spine: 04/12/2019. Indication: Cervical radiculopathy. Comparison: 10/26/2016. Technique: Unenhanced axial images of the cervical spine were obtained with sagittal and coronal reconstructions provided. Findings: The patient is status post C3 - C7 ACDF. Degenerative cystic and additional chronic erosive sequelae are stable. The surgical hardware appears intact. Alignment is stable. Small hyperdense focus within the anterior T2 vertebral body is unchanged. Multilevel spondylosis is present without significant spinal canal narrowing detected. The presence of the surgical hardware and associated streak artifact somewhat renders diagnostic quality suboptimal. The greatest degree of neural foraminal narrowing is on the right at C4/C5. Impression: Extensive postoperative and degenerative sequelae as described. There is no severe spinal canal narrowing detected. Greatest neural foraminal narrowing is on the right at C4/C5. Electronically Signed by Breezy Valladares DO 04/11/2019 11:47 A
--- NOTE | 2019-04-11 12:05 | REP ---
CT lumbar spine: 04/12/2019. Indication: Low back pain. Comparison: None. Technique: Unenhanced axial CT images of the lumbar spine were obtained with sagittal and coronal reconstructions provided. Findings: There is significant idiopathic thoracolumbar scoliosis with the rightward convexity centered at L1/L2. There is rightward subluxation of L3 on L4 and minimally L2 and L3. Significant disc space narrowing and vacuum disc phenomenon are present throughout the lumbar spine. Partially calcified exophytic left renal cyst is present. No atrophy is noted. Aortoiliac atherosclerotic disease is present. Small bone island within the left sacrum is noted. There is no evidence of acute fracture. Multilevel spondylosis is present without severe spinal canal narrowing detected. The greatest neural foraminal narrowing occurs on the right at at L2/L3, L3/L4 and L4/L5. Impression: Extensive scoliosis and degenerative sequelae as described without detection of severe spinal canal narrowing. Neural foraminal narrowing on the right as described. Partially calcified left renal cyst. Atherosclerotic disease. Electronically Signed by Breezy Valladares DO 04/11/2019 11:56 A
== END ==
LOC: M RAD 11:05
PROVIDERS: ATTEND Psychiatry & Neurology Neurology
DX: M54.2 Cervicalgia (principal)

== ENCOUNTER → 2019-06-30 | Outpatient (CLI) | payer MEDICARE ==
[~2019-06-30] MED LIST changes: -FELO5TAB PO; +FELO5TAB26 PO
--- NOTE | 2019-06-30 14:39 | REP ---
INDICATION: Unsteadiness on feet. PROCEDURE: Noncontrast CT head. COMPARISON STUDIES: No priors. FINDINGS: No acute bleed or acute large vessel territorial infarct. Ventricles, cisterns and sulci within normal limits. No mass effect or midline shift. No abnormal fluid collections. No fracture evident. Scattered subcortical white matter changes are seen, greater in the frontal lobes bilaterally. CONCLUSION: No acute findings. Chronic small vessel ischemic changes. Electronically Signed by Armaan Davenport MD 06/30/2019 02:30 P
== END ==
LOC: M RAD 13:30
PROVIDERS: ATTEND Psychiatry & Neurology Neurology
DX: R26.89 Other abnormalities of gait and mobility (principal)

== ENCOUNTER → 2019-07-25 | Outpatient (CLI) | payer MEDICARE ==
[~2019-07-25] MED LIST changes: +ALBU8.5H IH; +FERR325T81 PO; +VITA500079 PO; +ZOLO50TA PO
--- NOTE | 2019-07-25 11:05 | REP ---
ULTRASOUND LEFT UPPER QUADRANT: Real-time sonographic evaluation of the left upper quadrant performed. The spleen is normal in size with no intrinsic abnormality. It measures 8.2 x 7.9 x 2.8 cm. Left kidney measures 10.6 x 4.5 x 4.0 cm. Mildly increased echotexture suggests some degree of medical renal disease. There are multiple left renal cysts without hydronephrosis, largest is in the mid aspect of the left kidney measuring 6.6 x 4.9 x 5.7 cm with a cyst in the lower pole measuring 3.4 x 2.2 x 2.0 cm and a cyst in the upper pole 2.5 x 2.9 x 3.5 cm. Scattered tiny echogenic foci in the left kidney probably represents vascular calcifications. IMPRESSION: No splenomegaly. Left renal cysts. Electronically Signed by Bright Kaplan MD 07/25/2019 12:55 P
== END ==
LOC: M RAD 09:34
PROVIDERS: ATTEND Internal Medicine Hematology
DX: D73.9 Disease of spleen, unspecified (principal)

== ENCOUNTER → 2020-09-09 | Outpatient (REF) | payer MEDICARE ==
[~2020-09-09] MED LIST changes: +ASPI-569 PO; -ASPI81TAEC PO; -LISI-538 PO; +LISI20TA33 PO; -LISI40TA PO; +LISI40TA4 PO
[2020-09-10 10:47] LABS: ALBUMIN 3.53 GM/DL (3.29-5.55); ALBUMIN % 50.4 % (55.8-66.1); ALPHA-1-GLOBULIN % 4.3 % (2.9-4.9); BETA-1-GLOBULINS 0.52 GM/DL (0.28-0.60); BETA-1-GLOBULINS % 7.4 % (4.7-7.2); BETA-2-GLOBULINS 1.25 GM/DL (0.19-0.55); BETA-2-GLOBULINS % 17.9 % (3.2-6.5)
[2020-09-10 11:18] LABS: IMMUNOTYPING SERUM IGM ABNORMAL (NORMAL); IMMUNOTYPING SERUM KAPPA ABNORMAL (NORMAL)
== END ==
LOC: M LAB REF 16:22
PROVIDERS: ATTEND Internal Medicine
DX: D47.2 Monoclonal gammopathy (principal)

== ENCOUNTER → 2020-09-29 | Outpatient (CLI) | payer MEDICARE | LOC: M LABSMTC 11:50 | PROVIDERS: ATTEND Internal Medicine Cardiovascular Disease | DX: Z11.52 Encounter for screening for COVID-19 (principal) ==

== ENCOUNTER → 2020-10-28 | Outpatient (CLI) | payer MEDICARE ==
--- NOTE | 2020-10-28 14:41 | PFTRPT ---
Height: 69.00 Inches Weight: 145.00 Lbs BSA: 1.80 Diagnosis: J45.4 DATE: 10/28/2020 ORDERING PHYSICIAN: Dallin Ni DO Study is of excellent technical quality. Forced vital capacity is reduced. FEV1 is out of proportion. Obstructive index is therefore reduced. Expiratory limit of the flow-volume loop is consistent with flow rate limitation. Total lung capacity is normal. Residual volume does suggest a degree of air trapping. Diffusing capacity although minimally reduced is appropriate for alveolar volume. Hemoglobin is acceptable at 15.6. Airway resistance elevated with concomitant decrease in airway conductance. IMPRESSION: At least moderate obstructive ventilatory impairment with underlying air trapping. Please correlate clinically. MTDD
== END ==
LOC: M CARPUL 14:13
PROVIDERS: ATTEND Internal Medicine Pulmonary Disease
DX: J45.909 Unspecified asthma, uncomplicated (principal)

== ENCOUNTER 2020-11-30 06:34 | Inpatient (IN) | payer MEDICARE ==
[~2020-11-30] VITALS: Ht 172.7 cm; Wt 65.8 kg
[~2020-11-30 06:34] MED LIST changes: +GABA-283 PO; -GABA-845 PO
[2020-11-30] MEDS ORDERED: ONDANSETRON 4MG/2ML VIAL IV ONE (08:05)
[2020-11-30 08:53] LABS: BASO # 0.1 10^3/uL (0.0-0.2); BASO % 0.6 % (0.0-1.0); EOS # 0.2 10^3/uL (0.0-0.5); EOS % 0.9 % (0.0-3.0); HEMOGLOBIN 13.4 g/dl (13.5-17.5); LYMPH # 0.7 10^3/uL (1.5-5.0); LYMPH % 2.8 % (24.0-44.0); MEAN CORPUSCULAR HEMOGLOBIN 28.3 pg (27.0-33.0); MEAN CORPUSCULAR HGB CONC 30.5 g/dl (32.0-36.5); MONO # 1.5 10^3/uL (0.0-0.8); MONO % 6.6 % (2.0-8.0); NEUTROPHILS # 20.3 10^3/uL (1.5-8.5); NEUTROPHILS % 88.3 % (36.0-66.0); PLATELET COUNT, AUTOMATED 251 10^3/uL (150-450); RED BLOOD COUNT 4.73 10^6/uL (4.30-6.10)
[2020-11-30] MEDS: SERTRALINE HCL 25 MG TABLET PO SCH (09:00)
[2020-11-30 09:13] LABS: ALBUMIN 3.1 GM/DL (3.2-5.2); ALT/SGPT 31 U/L (12-78); BILIRUBIN,DIRECT < 0.1 MG/DL (0.0-0.2); BILIRUBIN,TOTAL 0.6 MG/DL (0.2-1.0); BLOOD UREA NITROGEN 22 MG/DL (7-18); CARBON DIOXIDE LEVEL 27 MEQ/L (21-32); CHLORIDE LEVEL 109 MEQ/L (98-107); CREATININE FOR GFR 1.52 MG/DL (0.70-1.30); GLOMERULAR FILTRATION RATE 46.4 (>35); GLUCOSE, FASTING 119 MG/DL (70-100); LIPASE 79 U/L (73-393); POTASSIUM SERUM 5.5 MEQ/L (3.5-5.1); SODIUM LEVEL 140 MEQ/L (136-145); TOTAL PROTEIN 6.9 GM/DL (6.4-8.2)
--- NOTE | 2020-11-30 11:22 | REP ---
INDICATION: RLQ pain, hx renal calculi COMPARISON: 07/28/2017. TECHNIQUE: CT Scan of the abdomen and pelvis was performed without intravenous contrast. Sagittal and coronal reconstruction images performed. FINDINGS: Lung bases: There are chronic bibasilar fibro atelectatic changes with superimposed mild increased density, likely representing mild degree of bibasilar atelectasis or infiltrate. There is elevation of the left hemidiaphragm. Liver: Collapsed. Gallbladder: Unremarkable. Spleen: Grossly unremarkable. Adrenals: Normal. Pancreas: Grossly unremarkable.. Kidneys: No hydronephrosis or nephrolithiasis. Ureters demonstrate no dilatation or calculus. There are multiple bilateral renal cysts again seen. Small and large bowel: Once again there is evidence of a left anterior abdominal wall colostomy. Superior to that there is a hernia of the left anterior abdominal wall which contains a loop of colon. The colon distal to this is essentially collapsed. There is [id number] dilatation of the colon within the hernia and proximally. Some degree of colonic obstruction cannot be excluded. There is evidence of mesh material of the anterior abdominal wall. Surgical sutures are seen along the bowel loops of the upper abdomen in the midline. There appears to be a small diverticulum of the posterior wall of the stomach. Free fluid: None. Abdominal aorta: No aneurysm. Adenopathy: None. Appendix: Not present. Osseous structures: There are degenerative changes of the spine without compression deformity. Pelvis: No mass. No bladder calculus seen. IMPRESSION: Mild bibasilar atelectasis/infiltrate. No evidence of renal or ureteral calculus and no hydroureteronephrosis. Left anterior abdominal wall colostomy. Superior to this there is a left anterior abdominal wall hernia which contains a loop of colon, the more proximal colon is [id number] dilated. Some degree of colonic obstruction cannot be excluded. Alternatively this may represent an ileus. No free air or free fluid. <Electronically signed by Bright Kaplan > 11/30/20 [id number]
[2020-11-30] MEDS ORDERED: METO1TAB32 PO (13:49)
[2020-11-30] MEDS ORDERED: ATOR40TA75 PO (13:49)
[2020-11-30] MEDS ORDERED: PANT20TA51 PO (13:49)
[2020-11-30 13:52] LABS: RSV AMPLIFICATION NEGATIVE (NEGATIVE)
[2020-11-30] MEDS ORDERED: IPRATROPIUM 0.5MG/ALBUTEROL 2.5MG INH SOL UD 3ML (DUONEB) INH PRN (13:55)
[2020-11-30] MEDS ORDERED: ACETAMINOPHEN TAB 650MG DOSE (2X325MG) PO PRN (13:55)
[2020-11-30] MEDS ORDERED: ERTAPENEM SODIUM 1 GM in NS MINI-BAG PLUS 50 ML IV SCH (16:00)
[2020-11-30 16:25] VITALS: BP 108/66
[2020-11-30] MEDS: ASPIRIN 81MG ENTERIC TABLET PO SCH (16:35)
[2020-11-30] MEDS: PANTOPRAZOLE 20 MG TAB PO SCH (16:35)
[2020-11-30] MEDS: METOPROLOL SUCC *XL* 25MG TAB (TopROL *XL*) PO SCH (16:35)
[2020-11-30] MEDS: predniSONE 5 MG TAB PO SCH (16:35)
--- NOTE | 2020-11-30 17:16 | HPEPDOC ---
[facility] Medical History & Physical Date of Admission Nov 30, 2020 Date of Service: Nov 30, 2020 Attending Physician: GURPREET NASH MD History and Physical CHIEF COMPLAINT: Abdominal pain, N, V HISTORY OF PRESENT ILLNESS: 5 yo M with a remote history of colorectal CA s/p sigmoid colectomy s/p revision, a history of prior SBO who presented to the ED reporting sudden severe RLQ pain that lasted a few hours and is now better but now with lasting N/V and noted to have significant leukocytosis possible partial colonic obstruction who is now being admitted to medicine with surgery on consultation. ED workup was notable for leukocytosis to 23, with >80% PMNS, Hgb 13.4, platelets 251, na 140, K 5.5, Cr 1.52, AST 50, ALT 31, T bili 0.61, UA with 1+ bacteria and trace leuk esterase while CT A/P showed a L anterior abdominal wall hernia with a loop of colon with the colon distal to that essentially collapsed with mild to moderate dilatation of the colon within the hernia and proximally and therefore some degree of colonic obstruction could not be excluded. Surgery was consulted by the ED and recommended admission to medicine at least for observation with surgery as consultants. 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 REVIEW OF SYSTEMS: 10 point ROS was otherwise negative, except as noted in the HPI. HOME MEDICATIONS: Please see below. PHYSICAL EXAMINATION: VITAL SIGNS: see below GENERAL APPEARANCE: NAD HEENT: NCAT, EOMI, MMM CARDIOVASCULAR: 3/6 pansystolic murmur, loudest at RUSB, RRR LUNGS: CTAB ABDOMEN: Normoactive sounds throughout in all 4 quadrants, mildly tympanic, L sided colostomy with green watery stool, no bloody elements, NTND EXTREMITIES: mid L ankle edema per baseline per patient, otherwise trace bilateral edema, WWP NEUROLOGICAL: CN 3-12 intact, moving all extremities, grossly nonfocal examination, speech clear PSYCHIATRIC: AOx3 LABORATORY DATA and IMAGING: as summarized above MICROBIOLOGY: Please see below. ASSESSMENT: 85 yo M with a remote history of colorectal CA s/p sigmoid colectomy s/p revision, a history of prior SBO who presented to the ED reporting sudden s evere RLQ pain that lasted a few hours and is now better but now with lasting N/V and noted to have significant leukocytosis possible partial colonic obstruction who is now being admitted to medicine with surgery on consultation. PLAN: Possible colonic obstruction given the recent history of abdominal pain with N/V and CT showing L anterior abdominal wall hernia with a loop of mildly distended colon with the distal colon distal to it being essentially collapsed with associated leukocytosis: -symptoms at this point seem to have resolved, but will place him on empiric ertapenem for at least the next 24h, clear liquid diet, consulted Dr. Singer who knows him well, and may order some gentle fluids -zofran PRN for nausea -will order BCx prior to starting empiric antibiotics Leukocytosis: possibly with a UTI given +UA, but also very much possibly reactive to the colonic obstruction that may have been transient i/s/o extensive abdominal surgeries. -f/u UCx -f/u BCx -Empiric ertapenem -imaging as noted above COPD: no evidence of exacerbation -continue home mdis Aortic stenosis with recent plan for TAVR on 12/01 -will need to be rescheduled -will FYI Dr. Ovalle History of Mobitz type II: s/p PPM Depression, Anxiety, Insomina: continue home zoloft, QHS alprazolam CAD: -continue ASA 81 HLD: -continue lipitor HTN: -continue toprol XL Vital Signs Vital Signs Date Time Temp Pulse Resp B/P (MAP) Pulse Ox O2 Delivery O2 Flow Rate FiO2 11/30/20 16:25 98.3 86 18 108/66 (80) 92 11/30/20 15:01 Room Air Laboratory Data Labs 24H Laboratory Tests 2 11/30/20 08:29: Immature Granulocyte % (Auto) 0.8, Neutrophils (%) (Auto) 88.3H, Lymphocytes (%) (Auto) 2.8L, Monocytes (%) (Auto) 6.6, Eosinophils (%) (Auto) 0.9, Basophils (%) (Auto) 0.6, Neutrophils # (Auto) 20.3H, Lymphocytes # (Auto) 0.7L, Monocytes # (Auto) 1.5H, Eosinophils # (Auto) 0.2, Basophils # (Auto) 0.1, Nucleated Red Blood Cells % (auto) 0.0, Anion Gap 4L, Glomerular Filtration Rate 46.4, Calcium Level 9.0, Total Bilirubin 0.6, Direct Bilirubin < 0.1, Aspartate Amino Transf (AST/SGOT) 50H, Alanine Aminotransferase (ALT/SGPT) 31, Alkaline Phosphatase 101, Total Protein 6.9, Albumin 3.1L, Albumin/Globulin Ratio 0.8, Lipase 79 11/30/20 08:31: Urine Color KAROLINE, Urine Appearance HAZY, Urine pH 5.0, Urine Specific [place] 1.020, Urine Protein 1+H, Urine Glucose (UA) NEGATIVE, Urine Ketones NEGATIVE, Urine Blood NEGATIVE, Urine Nitrite NEGATIVE, Urine Bilirubin NEGATIVE, Urine Urobilinogen 0.2, Urine Leukocyte Esterase TRACEH, Urine WBC (Auto) 6H, Urine RBC (Auto) 2, Urine Hyaline Casts (Auto) 9, Urine Bacteria (Auto) 1+H, Urine Squamous Epithelial Cells 0, Urine Amorphous Sediment SMALLH, Urine Mucus (Auto) MODERATE, Urine Sperm (Auto) 11/30/20 12:57: Coronavirus (COVID-19)(PCR) NEGATIVE, Influenza Type A (RT-PCR) NEGATIVE, Influenza Type B (RT-PCR) NEGATIVE, Respiratory Syncytial Virus (PCR) NEGATIVE CBC/BMP Laboratory Tests 11/30/20 08:29 Microbiology Microbiology 11/30/20 Blood Culture, Received Pending 11/30/20 Blood Culture, Received Pending 11/30/20 Urine Culture, Received Pending Home Medications Scheduled Alprazolam (Alprazolam) 0.5 Mg Tab, 0.5 MG PO QHS Arformoterol Tartrate (Brovana) 15 Mcg/2 Ml Neb, 15 MCG INH BID MIX WITH BUDESONIDE Aspirin (Aspirin EC) 81 Mg Tab, 81 MG PO DAILY Atorvastatin Calcium (Atorvastatin Calcium) 40 Mg Tablet, 40 MG PO QHS Budesonide (Pulmicort) 0.5 Mg/2 Ml Namrata, 0.5 MG INH BID MIX WITH BROVANA Ferrous Sulfate (Iron) 325 Mg Tablet, 65 MG PO Q2D Metoprolol Succinate (Metoprolol Succinate) 25 Mg Tab.er.24h, 25 MG PO DAILY Multivitamins (Thera M Plus Tablet) 1 Tab Tab, 1 TAB PO Q2D with minerals Pantoprazole Sodium (Pantoprazole Sodium) 20 Mg Tablet.dr, 20 MG PO DAILY Prednisone (Prednisone) 5 Mg Tab, 5 MG PO DAILY Sertraline Hcl (Zoloft) 50 Mg Tablet, 25 MG PO DAILY Scheduled PRN Ipratropium/Albuterol Sulfate (Iprat-Albut 0.5-3(2.5) mg/3 ml) 1 Kevin Kevin, 1 KEVIN INH TID PRN for SHORTNESS OF BREATH Allergies Coded Allergies: Contrast Media (Verified Allergy, Intermediate, RASH - MANY YEARS AGO, 09/04/17) cephapirin (Verified Allergy, Mild, hives on torso, 07/17/19) A-FIB/CHADSVASC A-FIB History Current/History of A-Fib/PAF?: No Current PO Anticoag Therapy: No Age/Risk Factor Scoring CHADSVASC: CHADSVASC Response (Comments) Value Age Risk Factor Age >/= 75 years old 2 Gender Risk Factor Male 0 Hx of CHF No 0 Hx of HTN Yes 1 Hx of Stroke/TIA/or VTE No 0 Hx of Diabetes No 0 Hx of Vascular Disease Yes 1 Total 4 Treatment Treatment ordered: NONE Reason Anticoagulant not given: Not indicated/[id number] GURPREET NASH MD Nov 30, 2020 17:16
--- NOTE | 2020-11-30 17:38 | ECGEPIP ---
[facility] - ED Test Date: 2020-11-30 Pat Name: MASTER FREEMAN Department: Room: - Gender: Male Java Sdet: LOUIE : 1935 Requested By: Kehinde Marie Order Number: [id number] Reading MD: Rachelle White Measurements Intervals [place] Rate: 83 P: 74 PA: 148 QRS: -80 QRSD: 160 T: 87 QT: 440 QTc: 517 Interpretive Statements Atrial-sensed ventricular-paced rhythm increased rate 07/28/17 Electronically Signed on 11-30-2020 17:38:37 EDT by Rachelle White
[2020-11-30] MEDS: NS 1,000 ML IV SCH (18:00)
[2020-11-30] MEDS: BUDESONIDE 0.5 MG/2 ML INHALATION SUSPENSION INH SCH (19:37)
[2020-11-30] MEDS: FORMOTEROL FUMARATE 20 MCG/2 ML INHALATION SOLUTION (PERFOROMIST) INH SCH (19:37)
[2020-11-30] MEDS ORDERED: ALPRAZolam 0.5 MG TAB PO SCH (21:00)
[2020-11-30] MEDS ORDERED: ATORVASTATIN 20 MG TAB PO SCH (21:00)
[2020-11-30] MEDS: HEPARIN SOD (PORCINE) 5000UNITS/ML 1ML VIAL/SYRINGE SC SCH (21:20)
[2020-11-30 22:00] VITALS: BP 115/67
[2020-12-01] MEDS: NS 1,000 ML IV SCH (05:42)
[2020-12-01 06:00] VITALS: BP 117/68
[2020-12-01 06:56] LABS: HEMATOCRIT 39.6 % (42.0-52.0); HEMOGLOBIN 11.9 g/dl (13.5-17.5); MEAN CORPUSCULAR HEMOGLOBIN 28.9 pg (27.0-33.0); MEAN CORPUSCULAR HGB CONC 30.1 g/dl (32.0-36.5); MEAN CORPUSCULAR VOLUME 96.1 fl (80.0-96.0); PLATELET COUNT, AUTOMATED 214 10^3/uL (150-450); RED BLOOD COUNT 4.12 10^6/uL (4.30-6.10); WHITE BLOOD COUNT 11.9 10^3/uL (4.0-10.0)
[2020-12-01 07:22] LABS: CALCIUM LEVEL 8.5 MG/DL (8.8-10.2); CREATININE FOR GFR 1.49 MG/DL (0.70-1.30); GLOMERULAR FILTRATION RATE 47.5 (>35); MAGNESIUM LEVEL 2.2 MG/DL (1.8-2.4); POTASSIUM SERUM 4.3 MEQ/L (3.5-5.1)
[2020-12-01] MEDS: BUDESONIDE 0.5 MG/2 ML INHALATION SUSPENSION INH SCH (07:46)
[2020-12-01] MEDS: FORMOTEROL FUMARATE 20 MCG/2 ML INHALATION SOLUTION (PERFOROMIST) INH SCH (07:46)
--- NOTE | 2020-12-01 08:18 | IPNPDOC ---
Text Note Date of Service The patient was seen on 12/01/20. NOTE SUBJECTIVE: -Doing well, no pain, tolerating clears, was advanced to regular diet this AM by surgical team, is having appropriate baseline ostomy output VITAL SIGNS: see below GENERAL APPEARANCE: NAD HEENT: NCAT, EOMI, MMM CARDIOVASCULAR: 3/6 pansystolic murmur, loudest at RUSB, RRR LUNGS: CTAB ABDOMEN: Normoactive sounds throughout in all 4 quadrants, L sided colostomy with green watery stool, NTND EXTREMITIES: mid L ankle edema per baseline per patient, otherwise trace b ilateral edema, WWP NEUROLOGICAL: CN 3-12 intact, moving all extremities, grossly nonfocal examinati on, speech clear PSYCHIATRIC: AOx3 LABORATORY DATA: WBC 11.9 Hgb 11.3 platelets 214 na 142 K 4.3 Cr 1.49 Mag 2.2 MICROBIOLOGY: Please see below. ASSESSMENT: 85 yo M with a remote history of colorectal CA s/p sigmoid colectomy s/p revision, a history of prior SBO who presented to the ED reporting sudden severe RLQ pain that lasted a few hours and is now better but now with lasting N/V and noted to have significant leukocytosis possible partial colonic obstruction who was admitted to medicine with surgery on consultation. PLAN: Possible transient colonic obstruction given the recent history of abdominal pain with N/V and CT showing L anterior abdominal wall hernia with a loop of mildly distended colon with the distal colon distal to it being essentially collapsed with associated leukocytosis: -symptoms at this point seem to have resolved -Was given empiric ertapenem that will now be discontinued -Advancing from clear liquid diet to regular diet this AM per Dr. Singer -DC fluids -zofran PRN for nausea Leukocytosis: Resolving. possibly with a UTI given +UA, but also very much po ssibly reactive to the colonic obstruction that may have been transient i/s/o extensive abdominal surgeries. -f/u UCx -f/u BCx -DC empiric ertapenem and will give PO cipro for possible UTI vs. GI source. -imaging as noted above COPD: no evidence of exacerbation -continue home mdis Aortic stenosis with recent plan for TAVR on 12/01 -will need to be rescheduled -will MELANII Dr. Ovalle History of Mobitz type II: s/p PPM Depression, Anxiety, Insomina: continue home zoloft, QHS alprazolam CAD: -continue ASA 81 HLD: -continue lipitor HTN: -continue toprol XL Dispo: likely home later today if he tolerates regular diet well with PO cipro course. Will need prompt cardiology appt with Dr. Ovalle to reschedule his TAVR that he missed today. VS,Fishbone, I+O VS, Fishbone, I+O Laboratory Tests 11/30/20 08:29 12/01/20 06:27 Vital Signs Date Time Temp Pulse Resp B/P (MAP) Pulse Ox O2 Delivery O2 Flow Rate FiO2 12/01/20 06:00 98.0 72 18 117/68 (84) 96 Room Air I&O- Last 24 Hours up to 6 AM 12/01/20 05:59 Intake Total 1260 ml Output Total 0 ml Balance 1260 ml GURPREET NASH MD Dec 01, 2020 08:18
[2020-12-01 08:20] VITALS: BP 139/73
[2020-12-01] MEDS: SERTRALINE HCL 25 MG TABLET PO SCH (08:20)
[2020-12-01] MEDS: ASPIRIN 81MG ENTERIC TABLET PO SCH (08:20)
[2020-12-01] MEDS: predniSONE 5 MG TAB PO SCH (08:20)
[2020-12-01] MEDS: HEPARIN SOD (PORCINE) 5000UNITS/ML 1ML VIAL/SYRINGE SC SCH (08:20)
[2020-12-01] MEDS: PANTOPRAZOLE 20 MG TAB PO SCH (08:20)
[2020-12-01 08:23] VITALS: BP 139/73
[2020-12-01] MEDS: METOPROLOL SUCC *XL* 25MG TAB (TopROL *XL*) PO SCH (08:23)
[2020-12-01] MEDS ORDERED: CIPR-249 PO (08:35)
--- NOTE | 2020-12-01 08:59 | CR ---
CONSULTATION DATE: 11/30/2020 REASON FOR CONSULTATION: Abdominal pain. HISTORY OF PRESENT ILLNESS: The patient is an 85-year-old male who presents with abdominal pain that was quite severe last night and with nausea and vomiting, had some minimal stool output but essentially was concerning for a possible colonic obstruction associated with a previous parastomal hernia. Essentially, the concern of a parastomal hernia is there but where the hernia is it is very close but superior to the ostomy itself in a previous ostomy site. In any case, one of the general surgeon's had taken to the patient to the Operating Room for operative intervention a few years ago and unfortunately the patient had a frozen abdomen which made operative repair/hernia repair unsuccessful and not advised. Thus, that will impact recommendations for operative repair for him. The patient's CT scan did show some dilated colon proximal to some collapsed colon that seemed to be next to the hernia in the left upper quadrant. I was asked to see him for recommendations from a surgical standpoint. He has been feeling better over the day. He was started on a clear liquid diet and has been tolerating that. PAST MEDICAL HISTORY: Status post colon cancer, status post hemicolectomy, history of COPD, history of chronic kidney disease, history of MGUS, history of aortic stenosis, was scheduled for a TAVR at [facility], history of hypertension, hyperlipidemia, gastroesophageal reflux disease, colostomy revision, history of small bowel obstruction, sigmoid colectomy for diverticulitis, history of colostomy revision, appendectomy and cholecystectomy. PHYSICAL EXAMINATION: Elderly male who looks stated age. HEENT: Unremarkable. Neck is supple without adenopathy. Heart is regular with a very loud murmur. Lungs are clear to auscultation without crackles, wheezes or rhonchi. Abdomen is softly distended. No tenderness. No guarding. No rebound and essentially has a benign exam at this point. He does have the hernia that is easily reducible and his ostomy is functioning quite well. IMPRESSION: The patient had abdominal pain of undetermined etiology, it easily could have been a partial obstruction presentation, however with his leukocytosis and the abdominal pain and his multiple medical issues I do feel that he is an individual that would benefit from observation overnight given his multiple medical issues. I appreciate the Hospitalist admitting him onto their service and I do feel that starting him on some clear liquids as you have done is reasonable. However, I would recommend advancing his diet to regular in the morning if he is tolerating the clears and his leukocytosis has diminished, otherwise we may have to revisit the etiology for his leukocytosis should his abdominal pain return. In any case, at this point supportive care is warranted and observation given his multiple medical issues.
[2020-12-01] MEDS ORDERED: FERROUS SULFATE 325MG TAB PO SCH (09:00)
[2020-12-01] MEDS ORDERED: MULTIVITAMINS/MINERALS THERAP 1 TAB PO SCH (09:00)
--- NOTE | 2020-12-01 10:42 | DS.PDOC ---
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 HISTORY OF PRESENT ILLNESS: 85 yo M with a remote history of colorectal CA s/p sigmoid colectomy s/p revision, a history of prior SBO who presented to the ED reporting sudden severe RLQ pain that lasted a few hours and was better by the time of ED presentation but had lasting N/V. HOSPITAL COURSE: He arrived hemodynamically stable, afebrile, without pain complaints and with a now mostly negative review of systems except for nausea and one episode of emesis before presentation. ED workup was notable for leukocytosis to 23, with >80% PMNS, Hgb 13.4, platelets 251, na 140, K 5.5, Cr 1.52, AST 50, ALT 31, T bili 0.61, UA with 1+ bacteria and trace leuk esterase while CT A/P showed a L anterior abdominal wall hernia with a loop of colon with the colon distal to that essentially collapsed with mild to moderate dilatation of the colon within the hernia and proximally and therefore some degree of colonic obstruction could not be excluded. Surgery was consulted by the ED and recommended admission to medicine at least for observation with surgery as consultants. He was placed on empiric ertapenem and given gentle fluids and placed on clear liquid diet that he tolerated without complications. His leukocytosis improved tremendously by d ay 2 AM labs and his ostomy had baseline output, bowel sounds were normoactive and abdominal exam was benign. He was advanced to a regular diet and tolerated it well and surgery signed off. He is now being discharge home with PCP follow up within 7d and cardiology follow up for his missed TAVR that had been scheduled for today at [place]. DISCHARGE MEDICATIONS: Please see below. ALLERGIES: Please see below. PHYSICAL EXAMINATION ON DISCHARGE: VITAL SIGNS: Please see below. GENERAL APPEARANCE: NAD HEENT: NCAT, EOMI, MMM CARDIOVASCULAR: 3/6 pansystolic murmur, loudest at RUSB, RRR LUNGS: CTAB ABDOMEN: Normoactive sounds throughout in all 4 quadrants,L sided colostomy with green watery stool, no bloody elements, NTND EXTREMITIES: mid L ankle edema per baseline per patient, otherwise trace bilateral edema, WWP NEUROLOGICAL: CN 3-12 intact, moving all extremities, grossly nonfocal exami nation, speech clear PSYCHIATRIC: AOx3 LABORATORY DATA: Please see below. IMAGING: CT A/P: Lung bases: There are chronic bibasilar fibro atelectatic changes with superimposed mild increased density, likely representing mild degree of bibasilar atelectasis or infiltrate. There is elevation of the left hemidiaphragm. Liver: Collapsed. Gallbladder: Unremarkable. Spleen: Grossly unremarkable. Adrenals: Normal. Pancreas: Grossly unremarkable.. Kidneys: No hydronephrosis or nephrolithiasis. Ureters demonstrate no dilatation or calculus. There are multiple bilateral renal cysts again seen. Small and large bowel: Once again there is evidence of a left anterior abdominal wall colostomy. Superior to that there is a hernia of the left anterior abdominal wall which contains a loop of colon. The colon distal to this is essentially collapsed. There is [id number] dilatation of the colon within the hernia and proximally. Some degree of colonic obstruction cannot be excluded. There is evidence of mesh material of the anterior abdominal wall. Surgical sutures are seen along the bowel loops of the upper abdomen in the midline. There appears to be a small diverticulum of the posterior wall of the stomach. Free fluid: None. Abdominal aorta: No aneurysm. Adenopathy: None. Appendix: Not present. Osseous structures: There are degenerative changes of the spine without ann freddy deformity. Pelvis: No mass. No bladder calculus seen. IMPRESSION: Mild bibasilar atelectasis/infiltrate. No evidence of renal or ureteral calculus and no hydroureteronephrosis. Left anterior abdominal wall colostomy. Superior to this there is a left anterior abdominal wall hernia which contains a loop of colon, the more proximal colon is cqdj-me-[id number] dilated. Some degree of colonic obstruction cannot be excluded. Alternatively this may represent an ileus. No free air or free fluid. PROGNOSIS: Good ACTIVITY: As tolerated DIET: 2g sodium DISCHARGE PLAN: Home with PCP and cardiology follow up. DISPOSITION: Home DISCHARGE INSTRUCTIONS: PCP within 1 week. Cardiology within 5-7d ITEMS TO FOLLOWUP ON ON OUTPATIENT: Cardiology - for missed TAVR PCP - for post discharge follow up DISCHARGE CONDITION: Stable TIME SPENT ON DISCHARGE: 34 minutes. Vital Signs/I&Os Vital Signs Date Time Temp Pulse Resp B/P (MAP) Pulse Ox O2 Delivery O2 Flow Rate FiO2 12/01/20 06:00 98.0 72 18 117/68 (84) 96 Room Air I&O- Last 24 Hours up to 6 AM 12/01/20 05:59 Intake Total 1260 ml Output Total 0 ml Balance 1260 ml Laboratory Data Labs 24H Laboratory Tests 2 11/30/20 08:29: Immature Granulocyte % (Auto) 0.8, Neutrophils (%) (Auto) 88.3H, Lymphocytes (%) (Auto) 2.8L, Monocytes (%) (Auto) 6.6, Eosinophils (%) (Auto) 0.9, Basophils (%) (Auto) 0.6, Neutrophils # (Auto) 20.3H, Lymphocytes # (Auto) 0.7L, Monocytes # (Auto) 1.5H, Eosinophils # (Auto) 0.2, Basophils # (Auto) 0.1, Nucleated Red Blood Cells % (auto) 0.0, Anion Gap 4L, Glomerular Filtration Rate 46.4, Calcium Level 9.0, Total Bilirubin 0.6, Direct Bilirubin < 0.1, Aspartate Amino Transf (AST/SGOT) 50H, Alanine Aminotransferase (ALT/SGPT) 31, Alkaline Phosphatase 101, Total Protein 6.9, Albumin 3.1L, Albumin/Globulin Ratio 0.8, Lipase 79 11/30/20 08:31: Urine Color KAROLINE, Urine Appearance HAZY, Urine pH 5.0, Urine Specific [place] 1.020, Urine Protein 1+H, Urine Glucose (UA) NEGATIVE, Urine Ketones NEGATIVE, Urine Blood NEGATIVE, Urine Nitrite NEGATIVE, Urine Bilirubin NEGATIVE, Urine Urobilinogen 0.2, Urine Leukocyte Esterase TRACEH, Urine WBC (Auto) 6H, Urine RBC (Auto) 2, Urine Hyaline Casts (Auto) 9, Urine Bacteria (Auto) 1+H, Urine Squamous Epithelial Cells 0, Urine Amorphous Sediment SMALLH, Urine Mucus (Auto) MODERATE, Urine Sperm (Auto) 11/30/20 12:57: Coronavirus (COVID-19)(PCR) NEGATIVE, Influenza Type A (RT-PCR) NEGATIVE, Influenza Type B (RT-PCR) NEGATIVE, Respiratory Syncytial Virus (PCR) NEGATIVE 12/01/20 06:27: Nucleated Red Blood Cells % (auto) 0.0, Anion Gap 3L, Glomerular Filtration Rate 47.5, Calcium Level 8.5L, Magnesium Level 2.2 CBC/BMP Laboratory Tests 11/30/20 08:29 12/01/20 06:27 Microbiology Microbiology 11/30/20 Blood Culture, Received Pending 11/30/20 Blood Culture, Received Pending 11/30/20 Urine Culture, Received Pending Discharge Medications Scheduled Alprazolam (Alprazolam) 0.5 Mg Tab, 0.5 MG PO QHS, (Reported) Arformoterol Tartrate (Brovana) 15 Mcg/2 Ml Neb, 15 MCG INH BID, (Reported) MIX WITH BUDESONIDE Aspirin (Aspirin EC) 81 Mg Tab, 81 MG PO DAILY, (Reported) Atorvastatin Calcium (Atorvastatin Calcium) 40 Mg Tablet, 40 MG PO QHS, (Reported) Budesonide (Pulmicort) 0.5 Mg/2 Ml Namrata, 0.5 MG INH BID, (Reported) MIX WITH BROVANA Ciprofloxacin HCl (Cipro) 500 Mg Tablet, 1 TAB PO BID Ferrous Sulfate (Iron) 325 Mg Tablet, 65 MG PO Q2D, (Reported) Metoprolol Succinate (Metoprolol Succinate) 25 Mg Tab.er.24h, 25 MG PO DAILY, (Reported) Multivitamins (Thera M Plus Tablet) 1 Tab Tab, 1 TAB PO Q2D, (Reported) with minerals Pantoprazole Sodium (Pantoprazole Sodium) 20 Mg Tablet.dr, 20 MG PO DAILY, (Reported) Prednisone (Prednisone) 5 Mg Tab, 5 MG PO DAILY, (Reported) Sertraline Hcl (Zoloft) 50 Mg Tablet, 25 MG PO DAILY, (Reported) Scheduled PRN Ipratropium/Albuterol Sulfate (Iprat-Albut 0.5-3(2.5) mg/3 ml) 1 Deidre Deidre, 1 DEIDRE INH TID PRN for SHORTNESS OF BREATH, (Reported) Allergies Coded Allergies: Contrast Media (Verified Allergy, Intermediate, RASH - MANY YEARS AGO, 09/04/17) cephapirin (Verified Allergy, Mild, hives on torso, 07/17/19) GURPREET NASH MD Dec 01, 2020 08:31
== END 2020-12-01 13:35 | disposition home or self-care (01) | DRG 394 ==
LOC: M ED 06:34 → M ED INP 13:52 → OBSVTOIN 13:58 → ENRESERV 14:25 → M MS5PR 16:20
PROVIDERS: ADMIT Internal Medicine; ATTEND Internal Medicine
DX: K46.0 Unspecified abdominal hernia with obstruction, without gangrene (principal); N39.0 Urinary tract infection, site not specified; Z85.038 Personal history of other malignant neoplasm of large intestine; Z90.49 Acquired absence of other specified parts of digestive tract; J44.9 Chronic obstructive pulmonary disease, unspecified; N18.30 Chronic kidney disease, stage 3 unspecified; D47.2 Monoclonal gammopathy; I35.0 Nonrheumatic aortic (valve) stenosis; Z95.0 Presence of cardiac pacemaker; I44.1 Atrioventricular block, second degree; I12.9 Hypertensive chronic kidney disease with stage 1 through stage 4 chronic kidney disease, or unspecified chronic kidney disease; E78.5 Hyperlipidemia, unspecified; K21.9 Gastro-esophageal reflux disease without esophagitis; D72.829 Elevated white blood cell count, unspecified; F32.9 Major depressive disorder, single episode, unspecified; F41.9 Anxiety disorder, unspecified; G47.00 Insomnia, unspecified; I25.10 Atherosclerotic heart disease of native coronary artery without angina pectoris; Z20.822 Contact with and (suspected) exposure to COVID-19; Z79.82 Long term (current) use of aspirin; Z79.52 Long term (current) use of systemic steroids; Z79.899 Other long term (current) drug therapy; Z88.8 Allergy status to other drugs, medicaments and biological substances; Z91.041 Radiographic dye allergy status; Z93.3 Colostomy status

== ENCOUNTER → 2021-01-21 | Outpatient (CLI) | payer MEDICARE ==
[~2021-01-21] MED LIST changes: +ATOR40TA75 PO; +METO1TAB32 PO; +PANT20TA51 PO
--- NOTE | 2021-01-21 15:17 | REP ---
INDICATION: ATRIOVENTRICULAR BLOCK, COMPLETE. COMPARISON: Frontal chest, 07/28/2017. TECHNIQUE: Upright PA and lateral images of the chest were obtained. FINDINGS: The lungs are clear. There is no lobar consolidation or pleural effusion. The heart is enlarged. There is a dual lead pacemaker. There is an aortic valve prosthesis. There are surgical clips in left upper quadrant. Status post anterior interbody fusion, C5-C7. IMPRESSION: 1. No evidence of acute cardiopulmonary pathology. 2. Cardiomegaly with a pacemaker. 3. Aortic valve prosthesis. <Electronically signed by Roger Duncan > 01/21/21 [id number]
== END ==
LOC: M RAD 14:25
PROVIDERS: ATTEND Physician Assistant
DX: I44.2 Atrioventricular block, complete (principal)

== ENCOUNTER → 2021-02-03 | Outpatient (CLI) | payer MEDICARE ==
--- NOTE | 2021-02-03 11:49 | REP ---
INDICATION: BRONCHOPNEUMONIA, UNSPECIFIED ORGANISM. COMPARISON: 01/21/2021 TECHNIQUE: PA and lateral views FINDINGS: There is a patchy infiltrate at the right lung base which has developed since the previous study. There are granulomas in both lungs. The heart is not enlarged. Aortic valve and dual pacing leads are in place. There is no failure. IMPRESSION: Right lower lobe pneumonia. <Electronically signed by Varun Ferrer > 02/03/21 [id number]
== END ==
LOC: M PLAIMG 11:11
PROVIDERS: ATTEND Internal Medicine Pulmonary Disease
DX: J18.9 Pneumonia, unspecified organism (principal)

== ENCOUNTER → 2021-03-10 | Outpatient (CLI) | payer MEDICARE ==
--- NOTE | 2021-03-10 15:06 | REP ---
INDICATION: PNEUMONIA, UNSPECIFIED ORGANISM. COMPARISON: Multiple the latest 02/03/2021 TECHNIQUE: PA and lateral FINDINGS: The patchy somewhat asymmetric opacity seen in the right lower lobe on the latest prior exam has not changed significantly. No new abnormal opacities have developed. Cardiomediastinal silhouette is unchanged. The pleural angles are sharp. The osseous structures are stable and intact. IMPRESSION: Persistent right lower lobe opacity. Consider chest CT if clinically relevant. <Electronically signed by Rufus Dodd > 03/10/21 [id number]
== END ==
LOC: M PLAIMG 13:52
PROVIDERS: ATTEND Internal Medicine Pulmonary Disease
DX: J18.9 Pneumonia, unspecified organism (principal)

== ENCOUNTER → 2021-03-31 | Outpatient (CLI) | payer MEDICARE ==
[2021-03-31 14:04] LABS: CREATININE FOR GFR 1.35 MG/DL (0.70-1.30); GLOMERULAR FILTRATION RATE 53.2 (>35)
== END ==
LOC: M PLALAB 10:01
PROVIDERS: ATTEND Internal Medicine Pulmonary Disease
DX: J18.0 Bronchopneumonia, unspecified organism (principal)

== ENCOUNTER → 2021-04-05 | Outpatient (CLI) | payer MEDICARE ==
[~2021-04-05] MED LIST changes: +FAMOTIDINE INJ 20MG/2ML VIAL (S0028 PER 1) IV ONE; +ISOVUE-370 76% 100ML VIAL As Ordered ONE; +diphenhydrAMINE 50MG/ML VIAL (J1200) As Ordered ONE; +diphenhydrAMINE 50MG/ML VIAL (J1200) IV ONE
--- NOTE | 2021-04-05 13:33 | REP ---
INDICATION: BRONCHOPNEUMONIA COMPARISON: 08/15/2005 the only prior TECHNIQUE: Standard helical technique after the intravenous administration of 100 cc Isovue 370 FINDINGS: There is no mediastinal or hilar adenopathy. There are no pleural or pericardial effusions. The imaged upper abdomen is unchanged from the prior abdominal and pelvic CT of 11/30/2020. The imaged osseous structures are within normal limits for the patient's age. Evaluation of the lung el shows stable mild biapical pleuroparenchymal scarring with stable bilateral lower lung field curvilinear and nodular densities. There are new peribronchiolar densities in the infrahilar region bilateral. These are conglomerate and appear to be causing some bronchiolar narrowing. A number of the lower lobe bronchial walsh are thickened and there is evidence of debris within those bronchioles. There is an unchanged nodule in the right upper lobe. No spiculated lesions have developed. IMPRESSION: 1. Chronic lung field opacities as described above. There is no revised Fleischner society criteria on the recommendation for follow-up of such findings. Follow-up should be based on clinical assessment. 2. Chronic changes are seen involving the lower lobe bronchioles and peribronchiolar tissue. This is likely secondary to chronic inflammation. Additional follow-up is suggested. 3. Other findings as described above. <Electronically signed by Rufus Dodd > 04/05/21 [id number]
== END ==
LOC: M RAD 10:10
PROVIDERS: ATTEND Internal Medicine Pulmonary Disease
DX: J18.9 Pneumonia, unspecified organism (principal)
CPT/HCPCS: 71260; J1200; Q9967

== ENCOUNTER → 2021-04-12 | Outpatient (REF) | payer MEDICARE ==
[~2021-04-12] MED LIST changes: -FAMOTIDINE INJ 20MG/2ML VIAL (S0028 PER 1) IV ONE; -ISOVUE-370 76% 100ML VIAL As Ordered ONE; -diphenhydrAMINE 50MG/ML VIAL (J1200) As Ordered ONE; -diphenhydrAMINE 50MG/ML VIAL (J1200) IV ONE
[2021-04-14 20:15] LABS: VITAMIN B12 LEVEL 520 PG/ML
[2021-04-15 09:36] LABS: FOLATE > 24.0 NG/ML
== END ==
LOC: M LAB REF 16:42
PROVIDERS: ATTEND Internal Medicine
DX: R26.89 Other abnormalities of gait and mobility (principal)

== ENCOUNTER → 2021-04-26 | Outpatient (CLI) | payer MEDICARE ==
--- NOTE | 2021-04-26 10:37 | REPVR ---
PROCEDURE INFORMATION: Exam: CT Head Without Contrast Exam date and time: 04/26/2021 10:26 AM Age: 85 years old Clinical indication: Pain; Headache; Additional info: Abn gait and mobility TECHNIQUE: Imaging protocol: Computed tomography of the head without contrast. Radiation optimization: All CT scans at this facility use at least one of these dose optimization techniques: automated exposure control; mA and/or kV adjustment per patient size (includes targeted exams where dose is matched to clinical indication); or iterative reconstruction. COMPARISON: CT Head without contrast 06/30/2019 1:57 PM FINDINGS: Brain: There is no acute intracranial hemorrhage or mass effect. Mild diffuse volume loss is within the range of normal for patient age. There are small vessel ischemic changes within the periventricular and subcortical white matter, but the normal kenny/white matter delineation is maintained. 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 Cerebral ventricles: No ventriculomegaly. Paranasal sinuses: There is inferior frontal, ethmoid and maxillary sinus mucosal thickening. Mastoid air cells: Visualized mastoid air cells are well aerated. Bones/joints: Unremarkable. No acute fracture. Soft tissues: Unremarkable. IMPRESSION: No acute intracranial hemorrhage or edema. Electronically signed by: Janis العراقي On 04/26/2021 10:37:06 AM
== END ==
LOC: M RAD 10:14
PROVIDERS: ATTEND Internal Medicine
DX: R26.9 Unspecified abnormalities of gait and mobility (principal); G31.9 Degenerative disease of nervous system, unspecified; I67.82 Cerebral ischemia; I63.89 Other cerebral infarction

== ENCOUNTER → 2021-09-13 | Outpatient (CLI) | payer MEDICARE | LOC: M PLAIMG 13:20 | PROVIDERS: ATTEND Internal Medicine Pulmonary Disease | DX: J18.0 Bronchopneumonia, unspecified organism (principal) ==

== ENCOUNTER → 2021-09-15 | Outpatient (REF) | payer MEDICARE | LOC: M LAB REF 13:02 | PROVIDERS: ATTEND Internal Medicine Pulmonary Disease | DX: J18.0 Bronchopneumonia, unspecified organism (principal) ==

== ENCOUNTER → 2021-10-11 | Outpatient (REF) | payer MEDICARE ==
[2021-10-11 13:24] LABS: IMMUNOGLOBULIN G 607 MG/DL (681-1648)
[2021-10-12 11:28] LABS: ALBUMIN 3.46 GM/DL (3.29-5.55); ALBUMIN % 49.4 % (55.8-66.1); ALPHA-1-GLOBULIN % 5.1 % (2.9-4.9); ALPHA-1-GLOBULINS 0.36 GM/DL (0.17-0.41); ALPHA-2-GLOBULINS 0.82 GM/DL (0.42-0.99); ALPHA-2-GLOBULINS % 11.7 % (7.1-11.8); BETA-1-GLOBULINS 0.53 GM/DL (0.28-0.60); BETA-1-GLOBULINS % 7.5 % (4.7-7.2); BETA-2-GLOBULINS 1.26 GM/DL (0.19-0.55); GAMMA GLOBULIN % 8.3 % (11.1-18.8); GAMMA GLOBULINS 0.58 GM/DL (0.65-1.58)
== END ==
LOC: M LAB REF 11:54
PROVIDERS: ATTEND Internal Medicine
DX: D47.2 Monoclonal gammopathy (principal)

== ENCOUNTER → 2021-12-27 | Outpatient (CLI) | payer MEDICARE ==
[~2021-12-27] MED LIST changes: +ALBU2.5V10 INH; -ALBU83IN INH
== END ==
LOC: M PLAIMG 15:09
PROVIDERS: ATTEND Internal Medicine Pulmonary Disease
DX: J20.8 Acute bronchitis due to other specified organisms (principal)

== ENCOUNTER → 2022-04-13 | Outpatient (REF) | payer MEDICARE | LOC: M LAB REF 16:03 | PROVIDERS: ATTEND Internal Medicine | DX: D47.2 Monoclonal gammopathy (principal) ==

== ENCOUNTER → 2022-07-05 | Outpatient (CLI) | payer MEDICARE ==
[~2022-07-05] MED LIST changes: +NYST-38 SS; -NYST50SS SS
== END ==
LOC: M PLALAB 10:00
PROVIDERS: ATTEND Internal Medicine Pulmonary Disease
DX: J18.0 Bronchopneumonia, unspecified organism (principal)

== ENCOUNTER → 2022-10-11 | Outpatient (CLI) | payer MEDICARE | LOC: M PLAIMG 13:58 | PROVIDERS: ATTEND Internal Medicine Pulmonary Disease | DX: J45.40 Moderate persistent asthma, uncomplicated (principal) ==